=== PATIENT | female | born 1960 | race Caucasian/White ===

== ENCOUNTER → 2017-03-12 | Outpatient (CLI) | payer BC ==
[~2017-03-12] MED LIST: CATHETER FLUSH 10 ML SYR IV PRN; IOHEXOL 350 MG/ML 100 ML (OMNIPAQUE 350) VIAL IV ONE; NS 100 ML (IVPB) BAG IV ONE
[2017-03-12 08:36] LABS: BASOPHILS % (AUTO) 0 % (0-10); EOSINOPHILS # (AUTO) 0.1 10^3/uL (0.0-0.3); EOSINOPHILS % (AUTO) 1 % (0-10); LYMPHOCYTES # (AUTO) 1.4 X 10^3 (1.0-4.0); LYMPHOCYTES % (AUTO) 17 % (12-44); MEAN CORPUSCULAR HEMOGLOBIN 25 PG (25-34); MEAN CORPUSCULAR HGB CONC 31 G/DL (32-36); MEAN CORPUSCULAR VOLUME 79 FL (80-99); MEAN PLATELET VOLUME 9.6 FL (7.4-10.4); MONOCYTES # (AUTO) 0.6 X 10^3 (0.0-1.0); MONOCYTES % (AUTO) 7 % (0-12); NEUTROPHILS # (AUTO) 6.4 X 10^3 (1.8-7.8); NEUTROPHILS % (AUTO) 76 % (42-75); PLATELET COUNT 415 10^3/uL (130-400); RED CELL DISTRIBUTION WIDTH 15.2 % (10.0-14.5); WHITE BLOOD COUNT 8.5 10^3/uL (4.3-11.0)
[2017-03-12 08:54] LABS: ALANINE AMINOTRANSFERASE 9 U/L (0-55); ALBUMIN 3.7 GM/DL (3.2-4.5); ANION GAP 7 MMOL/L (5-14); ASPARTATE AMINO TRANSFERASE 15 U/L (5-34); BILIRUBIN,TOTAL 0.4 MG/DL (0.1-1.0); BLOOD UREA NITROGEN 13 MG/DL (7-18); BUN/CREATININE RATIO 18; CALCIUM 9.3 MG/DL (8.5-10.1); CARBON DIOXIDE 25 MMOL/L (21-32); CHLORIDE 107 MMOL/L (98-107); CHOLESTEROL 208 MG/DL (< 200); CREATININE SERUM 0.71 MG/DL (0.60-1.30); DIRECT LDL 165 MG/DL (1-129); GFR ESTIMATED > 60; GLUCOSE 103 MG/DL (70-105); POTASSIUM 4.1 MMOL/L (3.6-5.0); SODIUM 139 MMOL/L (135-145); TOTAL PROTEIN 7.9 GM/DL (6.4-8.2); TRIGLYCERIDES 121 MG/DL (<150); VLDL CHOLESTEROL 24 MG/DL (5-40)
--- NOTE | 2017-03-12 11:02 | Diagnostic Imaging Report ---
INDICATION: Palpable mass in the supraclavicular region. TECHNIQUE: Multiple Real-time grayscale images were obtained over the left supraclavicular region in various projections. FINDINGS: There is a hypoechoic mass in the supraclavicular region measuring 1.6 x 0.9 x 1.7 cm. There is a similar mass adjacent to this measuring 1 x 1 x 0.9 cm. IMPRESSION: Low-density pathologic-appearing adenopathy in the supraclavicular region, suspect for metastatic disease. Recommend clinical correlation and, if warranted, followup with biopsy. Dictated by: Dictated on workstation # [id number]
--- NOTE | 2017-03-12 11:02 | Diagnostic Imaging Report ---
PROCEDURE: CT abdomen and pelvis with contrast. TECHNIQUE: Multiple contiguous axial images were obtained through the abdomen and pelvis after administration of intravenous contrast. INDICATION: Hematuria and frequent urination and not feeling like bladder is emptying. No prior examinations are available for comparison. FINDINGS: The heart size is normal. The lung bases are clear. There is a low-density lesion in the superior medial aspect of the right lobe of the liver measuring 3.2 cm. This becomes almost completely isodense with surrounding liver on delayed imaging. Imaging findings are suggestive of, however not definitive for, hemangioma. There is no biliary ductal dilatation. The gallbladder is unremarkable. There is no biliary ductal dilatation. Spleen is normal. The pancreas and adrenal glands are unremarkable. The kidneys are unremarkable. The abdominal aorta is nonaneurysmal. There is a low-density left para-aortic mass measuring 2.7 cm. Several other periaortic lymph nodes are also seen measuring 1.8 cm and 1.5 cm. Slightly more caudal there is a left periaortic mass measuring 2 cm. There is a left common iliac node measuring 1.7 cm. There is a mass in the right pelvis measuring 4.2 cm. There is a mass in the lateral aspect of the left pelvis measuring 4.3 cm. There is a right obturator mass measuring 6.8 AP x 3.4 cm transverse. The uterus is diffusely enlarged and heterogeneous. There is no ascites. Bowel gas pattern is nonspecific. There is some minimal diverticular disease. There are mild degenerative changes in the spine. The bladder is incompletely distended; however, there is thickening of the bladder wall. The possibility of a discrete bladder mass cannot be excluded. IMPRESSION: Bilateral pelvic masses as well as left periaortic adenopathy. Findings are suspect for neoplastic process either lymphomatous or possibly metastatic. Further evaluation with biopsy is recommended. While the bladder is incompletely distended and appears to have a thickened wall, the possibility of a primary bladder carcinoma with metastatic disease is also a consideration. Diffusely enlarged and heterogeneous appearance of the uterus. While this may reflect underlying fibroids, the possibility of an endometrial carcinoma certainly cannot be excluded. Recommend clinical correlation. Low-density mass in the liver which does gradually become isodense with liver on delayed imaging, however, does not have typical peripheral enhancement pattern of a hemangioma. This may be an atypical hemangioma although metastatic disease in the liver cannot be entirely excluded. Dictated by: Dictated on workstation # [id number]
--- NOTE | 2017-03-12 11:32 | Diagnostic Imaging Report ---
INDICATION: Screening. TECHNIQUE: Screening digital mammography was performed bilaterally with a Computer Aided Detection (CAD) system. COMPARISON: 03/08/2016, 12/15/2014, 12/14/2013, and 08/31/2010. FINDINGS: There is a moderate amount of residual fibroglandular tissue bilaterally. There is no dominant mass, spiculated lesion, or suspicious calcification identified. The skin, nipples, and axillae are unremarkable. IMPRESSION: Negative exam. ACR BI-RADS Category 1: Negative. Result letter will be mailed to the patient. Note: At least 10% of breast cancer is not imaged by mammography. Dictated by: Dictated on workstation # [id number]
== END ==
LOC: RAD 08:14
PROVIDERS: ATTEND Family Medicine
DX: Z12.31 Encounter for screening mammogram for malignant neoplasm of breast (principal); R59.0 Localized enlarged lymph nodes; R19.09 Other intra-abdominal and pelvic swelling, mass and lump; N32.9 Bladder disorder, unspecified; K76.9 Liver disease, unspecified; N85.2 Hypertrophy of uterus; E66.9 Obesity, unspecified
CPT/HCPCS: 36415; 74177; 76536; 77067; 80053; 80061; 83036; 85025

== ENCOUNTER 2017-04-04 12:52 | Outpatient (CLI) | payer BC ==
[~2017-04-04] VITALS: Ht 166.4 cm; Wt 81.2 kg
[2017-04-04] MEDS ORDERED: BISO1TAB3 PO (13:52)
[2017-04-05] MEDS ORDERED: HYDR-3820 PO (12:21)
== END 2017-04-04 13:59 ==
LOC: PREOP 12:52
PROVIDERS: ATTEND Surgery
DX: Z01.818 Encounter for other preprocedural examination; R59.0 Localized enlarged lymph nodes; C67.9 Malignant neoplasm of bladder, unspecified

== ENCOUNTER 2017-04-05 09:52 | Day surgery (SDC) | payer BC ==
[~2017-04-05] VITALS: Ht 166.4 cm; Wt 81.2 kg
[~2017-04-05 09:52] MED LIST changes: +BISO1TAB3 PO; -CATHETER FLUSH 10 ML SYR IV PRN; -IOHEXOL 350 MG/ML 100 ML (OMNIPAQUE 350) VIAL IV ONE; -NS 100 ML (IVPB) BAG IV ONE
--- OUTSIDE RECORDS SUMMARY | 2017-04-05 09:57 | XMS REPORT | Continuity of Care Document ---
Author Author [employer] Organization [facility] Address Unknown Phone Unavailable Care Team Providers Care [place] Rep[employer]r Name Role Phone [employer] Unavailable Unavailable Problems Medications Allergies, Adverse Reactions, Alerts Immunizations Results Vital Signs Encounters Location Location Details Encounter Type Encounter Number Reason For Visit Attending Provider ADM Date DC Date Status Source [place] SERIES [id number] LELO FERMIN 03/19/2017 Active [facility] OUTPATIENT [id number] JONNY KANG 03/19/2017 03/19/2017 Active [facility] RAD/ONC [id number] 03/19/2017 Active [facility] EXT RECOVERY [id number] JONNY KANG 03/25/2017 03/26/2017 Active [facility] CA SERIES [id number] AMRIT KARLA 03/29/2017 03/29/2017 Active [facility] RAD/ONC [id number] 03/30/2017 Active [facility] OUTPATIENT [id number] AMRITHILARIO DE LEÓNMI 04/02/2017 Active [facility] CA SERIES [id number] BRUCE TEJADA 04/08/2017 Active [facility] OP SURGERY [id number] 04/10/2017 Active [facility] CA SERIES [id number] BRUCE TEJADA 04/11/2017 Active [facility] O AMRIT ACOSTA Active [facility] Procedures Plan of Care Social History Assessment and Plan Family History Value Date Source Advance Directives Order Name Results Value Date Source
--- OUTSIDE RECORDS SUMMARY | 2017-04-05 09:57 | XMS REPORT | Clinical Summary ---
Author Author [facility] Organization [facility] Address Unknown Phone Unavailable Care Team Providers Care Batch Still Operator Name Role Phone PCP Unavailable Source Comments Some departments are not documenting in the electronic medical record. If you do not see the information that you expected, contact Release of Information in the Health Information Management department at [phone] for further assistance in locating additional records.[facility] Allergies No Known Allergies Current Medications Prescription Sig. Disp. Refills Start End Date Status Date ACETAMINOPHEN/DIPHENHYDRA Take 1 tablet by mouth as Active MINE (TYLENOL PM PO) Needed. bisoprolol/hydrochlorothi Take 1 tablet by mouth Active azide (ZIAC) 10/6.25 mg daily. tablet ciprofloxacin (CIPRO) 500 Take 1 tablet by mouth 6 tablet 0 03/26/20 Active mg tablet twice daily. Begin taking 17 the day prior to catheter removal. oxybutynin chloride Take 1 tablet by mouth 30 tablet 0 03/26/20 Active (DITROPAN) 5 mg three times daily as 17 tabletIndications: needed. Indications: BLADDER HYPERACTIVITY BLADDER HYPERACTIVITY senna/docusate (SENNA-S) Take 1 tablet by mouth 15 tablet 0 03/26/20 Active 8.6/50 mg twice daily. Indications: 17 tabletIndications: CONSTIPATION CONSTIPATION HYDROcodone/acetaminophen Take 1 tablet by mouth 10 tablet 0 03/26/20 Active (NORCO) 5/325 mg every 4 hours as needed 17 tabletIndications: PAIN for Pain Indications: PAIN ciprofloxacin (CIPRO) 500 Take 1 tablet by mouth 2 tablet 0 03/19/20 03/26/20 Discontin mg tablet twice daily. 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 PLAN & DISCUSSION: I spent approximately 30 minutes with the patient and her today discussing the pathology report, natural history of bladder cancer, and treatment options in detail. We reviewed the following treatment options: 1. Observation. 2. Neoadjuvant chemotherapy followed by radical cystectomy. 3. Radical cystectomy followed by adjuvant chemotherapy. 4. Radiation therapy with concurrent chemotherapy. 5. Radical TURBT I explained to the patient that the best recommendation is neoadjuvant chemotherapy followed by radical cystectomy. Given that she may have metastatic disease outside of the local field, surgery after chemotherapy could be considered if the response is excellent. The next step is chemotherapy and she is amenable. I reviewed the case with Dr. Giang and he will see her today. Alin Yip MD Hematuria 03/19/2017 Overview: Bilateral pelvic masses as well as left periaortic adenopathy. Findings are suspect for neoplastic process either lymphomatous or possibly metastatic. Further evaluation with biopsy is recommended. While the bladder incompletely distended and appears to have a thickened wall, the possibility of a primary bladder carcinoma with metastatic disease is also a consideration. Diffusely enlarged and heterogeneous appearance of the uterus. While this may reflect underlying fibroids, the possibility of an endometrial carcinoma certainly cannot be excluded. Recommend clinical correlation. Low density mass in the liver which does gradually become isodense with liver on delayed imaging, however, does not have typical peripheral enhancement pattern of a hemangioma. This may be an atypical hemangioma although metastatic disease in the liver cannot be entirely excluded. L ast Assessment & Plan: Needs cystoscopy. Encounters Date Type Specialty Care Team Description 04/03/2017 Telephone Oncology Emily Giang MD Appointment 04/03/2017 Documentation Oncology Emily Giang MD 04/02/2017 [facility] Cardiology Emily Giang MD Arrived Encounter 03/29/2017 Office Visit Oncology Jonny Ogden MD Urothelial cancer ( HCC) Emily Giang MD (Primary Dx) 03/29/2017 Office Visit Urology Jonny Ogden MD Malignant neoplasm of overlapping sites of bladder (HCC) (Primary Dx) 03/26/2017 Telephone Radiation Therapy Raphael Leonard MD Appointment 03/25/2017 Hospital Jonny Ogden MD Malignant neoplasm of - Encounter overlapping sites of 03/26/2017 bladder (HCC) 03/25/2017 Procedure Pass 03/25/2017 Surgery Jonny Ogden MD CYSTOSCOPY WITH TRANSURETHRAL RESECTION BLADDER TUMOR GREATER THAN 5 CM, CYSTOGRAM, 03/24/2017 Anesthesia Akhil Tesfaye, Event 03/20/2017 Prep for Case Urology Jonny Ogden MD 03/19/2017 Hospital Radiology Jonny Ogden MD Encounter 03/19/2017 Office Visit Urology Jonny Ogden MD Malignant neoplasm of overlapping sites of bladder (HCC) (Primary Dx);Hematuria 03/19/2017 Ancillary Urology Jonny Ogden MD Hematuria Orders 03/19/2017 Procedure Pass Radiology 03/19/2017 Procedure Pass Radiology 03/14/2017 Telephone Oncology Jonny Ogden MD Navigation Assessment 03/14/2017 Ancillary Radiology Outpatient, Radiologist Diagnosis unknown Orders 03/12/2017 Hospital Radiology Encounter 03/12/2017 Hospital Radiology Encounter from Last 3 Months Family History Medical History Relation Name Comments Liver Disease Brother Coronary Artery Disease Father Cancer Mother Possible colon cancer Diabetes Other Heart Disease Other Hypertension Other Stroke Other Relation Name Status Comments Brother Alive Father Mother Other Sister Other Social History Tobacco Use Types Packs/Day Years Used Date Never Smoker Smokeless Tobacco: Never Used Alcohol Use Drinks/Week oz/Week Comments Yes Sex Assigned at Date Recorded Not on file Last Filed Vital Signs Vital Sign Reading Time Taken Blood Pressure 130/66 04/02/2017 10:37 AM CDT Pulse 62 03/29/2017 9:45 AM CDT Temperature 36.7 C (98 F) 03/29/2017 9:45 AM CDT Respiratory Rate 16 03/29/2017 9:45 AM CDT Oxygen Saturation 97% 03/29/2017 9:45 AM CDT Inhaled Oxygen - - Concentration Weight 82.1 kg (181 lb) 04/02/2017 10:37 AM CDT Height 165.1 cm (5' 5") 04/02/2017 10:37 AM CDT Body Mass Index 30.12 04/02/2017 10:37 AM CDT Plan of Treatment Date Type Specialty Care Team Description 04/10/2017 Hospital Radiology Emily Giang MD Canceled (Other) Encounter [address] [place] [id number] Health Maintenance Due Date Last Done Comments HEPATITIS C SCREENING 1962 PHYSICAL (COMPREHENSIVE) 1969 EXAM PERTUSSIS VACCINE 1973 TETANUS VACCINE 1979 CERVICAL CANCER SCREENING 01/18/1992 BREAST CANCER SCREENING 2002 COLORECTAL CANCER 01/18/2012 SCREENING INFLUENZA VACCINE 04/14/2017 Procedures Procedure Name Priority Date/Time Associated Diagnosis Comments ECG-SCAN 03/27/2017 Results for this 4:59 PM CDT procedure are in the results section. CYSTOSCOPY WITH 03/25/2017 Malignant neoplasm of TRANSURETHRAL RESECTION 12:45 PM CDT overlapping sites of BLADDER TUMOR GREATER bladder (HCC) THAN 5 CM, CYSTOGRAM, [place] CYSTOURETHROSCOPY Routine 03/23/2017 Hematuria Results for this 2:17 PM CDT procedure are in the results section. from Last 3 Months Results * 2-D + DOPPLER ECHOCARDIOGRAM (04/02/2017 10:37 AM) Component Value Ref Range BSA 1.94 m2 LVIDD 4.8 3.9 - 5.3 cm IVS 0.9 0.6 - 0.9 cm PW 0.9 0.6 - 0.9 cm LVIDS 3.2 cm LA volume 84.2 22 - 52 mL Sinus 3.0 2.1 - 3.5 cm LA size 4.1 2.7 - 3.8 cm AV peak velocity 1.3 m/s TDI e' 0.100 m/s TV rest pulmonary artery 26 mmHg pressure Right Ventricular Basal 4.1 2.5 - 4.1 cm Diameter Right Ventricular Mid 3.3 1.9 - 3.5 cm Diameter Right Ventricular Long 7.1 5.9 - 8.3 cm Diameter Right Atrial Area 14.9 <=18 cm2 Right Atrial Major 4.7 <=5.3 cm Dimension Right Heart Systolic 2.7 cm Mmode TAPSE MV Peak E Lior PW 0.800 m/s MV Peak A Lior 0.700 m/s FS 33.33 28 - 44 % EF 56.66 % Left Atrium Index 43.40 10 - 32 E/A ratio 1.14 E/E' ratio 8.00 ECHO EF 60 % Specimen Performing Laboratory OTHER OUTSIDE LAB Narrative 1. Normal LV size and systolic function. Estimated LV EF of 55%. 2. Normal average global longitudinal strain of -23.35% 3. Normal RV size and function. 4. Valves appear structurally unremarkable for age. Trace MR, trace TR, trace PI. 5. Normal estimated peak PA systolic pressure of 26 mmHg. 6. No obvious mass, vegetation or thrombus. 7. No pericardial effusion. No prior study available for comparison. * ECG-SCAN (03/27/2017 4:59 PM) Narrative Ordered by an unspecified provider. * CBC (03/26/2017 3:20 AM) Only the most recent of 2 results within the time period is included. Component Value Ref Range White Blood Cells 6.8 4.5 - 11.0 K/UL RBC 4.07 4.0 - 5.0 M/UL Hemoglobin 10.1 (L) 12.0 - 15.0 GM/DL Hematocrit 31.0 (L) 36 - 45 % MCV 76.1 (L) 80 - 100 FL MCH 24.9 (L) 26 - 34 PG MCHC 32.7 32.0 - 36.0 G/DL RDW 16.0 (H) 11 - 15 % Platelet Count 369 150 - 400 K/UL MPV 7.3 7 - 11 FL Specimen Performing Laboratory [facility] [address] [place] [address] * BASIC METABOLIC PANEL (03/26/2017 3:20 AM) Only the most recent of 2 results within the time period is included. Component Value Ref Range Sodium 139 137 - 147 MMOL/L Potassium 4.2 3.5 - 5.1 MMOL/L Chloride 107 98 - 110 MMOL/L CO2 26 21 - 30 MMOL/L Anion Gap 6 3 - 12 Glucose 98 70 - 100 MG/DL Blood Urea Nitrogen 8 7 - 25 MG/DL Creatinine 0.57 0.4 - 1.00 MG/DL Calcium 9.1 8.5 - 10.6 MG/DL eGFR Non >60 >60 mL/min Comment: The eGFR is not validated for use in drug dosing adjustments. Continue to use estimated creatinine clearance per dosing reference text. Please contact the Clinical Pharmacist for questions. eGFR >60 >60 mL/min Comment: The eGFR is not validated for use in drug dosing adjustments. Continue to use estimated creatinine clearance per dosing reference text. Please contact the Clinical Pharmacist for questions. Specimen Performing Laboratory [facility] [address] [place] [address] * FLUORO MOBILE IN OR (03/25/2017 2:04 PM) Specimen Performing Laboratory [facility] Narrative This order has been auto finalized and does not contain a result. * SURGICAL PATHOLOGY (03/25/2017 2:00 PM) Component Value Ref Range PATHOLOGY REPORT [facility] [email or web address] Mei Barron MD, PhD, Director of Anatomic Pathology Department of Pathology and Laboratory Medicine [facility] [place] [address] Surgical Pathology Office: [phone] SURGICAL PATHOLOGY REPORT NAME: DALY BRASWELL SURG PATH #: [id number] MR #: [id number] SPECIMEN CLASS: SR BILLING #: [id number] ALT ID #: LOCATION: [facility] DATE OF PROCEDURE: 03/25/2017 AGE: 57 SEX: F DATE RECEIVED: 03/25/2017 : 1960 TIME RECEIVED: 14:00 PHYSICIAN: JONNY OGDEN DATE OF REPORT: 03/26/2017 COPY TO: DATE OF PRINTIN03/26/2017 ################################################## ###################### Final Diagnosis: A. 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 Carcinoma invades muscularis propria. See checklist. Comment: URINARY BLADDER: Biopsy and Transurethral Resection of Bladder Tumor (TURBT) Procedure (required only for TURBT) TURBT Tumor Type Invasive carcinoma Histologic Type Urothelial (transitional cell) carcinoma with squamous differentiation Associated Epithelial Lesions (select all that apply) None identified Histologic Grade (select all that apply) Urothelial carcinoma High-grade Tumor Configuration (select all that apply) Solid/nodule Flat Adequacy of Material for Determining Muscularis Propria Invasion Muscularis propria (detrusor muscle) present Lymph-Vascular Invasion Not identified Microscopic Tumor Extension (select all that apply) Tumor invades muscularis propria (detrusor muscle) Pathologic Staging (pTNM) Primary Tumor (pT) pT2: Tumor invades muscularis propria The pathologic stage assigned here should be regarded as provisional, as it reflects only current pathologic data and does not incorporate full knowledge of the patient's clinical status and/or prior pathology. Pursuant to the Methods Study Analyst Program at the [facility] Pathology Department, selected slides from this case have been concurrently reviewed by the following pathologist: Dr. Lexie Lantigua, who agrees with the final diagnosis. Block for Biomarker Testing: [A4 ] Attestation: By this signature, I attest that I have personally formulated the final interpretation expressed in this report and that the above diagnosis is based upon my examination of the slides and/or other material indicated in this report. +++ +++ kd/03/26/2017 ################################################## ###################### Material Received: A: bladder chips History: 57-year-old female with a clinical history of malignant neoplasm of bladder Gross Description: A. bladder chips: Fixative: Formalin Labeled: "Bladder chips" Weight: 10g Dimensions: 4.0 x 4.0 x 0.7 cm. Cassettes [id number] specimen 03/25/2017 Specimen Performing Laboratory [facility] * TEST-URINE (03/25/2017 11:13 AM) Component Value Ref Range Urine-HCG NEG Specific Ignacio 1.015 Specimen Performing Laboratory Urine [facility] [address] [place] [address] * CYSTOSCOPY (03/23/2017 2:17 PM) Specimen Performing Laboratory IN CLINIC Narrative Jonny Ogden MD 03/23/20172:17 PM Surgeon:Jonny Ogden MD Preprocedure Diagnosis:hematuria. Postprocedure Diagnosis:Bladder cancer. Operative Procedure:Cystourethroscopy. Anesthesia:Viscous lidocaine jelly, 10 cc. Indications for Operative Procedure:Daly Braswell is a 57 y.o. female with history of bladder cancer. Informed consent was obtained prior to proceeding. Description of Operative Procedure:The patient was taken to the procedure room and placed in a dorsal lithotomy position.Her genitalia were prepped in sterile fashion.10 cc of viscous lidocaine jelly was instilled per the urethra.The scope was placed at the meatus and then advanced into the bladder.The urethra was without any abnormalities. The bladder was entered without difficulty.There were no bladder neck contractures. Both ureteral orifices were identified in normal size, shape, and position.There was no trabeculation of bladder wall.There was a large posterolateral mass and smaller masses seen. The patient tolerated the procedure well. Plan:TURBT * CT ABD/PELV WO/W CONTRAST (03/19/2017 10:51 AM) Specimen Performing Laboratory [facility] RESULTS Impressions CHEST: 1. Left supraclavicular adenopathy. ABDOMEN AND PELVIS: 1. Extensive bulky adenopathy involving the retroperitoneum and pelvis. Bladder wall thickening is also evident. Leading differentials would include lymphoma with secondary involvement of the urinary bladder versus primary bladder carcinoma and metastatic adenopathy. Finalized by Yossi Jenkins M.D. on 03/19/2017 1:05 PM. Dictated by Yossi Jenkins M.D. on 03/19/2017 12:[address] CHEST, ABDOMEN AND PELVIS Clinical Indication:Female, 57 years old. Bladder carcinoma. Technique: Multiple contiguous axial images were obtained through the chest, abdomen and pelvis following the uneventful administration of IV contrast material. Noncontrast as well as portal venous and delayed phase imaging was obtained through the abdomen. Post processing coronal and sagittal reconstruction images were made from the axial images. IV contrast: 100 mL Isovue 370. Bowel contrast:Water Comparison: Outside CT March 12, 2017. CHEST FINDINGS: Axilla, Mediastinum and Bria: No additional adenopathy is seen. Heart and Great Vessels: Unremarkable. Airway, Lungs and Pleura: Mild scarring is evident along the major fissure on the right and in the right lung base. No pulmonary nodules are evident. Chest Wall and Osseous Structures: No concerning osseous lesions are seen. ABDOMEN AND PELVIS FINDINGS: Liver and Biliary system: Segment 8 Central hemangioma is noted. No concerning hepatic lesions are seen. Gallbladder is normal. Spleen: Unremarkable. Adrenal Glands and Kidneys: Adrenal glands are normal. Kidneys are unremarkable. Pancreas and Retroperitoneum: Pancreas is normal. There is extensive retroperitoneal adenopathy. Residence Manager left periaortic low-density node measures 2.7 x 2.7 cm image 40 series 9. Diminished attenuation likely indicates necrosis. Multiple additional retroperitoneal lymph nodes are seen. Aorta and Major Vessels: Minimal calcification of the abdominal aorta as well as abdominal pelvic vasculature is seen. Bowel, Mesentery and Peritoneal space: Small large bowel are normal in caliber. The appendix is normal. Pelvis: Bulky adenopathy is evident within the pelvis bilaterally. Prominent right external iliac lymph node measures 3.2 x 7 cm image 79 series 14. Uterus is retroverted. There is irregular mural thickening of the bladder dome measuring 1.7 cm in thickness. Minimal free fluid is noted within the pelvis. Abdominal wall and Osseous Structures: No concerning osseous lesions are seen. Procedure Note Interface, Radiant Results - 03/19/2017 1:[address] CHEST, ABDOMEN AND PELVIS Clinical Indication: Female, 57 years old. Bladder carcinoma. Technique: Multiple contiguous axial images were obtained through the chest, abdomen and pelvis following the uneventful administration of IV contrast material. Noncontrast as well as portal venous and delayed phase imaging was obtained through the abdomen. Post processing coronal and sagittal reconstruction images were made from the axial images. IV contrast: 100 mL Isovue 370. Bowel contrast: Water Comparison: Outside CT March 12, 2017. CHEST FINDINGS: Axilla, Mediastinum and Bria: No additional adenopathy is seen. Heart and Great Vessels: Unremarkable. Airway, Lungs and Pleura: Mild scarring is evident along the major fissure on the right and in the right lung base. No pulmonary nodules are evident. Chest Wall and Osseous Structures: No concerning osseous lesions are seen. ABDOMEN AND PELVIS FINDINGS: Liver and Biliary system: Segment 8 Central hemangioma is noted. No concerning hepatic lesions are seen. Gallbladder is normal. Spleen: Unremarkable. Adrenal Glands and Kidneys: Adrenal glands are normal. Kidneys are unremarkable. Pancreas and Retroperitoneum: Pancreas is normal. There is extensive retroperitoneal adenopathy. Residence Manager left periaortic low-density node measures 2.7 x 2.7 cm image 40 series 9. Diminished attenuation likely indicates necrosis. Multiple additional retroperitoneal lymph nodes are seen. Aorta and Major Vessels: Minimal calcification of the abdominal aorta as well as abdominal pelvic vasculature is seen. Bowel, Mesentery and Peritoneal space: Small large bowel are normal in caliber. The appendix is normal. Pelvis: Bulky adenopathy is evident within the pelvis bilaterally. Prominent right external iliac lymph node measures 3.2 x 7 cm image 79 series 14. Uterus is retroverted. There is irregular mural thickening of the bladder dome measuring 1.7 cm in thickness. Minimal free fluid is noted within the pelvis. Abdominal wall and Osseous Structures: No concerning osseous lesions are seen. IMPRESSION CHEST: 1. Left supraclavicular adenopathy. ABDOMEN AND PELVIS: 1. Extensive bulky adenopathy involving the retroperitoneum and pelvis. Bladder wall thickening is also evident. Leading differentials would include lymphoma with secondary involvement of the urinary bladder versus primary bladder carcinoma and metastatic adenopathy. Finalized by Yossi Jenkins M.D. on 03/19/2017 1:05 PM. Dictated by Yossi Jenkins M.D. on 03/19/2017 12:49 PM. * CT CHEST W CONTRAST (03/19/2017 10:51 AM) Specimen Performing Laboratory [facility] RESULTS Impressions CHEST: 1. Left supraclavicular adenopathy. ABDOMEN AND PELVIS: 1. Extensive bulky adenopathy involving the retroperitoneum and pelvis. Bladder wall thickening is also evident. Leading differentials would include lymphoma with secondary involvement of the urinary bladder versus primary bladder carcinoma and metastatic adenopathy. Finalized by Yossi Jenkins M.D. on 03/19/2017 1:05 PM. Dictated by Yossi Jenkins M.D. on 03/19/2017 12:[address] CHEST, ABDOMEN AND PELVIS Clinical Indication:Female, 57 years old. Bladder carcinoma. Technique: Multiple contiguous axial images were obtained through the chest, abdomen and pelvis following the uneventful administration of IV contrast material. Noncontrast as well as portal venous and delayed phase imaging was obtained through the abdomen. Post processing coronal and sagittal reconstruction images were made from the axial images. IV contrast: 100 mL Isovue 370. Bowel contrast:Water Comparison: Outside CT March 12, 2017. CHEST FINDINGS: Axilla, Mediastinum and Bria: No additional adenopathy is seen. Heart and Great Vessels: Unremarkable. Airway, Lungs and Pleura: Mild scarring is evident along the major fissure on the right and in the right lung base. No pulmonary nodules are evident. Chest Wall and Osseous Structures: No concerning osseous lesions are seen. ABDOMEN AND PELVIS FINDINGS: Liver and Biliary system: Segment 8 Central hemangioma is noted. No concerning hepatic lesions are seen. Gallbladder is normal. Spleen: Unremarkable. Adrenal Glands and Kidneys: Adrenal glands are normal. Kidneys are unremarkable. Pancreas and Retroperitoneum: Pancreas is normal. There is extensive retroperitoneal adenopathy. Residence Manager left periaortic low-density node measures 2.7 x 2.7 cm image 40 series 9. Diminished attenuation likely indicates necrosis. Multiple additional retroperitoneal lymph nodes are seen. Aorta and Major Vessels: Minimal calcification of the abdominal aorta as well as abdominal pelvic vasculature is seen. Bowel, Mesentery and Peritoneal space: Small large bowel are normal in caliber. The appendix is normal. Pelvis: Bulky adenopathy is evident within the pelvis bilaterally. Prominent right external iliac lymph node measures 3.2 x 7 cm image 79 series 14. Uterus is retroverted. There is irregular mural thickening of the bladder dome measuring 1.7 cm in thickness. Minimal free fluid is noted within the pelvis. Abdominal wall and Osseous Structures: No concerning osseous lesions are seen. Procedure Note Interface, Radiant Results - 03/19/2017 1:[address] CHEST, ABDOMEN AND PELVIS Clinical Indication: Female, 57 years old. Bladder carcinoma. Technique: Multiple contiguous axial images were obtained through the chest, abdomen and pelvis following the uneventful administration of IV contrast material. Noncontrast as well as portal venous and delayed phase imaging was obtained through the abdomen. Post processing coronal and sagittal reconstruction images were made from the axial images. IV contrast: 100 mL Isovue 370. Bowel contrast: Water Comparison: Outside CT March 12, 2017. CHEST FINDINGS: Axilla, Mediastinum and Bria: No additional adenopathy is seen. Heart and Great Vessels: Unremarkable. Airway, Lungs and Pleura: Mild scarring is evident along the major fissure on the right and in the right lung base. No pulmonary nodules are evident. Chest Wall and Osseous Structures: No concerning osseous lesions are seen. ABDOMEN AND PELVIS FINDINGS: Liver and Biliary system: Segment 8 Central hemangioma is noted. No concerning hepatic lesions are seen. Gallbladder is normal. Spleen: Unremarkable. Adrenal Glands and Kidneys: Adrenal glands are normal. Kidneys are unremarkable. Pancreas and Retroperitoneum: Pancreas is normal. There is extensive retroperitoneal adenopathy. Residence Manager left periaortic low-density node measures 2.7 x 2.7 cm image 40 series 9. Diminished attenuation likely indicates necrosis. Multiple additional retroperitoneal lymph nodes are seen. Aorta and Major Vessels: Minimal calcification of the abdominal aorta as well as abdominal pelvic vasculature is seen. Bowel, Mesentery and Peritoneal space: Small large bowel are normal in caliber. The appendix is normal. Pelvis: Bulky adenopathy is evident within the pelvis bilaterally. Prominent right external iliac lymph node measures 3.2 x 7 cm image 79 series 14. Uterus is retroverted. There is irregular mural thickening of the bladder dome measuring 1.7 cm in thickness. Minimal free fluid is noted within the pelvis. Abdominal wall and Osseous Structures: No concerning osseous lesions are seen. IMPRESSION CHEST: 1. Left supraclavicular adenopathy. ABDOMEN AND PELVIS: 1. Extensive bulky adenopathy involving the retroperitoneum and pelvis. Bladder wall thickening is also evident. Leading differentials would include lymphoma with secondary involvement of the urinary bladder versus primary bladder carcinoma and metastatic adenopathy. Finalized by Yossi Jenkins M.D. on 03/19/2017 1:05 PM. Dictated by Yossi Jenkins M.D. on 03/19/2017 12:49 PM. * CT ABDOMEN EXTERNAL IMAGING (03/12/2017 9:15 AM) Narrative This order has been auto finalized and does not contain a result. * US NECK EXTERNAL IMAGING (03/12/2017 8:55 AM) Narrative This order has been auto finalized and does not contain a result. from Last 3 Months
--- OUTSIDE RECORDS SUMMARY | 2017-04-05 09:58 | XMS REPORT | Encounter Summary ---
Author Author [facility] Organization [facility] Address Unknown Phone Unavailable Care Team Providers Care Edge Banding Machine Offbearer Name Role Phone PCP Unavailable Encounter Details Date Type Department Care Team Description 04/03/2017 Documentation [facility] Emily Giang MD Cancer Center - WW Exam [address] [place] [address] [place] [address] [phone] Social History Tobacco Use Types Packs/Day Years Used Date Never Smoker Smokeless Tobacco: Never Used Alcohol Use Drinks/Week oz/Week Comments Yes Sex Assigned at Date Recorded Not on file as of this encounter Progress Notes * Heidy Patel, RN - 04/03/2017 11:56 AM CDT Pt has decided she would like to do chemotherapy closer to home in [facility]. Dr Giang aware. Referral and appt made with Dr Bailey 04/19/17. Records faxed to [phone]. Pt to have biopsy of LN and port placed at on 04/10. Pt verbalizes understanding and encouraged to call with questions. in this encounter Plan of Treatment Date Type Specialty Care Team Description 04/10/2017 Hospital Radiology Emily Giang MD Canceled (Other) Encounter [address] [place] [address] [phone] as of this encounter Visit Diagnoses Not on filein this encounter
--- OUTSIDE RECORDS SUMMARY | 2017-04-05 09:58 | XMS REPORT | Encounter Summary ---
Author Author [facility] Organization [facility] Address Unknown Phone Unavailable Care Team Providers Care Scaler Name Role Phone PCP Unavailable Reason for Visit * Reason Comments Appointment Encounter Details Date Type Department Care Team Description 03/26/2017 Telephone Cancer Center - Radiation Raphael Leonard MD Appointment Therapy [address] [place] [address] [place] [address] [phone] Social History Tobacco Use Types Packs/Day Years Used Date Never Smoker Smokeless Tobacco: Never Used Alcohol Use Drinks/Week oz/Week Comments Yes Sex Assigned at Date Recorded Not on file as of this encounter Plan of Treatment Date Type Specialty Care Team Description 04/10/2017 Hospital Radiology Emily Giang MD Canceled (Other) Encounter [address] [place] [address] [phone] as of this encounter Visit Diagnoses Not on filein this encounter
--- OUTSIDE RECORDS SUMMARY | 2017-04-05 09:58 | XMS REPORT | Encounter Summary ---
Author Author [facility] Organization [facility] Address Unknown Phone Unavailable Care Team Providers Care Cost Clerk Name Role Phone PCP Unavailable Reason for Visit * Reason Comments Bladder Cancer Encounter Details Date Type Department Care Team Description 03/29/2017 Office Visit [facility] Phi Ogden MD Malignant neoplasm of Physicians - Urology [address] overlapping sites of 2ND FLOOR POD A [place] [address] bladder (HCC) (Primary [address] [place] [address] Dx) OFFICE BLDG [phone] [place] [address] Social History Tobacco Use Types Packs/Day Years Used Date Never Smoker Smokeless Tobacco: Never Used Alcohol Use Drinks/Week oz/Week Comments Yes Sex Assigned at Date Recorded Not on file as of this encounter Last Filed Vital Signs Vital Sign Reading Time Taken Blood Pressure 120/56 03/29/2017 8:15 AM CDT Pulse 77 03/29/2017 8:15 AM CDT Temperature - - Respiratory Rate - - Oxygen Saturation - - Inhaled Oxygen - - Concentration Weight 82.6 kg (182 lb) 03/29/2017 8:15 AM CDT Height 165.1 cm (5' 5") 03/29/2017 8:15 AM CDT Body Mass Index 30.29 03/29/2017 8:15 AM CDT in this encounter Progress Notes * Phi Ogden MD - 03/29/2017 8:30 AM CDT Formatting of this note may be different from the original. Date of Service: 03/29/2017 Subjective: Daly Braswell is a 57 y.o. female. History of Present Illness Did well after surgery Catheter out Denies pain, hematuria Review of Systems Per hpi Objective: ACETAMINOPHEN/DIPHENHYDRAMINE (TYLENOL PM PO) Take 1 tablet by mouth as Needed. bisoprolol/hydrochlorothiazide (ZIAC) 10/6.25 mg tablet Take 1 tablet by mouth daily. ciprofloxacin (CIPRO) 500 mg tablet Take 1 tablet by mouth twice daily. Begin taking the day prior to catheter removal. HYDROcodone/acetaminophen (NORCO) 5/325 mg tablet Take 1 tablet by mouth every 4 hours as needed for Pain Indications: PAIN oxybutynin chloride (DITROPAN) 5 mg tablet Take 1 tablet by mouth three times daily as needed. Indications: BLADDER HYPERACTIVITY senna/docusate (SENNA-S) 8.6/50 mg tablet Take 1 tablet by mouth twice daily. Indications: CONSTIPATION Vitals: 03/29/17 0815 BP: 120/56 Pulse: 77 Weight: 82.6 kg (182 lb) Height: 165.1 cm (65") Body mass index is 30.29 kg/(m^2). 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 PLAN & DISCUSSION: I spent approximately 30 minutes with the patient and her today discussing the pathology report, natural history of bladder cancer , and treatment options in detail. We reviewed the following treatment options : 1. Observation. 2. Neoadjuvant chemotherapy followed by [...] Giang and he will see her today. MD Alin Burger MD in this encounter Plan of Treatment Date Type Specialty Care Team Description 04/10/2017 Hospital Radiology Emily Giang MD Canceled (Other) Encounter [address] [place] [address] [place] [address] [phone] as of this encounter Visit Diagnoses Diagnosis Malignant neoplasm of overlapping sites of bladder (HCC) - Primary Malignant neoplasm of other specified sites of bladder in this encounter
--- OUTSIDE RECORDS SUMMARY | 2017-04-05 09:58 | XMS REPORT | Encounter Summary ---
Author Author [facility] Organization [facility] Address Unknown Phone Unavailable Care Team Providers Care Color Printer Operator Name Role Phone PCP Unavailable Reason for Referral * Test Status Reason Specialty Diagnoses / Referred By Referred To Procedures Contact Contact No Auth Needed Cardiology Diagnoses Emily Giang-Ovpk Echo/Pv Urothelial MD [place] [address] cancer (HCC) [address] [employer] Phone: [phone] 2-D + DOPPLER [phone] Phone: ECHOCARDIOGRAM RI ECHO TTHRC [phone] R-T 2D W/WOM-MODE COMPL SPEC&COLR D * Test Status Reason Specialty Diagnoses / Referred By Referred To Procedures Contact Contact No Auth Needed Cardiology Diagnoses Emily Giang-Ovpk Echo[place] [address] cancer (HCC) [address] [employer] Phone: [phone] 2-D + DOPPLER [phone] Phone: ECHOCARDIOGRAM RI ECHO TTHRC [phone] R-T 2D W/WOM-MODE COMPL SPEC&COLR D Reason for Visit * Test Status Reason Specialty Diagnoses / Referred By Referred To Procedures Contact Contact No Auth Needed Cardiology Diagnoses Emily Giang-Ovpk Echo/Pv Urothelial MD [place] [address] cancer (HCC) [address] [employer] Phone: [phone] 2-D + DOPPLER [phone] Phone: ECHOCARDIOGRAM RI ECHO TTHRC [phone] R-T 2D W/WOM-MODE COMPL SPEC&COLR D Encounter Details Date Type Department Care Team Description 04/02/2017 [facility] Cardiology Emily Giang MD Arrived Encounter [id number] [place] [address] [place], [place] [id number] Social History Tobacco Use Types Packs/Day Years Used Date Never Smoker Smokeless Tobacco: Never Used Alcohol Use Drinks/Week oz/Week Comments Yes Sex Assigned at Date Recorded Not on file as of this encounter Last Filed Vital Signs Vital Sign Reading Time Taken Blood Pressure 130/66 04/02/2017 10:37 AM CDT Pulse - - Temperature - - Respiratory Rate - - Oxygen Saturation - - Inhaled Oxygen - - Concentration Weight 82.1 kg (181 lb) 04/02/2017 10:37 AM CDT Height 165.1 cm (5' 5") 04/02/2017 10:37 AM CDT Body Mass Index 30.12 04/02/2017 10:37 AM CDT in this encounter Plan of Treatment Date Type Specialty Care Team Description 04/10/2017 [facility] Radiology Emily Giang MD Canceled (Other) Encounter [address] [place], [place] [address] as of this encounter Results * 2-D + DOPPLER ECHOCARDIOGRAM (04/02/2017 [...] effusion. No prior study available for comparison. in this encounter Visit Diagnoses Diagnosis Urothelial cancer (HCC) Malignant neoplasm of other specified sites of urinary organs in this encounter
--- OUTSIDE RECORDS SUMMARY | 2017-04-05 09:58 | XMS REPORT | Encounter Summary ---
Author Author [facility] Organization [facility] Address Unknown Phone Unavailable Care Team Providers Care Box Stamper Name Role Phone PCP Unavailable Reason for Referral * Test Status Reason Specialty Diagnoses / Referred By Referred To Procedures Contact Contact No Auth Needed Cardiology Diagnoses Emily Giang Mac-Ovpk Echo/[place] [address] cancer (HCC) [address] [employer] Phone: [phone] 2-D + DOPPLER [phone] Phone: ECHOCARDIOGRAM [place] ECHO TTHRC [phone] R-T 2D W/WOM-MODE COMPL SPEC&COLR D * Radiology Services Status Reason Specialty Diagnoses / Referred By Referred To Procedures Contact Contact No Auth Needed Radiology Diagnoses Emily Giang Icc Ir Urothelial MD [place] [address] cancer (HCC) [address] [place] [address] [employer] Phone: Phone: IR CENTRAL [phone] VENOUS CATHETER Fax: [place] [facility] [phone] VAD W/SUBQ PORT AGE 5 YR/> * Radiology Services Status Reason Specialty Diagnoses / Referred By Referred To Procedures Contact Contact No Auth Needed Radiology Diagnoses Emily Giang Icc Mame Urothelial MD [place] [address] cancer (HCC) [address] [place] [address] [employer] Phone: Phone: IR PERCUTANEOUS [phone] BIOPSY Fax: [place] BX/EXC LYMPH [phone] NODE NEEDLE SUPERFICIAL Reason for Visit * Reason Comments Heme/Onc Care New Patient * Consult, Test & Treat Status Reason Specialty Diagnoses / Referred By Referred To Procedures Contact Contact New Request Specialty Oncology Diagnoses Jonny Ogden MD Services Malignant [address] neoplasm of bl[address] overlapping [place] [address] sites of bladder [place], [place] ([facility]) [address] Encounter Details Date Type Department Care Team Description 03/29/2017 Office Visit [facility] Jonny Ogdne MD Urothelial cancer (HCC) Cancer Center - WW Exam [address] (Primary Dx) [address] [place] [address] [place] [address] [phone] Emily Hernández MD [address] [address] [phone] Social History Tobacco Use Types Packs/Day Years Used Date Never Smoker Smokeless Tobacco: Never Used Alcohol Use Drinks/Week oz/Week Comments Yes Sex Assigned at Date Recorded Not on file as of this encounter Last Filed Vital Signs Vital Sign Reading Time Taken Blood Pressure 121/61 03/29/2017 9:45 AM CDT Pulse 62 03/29/2017 9:45 AM CDT Temperature 36.7 C (98 F) 03/29/2017 9:45 AM CDT Respiratory Rate 16 03/29/2017 9:45 AM CDT Oxygen Saturation 97% 03/29/2017 9:45 AM CDT Inhaled Oxygen - - Concentration Weight 82.3 kg (181 lb 6.4 oz) 03/29/2017 9:45 AM CDT Height 166.4 cm (5' 5.5") 03/29/2017 9:45 AM CDT Body Mass Index 29.73 03/29/2017 9:45 AM CDT in this encounter Instructions * Patient Instructions - Dina Lorenzo - 03/29/2017 7:20 AM CDT We understand that your time is important and want your visit to be as timely as possible. In order for your appointments to occur as closely as possible to the scheduled time, please review the following additional instructions. ? Please arrive 15 minutes prior to your first scheduled appointment time to complete the registration process. ? Bring your photo ID and insurance card with you to check in o If your first appointment is with lab (blood draw) or with your provider, check in on the second floor (Main level). o If your appointment is for lab (blood draw) only, check in on the third floor. in this encounter Progress Notes * Emily Giang MD - 03/29/2017 7:20 AM CDT Formatting of this note may be different from the original. Name: Daly Braswell : 1960 AGE: 57 y.o. DATE OF SERVICE: 03/29/2017 Heme/Onc Care and New Patient Daly Braswell is a 57 y.o. female. Reason for Visit: Bladder cancer. History of Present Illness Ms. Daly Braswell is 57 year old female. She felt a 'knot" at the base of neck and noted blood on tissue after urinating. She was seen by PCP on 03/07/2017. Scans completed. US neck showed adenopathy in supraclavicular area. CT scan abd/ pelvis noted bilateral pelvic masses as well as left periaortic adenopathy and the bladder was incompletely distended and appears to have a thickened wall, the possibility of a primary bladder carcinoma with metastatic disease is also a consideration. Referred to Urology. Seen by Dr. Ogden. TURBT done. Muscle invasive urothelial disease. Now referred to me. Past Medical History: Diagnosis Date Hypertension Past Surgical History: Procedure Laterality Date BLADDER SURGERY COLONOSCOPY [place] CYSTOURETHROSCOPY W/DEST &/RMVL TUMOR LARGE N/A 03/25/2017 CYSTOSCOPY WITH TRANSURETHRAL RESECTION BLADDER TUMOR GREATER THAN 5 CM, CYSTOGRAM, performed by Jonny Ogden MD at Main OR/Periop Family History Problem Relation Age of Onset Diabetes Other Heart Disease Other Hypertension Other Stroke Other Cancer Mother Possible colon cancer Coronary Artery Disease Father Liver Disease Brother Social History Social History Marital status: Spouse name: N/A Number of children: N/A Years of education: N/A Social History Main Topics Smoking status: Never Smoker Smokeless tobacco: Never Used Alcohol use Yes Drug use: No Sexual activity: Not Currently Partners: Female Other Topics Concern None Social History Narrative Review of Systems Constitutional: Negative. HENT: Negative. Eyes: Negative. Respiratory: Negative. Cardiovascular: Negative. Gastrointestinal: Negative. Endocrine: Negative. Musculoskeletal: Negative. Skin: Negative. Allergic/Immunologic: Negative. Neurological: Negative. Hematological: Positive for adenopathy. Psychiatric/Behavioral: Negative. Objective: ACETAMINOPHEN/DIPHENHYDRAMINE (TYLENOL PM PO) Take 1 [...] mouth twice daily. Indications: CONSTIPATION Vitals: 03/29/17 0945 BP: 121/61 Pulse: 62 Resp: 16 Temp: 36.7 C (98 F) TempSrc: Oral SpO2: 97% Weight: 82.3 kg (181 lb 6.4 oz) Height: 166.4 cm (65.5") Body mass index is 29.73 kg/(m^2). Pain Score: Zero Pain Addressed: N/A Patient Evaluated for a Clinical Trial: Patient currently in screening for a treatment clinical trial. Eastern Cooperative Oncology Group performance status is 0, Fully active, able to carry on all pre-disease performance without restriction.. Physical Exam Constitutional: She is oriented to person, place, and time. She appears well- developed and well-nourished. No distress. HENT: Head: Normocephalic. Eyes: EOM are normal. Pupils are equal, round, and reactive to light. Left eye exhibits no discharge. No scleral icterus. Neck: Normal range of motion. Neck supple. No tracheal deviation present. No thyromegaly present. Cardiovascular: Normal rate, regular rhythm and normal heart sounds. Exam reveals no friction rub. No murmur heard. Pulmonary/Chest: Effort normal and breath sounds normal. No respiratory distress. She has no wheezes. Abdominal: Soft. Bowel sounds are normal. She exhibits no distension. There is no tenderness. Musculoskeletal: Normal range of motion. She exhibits no edema. Lymphadenopathy: She has cervical adenopathy (Left supraclavicular). Neurological: She is alert and oriented to person, place, and time. No cranial nerve deficit. Coordination normal. Skin: Skin is warm and dry. No erythema. Psychiatric: She has a normal mood and affect. Her behavior is normal. Judgment and thought content normal. Results for orders placed or performed during the hospital encounter of (from the past 336 hour(s)) TEST-URINE Result Value Ref Range Urine-HCG NEG Specific [place] 1.015 SURGICAL PATHOLOGY Result Value Ref Range PATHOLOGY REPORT [facility] www.[email or web address] Mei Barron MD, PhD, Director of Anatomic Pathology Department of Pathology and Laboratory Medicine [address] [place] [address] Surgical Pathology Office: [phone] SURGICAL PATHOLOGY REPORT NAME: DALY BRASWELL SURG PATH #: [id number] MR #: [id number] SPECIMEN CLASS: SR BILLING #: [id number] ALT ID #: LOCATION: [facility] DATE OF PROCEDURE: 03/25/2017 AGE: 57 SEX: F DATE RECEIVED: 03/25/2017 : 1960 TIME RECEIVED: 14:00 PHYSICIAN: JONNY OGDEN DATE OF REPORT: 03/26/2017 COPY TO: DATE OF PRINTIN03/26/2017 ######################################################################## Final Diagnosis: A. 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 Carcinoma invades muscularis propria. See checklist. Comment: URINARY BLADDER: Biopsy and Transurethral Resection of Bladder Tumor (TURBT) Procedure (required only fo r TURBT) TURBT Tumor Type Invasive carcinoma Histologic [...] status and/or prior pathology. Pursuant to the [employer] Program at the [facility] Pathology Department, selected slides from this case [...] indicated in this report. +++ +++ kd/03/26/2017 ######################################################################## Material Received: A: bladder chips History: 57-year-old female with a clinical history of malignant neoplasm of bladder Gross Description: A. bladder chips: Fixative: Formalin Labeled: "Bladder chips" Weight: 10g Dimensions: 4.0 x 4.0 x 0.7 cm. Cassettes [id number] specimen ik/03/25/2017 CBC Result Value Ref Range White Blood Cells 7.3 4.5 - 11.0 K/UL RBC 4.26 4.0 - 5.0 M/UL Hemoglobin 10.6 (L) 12.0 - 15.0 GM/DL Hematocrit 32.4 (L) 36 - 45 % MCV 76.1 (L) 80 - 100 FL MCH 24.9 (L) 26 - 34 PG MCHC 32.7 32.0 - 36.0 G/DL RDW 15.8 (H) 11 - 15 % Platelet Count 370 150 - 400 K/UL MPV 7.4 7 - 11 FL BASIC METABOLIC PANEL Result Value Ref Range Sodium 137 137 - 147 MMOL/L Potassium 3.9 3.5 - 5.1 MMOL/L Chloride 106 98 - 110 MMOL/L CO2 25 21 - 30 MMOL/L Anion Gap 6 3 - 12 Glucose 123 (H) 70 - 100 MG/DL Blood Urea Nitrogen 11 7 - 25 MG/DL Creatinine 0.71 0.4 - 1.00 MG/DL Calcium 9.5 8.5 - 10.6 MG/DL eGFR Non >60 >60 mL/min eGFR >60 >60 mL/min CBC Result Value Ref Range White Blood Cells 6.8 [...] K/UL MPV 7.3 7 - 11 FL BASIC METABOLIC PANEL Result Value Ref Range Sodium 139 137 - [...] 10.6 MG/DL eGFR Non >60 >60 mL/min eGFR >60 >60 mL/min Path: 03/25/17. . 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 Carcinoma invades muscularis propria. See checklist. Radiology: 03/12/2017: CT SCAN ABD/PELVIC - Impression: Bilateral pelvic masses as well as left [...] in the liver cannot be entirely excluded. 03/12/2017: US NECK - Impression: Low density pathologic appearing adenopathy in the supraclavicular region, suspect for metastatic disease. Recommend clinical correlation and , if warranted, follow up biopsy. 03/19/17- [facility]. CHEST: 1. Left supraclavicular adenopathy. ABDOMEN AND PELVIS: 1. Extensive bulky adenopathy involving the retroperitoneum and pelvis. Bladder wall thickening is also evident. Leading differentials would include lymphoma with secondary involvement of the urinary bladder versus primary bladder carcinoma and metastatic adenopathy. Assessment and Plan: 1. Ms. Daly Braswell is 57 year old female. She felt a 'knot" at the base of neck. US neck showed adenopathy in supraclavicular area. CT scan abd/pelvis noted bilateral pelvic masses as well as left periaortic adenopathy and the bladder was incompletely distended and appears to have a thickened wall, the possibility of a primary bladder carcinoma with metastatic disease . TURBT done. Muscle invasive disease. Hence staged as stage IV ([id number]). 2. I discussed the diagnosis, prognosis and further options. This is stage iV disease. Too advanced to be cured. Without treatment life expectancy < 6 months. However treatment with palliative intent that means to help symptoms and modest prolongation of life. [place] based chemo is mainstay of treatment and immune therapy in second line setting in good performance patient. ddMVAC or Cameron-Cis are options. Also COXEN clinical trial is an option. I discussed toxicities in detail. She agreed. However I will get supra-clavicular nodes biopsy to rule out any seconf primary. 3. Depending on response will decide if further surgery needed or not. 4. RTC in 1 week. in this encounter Plan of Treatment Date Type Specialty Care Team Description 04/10/2017 [facility] Radiology Emily Giang MD Canceled (Other) Encounter [address] [place] [address] [phone] Name Priority Associated Diagnoses Order Schedule IR PERCUTANEOUS BIOPSY Routine Urothelial cancer (HCC) Expected: 2016 (Approximate), Expires: 03/29/2018 IR CENTRAL VENOUS CATHETER Routine Urothelial cancer (HCC) Expected: (Approximate), Expires: 03/29/2018 as of this encounter Results * 2-D [...] encounter Visit Diagnoses Diagnosis Urothelial cancer (HCC) - Primary Malignant neoplasm of other specified sites of urinary organs in this encounter
--- OUTSIDE RECORDS SUMMARY | 2017-04-05 09:58 | XMS REPORT | Encounter Summary ---
Author Author [facility] Organization [facility] Address Unknown Phone Unavailable Care Team Providers Care Construction Area Manager Name Role Phone PCP Unavailable Reason for Visit * Reason Comments Appointment Encounter Details Date Type Department Care Team Description 04/03/2017 Telephone [facility] Emily Giang MD Appointment Cancer Center - WW Exam [address] [place] [address] [place] [address] [phone] Social History Tobacco Use Types Packs/Day Years Used Date Never Smoker Smokeless Tobacco: Never Used Alcohol Use Drinks/Week oz/Week Comments Yes Sex Assigned at Date Recorded Not on file as of this encounter Plan of Treatment Date Type Specialty Care Team Description 04/10/2017 Hospital Radiology Emily Giang MD Canceled (Other) Encounter [address] [place] [address] [phone] as of this encounter Visit Diagnoses Not on filein this encounter
--- OUTSIDE RECORDS SUMMARY | 2017-04-05 09:58 | XMS REPORT | Encounter Summary ---
Author Author [facility] Organization [facility] Address Unknown Phone Unavailable Care Team Providers Care Passenger Vessel Chef Name Role Phone PCP Unavailable Reason for Visit * Auth/Cert Status Reason Specialty Diagnoses / Referred By Referred To Procedures Contact Contact Diagnoses Malignant neoplasm of overlapping sites of bladder (HCC) unknown P rocedures [place] CYSTOURETHROSCOP Y W/DEST &/RMVL TUMOR LARGE CYSTOSCOPY WITH TRANSURETHRAL RESECTION LESION BLADDER Encounter Details Date Type Department Care Team Description 03/25/2017 Hospital Main Operating Room Jonny Ogden MD Malignant neoplasm of - Encounter [address] overlapping sites of 03/26/2017 [place] [address] [place] [address] bladder (HCC) [phone] [place] [address] [phone] Social History Tobacco Use Types Packs/Day Years Used Date Never Smoker Smokeless Tobacco: Never Used Alcohol Use Drinks/Week oz/Week Comments Yes Sex Assigned at Date Recorded Not on file as of this encounter Last Filed Vital Signs Vital Sign Reading Time Taken Blood Pressure 106/40 03/26/2017 11:25 AM CDT Pulse 54 03/26/2017 11:25 AM CDT Temperature 36.8 C (98.2 F) 03/26/2017 11:25 AM CDT Respiratory Rate - - Oxygen Saturation 97% 03/26/2017 11:25 AM CDT Inhaled Oxygen - - Concentration Weight 80.9 kg (178 lb 5.6 oz) 03/25/2017 11:20 AM CDT Height 166.4 cm (5' 5.5") 03/25/2017 11:20 AM CDT Body Mass Index 29.23 03/25/2017 11:20 AM CDT in this encounter Medications at Time of Discharge Medication Sig. Disp. Refills Start Date End Date ACETAMINOPHEN/DIPHENHYDRA Take 1 tablet by mouth as MINE (TYLENOL PM PO) Needed. bisoprolol/hydrochlorothi Take 1 tablet by mouth azide (ZIAC) 10/6.25 mg daily. tablet ciprofloxacin (CIPRO) 500 Take 1 tablet by mouth 6 tablet 0 2016 mg tablet twice daily. Begin taking the day prior to catheter removal. HYDROcodone/acetaminophen Take 1 tablet by mouth 10 tablet 0 2016 (NORCO) 5/325 mg every 4 hours as needed tabletIndications: PAIN for Pain Indications: PAIN oxybutynin chloride Take 1 tablet by mouth 30 tablet 0 03/26/2017 (DITROPAN) 5 mg three times daily as tabletIndications: needed. Indications: BLADDER HYPERACTIVITY BLADDER HYPERACTIVITY senna/docusate (SENNA-S) Take 1 tablet by mouth 15 tablet 0 2016 8.6/50 mg twice daily. Indications: tabletIndications: CONSTIPATION CONSTIPATION as of this encounter Progress Notes * Adrianne Bustamante RN - 03/26/2017 12:27 PM CDT I have reviewed the notes, assessment, and/or procedures performed by Emi Mcbride RN and concur with her documentation unless otherwise noted. * Emi Mcbride RN - 03/26/2017 12:10 PM CDT Daly Braswell discharged on 03/26/2017. . Discharge instructions reviewed with patient and spouse. RN educated pt regarding catheter care at home including leg bag, overnight bag, and irrigation. Valuables returned: Personal Items / Valuables: Clothing, Eyeglasses/Contacts Where Are Valuables Stored?: all with pt's . Home medications: N/A Functional assessment at discharge complete: Yes . Pt stated she has all belongings. Supplies sent home with pt. RN removed IV. No further questions at this time. * Fabian Gunn MD - 03/26/2017 5:42 AM CDT Formatting of this note may be different from the original. ASSESSMENT: Daly Braswell is a 57 y.o. Female with history of bladder cancer, s/p TURBT on . LOS: 0 days PLAN: will discuss plan with staff surgeon - Dr. Ogden - Pain control: PO with IV breakthrough - Diet/FEN: REG - GI: bowel regimen, PPI, zofran prn - : CBI clamped this AM, will discharge with catheter, f/u Saturday in clinic - Heme/ID: afebrile. - OOB/Amb - Dispo: Discharge planning, d/c with catheter and supplies Prophylaxis Review: - DVT: SCD's, chemical ppx held due to bleeding risk with TURBT - GI: No - Catheter: Yes - Abx: No Fabian Gunn MD PGY-1 Urology Please page urology organic preparation technician with questions SUBJECTIVE: Overnight events: No acute events overnight. Pain well controlled on current regimen. Tolerating diet without nausea or emesis. OBJECTIVE: Vital Signs: Most Recent Vital Signs: Past 24 Hours BP: 119/71 (03/26 306) Temp: 36.7 C (98 F) (03/26 306) Pulse: 68 (03/26 306) Respirations: 18 PER MINUTE (03/26 306) SpO2: 97 % (03/26 306) O2 Delivery: None (Room Air) (03/26 306) Height: 166.4 cm (65.5") (03/25 1120) Weight: 80.9 kg (178 lb 5.6 oz) (03/25 1120) BP: (94-147)/(50-96) Temp: [36.6 C (97.9 F)-36.9 C (98.5 F)] Pulse: [64-77] Respirations: [10 PER MINUTE-22 PER MINUTE] SpO2: [94 %-98 %] O2 Delivery: None (Room Air) General: Alert & oriented, no acute distress Pulm: non-labored on RA CV: Regular rate Abd: Soft, appropriately tender, non-distended. Extremities: No edema, SCD's in place : 3 [address] catheter in place draining clear on slow drip CBI Labs: Hematology Chemistry Recent Labs 03/26/17 0320 WBC 6.8 HGB 10.1* PLTCT 369 Recent Labs 03/26/17 0320 NA 139 K 4.2 CL 107 CO2 26 BUN 8 CR 0.57 GFR >60 GLU 98 CA 9.1 Associated attestation - Jonny Ogdne MD - 03/26/2017 7:57 AM CDT Patient seen and examined. Pertinent radiology and laboratory reviewed. I agree with the resident's note and plan. Jonny Ogden MD * Shannon Bonilla, RT - 03/25/2017 6:45 PM CDT Formatting of this note may be different from the original. RESPIRATORY THERAPY ADULT PROTOCOL EVALUATION RESPIRATORY PROTOCOL PLAN Medications Note: If indicated by protocol, medication orders will be placed by therapist. Procedures IPPB: Place a nursing order for "IS Q1h While Awake" for any of Lung Expansion indicators PATIENT EVALUATION RESULTS Chart Review * Pulmonary Hx: No pulmonary diagnosis OR no smoking hx * Surgical Hx: Thoracic or abdominal surgery/injury (LE) * Chest X-Ray: Clear OR not available * PFT/Oxygenation: FEV1, PEFR > 80% predicted OR physically unable to perform OR Pa02 >80 RA OR Sp02 >95% RA Patient Assessment * Respiratory Pattern: Regular pattern and rate OR good chest excursion with deep breathing * Breath Sounds: Clear and able to auscultate bases posteriorly * Cough / Sputum: Strong, effective cough OR nonproductive * Mental Status: Alert, oriented, cooperative * Activity Level: Ambulatory with assistance Priority Index Total Points: 4 Points * Priority Index: 1 PRIORITY INDEX GUIDELINES* Priority Points 1 0-9 points 2 9-18 points 3 > 18 points + Pulm Dx or Home Rx *Higher points indicate higher acuity. Therapist: Shannon Bonilla, RT Date: 03/25/2017 [place] AC=Airway clearance AM=Aerosolized medication BA=[place] aerosol DB&C=Deep breathe & cough FEV1=Forced expiratory volume in first second) IC=Inspiratory capacity LE=Lung expansion MDI=Metered dose inhaler Neb=Nebulizer O2=Oxygen Oxim=Oximetry PEFR=Peak expiratory flow rate SENIOR FINANCIAL ANALYST=Rapid Response Team * Elvi Houston RN - 03/20/2017 3:01 PM CDT PAC phone triage call completed with patient who is scheduled for surgery with Dr. Ogden on 03/25/2017. Medications, allergies, medical and surgical history reviewed and updated in O2. Patient denies chest pain, pressure, palpitations, or shortness of breath. States is able to climb 2 flights of stairs without MARTINEZ. Has never had surgery in the past, no family history of malignant hypertension. Has HTN treated with bisoprolol/hydrochlorothiazide once per day. No PAC appointment indicated. Instructed to discontinue use of any vitamins, supplements or herbal remedies 2 weeks before surgery and to avoid use of NSAIDS or aspirin 1 week before surgery. May take tylenol as needed for minor discomforts. Also instructed on the day of surgery have nothing to eat or drink after midnight, may brush teeth/ tongue and rinse mouth the morning of surgery. May take bisoprolol/ hydrochlorothiazide on the day of surgery with sips of water. Take bath or shower the evening before and morning of surgery using an antibacterial soap. Sleep in clean sleepwear and linens. Do not use lotions, oils or powders after bathing, do not wear makeup, fingernail [place] islander or jewelry. Leave valuables at home. Patient verbalized understanding and denied questions. Direct number provided and patient encouraged to call clinic if any questions should arise prior to DOS. in this encounter Plan of Treatment Date Type Specialty Care Team Description 04/10/2017 [facility] Radiology Emily Giang MD Canceled (Other) Encounter [address] [address] [phone] Name Priority Associated Diagnoses Order Schedule SURGICAL PATHOLOGY Routine Malignant neoplasm of ONCE for 1 Occurrences overlapping sites of starting 03/25/2017 bladder (HCC) as of this encounter Procedures Procedure Name Priority Date/Time Associated Diagnosis Comments ECG-SCAN 03/27/2017 Results for this 4:59 PM CDT procedure are in the results section. CYSTOSCOPY WITH 03/25/2017 Malignant neoplasm of TRANSURETHRAL RESECTION 12:45 PM CDT overlapping sites of BLADDER TUMOR GREATER bladder (HCC) THAN 5 CM, CYSTOGRAM, in this encounter Results * ECG-SCAN (03/27/2017 4:59 PM) Narrative Ordered by an unspecified provider. * BASIC METABOLIC PANEL (03/26/2017 3:20 AM) Component Value Ref Range Sodium 139 137 [...] Pharmacist for questions. Specimen Performing Laboratory [facility] MAIN [facility] [address] [place] [address] * CBC (03/26/2017 3:20 AM) Component Value Ref Range White Blood Cells [...] Specimen Performing Laboratory [facility] MA[facility] [address] [place] [address] * BASIC METABOLIC PANEL (03/25/2017 3:10 PM) Component Value Ref Range Sodium 137 137 - [...] Pharmacist for questions. Specimen Performing Laboratory [facility] [address] [place] [address] * CBC (03/25/2017 3:10 PM) Component Value Ref Range White Blood Cells 7.3 [...] K/UL MPV 7.4 7 - 11 FL Specimen Performing Laboratory [facility] [address] [place] [id number] * FLUORO MOBILE IN OR (03/25/2017 2:04 PM) Specimen Performing Laboratory [facility] Narrative This order has been auto finalized and does not contain a result. * SURGICAL PATHOLOGY (03/25/2017 2:00 PM) Component Value Ref Range PATHOLOGY REPORT [facility] [email or web address] Mei Barron MD, PhD, Director of Anatomic Pathology Department of Pathology and Laboratory Medicine [address] [place] [id number] Surgical Pathology Office: [phone] SURGICAL PATHOLOGY REPORT NAME: DALY BRASWELL SURG PATH #: [id number] MR #: [id number] SPECIMEN CLASS: SR BILLING #: [id number] ALT ID #: LOCATION: [facility] DATE OF [...] status and/or prior pathology. Pursuant to the Lap Welder Program at the [facility] Pathology Department, selected slides from this case [...] material indicated in this report. +++ +++ camilo/03/26/2017 ################################################## ###################### Material Received: A: bladder chips History: 57-year-old female with a clinical history of malignant neoplasm of bladder Gross Description: A. bladder chips: Fixative: Formalin Labeled: "Bladder chips" Weight: 10g Dimensions: 4.0 x 4.0 x 0.7 cm. Cassettes [id number] specimen 03/25/2017 Specimen Performing Laboratory [facility] RESULTS * TEST-URINE (03/25/2017 11:13 AM) Component Value Ref Range Urine-HCG NEG Specific [place] 1.015 Specimen Performing Laboratory Urine [facility] [address] [place] [address] in this encounter Visit Diagnoses Diagnosis Hematuria - Primary Hematuria, unspecified Malignant neoplasm of overlapping sites of bladder (HCC) Malignant neoplasm of other specified sites of bladder in this encounter Admitting Diagnoses Diagnosis Malignant neoplasm of overlapping sites of bladder (HCC) - unknown Malignant neoplasm of other specified sites of bladder Bladder cancer (HCC) in this encounter Administered Medications Medication Order MAR Action Action Date Dose Rate Site acetaminophen (TYLENOL) tablet 650 mg Given 03/25/2017 650 mg 650 mg, Oral, EVERY 6 HOURS PRN, 17:33 CDT Starting Sat03/25/17 at 1505, Until Sat03/26/17 at 1429, Pain non-opioid: may be used alone or in combination with opioid analgesia, TOTAL ACETAMINOPHEN DOSE NOT TO EXCEED 4GM DAILY bisoprolol (ZEBETA) 10 mg, Given 03/26/2017 hydroCHLOROthiazide (HYDRODIURIL) 6.25 09:32 CDT mg per each dose Oral, DAILY, First dose on Sat03/26/17 at 0900, Until Discontinued, Hold for heart rate < 55 bpm or systolic BP < 110 hyoscyamine (ANASPAZ; NULEV; SYMAX Given 03/25/2017 0.125 mg FASTABS; HYOMAX-FT; ED-SPAZ; OSCIMIN) 15:28 CDT rapid dissolve tablet 0.125 mg 0.125 mg, Sublingual, EVERY 4 HOURS PRN, Starting Sat03/25/17 at 1456, Until Sat03/26/17 at 1429, Bladder Spasms, Spasms lactated ringers infusion Given - New 03/25/2017 1,000 mL 20 mL/hr 1,000 mL, 1,000 mL, Intravenous, at 20 Bag 11:39 CDT mL/hr, CONTINUOUS, Starting Sat03/25/17 at 1115, Until Sat03/25/17 at 1449, Pre-Op oxybutynin chloride (DITROPAN) tablet 5 Given 03/25/2017 5 mg mg 18:25 CDT 5 mg, Oral, THREE TIMES DAILY, First dose on Sat03/25/17 at 1715, Until Discontinued Given 03/26/2017 5 mg 00:21 CDT Given 03/26/2017 5 mg 09:32 CDT sodium chloride 0.9 % with KCl 20 Given - New 03/25/2017 1,000 mL 100 mL/hr mEq/L infusion Bag 15:16 CDT 1,000 mL, Intravenous, at 100 mL/hr, CONTINUOUS, Starting Sat03/25/17 at 1500, Until Sat03/26/17 at 1429 Given - New Bag 03/26/2017 100 mL/hr 00:25 CDT Given - New Bag 03/26/2017 100 mL/hr 11:15 CDT sodium chloride 0.9 % irrigation bag Given - New 03/25/2017 3,000 mL 3,000 mL Bag 15:14 CDT 3,000 mL, 3,000 mL, Irrigation, CONTINUOUS, Starting Sat03/25/17 at 1500, Until Sat03/26/17 at 1429, For continuous bladder irrigation. Please ensure there are additional bags available to keep flow continuous and uninterrupted. Thank you! Given - New Bag 03/25/2017 3,000 mL 16:22 CDT Given - New Bag 03/25/2017 3,000 mL 17:41 CDT in this encounter
--- OUTSIDE RECORDS SUMMARY | 2017-04-05 09:58 | XMS REPORT | Encounter Summary ---
Author Author [facility] Organization [facility] Address Unknown Phone Unavailable Care Team Providers Care Leather Tanner Name Role Phone PCP Unavailable Encounter Details Date Type Department Care Team Description 03/25/2017 [facility] Main Operating Room [address] [place] [address] Social History Tobacco Use Types Packs/Day Years Used Date Never Smoker Smokeless Tobacco: Never Used Alcohol Use Drinks/Week oz/Week Comments Yes Sex Assigned at Date Recorded Not on file as of this encounter Plan of Treatment Date Type Specialty Care Team Description 04/10/2017 Hospital Radiology Emily Giang MD Canceled (Other) Encounter [address] [place] [address] [phone] as of this encounter Visit Diagnoses Not on filein this encounter
--- OUTSIDE RECORDS SUMMARY | 2017-04-05 09:58 | XMS REPORT | Encounter Summary ---
Author Author [facility] Organization [facility] Address Unknown Phone Unavailable Care Team Providers Care Dance Entertainer Name Role Phone PCP Unavailable Reason for Visit * Radiology Services Status Reason Specialty Diagnoses / Referred By Referred To Procedures Contact Contact No Auth Needed Radiology Diagnoses Emily Giang [facility] [place] [address] cancer (HCC) [address] [place] [address] rocedures Phone: Phone: [place] [email or web address] [phone] VENOUS CATHETER Fax: [place] [facility] [phone] VAD W/SUBQ PORT AGE 5 YR/> Encounter Details Date Type Department Care Team Description 04/10/2017 [facility] Emily Giang MD Canceled (Other) Encounter [facility] [address] [address] [place] [address] [place] [address] [phone] Social History Tobacco Use Types Packs/Day Years Used Date Never Smoker Smokeless Tobacco: Never Used Alcohol Use Drinks/Week oz/Week Comments Yes Sex Assigned at Date Recorded Not on file as of this encounter Progress Notes * Leslie Corrales, RN - 04/10/2017 3:00 PM CDT Interventional Radiology Outpatient Scheduling Checklist 1. Procedure: Left Cervical Lymph node BX AND Portacath 2. Date of Procedure: 10/08/16 3. Arrival Time: 1400 4. Procedure Time: 1500 5. Correct Procedural Room Assignment: ICC Sono-BX, ICC Fluoro-Portacath 6. Blood Thinners Triaged and instructed per protocol: N/A 7. Order Verified: Yes 8. Patient informed regarding procedure: Yes 9. Patient instructed to have a electric mule driver: Yes 10. Patient instructed on NPO status: No solids after 8:00 am, clear liquids until 1300, NPO from 1300 until after procedure 11. Specimen needed: Y/N: Yes 12. Allergies Verified: Y/N: Yes 13. Iodine Allergy: Y/N: If yes and receiving Iodine has the patient been premedicated: Y/N: No 14. Does the patient have labs according to IR procedural policy: Y/N: Yes 15. Will the patient need to be admitted/possible admission: Y/N: NO 16. If YES to possible admission has the patient been instructed: Y/N: NA 17. Patient States Understanding: Y/N Yes 18. Pt. Denies CONCEPCION in this encounter Plan of Treatment Date Type Specialty Care Team Description 04/10/2017 [facility] Radiology Emily Giang MD Canceled (Other) Encounter [address] [address] [phone] as of this encounter Visit Diagnoses Not on filein this encounter
--- OUTSIDE RECORDS SUMMARY | 2017-04-05 09:59 | XMS REPORT | Encounter Summary ---
Author Author [facility] Organization [facility] Address Unknown Phone Unavailable Care Team Providers Care Night Time Nanny Name Role Phone PCP Unavailable Reason for Referral * Consult, Test & Treat Status Reason Specialty Diagnoses / Referred By Referred To Procedures Contact Contact New Request Specialty Oncology Diagnoses Phi Ogden MD Services Malignant [address] neoplasm of [address] overlapping [place] [address] sites of bladder [place], [place] (HCC) [address] * Radiology Services Status Reason Specialty Diagnoses / Referred By Referred To Procedures Contact Contact No Auth Needed Radiology Diagnoses Phi Ogden MD Mob Ct Hematuria [address] MED OFFICE BLDG rocedures [place] [address] ABD/PELV WO/W [place], [place] CONTRAST [phone] Phone: Fax: Reason for Visit * Reason Comments Blood in urine * Consult, Test & Treat (Routine) Status Reason Specialty Diagnoses / Referred By Referred To Procedures Contact Contact No Auth Needed Urology Diagnoses Phi Ogden MD new-bladder wall [address] thickening-hemat [place] [address] uria/ [place], [place] recs-kathey [address] [place] Phone: P [phone] rocedures NEW PATIENT Encounter Details Date Type Department Care Team Description 03/19/2017 Office Visit [facility] Phi Ogden MD Malignant neoplasm of Physicians - Urology [address] overlapping sites of 2ND FLOOR POD A [place] 3016 bladder (HCC) (Primary [address] [place] [address] Dx);Hematuria OFFICE BLDG [phone] [place] [address] Social History Tobacco Use Types Packs/Day Years Used Date Never Smoker Smokeless Tobacco: Never Used Alcohol Use Drinks/Week oz/Week Comments Yes Sex Assigned at Date Recorded Not on file as of this encounter Last Filed Vital Signs Vital Sign Reading Time Taken Blood Pressure 114/50 03/19/2017 8:09 AM CDT Pulse 65 03/19/2017 8:09 AM CDT Temperature - - Respiratory Rate - - Oxygen Saturation - - Inhaled Oxygen - - Concentration Weight 83.5 kg (184 lb) 03/19/2017 8:09 AM CDT Height 165.1 cm (5' 5") 03/19/2017 8:09 AM CDT Body Mass Index 30.62 03/19/2017 8:09 AM CDT in this encounter Instructions * Patient Instructions - Catherine Alfredo LPN - 03/19/2017 8:00 AM CDT Formatting of this note may be different from the original. [facility] Physicians - Urology Pre-Operative Instructions Surgical Procedure: Resection of bladder tumors Date of Surgery: 03-25-17 Arrival Time at the Admission Office (Main Lobby): Will call To ensure that your surgery can proceed without delay, you will be contacted by a phone triage nurse from the Preoperative Assessment [facility] (PAC) to complete this process. If you have not been contacted in (3) business days, please call . Please review the information given to you by your surgeon. You will be called by the surgery staff with your arrival time after 2:30 PM the business day prior to surgery with arrival time confirmation. If you have not heard from them, please call to confirm your arrival time. Call if calling after 4:30 PM. Do not drink alcohol within 24 hours of surgery. Please do not eat or drink anything after midnight. No gum, mints, hard candy or chewing tobacco allowed after midnight before surgery. You may brush your teeth but be sure to rinse and spit. Please shower with an over the counter antibacterial soap the evening before or the morning of surgery. If your surgery is scheduled as an outpatient, you must arrange to have someone drive you home and have someone with you 24 hours after anesthesia. For emergencies during evenings nights, weekends and holidays, contact the Urology Resident pony trimmer at [phone]. General Perioperative Medication Instructions Guidelines: Triage Nurse ? Recommended Times to STOP PRIOR TO SURGERY : 1. 14 Days: Herbal supplements, vitamins, and natural products including: Vitamin C, B Vitamins (unless complex), Vitamin D, Iron, Potassium DO NOT need to be stopped ? Black Cohosh ? Echinacea ? Fish oil ? Garlic ? Gingko biloba ? Ginseng ? Kava ? Multivitamin ? Red Yeast Rice ? PAULINA-e ? [place] ? [place] Wort ? Turmeric ? Valerian root ? Vitamin E 2. Anti-inflammatory pain medications (NSAIDs) includin days: ? Diclofenac (Voltaren) ? Indomethacin (Indocin) ? Nabumetone ? Diflunisal ? Ketoprofen ? Naproxen (Aleve) ? Etodolac ? Ketorolac (Toradol) ? Piroxicam (Feldene) ? Flurbiprofen ? Meloxicam (Mobic) 24 hours: ? Ibuprofen (Advil, Motrin) ? Do NOT Take on Day of Surgery: 1. Bisphosphonates (Osteoporosis meds) 2. Cardiac Medications 3. Oral Diabetic Medications 4. Cholesterol agents (non-statin) 5. Potassium and iron supplements 6. Prescription topical products ? Patients taking medications in the following medications classes should receive instructions from a pharmacist: 1. Anticoagulants ? Apixaban (Eliquis) ? Dabigatran (Pradaxa) ? Dalteparin (Fragmin) ? Edoxaban (Savaysa) ? Enoxaparin (Lovenox) ? Fondaparinux (Arixtra) ? Heparin ? Pentoxifylline (Trental) ? Rivaroxaban (Xarelto) ? Warfarin (Coumadin, Jantoven) 2. Antiplatelets ? Aspirin ? Aspirin/Dipyridamole (Aggrenox) ? Cilostazol (Pletal) ? Clopidogrel (Plavix) ? Dipyridamole (Persantine) ? Prasugrel (Effient) ? Ticlodipine ? Ticagrelor (Brilinta) 3. Antiretrovirals 4. Immunosuppressants 5. Insulins 6. MAO Inhibitors 7. Pulmonary Hypertension NOTE: These lists are not inclusive. Please contact the PAC Pharmacist with any questions. in this encounter Progress Notes * Phi Ogden MD - 03/19/2017 8:00 AM CDT Formatting of this note may be different from the original. Date of Service: 03/19/2017 Subjective: Daly Braswell is a 57 y.o. female. History of Present Illness 57 y/o female who felt a 'knot" at the base of [...] disease is also a consideration. Referred to [facility]. Other medical history HTN and obesity. She overall feels well and denies complaints She is anxious and concerned Past Medical History: Diagnosis Date Hypertension Past Surgical History: Procedure Laterality Date BLADDER SURGERY COLONOSCOPY Family History Problem Relation Age of Onset Diabetes Other Heart Disease Other Hypertension Other Stroke Other Social History Social History Marital status: Spouse name: N/A Number of children: N/A Years of education: N/A Social History Main Topics Smoking status: Never Smoker Smokeless tobacco: Never Used Alcohol use Yes Drug use: No Sexual activity: Not Currently Partners: Female Other Topics Concern None Social History Narrative None Review of Systems Constitutional: Negative for activity change, appetite change, chills and fever. Respiratory: Negative for cough and shortness of breath. Cardiovascular: Negative for chest pain and leg swelling. Gastrointestinal: Negative for abdominal pain, constipation and diarrhea. Genitourinary: Negative for dysuria, enuresis, flank pain, frequency and hematuria. Musculoskeletal: Negative for joint swelling. Skin: Negative for rash and wound. Neurological: Negative for syncope, weakness, light-headedness and headaches. Hematological: Negative for adenopathy. Psychiatric/Behavioral: Negative for confusion. Objective: ACETAMINOPHEN/DIPHENHYDRAMINE (TYLENOL PM PO) Take 1 tablet by mouth as Needed. bisoprolol/hydrochlorothiazide (ZIAC) 10/6.25 mg tablet Take 1 tablet by mouth daily. ciprofloxacin (CIPRO) 500 mg tablet Take 1 tablet by mouth twice daily. Vitals: 03/19/17 0809 BP: 114/50 Pulse: 65 Weight: 83.5 kg (184 lb) Height: 165.1 cm (65") Body mass index is 30.62 kg/(m^2). Physical Exam Constitutional: She appears well-developed and well-nourished. No distress. Eyes: Pupils are equal, round, and reactive to light. Neck: Neck supple. Cardiovascular: Normal rate and regular rhythm. Pulmonary/Chest: Breath sounds normal. No respiratory distress. Abdominal: Soft. She exhibits no distension and no mass. There is no tenderness. Musculoskeletal: She exhibits no edema. Skin: No erythema. Assessment and Plan: Problem Malignant Neoplasm of Overlapping Sites of Bladder (Hcc) Pt with supraclavicular adenopathy and presented to PCP She also reported gross hematuria CT shows pelvic and retroperitoneal adenopathy as well as supraclavicular adenopathy Cystoscopy shows large bladder mass Hematuria Bilateral pelvic masses as well as left [...] in the liver cannot be entirely excluded. Hematuria Needs cystoscopy. Malignant neoplasm of overlapping sites of bladder (HCC) I had a detailed discussion with the patient and her family today. She has extensive adenopathy and bladder mass making metastatic bladder cancer the most likely diagnosis. We also reviewed possibility of lymphoma or other types of cancers. We reviewed treatment of cancers. I discussed cystoscopy and transurethral resection of bladder tumor in the operating room in detail. Risks, benefits, alternatives, and logistics were discussed. Risks discussed included but not limited to infection, bleeding, injury to urethra/bladder/ureter, bladder perforation, need for open surgery/urethral catheter/ureteral stent/blood transfusion/re-operation, inability to remove tumor, heart attack, stroke, deep venous thrombosis, pulmonary embolus, and . Informed consent was obtained. MD Alin Morales MD in this encounter Plan of Treatment Date Type Specialty Care Team Description 04/10/2017 Hospital Radiology Emily Giang MD Canceled (Other) Encounter [address] [place], [place] [id number] Name Priority Associated Diagnoses Order Schedule AMB REFERRAL TO ONCOLOGY Routine Malignant neoplasm of Ordered: 2016 overlapping sites of bladder (HCC) as of this encounter Procedures Procedure Name Priority Date/Time Associated Diagnosis Comments [place] CYSTOURETHROSCOPY Routine 03/23/2017 Hematuria Results for this 2:17 PM CDT procedure are in the results section. in this encounter Results * CYSTOSCOPY (03/23/2017 2:17 PM) Specimen Performing Laboratory IN CLINIC Narrative Phi Ogden MD 03/23/20172:17 PM Surgeon:Phi Ogden MD Preprocedure Diagnosis:hematuria. Postprocedure Diagnosis:Bladder cancer. [...] is normal. There is extensive retroperitoneal adenopathy. Virtual Assistant left periaortic low-density node measures 2.7 x [...] is normal. There is extensive retroperitoneal adenopathy. Virtual Assistant left periaortic low-density node measures 2.7 x [...] Yossi Jenkins M.D. on 03/19/2017 12:49 PM. in this encounter Visit Diagnoses Diagnosis Malignant neoplasm of overlapping sites of bladder (HCC) - Primary Malignant neoplasm of other specified sites of bladder Hematuria Hematuria, unspecified in this encounter
--- OUTSIDE RECORDS SUMMARY | 2017-04-05 09:59 | XMS REPORT | Encounter Summary ---
Author Author [facility] Organization [facility] Address Unknown Phone Unavailable Care Team Providers Care Wardrobe Attendant Name Role Phone PCP Unavailable Reason for Visit * Reason Comments Navigation Assessment Encounter Details Date Type Department Care Team Description 03/14/2017 Telephone [facility] Phi Ogden MD Navigation Assessment [facility] Exam [address] [place] [address] [place] [address] [phone] Social History Tobacco Use Types Packs/Day Years Used Date Never Assessed Sex Assigned at Date Recorded Not on file as of this encounter Plan of Treatment Date Type Specialty Care Team Description 04/10/2017 Hospital Radiology Emily Giang MD Canceled (Other) Encounter [address] [place] [address] [phone] as of this encounter Visit Diagnoses Not on filein this encounter
--- OUTSIDE RECORDS SUMMARY | 2017-04-05 09:59 | XMS REPORT | Encounter Summary ---
Author Author [facility] Organization [facility] Address Unknown Phone Unavailable Care Team Providers Care Electric Operator Name Role Phone PCP Unavailable Reason for Referral * Radiology Services Status Reason Specialty Diagnoses / Referred By Referred To Procedures Contact Contact New Request Radiology Diagnoses Phi Ogden MD Hematuria [address] [place]cedures [place] [address] CHE[address] [place], [place] CONTR[place] [address] CT CHEST WO/W Phone: CONTRAST [phone] Encounter Details Date Type Department Care Team Description 03/19/2017 Ancillary [facility] Phi Ogden MD Hematuria Orders Physicians - Urology [address] 2ND FLOOR POD A [place] [address] [place] [address] OFFICE BLDG [phone] [place] [address] Social History Tobacco Use Types Packs/Day Years Used Date Never Smoker Smokeless Tobacco: Never Used Alcohol Use Drinks/Week oz/Week Comments Yes Sex Assigned at Date Recorded Not on file as of this encounter Plan of Treatment Date Type Specialty Care Team Description 04/10/2017 Hospital Radiology Emily Giang MD Canceled (Other) Encounter [address] [place], [place] [id number] as of this encounter Results * CT CHEST W CONTRAST (03/19/2017 10:51 [...] is normal. There is extensive retroperitoneal adenopathy. Timber Appraiser left periaortic low-density node measures 2.7 x [...] is normal. There is extensive retroperitoneal adenopathy. Timber Appraiser left periaortic low-density node measures 2.7 x [...] PM. in this encounter Visit Diagnoses Diagnosis Hematuria Hematuria, unspecified in this encounter
--- OUTSIDE RECORDS SUMMARY | 2017-04-05 09:59 | XMS REPORT | Encounter Summary ---
Author Author [facility] Organization [facility] Address Unknown Phone Unavailable Care Team Providers Care Pack Out Operator Name Role Phone PCP Unavailable Encounter Details Date Type Department Care Team Description 03/14/2017 Ancillary Rad Outpatient, Radiologist Diagnosis unknown Orders [address] [place] [address] Social History Tobacco Use Types Packs/Day Years Used Date Never Assessed Sex Assigned at Date Recorded Not on file as of this encounter Plan of Treatment Date Type Specialty Care Team Description 04/10/2017 Hospital Radiology Emily Giang MD Canceled (Other) Encounter [address] [address] [phone] as of this encounter Results * CT ABDOMEN EXTERNAL IMAGING (03/12/2017 9:15 AM) Narrative This order has been auto finalized and does not contain a result. * US NECK EXTERNAL IMAGING (03/12/2017 8:55 AM) Narrative This order has been auto finalized and does not contain a result. in this encounter Visit Diagnoses Diagnosis Diagnosis unknown Other unknown and unspecified cause of morbidity or mortality in this encounter
--- OUTSIDE RECORDS SUMMARY | 2017-04-05 09:59 | XMS REPORT | Encounter Summary ---
Author Author [facility] Organization [facility] Address Unknown Phone Unavailable Care Team Providers Care Bridges Supervisor Name Role Phone PCP Unavailable Encounter Details Date Type Department Care Team Description 03/19/2017 Procedure Pass [facility] Radiology [address] [facility] MED OFFICE BLDG [address]ND [place] [address] Social History Tobacco Use Types Packs/Day Years Used Date Never Smoker Smokeless Tobacco: Never Used Alcohol Use Drinks/Week oz/Week Comments Yes Sex Assigned at Date Recorded Not on file as of this encounter Plan of Treatment Date Type Specialty Care Team Description 04/10/2017 Hospital Radiology Emily Giang MD Canceled (Other) Encounter [address] [place] [address] [phone] as of this encounter Visit Diagnoses Not on filein this encounter
--- OUTSIDE RECORDS SUMMARY | 2017-04-05 09:59 | XMS REPORT | Encounter Summary ---
Author Author [facility] Organization [facility] Address Unknown Phone Unavailable Care Team Providers Care Rag Willow Operator Name Role Phone PCP Unavailable Encounter Details Date Type Department Care Team Description 03/12/2017 Hospital [facility] Encounter Hospital Radiology [address] [place] [address] Social History Tobacco Use Types Packs/Day Years Used Date Never Assessed Sex Assigned at Date Recorded Not on file as of this encounter Plan of Treatment Date Type Specialty Care Team Description 04/10/2017 [facility] Radiology Emily Giang MD Canceled (Other) Encounter [address] [place] [address] [phone] as of this encounter Results * CT ABDOMEN EXTERNAL IMAGING (03/12/2017 9:15 AM) Narrative This order has been auto finalized and does not contain a result. in this encounter Visit Diagnoses Diagnosis Diagnosis unknown Other unknown and unspecified cause of morbidity or mortality in this encounter
--- OUTSIDE RECORDS SUMMARY | 2017-04-05 09:59 | XMS REPORT | Encounter Summary ---
Author Author [facility] Organization [facility] Address Unknown Phone Unavailable Care Team Providers Care Soils Engineer Name Role Phone PCP Unavailable Reason for Visit * Auth/Cert Status Reason Specialty Diagnoses / Referred By Referred To Procedures Contact Contact Diagnoses Malignant neoplasm of overlapping sites of bladder (HCC) unknown P rocedures AR CYSTOURETHROSCOP Y W/DEST &/RMVL TUMOR LARGE CYSTOSCOPY WITH TRANSURETHRAL RESECTION LESION BLADDER Encounter Details Date Type Department Care Team Description 03/25/2017 Surgery Main Operating Room Jonny Ogden MD CYSTOSCOPY WITH [address] [address] [address] BLADDER TUMOR GREATER [phone] [place] [address] THAN 5 CM, CYSTOGRAM, Social History Tobacco Use Types Packs/Day Years [...] Gunn MD PGY-1 Urology Please page urology divisional merchandising manager with questions SUBJECTIVE: Overnight events: No acute [...] 98 CA 9.1 Associated attestation - Jonny Ogden MD - 03/26/2017 7:57 AM CDT Patient [...] Date: 03/25/2017 [place] AC=Airway clearance AM=Aerosolized medication BA=[place] aerosol DB&C=Deep breathe & cough FEV1=Forced expiratory volume in first second) IC=Inspiratory capacity LE=Lung expansion MDI=Metered dose inhaler Neb=Nebulizer O2=Oxygen Oxim=Oximetry PEFR=Peak expiratory flow rate MAINTENANCE MANAGER=Rapid Response Team * Elvi Houston RN - [...] after bathing, do not wear makeup, fingernail danish or jewelry. Leave valuables at home. Patient verbalized understanding and denied questions. Direct number provided and patient encouraged to call clinic if any questions should arise prior to DOS. in this encounter Plan of Treatment Date Type Specialty Care Team Description 04/10/2017 [facility] Radiology Emily Giang MD Canceled (Other) Encounter [address] [address] [phone] Name Priority Associated Diagnoses Order Schedule SURGICAL [...] Specimen Performing Laboratory Blood MAIN LAB [address] [place] [address] * CBC (03/26/2017 3:20 AM) Component Value [...] Specimen Performing Laboratory Blood MAIN LAB [address] [place] [address] * BASIC METABOLIC PANEL (03/25/2017 3:10 PM) [...] Specimen Performing Laboratory Blood MAIN LAB [address] [place] [address] * CBC (03/25/2017 3:10 PM) Component Value [...] [place] Specimen Performing Laboratory Blood MAIN LAB [address] [place] [id number] * FLUORO MOBILE IN OR (03/25/2017 2:04 PM) Specimen Performing Laboratory [facility] Narrative This order has been auto finalized and does not contain a result. * SURGICAL PATHOLOGY (03/25/2017 2:00 PM) Component Value Ref Range PATHOLOGY REPORT [facility] [email or web address] Mei Barron MD, PhD, Director of Anatomic Pathology Department of Pathology and Laboratory Medicine [address] [place] [id number] Surgical Pathology Office: [phone] SURGICAL PATHOLOGY REPORT NAME: DALY RBASWELL SURG PATH #: [id number] MR #: [id number] SPECIMEN CLASS: SR BILLING #: [id number] ALT ID #: LOCATION: [facility] DATE OF [...] status and/or prior pathology. Pursuant to the Information Security Risk Analyst Program at the [facility] Pathology Department, selected slides from this case [...] 4.0 x 4.0 x 0.7 cm. Cassettes V1-L8-Ktaeod specimen 03/25/2017 Specimen Performing Laboratory [facility] RESULTS * TEST-URINE (03/25/2017 11:13 AM) Component Value Ref Range Urine-HCG NEG Specific Canadian 1.015 Specimen Performing Laboratory Urine [facility] MA[facility] [address] [place] [address] in this encounter Visit Diagnoses Diagnosis Malignant [...] at 1115, Until Sat03/25/17 at 1449, Pre-Op opium/belladonna (B&O SUPPRETTES) Given 03/25/2017 1 Other 60/16.2 mg rectal suppository 14:07 CDT suppository INTRA-PROCEDURE MED, Starting Sat03/25/17 at 1407, Until Sat03/25/17 at 1449, Intra-op oxybutynin chloride (DITROPAN) tablet 5 Given 03/25/2017 [...] mL/hr, CONTINUOUS, Starting Sat03/25/17 at 1500, Until Tu03/26/17 at 1429 Given - New Bag 03/26/2017 100 mL/hr 00:25 CDT Given - New Bag 03/26/2017 100 mL/hr 11:15 CDT sodium chloride 0.9 % irrigation bag Given 03/25/2017 12,000 mL Other INTRA-PROCEDURE MED, Starting Mon 13:00 CDT 03/25/17 at 1300, Until Sat03/25/17 at 1449, Intra-op sodium chloride 0.9 % irrigation bag Given [...]
--- OUTSIDE RECORDS SUMMARY | 2017-04-05 09:59 | XMS REPORT | Encounter Summary ---
Author Author [facility] Organization [facility] Address Unknown Phone Unavailable Care Team Providers Care Municipal Clerk Name Role Phone PCP Unavailable Encounter Details Date Type Department Care Team Description 03/19/2017 Procedure Pass [facility] Radiology [address] [facility] MED OFFICE BLDG [address] [place] [address] Social History Tobacco Use Types Packs/Day Years Used Date Never Smoker Smokeless Tobacco: Never Used Alcohol Use Drinks/Week oz/Week Comments Yes Sex Assigned at Date Recorded Not on file as of this encounter Plan of Treatment Date Type Specialty Care Team Description 04/10/2017 Hospital Radiology Emily Giang MD Canceled (Other) Encounter [address] [place] [address] [phone] as of this encounter Visit Diagnoses Not on filein this encounter
--- OUTSIDE RECORDS SUMMARY | 2017-04-05 09:59 | XMS REPORT | Encounter Summary ---
Author Author [facility] Organization [facility] Address Unknown Phone Unavailable Care Team Providers Care Electric Gas Appliances Demonstrator Name Role Phone PCP Unavailable Reason for Referral * Radiology Services Status Reason Specialty Diagnoses / Referred By Referred To Procedures Contact Contact No Auth Needed Radiology Diagnoses Phi Ogden MD [address] [facility] [address] MED OFFICE [place] [address] ABD/PELV WO/W [place], [place] [phone] Phone: Fax: * Radiology Services Status Reason Specialty Diagnoses / Referred By Referred To Procedures Contact Contact No Auth Needed Radiology Diagnoses Phi Ogden MD Mob [facility] Hematuria [address] MED OFFICE [facility] [facility] [place] [address] ABD/PELV WO/W [place], [place] [phone] Phone: Fax: Reason for Visit * Radiology Services Status Reason Specialty Diagnoses / Referred By Referred To Procedures Contact Contact No Auth Needed Radiology Diagnoses Phi Ogden MD Mob Ct Hematuria [address] MED OFFICE [place] [address] ABD/PELV WO/W [place] [phone] Phone: Fax: Encounter Details Date Type Department Care Team Description 03/19/2017 [facility] Phi Ogden MD Encounter [facility] Radiology [address] MED [place] [address] [place] [address] [address] FLO[address] [phone] [place], [place] [id number] [phone] Social History Tobacco Use Types Packs/Day Years Used Date Never Smoker Smokeless Tobacco: Never Used Alcohol Use Drinks/Week oz/Week Comments Yes Sex Assigned at Date Recorded Not on file as of this encounter Medications at Time of Discharge Medication Sig. Disp. Refills Start Date End Date ACETAMINOPHEN/DIPHENHYDRA Take 1 tablet by mouth as MINE (TYLENOL PM PO) Needed. bisoprolol/hydrochlorothi Take 1 tablet by mouth azide (ZIAC) 10/6.25 mg daily. tablet ciprofloxacin (CIPRO) 500 Take 1 tablet by mouth 2 tablet 0 201603/26/2017 mg tablet twice daily. as of this encounter Plan of Treatment Date Type Specialty Care Team Description 04/10/2017 [facility] Radiology Emily Giang MD Canceled (Other) Encounter [address] [place] [address] [phone] as of this encounter Results * CT [...] is normal. There is extensive retroperitoneal adenopathy. Organisational Psychologist left periaortic low-density node measures 2.7 x [...] is normal. There is extensive retroperitoneal adenopathy. Organisational Psychologist left periaortic low-density node measures 2.7 x [...] M.D. on 03/19/2017 12:49 PM. * CT ABD/PELV WO/W [place] (03/19/2017 10:51 [...] is normal. There is extensive retroperitoneal adenopathy. Organisational Psychologist left periaortic low-density node measures 2.7 x [...] is normal. There is extensive retroperitoneal adenopathy. Organisational Psychologist left periaortic low-density node measures 2.7 x [...] Diagnosis Hematuria Hematuria, unspecified in this encounter Administered Medications Medication Order MAR Action Action Date Dose Rate Site iopamidol 370 (ISOVUE-370) injection 100 Given 03/19/2017 100 mL mL 10:45 CDT 100 mL, Intravenous, ONCE, 1 dose, 03/19/17 at 1045, NOTE: This is a HIGH ALERT Medication. sodium chloride PF 0.9% injection 50 mL Given 03/19/2017 50 mL 50 mL, Intravenous, ONCE, 1 dose, Tue 10:45 CDT 03/19/17 at 1045, Intra-procedure (IR) in this encounter
--- OUTSIDE RECORDS SUMMARY | 2017-04-05 09:59 | XMS REPORT | Encounter Summary ---
Author Author [facility] Organization [facility] Address Unknown Phone Unavailable Care Team Providers Care Bread Icer Name Role Phone PCP Unavailable Encounter Details Date Type Department Care Team Description 03/20/2017 Prep for Case [facility] Phi Ogden MD Physicians - Urology [address] [place] [address] [place] [address] [address] FLOOR POD A [phone] [place], [place] [id number] [phone] Social History Tobacco Use Types Packs/Day Years Used Date Never Smoker Smokeless Tobacco: Never Used Alcohol Use Drinks/Week oz/Week Comments Yes Sex Assigned at Date Recorded Not on file as of this encounter Plan of Treatment Date Type Specialty Care Team Description 04/10/2017 [facility] Radiology Emily Giang MD Canceled (Other) Encounter [address] [place], [place] [address] as of this encounter Visit Diagnoses Not on filein this encounter
--- OUTSIDE RECORDS SUMMARY | 2017-04-05 09:59 | XMS REPORT | Encounter Summary ---
Author Author [facility] Organization [facility] Address Unknown Phone Unavailable Care Team Providers Care Development Expert Name Role Phone PCP Unavailable Encounter Details Date Type Department Care Team Description 03/12/2017 Hospital [facility] Encounter Hospital Radiology [address] [place] [address] Social History Tobacco Use Types Packs/Day Years Used Date Never Assessed Sex Assigned at Date Recorded Not on file as of this encounter Plan of Treatment Date Type Specialty Care Team Description 04/10/2017 [facility] Radiology Emily Giang MD Canceled (Other) Encounter [address] [place] [address] [phone] as of this encounter Results * US NECK EXTERNAL IMAGING (03/12/2017 8:55 AM) Narrative This order has been auto finalized and does not contain a result. in this encounter Visit Diagnoses Diagnosis Diagnosis unknown Other unknown and unspecified cause of morbidity or mortality in this encounter
--- OUTSIDE RECORDS SUMMARY | 2017-04-05 09:59 | XMS REPORT | Encounter Summary ---
Author Author [facility] Organization [facility] Address Unknown Phone Unavailable Care Team Providers Care Optical Glass Wet Inspector Name Role Phone PCP Unavailable Reason for Visit * Auth/Cert Status Reason Specialty Diagnoses / Referred By Referred To Procedures Contact Contact Diagnoses Malignant neoplasm of overlapping sites of bladder (HCC) unknown P rocedures ID CYSTOURETHROSCOP Y W/DEST &/RMVL TUMOR LARGE CYSTOSCOPY WITH TRANSURETHRAL RESECTION LESION BLADDER Encounter Details Date Type Department Care Team Description 03/25/2017 Anesthesia Main Operating Room Akhil Tesfaye DO [address] [facility] [address] [place] [address] [place] [address] Social History Tobacco Use Types Packs/Day Years Used Date Never Smoker Smokeless Tobacco: Never Used Alcohol Use Drinks/Week oz/Week Comments Yes Sex Assigned at Date Recorded Not on file as of this encounter Plan of Treatment Date Type Specialty Care Team Description 04/10/2017 Hospital Radiology Emily Giang MD Canceled (Other) Encounter [address] [place], [place] [id number] as of this encounter Visit Diagnoses Not on filein this encounter Administered Medications Medication Order MAR Action Action Date Dose Rate Site ceFAZolin (ANCEF) IVP 2 g Given 03/25/2017 2 g 2 g, Intravenous, ONCE, 1 dose, Mon 12:54 CDT 03/25/17 at 1115, Give Pre-Op < 60 minutes prior to first incision. (Given in OR). IV PUSH -- RECONSTITUTE each 1 g vial by adding 10 mL 0.9% NACL dexamethasone (DECADRON) injection Given 03/25/2017 4 mg Intravenous, INTRA-PROCEDURE MED, 12:53 CDT Starting 03/25/17 at 1253, Until 03/25/17 at 1424, Nausea/Vomiting Injectable, Anesthesia Intra-op fentaNYL citrate PF (SUBLIMAZE) Given 03/25/2017 50 mcg injection 12:39 CDT INTRA-PROCEDURE MED, Starting Sat03/25/17 at 1239, Until Sat03/25/17 at 1424, Pain Injectable, Anesthesia Intra-op Given 03/25/2017 50 mcg 13:18 CDT HYDROmorphone (DILAUDID) injection Given 03/25/2017 0.4 mg INTRA-PROCEDURE MED, Starting Sat 13:24 CDT 03/25/17 at 1324, Until Sat03/25/17 at 1424, Pain Injectable, Anesthesia Intra-op Given 03/25/2017 0.4 mg 14:00 CDT lidocaine (PF) injection Given 03/25/2017 80 mg INTRA-PROCEDURE MED, Starting Sat 12:42 CDT 03/25/17 at 1242, Until Sat03/25/17 at 1424, Anesthesia Intra-op midazolam (VERSED) injection Given 03/25/2017 2 mg Intravenous, INTRA-PROCEDURE MED, 12:32 CDT Starting Sat03/25/17 at 1232, Until Sat03/25/17 at 1424, Agitation Injectable, Anxiety Injectable, Anesthesia Intra-op ondansetron (ZOFRAN) injection Given 03/25/2017 4 mg Intravenous, INTRA-PROCEDURE MED, 14:10 CDT Starting Sat03/25/17 at 1410, Until Sat03/25/17 at 1424, Nausea/Vomiting Injectable, Anesthesia Intra-op phenylephrine in NS Injection Given 03/25/2017 50 mcg Intravenous, INTRA-PROCEDURE MED, 13:26 CDT Starting Sat03/25/17 at 1326, Until Sat03/25/17 at 1424, Symptomatic Hypotension, Anesthesia Intra-op Given 03/25/2017 100 mcg 14:05 CDT propofol (DIPRIVAN) injection Given 03/25/2017 150 mg INTRA-PROCEDURE MED, Starting Sat 12:42 CDT 03/25/17 at 1242, Until Sat03/25/17 at 1424, Anesthesia Intra-op rocuronium (ZEMURON) injection Given 03/25/2017 50 mg Intravenous, INTRA-PROCEDURE MED, 12:42 CDT Starting Sat03/25/17 at 1242, Until Sat03/25/17 at 1424, Anesthesia Intra-op Given 03/25/2017 10 mg 13:32 CDT sugammadex (BRIDION) injection Given 03/25/2017 162 mg Intravenous, INTRA-PROCEDURE MED, 14:12 CDT Starting Sat03/25/17 at 1412, Until Sat03/25/17 at 1424, Anesthesia Intra-op in this encounter
--- NOTE | 2017-04-05 10:10 | Progress Note-Pre Operative ---
Pre-Operative Progress Note H&P Reviewed The H&P was reviewed, patient examined and no changes noted. Date Seen by Provider: Apr 04, 2017 Time Seen by Provider: 11:50 Date H&P Reviewed: Apr 05, 2017 Time H&P Reviewed: 10:09 Pre-Operative Diagnosis: Left supraclavicular lymphadenopathy. Metastatic carcinoma of urinary SELINA Jansen MD Apr 05, 2017 10:09 am
[2017-04-05] MEDS ORDERED: LACTATED RINGERS 1,000 ML IV PRN (10:14)
[2017-04-05] MEDS ORDERED: ONDANSETRON 4 MG/2 ML (SDV) Z0FRAN ONE (10:26)
[2017-04-05] MEDS ORDERED: proPOfol 200 MG/20 ML (DIPRIVAN) VIAL IV ONE (10:26)
[2017-04-05] MEDS ORDERED: fentaNYL INJECTION 100 MCG/2 ML AMP ONE ×2 (10:26→12:02)
[2017-04-05] MEDS ORDERED: MIDAZOLAM 2 MG/2 ML (VERSED) VIAL ONE (10:26)
[2017-04-05] MEDS ORDERED: BUP/EPI 0.5% 1:200,000 (MARCAINE) 10ML VIAL IJ ONE (10:38)
[2017-04-05] MEDS ORDERED: HEParin (CENTRAL IV FLUSH) 500 UNIT/5 ML SYR ONE (10:38)
[2017-04-05 10:41] VITALS: BP 116/53
[2017-04-05] MEDS ORDERED: ceFAZolin 1,000 MG (ANCEF) VIAL ONE (10:42)
[2017-04-05] MEDS ORDERED: NS (IVPB) 50 ML ONE (10:42)
[2017-04-05] MEDS ORDERED: ceFAZolin 1 GM/NS 50 ML IVPB IV ONE ×2 (10:45)
[2017-04-05] MEDS ORDERED: 0.9% SODIUM CHLORIDE PF INJ 20 ML VIAL ONE (11:19)
[2017-04-05] MEDS ORDERED: SEVOFLURANE (ULTANE) 15 ML INHAL SOLN ONE (11:48)
[2017-04-05] MEDS ORDERED: LACTATED RINGERS 2,000 ML IV ONE (11:48)
--- NOTE | 2017-04-05 12:20 | Operative Report ---
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 She is due to receive systemic therapy and therefore placing a PowerPort was felt to be reasonable. In addition, her oncologist requested excisional biopsy of a palpable left supraclavicular lymph node as well. Informed consent was obtained after reviewing the operative details and complications of hematoma, bacteremia and a malfunction of the catheter requiring replacement of the port itself. Description of the procedures: She was placed supine on the operative table and general anesthesia induced using a laryngeal mask airway. A gram of Ancef was administered intravenously as prophylaxis against wound infection. Sequential compression devices were placed around her legs, to minimize the risk of venous thrombosis. 1. PowerPort placement: Her neck and upper chest were prepared and draped in the usual sterile manner. Right internal jugular vein was localized using a 10 MHz ultrasound probe and a floppy guidewire introduced into the heart, under fluoroscopy. Subcutaneous pocket was created over the infra-clavicular fossa and the catheter connected to the PowerPort, brought into the neck, in a retrograde fashion. It was then advanced into the heart, under fluoroscopy, using the peel-away sheath. The catheter was then pulled back to the superior vena cava under fluoroscopy and connected to the port, that had been primed with heparinized saline. I was able to aspirate and flush the system without any difficulty The port was then secured to the pectoralis tissue using 2-0 Prolene sutures. Incision was then closed using 3-0 Vicryl for the subcutaneous tissue and 4-0 Vicryl for skin, in a subcuticular fashion. Pre-emptive analgesia was established using 0.5 percent Marcaine with epinephrine. A nonadherent dressing was then applied 2. Excision biopsy of left supraclavicular lymph node:after establishing pre- and continue analgesia with 0 point percent Marcaine and epinephrine, a transverse incision about 4 cm long was made over the left supraclavicular fossa platysma incised transversely. The scalene fat pad was identified, leading to the lymph node. The sternocleidomastoid muscle was retracted medially and the lymph node isolated, with the lymphatics being controlled with ligaclips, to prevent chyle leak. The node was sent for formal histologic examination. The incision was then closed using 3-0 Vicryl for platysma and 4- 0 Vicryl for skin, in a subcuticular fashion. She tolerated the procedures well, was extubated in the operating room and taken to the recovery room in a stable condition Findings of the Procedure see operative report Allergies and Home Medications Allergies Coded Allergies: No Known Drug Allergies (Unverified , 04/04/17) Home Medications Bisoprolol Fumarate/Hctz 1 Each Tablet, 1 EACH PO DAILY, (Reported) SELINA SNIDER MD Apr 05, 2017 12:20 pm
[2017-04-05] MEDS ORDERED: HYDR-3820 PO (12:21)
--- NOTE | 2017-04-05 12:22 | Discharge Inst-Simple/Standard ---
Discharge Inst-Standard Discharge Medications New, Converted or Re-Newed RX: RX on Chart Patient Instructions/Follow Up Plan of Care/Instructions/FU: May use the port. Band-Aids off in 48 hours. Follow-up when necessary. We shall call once pathology result becomes available Activity as Tolerated: Yes Discharge Diet: No Restrictions SELINA SNIDER MD Apr 05, 2017 12:22 pm
[2017-04-05] MEDS ORDERED: morphine INJ 10 MG/ML 1ML (SYR OR VIAL) IVP PRN (12:30)
[2017-04-05] MEDS ORDERED: morphine INJ 10 MG/ML 1ML (SYR OR VIAL) ONE (12:59)
[2017-04-05 13:30] VITALS: BP 122/68
[2017-04-05 14:00] VITALS: BP 136/77
[2017-04-05 14:40] VITALS: BP 118/76
--- NOTE | 2017-04-05 14:48 | Diagnostic Imaging Report ---
INDICATION: Intraoperative view of the chest. INDICATION: Port placement. FLUOROSCOPY TIME: 1 minute and 1 second utilized. IMPRESSION: A right internal jugular line is seen with the tip at the SVC level. Dictated by: Dictated on workstation # [id number]
== END 2017-04-05 14:45 | disposition home or self-care (01) ==
LOC: SDC 09:52
PROVIDERS: ATTEND Surgery
DX: C67.9 Malignant neoplasm of bladder, unspecified (principal); C77.0 Secondary and unspecified malignant neoplasm of lymph nodes of head, face and neck; I10 Essential (primary) hypertension; Z79.899 Other long term (current) drug therapy
CPT/HCPCS: 84703; 87081; 88305; 88341; 88342

== ENCOUNTER → 2017-06-03 | Outpatient (CLI) | payer BC ==
[~2017-06-03] MED LIST changes: +BARIUM SUSPENSION 2.1% (VANILLA SILQ) 450 ML PO ONE; +HYDR-3820 PO; +IOHEXOL 350 MG/ML 100 ML (OMNIPAQUE 350) VIAL IV ONE; +NS 100 ML (IVPB) BAG IV ONE
--- NOTE | 2017-06-03 12:08 | Diagnostic Imaging Report ---
INDICATION: Bladder malignancy. COMPARISON: I have no previous neck or chest CTs for comparison. The exam however correlated with abdominal pelvic CT dated 03/12/2017. FINDINGS: NECK: The visualized intracranial structures, orbits and sinuses appeared normal. Nasopharynx, oropharynx and hypopharynx appeared normal. No morphologically distorted, abnormally numerous nor pathologically enlarged cervical lymph nodes were found. The parotid, submandibular and thyroid glands appeared normal. The osseous structures of the neck revealed cervical spondylosis with no destructive process or acute finding. CT CHEST: Supraclavicular fossa and thoracic inlet appeared unremarkable. There was no hilar or mediastinal lymphadenopathy. The axilla appeared unremarkable. No acute or suspicious soft tissue or osseous chest wall abnormality. No suspicious pulmonary nodule or dominant lung mass. Lungs clear aside from slight dependent subsegmental basilar atelectasis. ABDOMEN AND PELVIS: Low-density but solid-appearing right lobe liver mass measures today 3.1 cm previously 3.2 cm. No new liver pathology. Periaortic adenopathy substantially improved. The largest aggregate of left periaortic nodes at the level of the lower pole of the left kidney today measures 1.5 x 0.9 cm, previously 2.8 x 2.9 cm. Below the level of the lower pole of the left kidney, left para-aortic adenopathy also shows a reduction in size, number and conspicuity. Just prior to the aortic bifurcation, node measures today 1 cm previously 2 cm also much less dense. Lymph node lateral to the proximal left common iliac previously it measured 1.7 cm and is now barely perceptible at about 0.7 cm. At that level, a retroperitoneal mass ventral to the upper iliacus muscle today is 1.3 x 1.0 cm previously 2.4 x 2.2 cm. Nodes at the level of the right common iliac bifurcation now measure maximal 11 mm previously 15 mm. Large pelvic sidewall masses along the iliac and obturator chain showed interval improvement. Largest on the right measured 2.6 x 1.9 cm previously 6.9 x 3.4 cm. Largest on the left today barely perceptible measuring a short axis thickness of 9 mm previously measuring 4.3 x 2.6 cm. No destructive pelvic osseous lesion. No ascites. No bowel, biliary or urinary tract obstruction. The adrenals negative. IMPRESSION: NECK: No evidence for cervical metastasis. CHEST: No findings felt suggestive of thoracic metastasis. ABDOMEN: Unchanged right hepatic lobe mass indeterminate. Substantial improvement in periaortic retroperitoneal adenopathy with no adverse development. PELVIS: A significant reduction in iliac and obturator chain pelvic lymphadenopathy with no adverse development. No suspicious osseous lesion. No obstructive features, ascites or fluid collection. Dictated by: Dictated on workstation # [id number]
== END ==
LOC: RAD 07:30
PROVIDERS: ATTEND Internal Medicine Hematology & Oncology
DX: C67.1 Malignant neoplasm of dome of bladder (principal); C77.0 Secondary and unspecified malignant neoplasm of lymph nodes of head, face and neck; R16.0 Hepatomegaly, not elsewhere classified
CPT/HCPCS: 70491; 71260; 74178

== ENCOUNTER 2017-07-16 10:07 | Outpatient (RCR) | payer BC ==
[2017-07-10 08:44] LABS: BASOPHILS % (AUTO) 1 % (0-10); EOSINOPHILS % (AUTO) 0 % (0-10); HEMATOCRIT 27 % (35-52); HEMOGLOBIN 8.8 G/DL (11.5-16.0); LYMPHOCYTES # (AUTO) 1.3 X 10^3 (1.0-4.0); LYMPHOCYTES % (AUTO) 20 % (12-44); MEAN CORPUSCULAR HEMOGLOBIN 27 PG (25-34); MEAN CORPUSCULAR HGB CONC 32 G/DL (32-36); MEAN CORPUSCULAR VOLUME 85 FL (80-99); MEAN PLATELET VOLUME 9.3 FL (7.4-10.4); MONOCYTES # (AUTO) 0.7 X 10^3 (0.0-1.0); MONOCYTES % (AUTO) 10 % (0-12); NEUTROPHILS # (AUTO) 4.6 X 10^3 (1.8-7.8); NEUTROPHILS % (AUTO) 69 % (42-75); PLATELET COUNT 232 10^3/uL (130-400); RED BLOOD COUNT 3.23 10^6/uL (4.35-5.85); RED CELL DISTRIBUTION WIDTH 25.2 % (10.0-14.5); WHITE BLOOD COUNT 6.6 10^3/uL (4.3-11.0)
[2017-07-10 09:07] LABS: ALANINE AMINOTRANSFERASE 12 U/L (0-55); ALBUMIN 3.7 GM/DL (3.2-4.5); ALKALINE PHOSPHATASE 74 U/L (40-136); BILIRUBIN,TOTAL 0.3 MG/DL (0.1-1.0); BUN/CREATININE RATIO 15; CALCIUM 9.2 MG/DL (8.5-10.1); CARBON DIOXIDE 24 MMOL/L (21-32); CHLORIDE 106 MMOL/L (98-107); CREATININE SERUM 0.71 MG/DL (0.60-1.30); GFR ESTIMATED > 60; GLUCOSE 103 MG/DL (70-105); MAGNESIUM 1.5 MG/DL (1.8-2.4); POTASSIUM 3.8 MMOL/L (3.6-5.0); SODIUM 141 MMOL/L (135-145); TOTAL PROTEIN 6.6 GM/DL (6.4-8.2)
[~2017-07-16] VITALS: Ht 166.4 cm; Wt 78.5 kg
[~2017-07-16 10:07] MED LIST changes: -BARIUM SUSPENSION 2.1% (VANILLA SILQ) 450 ML PO ONE; -CATHETER FLUSH 10 ML SYR IV PRN; +CISPLATIN IV SCH; +DOXORUBICIN HCL IV SCH; +FOSAPREPITANT DIMEGLUMINE 150 MG in NS (IVPB) CANCER CENTER ONLY 150 ML IV SCH; -IOHEXOL 350 MG/ML 100 ML (OMNIPAQUE 350) VIAL IV ONE; +MAGNESIUM SULFATE IV SCH; +MANNITOL IV SCH; +METHOTREXATE IV SCH; -NS 100 ML (IVPB) BAG IV ONE; +NS IV 1000 ML (CANCER CTR) IV SCH; +NS IV 500 ML (CANCER CENTER) 500 ML ONE; +NS IV SCH; +ONDANSETRON MDV (CANCER CENTER 8 MG, DEXAMETHASONE INJ (CANCER CTR) 4 MG in D5W 50 ML I... IV SCH; +PALONOSETRON 0.25 MG, DEXAMETHASONE 10 MG/NS 50 ML IVPB IV PRN; +PALONOSETRON HCL 0.25 MG, DEXAMETHASONE PF INJ (CANCER C 10 MG in D5W 50 ML IV(CANCER C... IV PRN; +PEGFILGRASTIM 6 MG/0.6ML NEULASTA SC SCH; +VINBLASTINE SULFATE IV SCH; +[UNRECOGNIZED DRUG - OTHER] IV SCH
[2017-07-16 10:38] LABS: BASOPHILS % (AUTO) 0 % (0-10); EOSINOPHILS % (AUTO) 0 % (0-10); HEMATOCRIT 26 % (35-52); HEMOGLOBIN 8.5 G/DL (11.5-16.0); LYMPHOCYTES # (AUTO) 0.6 X 10^3 (1.0-4.0); LYMPHOCYTES % (AUTO) 11 % (12-44); MEAN CORPUSCULAR HEMOGLOBIN 27 PG (25-34); MEAN CORPUSCULAR HGB CONC 32 G/DL (32-36); MEAN CORPUSCULAR VOLUME 83 FL (80-99); MEAN PLATELET VOLUME 9.1 FL (7.4-10.4); MONOCYTES # (AUTO) 0.2 X 10^3 (0.0-1.0); MONOCYTES % (AUTO) 3 % (0-12); NEUTROPHILS # (AUTO) 4.6 X 10^3 (1.8-7.8); NEUTROPHILS % (AUTO) 85 % (42-75); PLATELET COUNT 256 10^3/uL (130-400); RED BLOOD COUNT 3.14 10^6/uL (4.35-5.85); RED CELL DISTRIBUTION WIDTH 24.1 % (10.0-14.5); WHITE BLOOD COUNT 5.4 10^3/uL (4.3-11.0)
[2017-07-16 11:00] LABS: BUN/CREATININE RATIO 19; CALCIUM 9.1 MG/DL (8.5-10.1); CARBON DIOXIDE 28 MMOL/L (21-32); CHLORIDE 99 MMOL/L (98-107); CREATININE SERUM 0.64 MG/DL (0.60-1.30); GFR ESTIMATED > 60; GLUCOSE 114 MG/DL (70-105); MAGNESIUM 1.5 MG/DL (1.8-2.4); POTASSIUM 3.6 MMOL/L (3.6-5.0); SODIUM 136 MMOL/L (135-145)
[2017-07-23 09:08] LABS: BASOPHILS % (AUTO) 0 % (0-10); EOSINOPHILS % (AUTO) 0 % (0-10); HEMATOCRIT 25 % (35-52); HEMOGLOBIN 8.3 G/DL (11.5-16.0); LYMPHOCYTES # (AUTO) 1.5 X 10^3 (1.0-4.0); LYMPHOCYTES % (AUTO) 22 % (12-44); MEAN CORPUSCULAR HEMOGLOBIN 29 PG (25-34); MEAN CORPUSCULAR HGB CONC 33 G/DL (32-36); MEAN CORPUSCULAR VOLUME 87 FL (80-99); MONOCYTES % (AUTO) 15 % (0-12); NEUTROPHILS # (AUTO) 4.2 X 10^3 (1.8-7.8); NEUTROPHILS % (AUTO) 63 % (42-75); PLATELET COUNT 124 10^3/uL (130-400); RED CELL DISTRIBUTION WIDTH 25.4 % (10.0-14.5); WHITE BLOOD COUNT 6.7 10^3/uL (4.3-11.0)
[2017-07-23 09:26] LABS: ALANINE AMINOTRANSFERASE 11 U/L (0-55); ALBUMIN 3.8 GM/DL (3.2-4.5); ALKALINE PHOSPHATASE 82 U/L (40-136); BILIRUBIN,TOTAL 0.3 MG/DL (0.1-1.0); BUN/CREATININE RATIO 12; CALCIUM 9.1 MG/DL (8.5-10.1); CARBON DIOXIDE 26 MMOL/L (21-32); CHLORIDE 101 MMOL/L (98-107); CREATININE SERUM 0.68 MG/DL (0.60-1.30); GFR ESTIMATED > 60; GLUCOSE 107 MG/DL (70-105); MAGNESIUM 1.2 MG/DL (1.8-2.4); POTASSIUM 3.7 MMOL/L (3.6-5.0); SODIUM 138 MMOL/L (135-145); TOTAL PROTEIN 6.3 GM/DL (6.4-8.2)
== END 2017-07-22 15:34 | disposition home or self-care (01) ==
LOC: ONC 10:07
PROVIDERS: ATTEND Internal Medicine Hematology & Oncology
DX: Z51.11 Encounter for antineoplastic chemotherapy (principal); C67.8 Malignant neoplasm of overlapping sites of bladder; C77.0 Secondary and unspecified malignant neoplasm of lymph nodes of head, face and neck; D50.9 Iron deficiency anemia, unspecified; I10 Essential (primary) hypertension; G43.909 Migraine, unspecified, not intractable, without status migrainosus; Z79.899 Other long term (current) drug therapy
CPT/HCPCS: 36415; 36591; 80048; 80053; 83735; 85025; 96360; 96367; 96372; 96375; 96409; 96411; 96413

== ENCOUNTER → 2017-07-16 | Outpatient (CLI) | payer BC ==
[~2017-07-16] MED LIST changes: +CATHETER FLUSH 10 ML SYR IV PRN
--- NOTE | 2017-07-16 11:03 | Diagnostic Imaging Report ---
INDICATION: Bladder malignancy. COMPARISON: Exam compared to 06/03/2017. TECHNIQUE: Oral contrast media was administered. Prior to IV contrast, abdominopelvic CT was performed. Following IV contrast, CT neck, chest, abdomen, and pelvis performed with multiplanar reconstructions of the neck, chest, abdomen, and pelvis. FINDINGS: CT neck: No pathologically enlarged, abnormally numerous, nor morphology distorted cervical lymph nodes are found. A catheter is within the right jugular vein. The cervical vascular structures are patent. Nasopharynx, oropharynx, and hypopharynx are normal. There is no mass. Chest: There is no lung mass or suspicious pulmonary nodule. There is no thoracic lymphadenopathy or effusion. The lungs are clear and no acute or suspicious osseous pathology. A central venous catheter caudal tip is near the cavoatrial junction. The aorta is patent and nonaneurysmal. The central pulmonary arterial branch lumens are widely patent. Abdomen and pelvis: Mass in the right hepatic lobe at the dome 3 cm hypodense on the dynamic images and much less well seen on the delayed acquisitions is an unchanged finding. While suggestive of cavernous hemangioma on the delayed images, it does not have the characteristic peripheral nodular enhancement on the dynamic phase. This is suggestive of a typical enhancement pattern of a hemangioma but its continued followup recommended given atypical features. No new liver mass and no bile duct dilatation. Mild splenomegaly is nonfocal and unchanged. Intra and extrahepatic portal venous branches show normal enhancement as does the splenic vein. The adrenals are negative. Pancreas is negative. The kidneys are unobstructed. Periaortic retroperitoneal lymph nodes showed further reduction in size, density, and number. The largest on the left at the level of the lower pole of the left kidney is 9.2 mm today, previously 13.4 mm and decreased in density. Small retroperitoneal mass ventral to the left upper iliacus muscle is today measuring 9 mm, previously 13 mm. An incidental vertebral body hemangioma at L1 is stable. No suspicious bony lesion. There is no abdominal ascites. The aorta is nonaneurysmal. Pelvis: Lower right pelvic mass along the anteroinferior obturator chain today is 3.8 x 1.3 cm, previously 4.6 x 1.9 cm. Left pelvic holger-iliac adenopathy just distal to the iliac bifurcation also decreased where a mass measures a short axis of about 12 mm today, previously about 16 mm. No pathological-appearing inguinal lymph nodes. The retroflexed uterus appeared unremarkable. Appendix is normal. There is no pelvic ascites. Urinary bladder is normal. IMPRESSION: 1. CT neck: Stable negative neck. 2. CT chest: Stable negative chest. 3. CT abdomen: Unchanged indeterminate right hepatic lobe mass. Stable mild splenomegaly. Further reduction with near-complete resolution of mild periaortic retroperitoneal adenopathy. 4. Pelvis: Further improvements in pelvic lymphadenopathy with no adverse development. Dictated by: Dictated on workstation # [id number]
== END ==
LOC: RAD 09:22
PROVIDERS: ATTEND Internal Medicine Hematology & Oncology
DX: C67.1 Malignant neoplasm of dome of bladder (principal); R16.1 Splenomegaly, not elsewhere classified; R16.0 Hepatomegaly, not elsewhere classified; R59.0 Localized enlarged lymph nodes
CPT/HCPCS: 70491; 71260; 74178

== ENCOUNTER → 2017-08-01 | Outpatient (CLI) | payer BC ==
[~2017-08-01] MED LIST changes: -CISPLATIN IV SCH; -DOXORUBICIN HCL IV SCH; -FOSAPREPITANT DIMEGLUMINE 150 MG in NS (IVPB) CANCER CENTER ONLY 150 ML IV SCH; -MAGNESIUM SULFATE IV SCH; -MANNITOL IV SCH; -METHOTREXATE IV SCH; -NS IV 1000 ML (CANCER CTR) IV SCH; -NS IV 500 ML (CANCER CENTER) 500 ML ONE; -NS IV SCH; -ONDANSETRON MDV (CANCER CENTER 8 MG, DEXAMETHASONE INJ (CANCER CTR) 4 MG in D5W 50 ML I... IV SCH; -PALONOSETRON 0.25 MG, DEXAMETHASONE 10 MG/NS 50 ML IVPB IV PRN; -PALONOSETRON HCL 0.25 MG, DEXAMETHASONE PF INJ (CANCER C 10 MG in D5W 50 ML IV(CANCER C... IV PRN; -PEGFILGRASTIM 6 MG/0.6ML NEULASTA SC SCH; -VINBLASTINE SULFATE IV SCH; -[UNRECOGNIZED DRUG - OTHER] IV SCH
== END ==
LOC: CARD 12:40
PROVIDERS: ATTEND Internal Medicine Hematology & Oncology
DX: C67.1 Malignant neoplasm of dome of bladder (principal); Z79.899 Other long term (current) drug therapy
CPT/HCPCS: 93306

== ENCOUNTER 2017-08-02 08:22 | Outpatient (RCR) | payer BC ==
[2017-08-01 11:49] LABS: BASOPHILS % (AUTO) 1 % (0-10); EOSINOPHILS % (AUTO) 0 % (0-10); LYMPHOCYTES % (AUTO) 43 % (12-44); MEAN CORPUSCULAR HEMOGLOBIN 29 PG (25-34); MEAN CORPUSCULAR HGB CONC 33 G/DL (32-36); MEAN CORPUSCULAR VOLUME 89 FL (80-99); MEAN PLATELET VOLUME 8.9 FL (7.4-10.4); MONOCYTES # (AUTO) 0.2 X 10^3 (0.0-1.0); MONOCYTES % (AUTO) 8 % (0-12); NEUTROPHILS # (AUTO) 1.1 X 10^3 (1.8-7.8); NEUTROPHILS % (AUTO) 48 % (42-75); RED BLOOD COUNT 2.22 10^6/uL (4.35-5.85); RED CELL DISTRIBUTION WIDTH 20.8 % (10.0-14.5); WHITE BLOOD COUNT 2.3 10^3/uL (4.3-11.0)
[2017-08-01 11:51] LABS: HEMATOCRIT 20 % (35-52); HEMOGLOBIN 6.5 G/DL (11.5-16.0)
[2017-08-01 11:52] LABS: PLATELET COUNT 39 10^3/uL (130-400)
[2017-08-01 12:07] LABS: ALANINE AMINOTRANSFERASE 17 U/L (0-55); ALBUMIN 3.8 GM/DL (3.2-4.5); ALKALINE PHOSPHATASE 95 U/L (40-136); BILIRUBIN,TOTAL 0.5 MG/DL (0.1-1.0); BUN/CREATININE RATIO 14; CALCIUM 8.8 MG/DL (8.5-10.1); CARBON DIOXIDE 20 MMOL/L (21-32); CHLORIDE 106 MMOL/L (98-107); CREATININE SERUM 0.66 MG/DL (0.60-1.30); GFR ESTIMATED > 60; GLUCOSE 101 MG/DL (70-105); MAGNESIUM 1.1 MG/DL (1.8-2.4); POTASSIUM 3.5 MMOL/L (3.6-5.0); SODIUM 138 MMOL/L (135-145); TOTAL PROTEIN 6.3 GM/DL (6.4-8.2)
[~2017-08-02] VITALS: Ht 166.4 cm; Wt 77.6 kg
[~2017-08-02 08:22] MED LIST changes: +ACETAMINOPHEN 500 MG TAB (TYLENOL) CANCER CTR ONE; +CISPLATIN IV SCH; +DOXORUBICIN HCL IV SCH; +FOSAPREPITANT DIMEGLUMINE 150 MG in NS (IVPB) CANCER CENTER ONLY 150 ML IV SCH; +MAGNESIUM SULFATE IV ONE; +MAGNESIUM SULFATE IV SCH; +MANNITOL IV SCH; +METHOTREXATE IV SCH; +NS IV 1000 ML (CANCER CTR) IV SCH; +NS IV 500 ML (CANCER CENTER) 500 ML ONE; +NS IV ONE; +NS IV SCH; +ONDANSETRON MDV (CANCER CENTER 8 MG, DEXAMETHASONE INJ (CANCER CTR) 4 MG in D5W 50 ML I... IV SCH; +ONDANSETRON MDV (CANCER CENTER 8 MG, DEXAMETHASONE INJ (CANCER CTR) 4 MG in NS (IVPB) C... IV SCH; +PALONOSETRON 0.25 MG, DEXAMETHASONE 10 MG/NS 50 ML IVPB IV PRN; +PEGFILGRASTIM 6 MG/0.6ML NEULASTA SC SCH; +VINBLASTINE SULFATE IV SCH; +[UNRECOGNIZED DRUG - OTHER] IV SCH
[2017-08-02] MEDS ORDERED: NS INJ ONE (11:00)
[2017-08-02] MEDS ORDERED: MAGNESIUM SULFATE INJ ONE (11:00)
== END 2017-08-05 11:26 | disposition home or self-care (01) ==
LOC: ONC 08:22
PROVIDERS: ATTEND Internal Medicine Hematology & Oncology
DX: C67.8 Malignant neoplasm of overlapping sites of bladder (principal); C77.0 Secondary and unspecified malignant neoplasm of lymph nodes of head, face and neck; D50.9 Iron deficiency anemia, unspecified; I10 Essential (primary) hypertension; G43.909 Migraine, unspecified, not intractable, without status migrainosus; Z79.899 Other long term (current) drug therapy
CPT/HCPCS: 36430; 36591; 80053; 82728; 83735; 85025; 86850; 86900; 86901; 86920; 96365; 96366; 96367; 96372; 96375; 96409; 96411; 96413

== ENCOUNTER 2017-08-26 11:03 | Outpatient (RCR) | payer BC ==
[2017-08-06 13:05] LABS: BASOPHILS % (AUTO) 0 % (0-10); EOSINOPHILS % (AUTO) 0 % (0-10); HEMATOCRIT 21 % (35-52); LYMPHOCYTES # (AUTO) 1.3 X 10^3 (1.0-4.0); LYMPHOCYTES % (AUTO) 30 % (12-44); MEAN CORPUSCULAR HEMOGLOBIN 30 PG (25-34); MEAN CORPUSCULAR HGB CONC 33 G/DL (32-36); MEAN CORPUSCULAR VOLUME 89 FL (80-99); MEAN PLATELET VOLUME 10.3 FL (7.4-10.4); MONOCYTES # (AUTO) 0.5 X 10^3 (0.0-1.0); MONOCYTES % (AUTO) 12 % (0-12); NEUTROPHILS # (AUTO) 2.5 X 10^3 (1.8-7.8); NEUTROPHILS % (AUTO) 58 % (42-75); PLATELET COUNT 89 10^3/uL (130-400); RED BLOOD COUNT 2.36 10^6/uL (4.35-5.85); RED CELL DISTRIBUTION WIDTH 18.9 % (10.0-14.5); WHITE BLOOD COUNT 4.3 10^3/uL (4.3-11.0)
[2017-08-06 13:22] LABS: ALANINE AMINOTRANSFERASE 15 U/L (0-55); ALBUMIN 3.8 GM/DL (3.2-4.5); ALKALINE PHOSPHATASE 86 U/L (40-136); BILIRUBIN,TOTAL 0.3 MG/DL (0.1-1.0); BUN/CREATININE RATIO 13; CALCIUM 9.2 MG/DL (8.5-10.1); CARBON DIOXIDE 27 MMOL/L (21-32); CHLORIDE 102 MMOL/L (98-107); CREATININE SERUM 0.72 MG/DL (0.60-1.30); GFR ESTIMATED > 60; GLUCOSE 96 MG/DL (70-105); MAGNESIUM 1.6 MG/DL (1.8-2.4); POTASSIUM 3.8 MMOL/L (3.6-5.0); SODIUM 138 MMOL/L (135-145); TOTAL PROTEIN 6.3 GM/DL (6.4-8.2)
[2017-08-12 09:27] LABS: BASOPHILS % (AUTO) 0 % (0-10); EOSINOPHILS % (AUTO) 0 % (0-10); HEMATOCRIT 26 % (35-52); HEMOGLOBIN 8.5 G/DL (11.5-16.0); LYMPHOCYTES # (AUTO) 0.7 X 10^3 (1.0-4.0); LYMPHOCYTES % (AUTO) 31 % (12-44); MEAN CORPUSCULAR HEMOGLOBIN 31 PG (25-34); MEAN CORPUSCULAR HGB CONC 33 G/DL (32-36); MEAN CORPUSCULAR VOLUME 94 FL (80-99); MEAN PLATELET VOLUME 9.1 FL (7.4-10.4); MONOCYTES # (AUTO) 0.4 X 10^3 (0.0-1.0); MONOCYTES % (AUTO) 17 % (0-12); NEUTROPHILS # (AUTO) 1.2 X 10^3 (1.8-7.8); NEUTROPHILS % (AUTO) 52 % (42-75); PLATELET COUNT 227 10^3/uL (130-400); RED BLOOD COUNT 2.77 10^6/uL (4.35-5.85); RED CELL DISTRIBUTION WIDTH 22.6 % (10.0-14.5); WHITE BLOOD COUNT 2.4 10^3/uL (4.3-11.0)
[2017-08-12 09:45] LABS: ALANINE AMINOTRANSFERASE 10 U/L (0-55); ALBUMIN 3.8 GM/DL (3.2-4.5); ALKALINE PHOSPHATASE 76 U/L (40-136); BILIRUBIN,TOTAL 0.4 MG/DL (0.1-1.0); BUN/CREATININE RATIO 21; CALCIUM 9.3 MG/DL (8.5-10.1); CARBON DIOXIDE 24 MMOL/L (21-32); CHLORIDE 105 MMOL/L (98-107); CREATININE SERUM 0.66 MG/DL (0.60-1.30); GFR ESTIMATED > 60; GLUCOSE 102 MG/DL (70-105); MAGNESIUM 1.8 MG/DL (1.8-2.4); POTASSIUM 4.1 MMOL/L (3.6-5.0); SODIUM 139 MMOL/L (135-145); TOTAL PROTEIN 6.6 GM/DL (6.4-8.2)
[2017-08-19 09:19] LABS: BASOPHILS % (AUTO) 1 % (0-10); EOSINOPHILS % (AUTO) 1 % (0-10); HEMATOCRIT 29 % (35-52); HEMOGLOBIN 9.3 G/DL (11.5-16.0); LYMPHOCYTES # (AUTO) 0.8 X 10^3 (1.0-4.0); LYMPHOCYTES % (AUTO) 24 % (12-44); MEAN CORPUSCULAR HEMOGLOBIN 31 PG (25-34); MEAN CORPUSCULAR HGB CONC 32 G/DL (32-36); MEAN CORPUSCULAR VOLUME 96 FL (80-99); MEAN PLATELET VOLUME 8.9 FL (7.4-10.4); MONOCYTES # (AUTO) 0.4 X 10^3 (0.0-1.0); MONOCYTES % (AUTO) 12 % (0-12); NEUTROPHILS % (AUTO) 63 % (42-75); PLATELET COUNT 189 10^3/uL (130-400); RED BLOOD COUNT 3.03 10^6/uL (4.35-5.85); RED CELL DISTRIBUTION WIDTH 20.7 % (10.0-14.5); WHITE BLOOD COUNT 3.1 10^3/uL (4.3-11.0)
[2017-08-19 09:41] LABS: ALANINE AMINOTRANSFERASE 9 U/L (0-55); ALBUMIN 3.8 GM/DL (3.2-4.5); ALKALINE PHOSPHATASE 65 U/L (40-136); BILIRUBIN,TOTAL 0.4 MG/DL (0.1-1.0); BUN/CREATININE RATIO 24; CALCIUM 9.4 MG/DL (8.5-10.1); CARBON DIOXIDE 23 MMOL/L (21-32); CHLORIDE 104 MMOL/L (98-107); CREATININE SERUM 0.66 MG/DL (0.60-1.30); GFR ESTIMATED > 60; GLUCOSE 95 MG/DL (70-105); MAGNESIUM 1.8 MG/DL (1.8-2.4); POTASSIUM 4.5 MMOL/L (3.6-5.0); SODIUM 139 MMOL/L (135-145); TOTAL PROTEIN 6.7 GM/DL (6.4-8.2)
[~2017-08-26] VITALS: Ht 166.4 cm; Wt 76.2 kg
[~2017-08-26 11:03] MED LIST changes: -ACETAMINOPHEN 500 MG TAB (TYLENOL) CANCER CTR ONE; -MAGNESIUM SULFATE IV ONE; -NS IV 500 ML (CANCER CENTER) 500 ML ONE; -NS IV ONE; -ONDANSETRON MDV (CANCER CENTER 8 MG, DEXAMETHASONE INJ (CANCER CTR) 4 MG in D5W 50 ML I... IV SCH
[2017-08-26 11:26] LABS: BASOPHILS % (AUTO) 0 % (0-10); EOSINOPHILS % (AUTO) 1 % (0-10); HEMATOCRIT 27 % (35-52); HEMOGLOBIN 8.9 G/DL (11.5-16.0); LYMPHOCYTES % (AUTO) 34 % (12-44); MEAN CORPUSCULAR HEMOGLOBIN 31 PG (25-34); MEAN CORPUSCULAR HGB CONC 33 G/DL (32-36); MEAN CORPUSCULAR VOLUME 95 FL (80-99); MEAN PLATELET VOLUME 8.5 FL (7.4-10.4); MONOCYTES # (AUTO) 0.2 X 10^3 (0.0-1.0); MONOCYTES % (AUTO) 6 % (0-12); NEUTROPHILS # (AUTO) 1.7 X 10^3 (1.8-7.8); NEUTROPHILS % (AUTO) 59 % (42-75); PLATELET COUNT 66 10^3/uL (130-400); RED BLOOD COUNT 2.83 10^6/uL (4.35-5.85); RED CELL DISTRIBUTION WIDTH 17.6 % (10.0-14.5); WHITE BLOOD COUNT 2.9 10^3/uL (4.3-11.0)
[2017-08-26 11:40] LABS: BUN/CREATININE RATIO 24; CALCIUM 9.6 MG/DL (8.5-10.1); CARBON DIOXIDE 25 MMOL/L (21-32); CHLORIDE 102 MMOL/L (98-107); CREATININE SERUM 0.71 MG/DL (0.60-1.30); GFR ESTIMATED > 60; GLUCOSE 100 MG/DL (70-105); MAGNESIUM 1.5 MG/DL (1.8-2.4); POTASSIUM 3.8 MMOL/L (3.6-5.0); SODIUM 137 MMOL/L (135-145)
== END 2017-09-02 09:40 | disposition home or self-care (01) ==
LOC: ONC 11:03
PROVIDERS: ATTEND Internal Medicine Hematology & Oncology
DX: Z51.11 Encounter for antineoplastic chemotherapy (principal); C67.8 Malignant neoplasm of overlapping sites of bladder; C77.0 Secondary and unspecified malignant neoplasm of lymph nodes of head, face and neck; D50.9 Iron deficiency anemia, unspecified; I10 Essential (primary) hypertension; G43.909 Migraine, unspecified, not intractable, without status migrainosus; Z79.899 Other long term (current) drug therapy
CPT/HCPCS: 36415; 36591; 80048; 80053; 83735; 85025; 96360; 96367; 96372; 96375; 96409; 96411; 96413

== ENCOUNTER → 2017-09-06 | Outpatient (CLI) | payer BC ==
[~2017-09-06] MED LIST changes: +CATHETER FLUSH 10 ML SYR IV PRN; -CISPLATIN IV SCH; -DOXORUBICIN HCL IV SCH; -FOSAPREPITANT DIMEGLUMINE 150 MG in NS (IVPB) CANCER CENTER ONLY 150 ML IV SCH; -MAGNESIUM SULFATE IV SCH; -MANNITOL IV SCH; -METHOTREXATE IV SCH; -NS IV 1000 ML (CANCER CTR) IV SCH; -NS IV SCH; -ONDANSETRON MDV (CANCER CENTER 8 MG, DEXAMETHASONE INJ (CANCER CTR) 4 MG in NS (IVPB) C... IV SCH; -PALONOSETRON 0.25 MG, DEXAMETHASONE 10 MG/NS 50 ML IVPB IV PRN; -PEGFILGRASTIM 6 MG/0.6ML NEULASTA SC SCH; -VINBLASTINE SULFATE IV SCH; -[UNRECOGNIZED DRUG - OTHER] IV SCH
--- NOTE | 2017-09-06 14:58 | Diagnostic Imaging Report ---
INDICATION: Bladder carcinoma. TECHNIQUE: The patient was administered 26.1 mCi of technetium 99m MDP intravenously and whole-body imaging was performed after a three-hour delay. COMPARISON: No prior studies are available for comparison. FINDINGS: There is normal uptake of activity by the axial and appendicular skeleton. There is uptake of activity by both kidneys with excretion into the urinary bladder. No abnormal foci of tracer accumulation is seen to suggest osseous metastatic disease or occult fracture. IMPRESSION: Unremarkable whole body bone scan. Dictated by: Dictated on workstation # [id number]
== END ==
LOC: CARD 10:49
PROVIDERS: ATTEND Internal Medicine Hematology & Oncology
DX: Z01.89 Encounter for other specified special examinations (principal); C67.1 Malignant neoplasm of dome of bladder; C77.0 Secondary and unspecified malignant neoplasm of lymph nodes of head, face and neck
CPT/HCPCS: 78306

== ENCOUNTER 2017-09-30 10:49 | Outpatient (RCR) | payer BC ==
[2017-09-02 09:58] LABS: BASOPHILS % (AUTO) 0 % (0-10); EOSINOPHILS % (AUTO) 0 % (0-10); HEMATOCRIT 25 % (35-52); HEMOGLOBIN 8.3 G/DL (11.5-16.0); LYMPHOCYTES # (AUTO) 1.1 X 10^3 (1.0-4.0); LYMPHOCYTES % (AUTO) 29 % (12-44); MEAN CORPUSCULAR HEMOGLOBIN 32 PG (25-34); MEAN CORPUSCULAR HGB CONC 33 G/DL (32-36); MEAN CORPUSCULAR VOLUME 96 FL (80-99); MEAN PLATELET VOLUME 9.6 FL (7.4-10.4); MONOCYTES # (AUTO) 0.5 X 10^3 (0.0-1.0); MONOCYTES % (AUTO) 12 % (0-12); NEUTROPHILS # (AUTO) 2.1 X 10^3 (1.8-7.8); NEUTROPHILS % (AUTO) 58 % (42-75); PLATELET COUNT 88 10^3/uL (130-400); RED BLOOD COUNT 2.61 10^6/uL (4.35-5.85); RED CELL DISTRIBUTION WIDTH 17.4 % (10.0-14.5); WHITE BLOOD COUNT 3.6 10^3/uL (4.3-11.0)
[2017-09-02 10:17] LABS: ALANINE AMINOTRANSFERASE 11 U/L (0-55); ALBUMIN 3.8 GM/DL (3.2-4.5); ALKALINE PHOSPHATASE 74 U/L (40-136); BILIRUBIN,TOTAL 0.3 MG/DL (0.1-1.0); BUN/CREATININE RATIO 22; CALCIUM 9.1 MG/DL (8.5-10.1); CARBON DIOXIDE 24 MMOL/L (21-32); CHLORIDE 104 MMOL/L (98-107); CREATININE SERUM 0.72 MG/DL (0.60-1.30); GFR ESTIMATED > 60; GLUCOSE 134 MG/DL (70-105); MAGNESIUM 1.5 MG/DL (1.8-2.4); POTASSIUM 3.6 MMOL/L (3.6-5.0); SODIUM 138 MMOL/L (135-145); TOTAL PROTEIN 6.3 GM/DL (6.4-8.2)
[2017-09-10 14:57] LABS: BASOPHILS % (AUTO) 1 % (0-10); EOSINOPHILS % (AUTO) 0 % (0-10); HEMATOCRIT 27 % (35-52); HEMOGLOBIN 8.9 G/DL (11.5-16.0); LYMPHOCYTES # (AUTO) 1.4 X 10^3 (1.0-4.0); LYMPHOCYTES % (AUTO) 37 % (12-44); MEAN CORPUSCULAR HEMOGLOBIN 32 PG (25-34); MEAN CORPUSCULAR HGB CONC 33 G/DL (32-36); MEAN CORPUSCULAR VOLUME 98 FL (80-99); MONOCYTES # (AUTO) 0.6 X 10^3 (0.0-1.0); MONOCYTES % (AUTO) 17 % (0-12); NEUTROPHILS # (AUTO) 1.7 X 10^3 (1.8-7.8); NEUTROPHILS % (AUTO) 46 % (42-75); PLATELET COUNT 248 10^3/uL (130-400); RED BLOOD COUNT 2.79 10^6/uL (4.35-5.85); RED CELL DISTRIBUTION WIDTH 17.8 % (10.0-14.5); WHITE BLOOD COUNT 3.7 10^3/uL (4.3-11.0)
[2017-09-10 15:20] LABS: ALANINE AMINOTRANSFERASE 9 U/L (0-55); ALKALINE PHOSPHATASE 67 U/L (40-136); BILIRUBIN,TOTAL 0.3 MG/DL (0.1-1.0); BUN/CREATININE RATIO 32; CALCIUM 9.3 MG/DL (8.5-10.1); CARBON DIOXIDE 26 MMOL/L (21-32); CHLORIDE 105 MMOL/L (98-107); CREATININE SERUM 0.69 MG/DL (0.60-1.30); GFR ESTIMATED > 60; GLUCOSE 109 MG/DL (70-105); MAGNESIUM 1.8 MG/DL (1.8-2.4); POTASSIUM 4.1 MMOL/L (3.6-5.0); SODIUM 137 MMOL/L (135-145); TOTAL PROTEIN 6.8 GM/DL (6.4-8.2)
[~2017-09-30] VITALS: Ht 166.4 cm; Wt 78.0 kg
[~2017-09-30 10:49] MED LIST changes: -CATHETER FLUSH 10 ML SYR IV PRN; +NS IV 500 ML (CANCER CENTER) 500 ML IV SCH; +PEMBROLIZUMAB 200 MG in NS (IVPB) CANCER CENTER 50 ML IV SCH
[2017-09-30 11:05] LABS: BASOPHILS % (AUTO) 1 % (0-10); EOSINOPHILS # (AUTO) 0.2 10^3/uL (0.0-0.3); EOSINOPHILS % (AUTO) 6 % (0-10); HEMATOCRIT 30 % (35-52); HEMOGLOBIN 9.6 G/DL (11.5-16.0); LYMPHOCYTES # (AUTO) 1.5 X 10^3 (1.0-4.0); LYMPHOCYTES % (AUTO) 41 % (12-44); MEAN CORPUSCULAR HEMOGLOBIN 31 PG (25-34); MEAN CORPUSCULAR HGB CONC 33 G/DL (32-36); MEAN CORPUSCULAR VOLUME 94 FL (80-99); MEAN PLATELET VOLUME 8.6 FL (7.4-10.4); MONOCYTES # (AUTO) 0.5 X 10^3 (0.0-1.0); MONOCYTES % (AUTO) 13 % (0-12); NEUTROPHILS # (AUTO) 1.5 X 10^3 (1.8-7.8); NEUTROPHILS % (AUTO) 40 % (42-75); PLATELET COUNT 193 10^3/uL (130-400); RED BLOOD COUNT 3.14 10^6/uL (4.35-5.85); RED CELL DISTRIBUTION WIDTH 14.9 % (10.0-14.5); WHITE BLOOD COUNT 3.8 10^3/uL (4.3-11.0)
[2017-09-30 11:33] LABS: ALANINE AMINOTRANSFERASE 11 U/L (0-55); ALBUMIN 3.9 GM/DL (3.2-4.5); ALKALINE PHOSPHATASE 72 U/L (40-136); BILIRUBIN,TOTAL 0.2 MG/DL (0.1-1.0); BUN/CREATININE RATIO 25; CALCIUM 9.4 MG/DL (8.5-10.1); CARBON DIOXIDE 27 MMOL/L (21-32); CHLORIDE 107 MMOL/L (98-107); CREATININE SERUM 0.81 MG/DL (0.60-1.30); GFR ESTIMATED > 60; GLUCOSE 93 MG/DL (70-105); POTASSIUM 4.5 MMOL/L (3.6-5.0); SODIUM 140 MMOL/L (135-145); TOTAL PROTEIN 6.9 GM/DL (6.4-8.2)
[2017-09-30] MEDS ORDERED: DENOSUMAB 120 MG/1.7 ML (XGEVA) SQ SCH (13:00)
== END 2017-10-23 08:28 | disposition home or self-care (01) ==
LOC: ONC 10:49
PROVIDERS: ATTEND Internal Medicine Hematology & Oncology
DX: C67.8 Malignant neoplasm of overlapping sites of bladder (principal); C77.0 Secondary and unspecified malignant neoplasm of lymph nodes of head, face and neck; D50.9 Iron deficiency anemia, unspecified; I10 Essential (primary) hypertension; G43.909 Migraine, unspecified, not intractable, without status migrainosus; Z79.899 Other long term (current) drug therapy
CPT/HCPCS: 36591; 80053; 83735; 84443; 85025; 96413

== ENCOUNTER 2017-10-23 08:31 | Outpatient (RCR) | payer BC ==
[~2017-10-23] VITALS: Ht 166.4 cm; Wt 78.0 kg
[~2017-10-23 08:31] MED LIST changes: -NS IV 500 ML (CANCER CENTER) 500 ML IV SCH; -PEMBROLIZUMAB 200 MG in NS (IVPB) CANCER CENTER 50 ML IV SCH
[2017-10-23] MEDS ORDERED: PEMBROLIZUMAB 200 MG in NS (IVPB) CANCER CENTER 50 ML IV SCH (08:33)
[2017-10-23] MEDS ORDERED: NS IV 500 ML (CANCER CENTER) 500 ML IV SCH (08:33)
[2017-10-23 08:48] LABS: BASOPHILS % (AUTO) 0 % (0-10); EOSINOPHILS # (AUTO) 0.1 10^3/uL (0.0-0.3); EOSINOPHILS % (AUTO) 2 % (0-10); HEMATOCRIT 33 % (35-52); HEMOGLOBIN 10.6 G/DL (11.5-16.0); LYMPHOCYTES # (AUTO) 1.3 X 10^3 (1.0-4.0); LYMPHOCYTES % (AUTO) 41 % (12-44); MEAN CORPUSCULAR HEMOGLOBIN 30 PG (25-34); MEAN CORPUSCULAR HGB CONC 33 G/DL (32-36); MEAN CORPUSCULAR VOLUME 91 FL (80-99); MEAN PLATELET VOLUME 8.9 FL (7.4-10.4); MONOCYTES # (AUTO) 0.4 X 10^3 (0.0-1.0); MONOCYTES % (AUTO) 12 % (0-12); NEUTROPHILS # (AUTO) 1.4 X 10^3 (1.8-7.8); NEUTROPHILS % (AUTO) 45 % (42-75); PLATELET COUNT 172 10^3/uL (130-400); RED BLOOD COUNT 3.56 10^6/uL (4.35-5.85); RED CELL DISTRIBUTION WIDTH 13.7 % (10.0-14.5); WHITE BLOOD COUNT 3.2 10^3/uL (4.3-11.0)
[2017-10-23 09:05] LABS: ALANINE AMINOTRANSFERASE 19 U/L (0-55); ALKALINE PHOSPHATASE 81 U/L (40-136); BILIRUBIN,TOTAL 0.4 MG/DL (0.1-1.0); BUN/CREATININE RATIO 20; CALCIUM 9.5 MG/DL (8.5-10.1); CARBON DIOXIDE 23 MMOL/L (21-32); CHLORIDE 107 MMOL/L (98-107); CREATININE SERUM 0.88 MG/DL (0.60-1.30); GFR ESTIMATED > 60; GLUCOSE 102 MG/DL (70-105); POTASSIUM 4.2 MMOL/L (3.6-5.0); SODIUM 140 MMOL/L (135-145); TOTAL PROTEIN 6.9 GM/DL (6.4-8.2)
== END 2017-11-08 10:21 | disposition home or self-care (01) ==
LOC: ONC 08:31
PROVIDERS: ATTEND Internal Medicine Hematology & Oncology
DX: Z51.11 Encounter for antineoplastic chemotherapy (principal); C67.8 Malignant neoplasm of overlapping sites of bladder; C77.0 Secondary and unspecified malignant neoplasm of lymph nodes of head, face and neck; D50.9 Iron deficiency anemia, unspecified; I10 Essential (primary) hypertension; G43.909 Migraine, unspecified, not intractable, without status migrainosus; Z79.899 Other long term (current) drug therapy
CPT/HCPCS: 36591; 80053; 85025; 96413

== ENCOUNTER → 2017-11-26 | Outpatient (CLI) | payer BC ==
[~2017-11-26] MED LIST changes: +BARIUM SUSPENSION 2.1% (VANILLA SILQ) 450 ML PO ONE; +CATHETER FLUSH 10 ML SYR IV PRN; +IOHEXOL 350 MG/ML 100 ML (OMNIPAQUE 350) VIAL IV ONE; +NS 250 ML (IVPB) BAG IV ONE
[2017-11-26] MEDS: CATHETER FLUSH 10 ML SYR IV PRN ×2 (11:06→11:47)
--- NOTE | 2017-11-26 13:41 | Diagnostic Imaging Report ---
INDICATION: Bladder carcinoma with metastasis to scalene lymph node. Pre and postcontrast axial imaging of the abdomen and pelvis was performed. Postcontrast axial imaging of the neck and chest was performed. CT neck: Comparison is made with prior CT neck from 07/16/2017. FINDINGS: The visualized intracranial structures are unremarkable. The posterior nasopharynx, oropharynx and larynx are unremarkable. No thyroid masses are detected. The submandibular and parotid glands appear to be symmetric. There are small jugulodigastric lymph nodes bilaterally. Posterior cervical space is unremarkable. There is a small supraclavicular lymph node on the left just lateral to the left lobe of the thyroid as well as jugular and carotid 0.7 cm. This compares with approximately 0.4 cm on prior. No other new abnormality is seen. There is central venous catheter in the right jugular vein. IMPRESSION: Overall fairly stable appearance to the neck apart from slight increase in size of a left supraclavicular lymph node when compared with examination from 07/16/2017. CT chest: Comparison is made with prior CT chest, abdomen and pelvis from 09/06/2017. FINDINGS: No axillary lymphadenopathy is detected. No hilar or mediastinal lymphadenopathy is detected. No pericardial or pleural fluid is detected. No pulmonary infiltrates, nodules or masses are seen. There is some linear scarring or atelectasis in both lower lobes. IMPRESSION: Unremarkable CT of the chest. No thoracic lymphadenopathy or pulmonary metastatic disease is identified. CT abdomen and pelvis: FINDINGS: The low-density mass in right lobe near the dome of the liver is again noted measuring approximately 3.0 x 2.2 cm compared with 2.8 x 2.1 cm. No new liver mass is identified. The gallbladder is unremarkable. Pancreas and spleen appear stable. No adrenal mass is detected. The kidneys are unremarkable. Aorta is nonaneurysmal. Previously noted left para-aortic lymph node at the level of the lower pole left kidney is stable at approximately 9-10 mm. Tiny node anterior to the left iliacus muscle measures 6 mm compared with 9 mm on prior. The elva mass along the right obturator chain has significantly improved in size now measuring 1.7 x 1.5 cm compared with 3.2 x 1.9 cm. No inguinal lymphadenopathy is detected. Bladder and uterus appear to be stable. There is a small amount of free fluid in the pelvis. IMPRESSION: 1. Stable right lobe liver mass. 2. Decrease in size of right pelvic lymphadenopathy when compared with prior study from 09/06/2017. Retroperitoneal lymphadenopathy appears stable. No new abnormality is identified. Dictated by: Dictated on workstation # [id number]
--- NOTE | 2017-11-26 16:08 | Diagnostic Imaging Report ---
INDICATION: Bladder carcinoma. TECHNIQUE: Patient was administered 26.6 mCi of technetium 99m MDP intravenously and whole-body imaging was performed after a three-hour delay. COMPARISON: Comparison is made with prior whole body bone scan from 09/06/2017. FINDINGS: There continues to be normal distribution of radiotracer throughout the axial and appendicular skeleton. There is uptake by both kidneys with excretion into the urinary bladder. No abnormal foci of tracer accumulation is seen to suggest osseous metastatic disease. There appear to be some degenerative changes of bilateral hips, similar to prior study. IMPRESSION: Stable unremarkable whole body bone scan. There is no scintigraphic evidence of osseous metastatic disease. Dictated by: Dictated on workstation # [id number]
== END ==
LOC: CARD 10:54
PROVIDERS: ATTEND Internal Medicine Hematology & Oncology
DX: C77.0 Secondary and unspecified malignant neoplasm of lymph nodes of head, face and neck (principal); C67.1 Malignant neoplasm of dome of bladder
CPT/HCPCS: 70491; 71260; 74178; 78306

== ENCOUNTER 2018-02-03 13:00 | Outpatient (RCR) | payer BC ==
[2017-11-12 11:10] LABS: BASOPHILS % (AUTO) 0 % (0-10); EOSINOPHILS # (AUTO) 0.1 10^3/uL (0.0-0.3); EOSINOPHILS % (AUTO) 2 % (0-10); HEMATOCRIT 32 % (35-52); HEMOGLOBIN 10.4 G/DL (11.5-16.0); LYMPHOCYTES # (AUTO) 1.4 X 10^3 (1.0-4.0); LYMPHOCYTES % (AUTO) 39 % (12-44); MEAN CORPUSCULAR HEMOGLOBIN 29 PG (25-34); MEAN CORPUSCULAR HGB CONC 33 G/DL (32-36); MEAN CORPUSCULAR VOLUME 89 FL (80-99); MEAN PLATELET VOLUME 8.7 FL (7.4-10.4); MONOCYTES # (AUTO) 0.4 X 10^3 (0.0-1.0); MONOCYTES % (AUTO) 11 % (0-12); NEUTROPHILS # (AUTO) 1.7 X 10^3 (1.8-7.8); NEUTROPHILS % (AUTO) 48 % (42-75); PLATELET COUNT 175 10^3/uL (130-400); RED BLOOD COUNT 3.56 10^6/uL (4.35-5.85); RED CELL DISTRIBUTION WIDTH 14.3 % (10.0-14.5); WHITE BLOOD COUNT 3.5 10^3/uL (4.3-11.0)
[2017-11-12 11:31] LABS: ALANINE AMINOTRANSFERASE 24 U/L (0-55); ALBUMIN 3.9 GM/DL (3.2-4.5); ALKALINE PHOSPHATASE 76 U/L (40-136); BILIRUBIN,TOTAL 0.3 MG/DL (0.1-1.0); BUN/CREATININE RATIO 25; CALCIUM 9.6 MG/DL (8.5-10.1); CARBON DIOXIDE 22 MMOL/L (21-32); CHLORIDE 109 MMOL/L (98-107); CREATININE SERUM 0.81 MG/DL (0.60-1.30); GFR ESTIMATED > 60; GLUCOSE 100 MG/DL (70-105); SODIUM 141 MMOL/L (135-145); TOTAL PROTEIN 6.8 GM/DL (6.4-8.2)
[2017-12-02 09:38] LABS: BASOPHILS % (AUTO) 0 % (0-10); EOSINOPHILS # (AUTO) 0.1 10^3/uL (0.0-0.3); EOSINOPHILS % (AUTO) 3 % (0-10); HEMATOCRIT 33 % (35-52); HEMOGLOBIN 10.7 G/DL (11.5-16.0); LYMPHOCYTES # (AUTO) 1.4 X 10^3 (1.0-4.0); LYMPHOCYTES % (AUTO) 39 % (12-44); MEAN CORPUSCULAR HEMOGLOBIN 28 PG (25-34); MEAN CORPUSCULAR HGB CONC 32 G/DL (32-36); MEAN CORPUSCULAR VOLUME 88 FL (80-99); MEAN PLATELET VOLUME 8.4 FL (7.4-10.4); MONOCYTES # (AUTO) 0.4 X 10^3 (0.0-1.0); MONOCYTES % (AUTO) 12 % (0-12); NEUTROPHILS # (AUTO) 1.6 X 10^3 (1.8-7.8); NEUTROPHILS % (AUTO) 46 % (42-75); PLATELET COUNT 186 10^3/uL (130-400); RED BLOOD COUNT 3.78 10^6/uL (4.35-5.85); RED CELL DISTRIBUTION WIDTH 14.8 % (10.0-14.5); WHITE BLOOD COUNT 3.6 10^3/uL (4.3-11.0)
[2017-12-02 09:59] LABS: ALANINE AMINOTRANSFERASE 17 U/L (0-55); ALKALINE PHOSPHATASE 86 U/L (40-136); BILIRUBIN,TOTAL 0.4 MG/DL (0.1-1.0); BUN/CREATININE RATIO 21; CALCIUM 9.6 MG/DL (8.5-10.1); CARBON DIOXIDE 22 MMOL/L (21-32); CHLORIDE 110 MMOL/L (98-107); CREATININE SERUM 0.82 MG/DL (0.60-1.30); GFR ESTIMATED > 60; GLUCOSE 103 MG/DL (70-105); POTASSIUM 3.9 MMOL/L (3.6-5.0); SODIUM 141 MMOL/L (135-145); TOTAL PROTEIN 6.9 GM/DL (6.4-8.2)
[2017-12-23 09:36] LABS: BASOPHILS % (AUTO) 1 % (0-10); EOSINOPHILS # (AUTO) 0.1 10^3/uL (0.0-0.3); EOSINOPHILS % (AUTO) 4 % (0-10); HEMATOCRIT 34 % (35-52); LYMPHOCYTES # (AUTO) 1.4 X 10^3 (1.0-4.0); LYMPHOCYTES % (AUTO) 35 % (12-44); MEAN CORPUSCULAR HEMOGLOBIN 29 PG (25-34); MEAN CORPUSCULAR HGB CONC 33 G/DL (32-36); MEAN CORPUSCULAR VOLUME 87 FL (80-99); MEAN PLATELET VOLUME 8.4 FL (7.4-10.4); MONOCYTES # (AUTO) 0.4 X 10^3 (0.0-1.0); MONOCYTES % (AUTO) 10 % (0-12); NEUTROPHILS # (AUTO) 1.9 X 10^3 (1.8-7.8); NEUTROPHILS % (AUTO) 51 % (42-75); PLATELET COUNT 180 10^3/uL (130-400); RED BLOOD COUNT 3.84 10^6/uL (4.35-5.85); RED CELL DISTRIBUTION WIDTH 15.4 % (10.0-14.5); WHITE BLOOD COUNT 3.9 10^3/uL (4.3-11.0)
[2017-12-23 09:59] LABS: ALANINE AMINOTRANSFERASE 21 U/L (0-55); ALKALINE PHOSPHATASE 86 U/L (40-136); BILIRUBIN,TOTAL 0.3 MG/DL (0.1-1.0); BUN/CREATININE RATIO 21; CALCIUM 9.5 MG/DL (8.5-10.1); CARBON DIOXIDE 22 MMOL/L (21-32); CHLORIDE 109 MMOL/L (98-107); CREATININE SERUM 0.84 MG/DL (0.60-1.30); GFR ESTIMATED > 60; GLUCOSE 115 MG/DL (70-105); POTASSIUM 4.2 MMOL/L (3.6-5.0); SODIUM 141 MMOL/L (135-145)
[2018-01-13 09:08] LABS: BASOPHILS % (AUTO) 0 % (0-10); EOSINOPHILS # (AUTO) 0.2 10^3/uL (0.0-0.3); EOSINOPHILS % (AUTO) 3 % (0-10); HEMATOCRIT 34 % (35-52); HEMOGLOBIN 11.4 G/DL (11.5-16.0); LYMPHOCYTES # (AUTO) 1.4 X 10^3 (1.0-4.0); LYMPHOCYTES % (AUTO) 31 % (12-44); MEAN CORPUSCULAR HEMOGLOBIN 29 PG (25-34); MEAN CORPUSCULAR HGB CONC 34 G/DL (32-36); MEAN CORPUSCULAR VOLUME 87 FL (80-99); MONOCYTES # (AUTO) 0.5 X 10^3 (0.0-1.0); MONOCYTES % (AUTO) 10 % (0-12); NEUTROPHILS # (AUTO) 2.5 X 10^3 (1.8-7.8); NEUTROPHILS % (AUTO) 55 % (42-75); PLATELET COUNT 187 10^3/uL (130-400); RED BLOOD COUNT 3.89 10^6/uL (4.35-5.85); RED CELL DISTRIBUTION WIDTH 14.9 % (10.0-14.5); WHITE BLOOD COUNT 4.5 10^3/uL (4.3-11.0)
[2018-01-13 09:28] LABS: ALANINE AMINOTRANSFERASE 24 U/L (0-55); ALBUMIN 3.9 GM/DL (3.2-4.5); ALKALINE PHOSPHATASE 91 U/L (40-136); BILIRUBIN,TOTAL 0.4 MG/DL (0.1-1.0); BUN/CREATININE RATIO 24; CALCIUM 9.7 MG/DL (8.5-10.1); CARBON DIOXIDE 23 MMOL/L (21-32); CHLORIDE 109 MMOL/L (98-107); CREATININE SERUM 0.88 MG/DL (0.60-1.30); GFR ESTIMATED > 60; GLUCOSE 121 MG/DL (70-105); POTASSIUM 3.8 MMOL/L (3.6-5.0); SODIUM 141 MMOL/L (135-145); TOTAL PROTEIN 6.8 GM/DL (6.4-8.2)
[~2018-02-03] VITALS: Ht 166.4 cm; Wt 84.4 kg
[~2018-02-03 13:00] MED LIST changes: -BARIUM SUSPENSION 2.1% (VANILLA SILQ) 450 ML PO ONE; -CATHETER FLUSH 10 ML SYR IV PRN; -IOHEXOL 350 MG/ML 100 ML (OMNIPAQUE 350) VIAL IV ONE; -NS 250 ML (IVPB) BAG IV ONE; +NS IV 500 ML (CANCER CENTER) 500 ML IV SCH; +PEMBROLIZUMAB 200 MG in NS (IVPB) CANCER CENTER 50 ML IV SCH
[2018-02-03 13:37] LABS: BASOPHILS % (AUTO) 0 % (0-10); EOSINOPHILS # (AUTO) 0.2 10^3/uL (0.0-0.3); EOSINOPHILS % (AUTO) 4 % (0-10); HEMATOCRIT 33 % (35-52); LYMPHOCYTES # (AUTO) 1.7 X 10^3 (1.0-4.0); LYMPHOCYTES % (AUTO) 39 % (12-44); MEAN CORPUSCULAR HEMOGLOBIN 29 PG (25-34); MEAN CORPUSCULAR HGB CONC 33 G/DL (32-36); MEAN CORPUSCULAR VOLUME 87 FL (80-99); MEAN PLATELET VOLUME 9.1 FL (7.4-10.4); MONOCYTES # (AUTO) 0.5 X 10^3 (0.0-1.0); MONOCYTES % (AUTO) 11 % (0-12); NEUTROPHILS % (AUTO) 47 % (42-75); PLATELET COUNT 191 10^3/uL (130-400); RED BLOOD COUNT 3.81 10^6/uL (4.35-5.85); WHITE BLOOD COUNT 4.3 10^3/uL (4.3-11.0)
[2018-02-03 13:51] LABS: ALANINE AMINOTRANSFERASE 23 U/L (0-55); ALKALINE PHOSPHATASE 88 U/L (40-136); BILIRUBIN,TOTAL 0.4 MG/DL (0.1-1.0); BUN/CREATININE RATIO 24; CALCIUM 9.6 MG/DL (8.5-10.1); CARBON DIOXIDE 27 MMOL/L (21-32); CHLORIDE 109 MMOL/L (98-107); CREATININE SERUM 0.84 MG/DL (0.60-1.30); GFR ESTIMATED > 60; GLUCOSE 107 MG/DL (70-105); SODIUM 142 MMOL/L (135-145)
== END 2018-02-10 | disposition home or self-care (01) ==
LOC: ONC 13:00
PROVIDERS: ATTEND Internal Medicine Hematology & Oncology
DX: Z51.11 Encounter for antineoplastic chemotherapy (principal); C67.8 Malignant neoplasm of overlapping sites of bladder; C77.0 Secondary and unspecified malignant neoplasm of lymph nodes of head, face and neck; D50.9 Iron deficiency anemia, unspecified; I10 Essential (primary) hypertension; G43.909 Migraine, unspecified, not intractable, without status migrainosus; Z79.899 Other long term (current) drug therapy
CPT/HCPCS: 36591; 80053; 83615; 84443; 85025; 96375; 96413

== ENCOUNTER → 2018-02-21 | Outpatient (CLI) | payer BC ==
[~2018-02-21] MED LIST changes: +BARIUM SUSPENSION 2.1% (VANILLA SILQ) 450 ML PO ONE; +CATHETER FLUSH 10 ML SYR IV PRN; +IOHEXOL 350 MG/ML 100 ML (OMNIPAQUE 350) VIAL IV ONE; +NS 250 ML (IVPB) BAG IV ONE; -NS IV 500 ML (CANCER CENTER) 500 ML IV SCH; -PEMBROLIZUMAB 200 MG in NS (IVPB) CANCER CENTER 50 ML IV SCH
--- NOTE | 2018-02-21 12:54 | Diagnostic Imaging Report ---
INDICATION: Bladder cancer. TECHNIQUE: Axial imaging through the neck, chest, abdomen and pelvis was performed after the administration of intravenous contrast. COMPARISON: Comparison is made with prior CT from 11/26/2017. FINDINGS: CT neck: The visualized intracranial structures are unremarkable. The posterior nasopharynx, oropharynx, and larynx appear to be stable. No thyroid mass is seen. There is a right IJ line in place. The submandibular and parotid glands are unremarkable. Normal sized lymph nodes in the jugulodigastric regions are again noted. No posterior cervical lymphadenopathy is seen. Small lymph node in left supraclavicular region adjacent to surgical clips is again seen measuring approximate 5 mm compared with 7 mm on prior. No new lymphadenopathy is seen. IMPRESSION: Stable neck CT since 11/26/2017. There is slight reduction in size of left supra-clavicular lymph node since prior. No new lymphadenopathy is detected. CT chest: No axillary, hilar or mediastinal lymphadenopathy is detected. No pericardial or pleural fluid is identified. No pulmonary parenchymal nodules or masses are seen. IMPRESSION: Stable CT chest. No thoracic lymphadenopathy or metastatic disease is seen. CT abdomen and pelvis: The previously noted low density mass near the liver dome is measuring slight smaller in size at 2.6 x 2.2 cm compared with 3.0 x 2.2 cm on prior. No new liver mass is identified. The gallbladder is unremarkable. The pancreas and spleen are unremarkable. No adrenal mass is identified. The kidneys are unremarkable. Aorta is non-aneurysmal. The small left periaortic retroperitoneal lymph node at the level of the lower pole left kidney is now barely visible. In addition, the small lymph node adjacent to the left iliacus muscle is also barely visible at approximately 5 mm. Right obturator elva mass measures 16 mm x 11 mm compared with 17 mm x 15 mm on prior. No new lymphadenopathy is seen. No inguinal lymphadenopathy is identified. The bladder and uterus are unremarkable. IMPRESSION: Decrease in size of right lobe liver mass as well as abdominal and pelvic lymphadenopathy when compared with prior CT from 11/26/2017. No new abnormality is detected. Dictated by: Dictated on workstation # [id number]
--- NOTE | 2018-02-21 15:23 | Diagnostic Imaging Report ---
INDICATION: Bladder carcinoma. TECHNIQUE: Patient was administered 27 mCi of technetium-99m MDP intravenously, and whole-body imaging was performed after a 3-hour delay. COMPARISON: Comparison is made with prior bone scan from 11/26/2017. FINDINGS: Normal uptake of activity by the axial and appendicular skeleton is seen. There is uptake by both kidneys with excretion into the urinary bladder. Mild uptake involving bilateral hips, greatest on the right is noted, likely degenerative. No abnormal foci to suggest osseous metastatic disease are seen. IMPRESSION: No evidence of osseous metastatic disease. Dictated by: Dictated on workstation # [id number]
== END ==
LOC: CARD 10:44
PROVIDERS: ATTEND Internal Medicine Hematology & Oncology
DX: Z01.89 Encounter for other specified special examinations (principal); C67.1 Malignant neoplasm of dome of bladder; C77.0 Secondary and unspecified malignant neoplasm of lymph nodes of head, face and neck
CPT/HCPCS: 70491; 71260; 74176; 78306

== ENCOUNTER 2018-02-27 14:04 | Outpatient (RCR) | payer BC ==
[~2018-02-27] VITALS: Ht 166.4 cm; Wt 86.2 kg
[~2018-02-27 14:04] MED LIST changes: -BARIUM SUSPENSION 2.1% (VANILLA SILQ) 450 ML PO ONE; -CATHETER FLUSH 10 ML SYR IV PRN; -IOHEXOL 350 MG/ML 100 ML (OMNIPAQUE 350) VIAL IV ONE; -NS 250 ML (IVPB) BAG IV ONE; +NS IV 500 ML (CANCER CENTER) 500 ML IV SCH; +PEMBROLIZUMAB 200 MG in NS (IVPB) CANCER CENTER 50 ML IV SCH
[2018-02-27 14:23] LABS: BASOPHILS % (AUTO) 0 % (0-10); EOSINOPHILS # (AUTO) 0.1 10^3/uL (0.0-0.3); EOSINOPHILS % (AUTO) 3 % (0-10); HEMATOCRIT 31 % (35-52); HEMOGLOBIN 10.5 G/DL (11.5-16.0); LYMPHOCYTES # (AUTO) 1.5 X 10^3 (1.0-4.0); LYMPHOCYTES % (AUTO) 33 % (12-44); MEAN CORPUSCULAR HEMOGLOBIN 30 PG (25-34); MEAN CORPUSCULAR HGB CONC 34 G/DL (32-36); MEAN CORPUSCULAR VOLUME 88 FL (80-99); MEAN PLATELET VOLUME 9.1 FL (7.4-10.4); MONOCYTES # (AUTO) 0.4 X 10^3 (0.0-1.0); MONOCYTES % (AUTO) 9 % (0-12); NEUTROPHILS # (AUTO) 2.5 X 10^3 (1.8-7.8); NEUTROPHILS % (AUTO) 55 % (42-75); PLATELET COUNT 180 10^3/uL (130-400); RED BLOOD COUNT 3.54 10^6/uL (4.35-5.85); RED CELL DISTRIBUTION WIDTH 14.8 % (10.0-14.5); WHITE BLOOD COUNT 4.5 10^3/uL (4.3-11.0)
[2018-02-27 14:42] LABS: ALBUMIN 3.8 GM/DL (3.2-4.5); BILIRUBIN,TOTAL 0.4 MG/DL (0.1-1.0); CALCIUM 9.4 MG/DL (8.5-10.1); CREATININE SERUM 1.11 MG/DL (0.60-1.30); POTASSIUM 3.9 MMOL/L (3.6-5.0); TOTAL PROTEIN 6.7 GM/DL (6.4-8.2)
== END 2018-02-28 09:27 | disposition home or self-care (01) ==
LOC: ONC 14:04
PROVIDERS: ATTEND Internal Medicine Hematology & Oncology
DX: Z51.11 Encounter for antineoplastic chemotherapy (principal); C67.8 Malignant neoplasm of overlapping sites of bladder; C77.0 Secondary and unspecified malignant neoplasm of lymph nodes of head, face and neck; D50.9 Iron deficiency anemia, unspecified; I10 Essential (primary) hypertension; G43.909 Migraine, unspecified, not intractable, without status migrainosus; Z79.899 Other long term (current) drug therapy
CPT/HCPCS: 36591; 80053; 84443; 85025; 96413

== ENCOUNTER 2018-03-24 08:42 | Outpatient (RCR) | payer BC ==
[2018-03-24 08:56] LABS: BASOPHILS % (AUTO) 0 % (0-10); EOSINOPHILS # (AUTO) 0.1 10^3/uL (0.0-0.3); EOSINOPHILS % (AUTO) 3 % (0-10); HEMATOCRIT 34 % (35-52); HEMOGLOBIN 11.3 G/DL (11.5-16.0); LYMPHOCYTES # (AUTO) 1.3 X 10^3 (1.0-4.0); LYMPHOCYTES % (AUTO) 37 % (12-44); MEAN CORPUSCULAR HEMOGLOBIN 30 PG (25-34); MEAN CORPUSCULAR HGB CONC 34 G/DL (32-36); MEAN CORPUSCULAR VOLUME 89 FL (80-99); MEAN PLATELET VOLUME 8.8 FL (7.4-10.4); MONOCYTES # (AUTO) 0.4 X 10^3 (0.0-1.0); MONOCYTES % (AUTO) 11 % (0-12); NEUTROPHILS # (AUTO) 1.7 X 10^3 (1.8-7.8); NEUTROPHILS % (AUTO) 49 % (42-75); PLATELET COUNT 185 10^3/uL (130-400); RED BLOOD COUNT 3.81 10^6/uL (4.35-5.85); RED CELL DISTRIBUTION WIDTH 14.7 % (10.0-14.5); WHITE BLOOD COUNT 3.6 10^3/uL (4.3-11.0)
[2018-03-24 09:15] LABS: ALANINE AMINOTRANSFERASE 19 U/L (0-55); ALKALINE PHOSPHATASE 96 U/L (40-136); BILIRUBIN,TOTAL 0.5 MG/DL (0.1-1.0); BUN/CREATININE RATIO 21; CALCIUM 9.8 MG/DL (8.5-10.1); CARBON DIOXIDE 25 MMOL/L (21-32); CHLORIDE 110 MMOL/L (98-107); CREATININE SERUM 0.87 MG/DL (0.60-1.30); GFR ESTIMATED > 60; GLUCOSE 101 MG/DL (70-105); SODIUM 142 MMOL/L (135-145); TOTAL PROTEIN 6.9 GM/DL (6.4-8.2)
== END 2018-04-11 09:01 | disposition home or self-care (01) ==
LOC: ONC 08:42
PROVIDERS: ATTEND Internal Medicine Hematology & Oncology
DX: Z51.11 Encounter for antineoplastic chemotherapy (principal); C67.8 Malignant neoplasm of overlapping sites of bladder; C77.0 Secondary and unspecified malignant neoplasm of lymph nodes of head, face and neck; D50.9 Iron deficiency anemia, unspecified; I10 Essential (primary) hypertension; G43.909 Migraine, unspecified, not intractable, without status migrainosus; Z79.899 Other long term (current) drug therapy
CPT/HCPCS: 36591; 80053; 85025; 96413

== ENCOUNTER → 2018-03-28 | Outpatient (CLI) | payer BC ==
[~2018-03-28] MED LIST changes: -NS IV 500 ML (CANCER CENTER) 500 ML IV SCH; -PEMBROLIZUMAB 200 MG in NS (IVPB) CANCER CENTER 50 ML IV SCH
--- NOTE | 2018-03-28 14:05 | Diagnostic Imaging Report ---
INDICATION: Routine screening. COMPARISON: Comparison is made with prior study from 03/12/2017 and 03/08/2016. TECHNIQUE: 2D and 3D bilateral screening mammography was performed with computer-aided detection (CAD) system. FINDINGS: Scattered fibroglandular densities are identified bilaterally. The overall parenchymal pattern is stable. No mass or malignant-appearing microcalcifications are seen. The axillae are unremarkable. IMPRESSION: No mammographic features suspicious for malignancy are identified. ACR BI-RADS Category 1: Negative. Result letter will be mailed to the patient. Note: At least 10% of breast cancer is not imaged by mammography. Dictated by: Dictated on workstation # [id number]
== END ==
LOC: RAD 10:19
PROVIDERS: ATTEND Family Medicine
DX: Z12.31 Encounter for screening mammogram for malignant neoplasm of breast (principal)
CPT/HCPCS: 77067

== ENCOUNTER 2018-05-05 09:29 | Outpatient (RCR) | payer BC ==
[2018-04-14 09:05] LABS: BASOPHILS % (AUTO) 1 % (0-10); EOSINOPHILS # (AUTO) 0.1 10^3/uL (0.0-0.3); EOSINOPHILS % (AUTO) 3 % (0-10); HEMATOCRIT 33 % (35-52); LYMPHOCYTES # (AUTO) 1.2 X 10^3 (1.0-4.0); LYMPHOCYTES % (AUTO) 39 % (12-44); MEAN CORPUSCULAR HEMOGLOBIN 30 PG (25-34); MEAN CORPUSCULAR HGB CONC 33 G/DL (32-36); MEAN CORPUSCULAR VOLUME 90 FL (80-99); MEAN PLATELET VOLUME 8.5 FL (7.4-10.4); MONOCYTES # (AUTO) 0.3 X 10^3 (0.0-1.0); MONOCYTES % (AUTO) 9 % (0-12); NEUTROPHILS # (AUTO) 1.5 X 10^3 (1.8-7.8); NEUTROPHILS % (AUTO) 49 % (42-75); PLATELET COUNT 186 10^3/uL (130-400); RED BLOOD COUNT 3.72 10^6/uL (4.35-5.85); RED CELL DISTRIBUTION WIDTH 15.1 % (10.0-14.5)
[2018-04-14 09:31] LABS: ALANINE AMINOTRANSFERASE 20 U/L (0-55); ALBUMIN 3.9 GM/DL (3.2-4.5); ALKALINE PHOSPHATASE 86 U/L (40-136); BILIRUBIN,TOTAL 0.4 MG/DL (0.1-1.0); BUN/CREATININE RATIO 24; CALCIUM 9.3 MG/DL (8.5-10.1); CARBON DIOXIDE 23 MMOL/L (21-32); CHLORIDE 109 MMOL/L (98-107); CREATININE SERUM 0.84 MG/DL (0.60-1.30); GFR ESTIMATED > 60; GLUCOSE 161 MG/DL (70-105); POTASSIUM 3.7 MMOL/L (3.6-5.0); SODIUM 140 MMOL/L (135-145); TOTAL PROTEIN 6.8 GM/DL (6.4-8.2)
[~2018-05-05] VITALS: Ht 166.4 cm; Wt 88.5 kg
[~2018-05-05 09:29] MED LIST changes: +NS IV 500 ML (CANCER CENTER) 500 ML IV SCH; +PEMBROLIZUMAB 200 MG in NS (IVPB) CANCER CENTER 50 ML IV SCH
[2018-05-05 10:04] LABS: BASOPHILS % (AUTO) 1 % (0-10); EOSINOPHILS # (AUTO) 0.2 10^3/uL (0.0-0.3); EOSINOPHILS % (AUTO) 4 % (0-10); HEMATOCRIT 33 % (35-52); HEMOGLOBIN 11.1 G/DL (11.5-16.0); LYMPHOCYTES # (AUTO) 1.2 X 10^3 (1.0-4.0); LYMPHOCYTES % (AUTO) 29 % (12-44); MEAN CORPUSCULAR HEMOGLOBIN 30 PG (25-34); MEAN CORPUSCULAR HGB CONC 33 G/DL (32-36); MEAN CORPUSCULAR VOLUME 89 FL (80-99); MEAN PLATELET VOLUME 8.9 FL (7.4-10.4); MONOCYTES # (AUTO) 0.4 X 10^3 (0.0-1.0); MONOCYTES % (AUTO) 11 % (0-12); NEUTROPHILS # (AUTO) 2.2 X 10^3 (1.8-7.8); NEUTROPHILS % (AUTO) 56 % (42-75); PLATELET COUNT 184 10^3/uL (130-400); RED BLOOD COUNT 3.72 10^6/uL (4.35-5.85); RED CELL DISTRIBUTION WIDTH 14.9 % (10.0-14.5)
[2018-05-05 10:30] LABS: ALANINE AMINOTRANSFERASE 23 U/L (0-55); ALKALINE PHOSPHATASE 90 U/L (40-136); BILIRUBIN,TOTAL 0.4 MG/DL (0.1-1.0); BUN/CREATININE RATIO 21; CALCIUM 9.4 MG/DL (8.5-10.1); CARBON DIOXIDE 22 MMOL/L (21-32); CHLORIDE 109 MMOL/L (98-107); CREATININE SERUM 0.81 MG/DL (0.60-1.30); GFR ESTIMATED > 60; GLUCOSE 108 MG/DL (70-105); POTASSIUM 3.8 MMOL/L (3.6-5.0); SODIUM 141 MMOL/L (135-145); TOTAL PROTEIN 6.8 GM/DL (6.4-8.2)
== END 2018-05-15 15:47 | disposition home or self-care (01) ==
LOC: ONC 09:29
PROVIDERS: ATTEND Internal Medicine Hematology & Oncology
DX: Z51.11 Encounter for antineoplastic chemotherapy (principal); C67.8 Malignant neoplasm of overlapping sites of bladder; C77.0 Secondary and unspecified malignant neoplasm of lymph nodes of head, face and neck; D50.9 Iron deficiency anemia, unspecified; I10 Essential (primary) hypertension; G43.909 Migraine, unspecified, not intractable, without status migrainosus; Z79.899 Other long term (current) drug therapy
CPT/HCPCS: 36591; 80053; 84443; 85025; 96413

== ENCOUNTER → 2018-07-10 | Outpatient (CLI) | payer BC ==
[~2018-07-10] MED LIST changes: +CATHETER FLUSH 10 ML SYR IV PRN; +IOHEXOL 350 MG/ML 100 ML (OMNIPAQUE 350) VIAL IV ONE; +NS 100 ML (IVPB) BAG IV ONE; -NS IV 500 ML (CANCER CENTER) 500 ML IV SCH; -PEMBROLIZUMAB 200 MG in NS (IVPB) CANCER CENTER 50 ML IV SCH; +RECEIVED CONTRAST (Hold Metformin) IV SCH
--- NOTE | 2018-07-10 11:35 | Diagnostic Imaging Report ---
PROCEDURE: CT chest, abdomen, and pelvis with and without contrast. TECHNIQUE: Precontrast images were obtained of the chest, abdomen, and pelvis. Multiple contiguous axial images were obtained through the chest, abdomen, and pelvis after administration of intravenous contrast. INDICATION: Bladder cancer, followup. COMPARISON: Correlation is made with prior CT from 02/21/2018. FINDINGS: CT CHEST: A right chest wall port has tip entering the right atrium. No axillary lymphadenopathy is detected. No definite mediastinal or hilar lymphadenopathy is seen. There is no pericardial or pleural fluid. No pulmonary nodules or masses are seen. There are no infiltrates. IMPRESSION: Stable CT chest. There is no evidence of thoracic lymphadenopathy or pulmonary metastatic disease. CT ABDOMEN AND PELVIS: Low density mass near the dome of the right lobe of the liver measures approximately 2.5 x 1.8 cm compared with 2.6 x 2.2 cm on prior. No new liver mass is identified. The gallbladder is unremarkable. No biliary duct dilatation is seen. The pancreas and spleen are unremarkable. No adrenal mass is identified. The kidneys are unremarkable. Aorta is calcified but nonaneurysmal. The central retroperitoneum again shows normal-sized lymph nodes, similar to prior study. No pathologically enlarged central retroperitoneal nodes are seen. No mesenteric lymphadenopathy is seen. Previously noted lymph node adjacent to the left iliacus muscle is barely visible at approximately 5 mm. Right obturator elva mass measures 15 mm x 14 mm compared with 16 mm x 11 mm on prior. No new lymphadenopathy is seen. There is an area of nodularity noted along the dome of the bladder near the midline, not definitely seen on prior exam. This area of nodularity is approximately 17 mm in size. Bony structures are unremarkable. IMPRESSION: There appears to be slight decrease in size of right lobe liver mass as well as pelvic lymphadenopathy when compared with prior CT from 02/21/2018. However, there has been development of an area of nodular mass in the region of the bladder dome. Bladder neoplasm recurrence cannot be excluded. No other significant abnormality is detected. Dictated by: Dictated on workstation # [id number]
--- NOTE | 2018-07-10 17:12 | Diagnostic Imaging Report ---
INDICATION: Bladder carcinoma. EXAMINATION: Patient was administered 26.2 mCi technetium 99m MDP intravenously and whole-body imaging was performed after a 3 hour delay. COMPARISON: Prior whole body bone scan from 02/21/2018. FINDINGS: Normal uptake of activity by the axial and appendicular skeleton is again noted. There is uptake by the kidneys with excretion into the urinary bladder. There is some mild uptake in the right hip which is likely on a degenerative basis. This is similar to prior study. This is noted to a lesser degree in the left hip. IMPRESSION: No scintigraphic evidence of osseous metastatic disease. Dictated by: Dictated on workstation # [id number]
== END ==
LOC: CARD 10:35
PROVIDERS: ATTEND Internal Medicine Hematology & Oncology
DX: C67.1 Malignant neoplasm of dome of bladder (principal); C77.0 Secondary and unspecified malignant neoplasm of lymph nodes of head, face and neck
CPT/HCPCS: 71270; 74178; 78306

== ENCOUNTER 2018-07-14 12:57 | Outpatient (RCR) | payer BC ==
[2018-05-26 10:18] LABS: BASOPHILS % (AUTO) 1 % (0-10); EOSINOPHILS # (AUTO) 0.2 10^3/uL (0.0-0.3); EOSINOPHILS % (AUTO) 5 % (0-10); HEMATOCRIT 33 % (35-52); LYMPHOCYTES # (AUTO) 1.2 X 10^3 (1.0-4.0); LYMPHOCYTES % (AUTO) 31 % (12-44); MEAN CORPUSCULAR HEMOGLOBIN 30 PG (25-34); MEAN CORPUSCULAR HGB CONC 34 G/DL (32-36); MEAN CORPUSCULAR VOLUME 90 FL (80-99); MEAN PLATELET VOLUME 8.8 FL (7.4-10.4); MONOCYTES # (AUTO) 0.5 X 10^3 (0.0-1.0); MONOCYTES % (AUTO) 12 % (0-12); NEUTROPHILS # (AUTO) 1.9 X 10^3 (1.8-7.8); NEUTROPHILS % (AUTO) 52 % (42-75); PLATELET COUNT 181 10^3/uL (130-400); RED BLOOD COUNT 3.65 10^6/uL (4.35-5.85); RED CELL DISTRIBUTION WIDTH 14.6 % (10.0-14.5); WHITE BLOOD COUNT 3.8 10^3/uL (4.3-11.0)
[2018-05-26 10:37] LABS: ALANINE AMINOTRANSFERASE 21 U/L (0-55); ALBUMIN 3.9 GM/DL (3.2-4.5); ALKALINE PHOSPHATASE 89 U/L (40-136); BILIRUBIN,TOTAL 0.4 MG/DL (0.1-1.0); BUN/CREATININE RATIO 20; CALCIUM 9.5 MG/DL (8.5-10.1); CARBON DIOXIDE 24 MMOL/L (21-32); CHLORIDE 108 MMOL/L (98-107); CREATININE SERUM 0.79 MG/DL (0.60-1.30); GFR ESTIMATED > 60; GLUCOSE 107 MG/DL (70-105); POTASSIUM 3.8 MMOL/L (3.6-5.0); SODIUM 140 MMOL/L (135-145); TOTAL PROTEIN 6.7 GM/DL (6.4-8.2)
[2018-06-16 09:34] LABS: BASOPHILS % (AUTO) 1 % (0-10); EOSINOPHILS # (AUTO) 0.1 10^3/uL (0.0-0.3); EOSINOPHILS % (AUTO) 3 % (0-10); HEMATOCRIT 37 % (35-52); HEMOGLOBIN 12.1 G/DL (11.5-16.0); LYMPHOCYTES # (AUTO) 1.6 X 10^3 (1.0-4.0); LYMPHOCYTES % (AUTO) 38 % (12-44); MEAN CORPUSCULAR HEMOGLOBIN 29 PG (25-34); MEAN CORPUSCULAR HGB CONC 32 G/DL (32-36); MEAN CORPUSCULAR VOLUME 89 FL (80-99); MEAN PLATELET VOLUME 9.2 FL (7.4-10.4); MONOCYTES # (AUTO) 0.5 X 10^3 (0.0-1.0); MONOCYTES % (AUTO) 11 % (0-12); NEUTROPHILS % (AUTO) 48 % (42-75); PLATELET COUNT 198 10^3/uL (130-400); RED BLOOD COUNT 4.17 10^6/uL (4.35-5.85); RED CELL DISTRIBUTION WIDTH 14.1 % (10.0-14.5); WHITE BLOOD COUNT 4.1 10^3/uL (4.3-11.0)
[2018-06-16 10:00] LABS: ALANINE AMINOTRANSFERASE 21 U/L (0-55); ALBUMIN 4.2 GM/DL (3.2-4.5); ALKALINE PHOSPHATASE 111 U/L (40-136); BILIRUBIN,TOTAL 0.5 MG/DL (0.1-1.0); BUN/CREATININE RATIO 24; CALCIUM 9.8 MG/DL (8.5-10.1); CARBON DIOXIDE 22 MMOL/L (21-32); CHLORIDE 108 MMOL/L (98-107); GFR ESTIMATED > 60; GLUCOSE 116 MG/DL (70-105); POTASSIUM 4.1 MMOL/L (3.6-5.0); SODIUM 140 MMOL/L (135-145)
[~2018-07-14] VITALS: Ht 166.4 cm; Wt 88.9 kg
[~2018-07-14 12:57] MED LIST changes: -CATHETER FLUSH 10 ML SYR IV PRN; -IOHEXOL 350 MG/ML 100 ML (OMNIPAQUE 350) VIAL IV ONE; -NS 100 ML (IVPB) BAG IV ONE; +NS IV 500 ML (CANCER CENTER) 500 ML IV SCH; +NS IV 500 ML (CANCER CENTER) 500 ML ONE; +PEMBROLIZUMAB 200 MG in NS (IVPB) CANCER CENTER 50 ML IV SCH; -RECEIVED CONTRAST (Hold Metformin) IV SCH
[2018-07-14 13:18] LABS: BASOPHILS % (AUTO) 0 % (0-10); EOSINOPHILS # (AUTO) 0.1 10^3/uL (0.0-0.3); EOSINOPHILS % (AUTO) 1 % (0-10); HEMATOCRIT 35 % (35-52); HEMOGLOBIN 11.8 G/DL (11.5-16.0); LYMPHOCYTES # (AUTO) 1.6 X 10^3 (1.0-4.0); LYMPHOCYTES % (AUTO) 34 % (12-44); MEAN CORPUSCULAR HEMOGLOBIN 30 PG (25-34); MEAN CORPUSCULAR HGB CONC 34 G/DL (32-36); MEAN CORPUSCULAR VOLUME 90 FL (80-99); MEAN PLATELET VOLUME 8.5 FL (7.4-10.4); MONOCYTES # (AUTO) 0.5 X 10^3 (0.0-1.0); MONOCYTES % (AUTO) 12 % (0-12); NEUTROPHILS # (AUTO) 2.4 X 10^3 (1.8-7.8); NEUTROPHILS % (AUTO) 53 % (42-75); PLATELET COUNT 175 10^3/uL (130-400); RED CELL DISTRIBUTION WIDTH 14.3 % (10.0-14.5); WHITE BLOOD COUNT 4.6 10^3/uL (4.3-11.0)
[2018-07-14 13:39] LABS: ALANINE AMINOTRANSFERASE 21 U/L (0-55); ALBUMIN 4.1 GM/DL (3.2-4.5); ALKALINE PHOSPHATASE 109 U/L (40-136); BILIRUBIN,TOTAL 0.5 MG/DL (0.1-1.0); BUN/CREATININE RATIO 18; CALCIUM 9.5 MG/DL (8.5-10.1); CARBON DIOXIDE 21 MMOL/L (21-32); CHLORIDE 107 MMOL/L (98-107); CREATININE SERUM 0.89 MG/DL (0.60-1.30); GFR ESTIMATED > 60; GLUCOSE 119 MG/DL (70-105); POTASSIUM 3.8 MMOL/L (3.6-5.0); SODIUM 140 MMOL/L (135-145); TOTAL PROTEIN 7.2 GM/DL (6.4-8.2)
== END 2018-07-16 16:45 | disposition home or self-care (01) ==
LOC: ONC 12:57
PROVIDERS: ATTEND Internal Medicine Hematology & Oncology
DX: Z51.11 Encounter for antineoplastic chemotherapy (principal); C67.8 Malignant neoplasm of overlapping sites of bladder; C77.0 Secondary and unspecified malignant neoplasm of lymph nodes of head, face and neck; D50.9 Iron deficiency anemia, unspecified; I10 Essential (primary) hypertension; G43.909 Migraine, unspecified, not intractable, without status migrainosus; Z79.899 Other long term (current) drug therapy
CPT/HCPCS: 36591; 80053; 84443; 85025; 96413; 99213

== ENCOUNTER 2018-08-11 09:22 | Outpatient (RCR) | payer BC ==
[2018-08-11 10:34] LABS: BASOPHILS % (AUTO) 0 % (0-10); EOSINOPHILS # (AUTO) 0.1 10^3/uL (0.0-0.3); EOSINOPHILS % (AUTO) 2 % (0-10); HEMATOCRIT 35 % (35-52); HEMOGLOBIN 11.5 G/DL (11.5-16.0); LYMPHOCYTES # (AUTO) 1.3 X 10^3 (1.0-4.0); LYMPHOCYTES % (AUTO) 34 % (12-44); MEAN CORPUSCULAR HEMOGLOBIN 29 PG (25-34); MEAN CORPUSCULAR HGB CONC 33 G/DL (32-36); MEAN CORPUSCULAR VOLUME 89 FL (80-99); MEAN PLATELET VOLUME 8.6 FL (7.4-10.4); MONOCYTES # (AUTO) 0.3 X 10^3 (0.0-1.0); MONOCYTES % (AUTO) 9 % (0-12); NEUTROPHILS # (AUTO) 2.1 X 10^3 (1.8-7.8); NEUTROPHILS % (AUTO) 55 % (42-75); PLATELET COUNT 196 10^3/uL (130-400); RED CELL DISTRIBUTION WIDTH 14.5 % (10.0-14.5); WHITE BLOOD COUNT 3.8 10^3/uL (4.3-11.0)
[2018-08-11 10:53] LABS: ALANINE AMINOTRANSFERASE 23 U/L (0-55); ALBUMIN 4.1 GM/DL (3.2-4.5); ALKALINE PHOSPHATASE 106 U/L (40-136); BILIRUBIN,TOTAL 0.4 MG/DL (0.1-1.0); BUN/CREATININE RATIO 18; CALCIUM 9.4 MG/DL (8.5-10.1); CARBON DIOXIDE 22 MMOL/L (21-32); CHLORIDE 108 MMOL/L (98-107); CREATININE SERUM 0.79 MG/DL (0.60-1.30); GFR ESTIMATED > 60; GLUCOSE 116 MG/DL (70-105); POTASSIUM 3.8 MMOL/L (3.6-5.0); SODIUM 140 MMOL/L (135-145)
== END 2018-08-29 12:07 | disposition home or self-care (01) ==
LOC: ONC 09:22
PROVIDERS: ATTEND Internal Medicine Hematology & Oncology
DX: Z51.11 Encounter for antineoplastic chemotherapy (principal); C67.1 Malignant neoplasm of dome of bladder; C77.0 Secondary and unspecified malignant neoplasm of lymph nodes of head, face and neck; D50.9 Iron deficiency anemia, unspecified; I10 Essential (primary) hypertension; G43.909 Migraine, unspecified, not intractable, without status migrainosus; Z79.899 Other long term (current) drug therapy
CPT/HCPCS: 36591; 80053; 84443; 85025; 96413

== ENCOUNTER 2018-09-22 08:40 | Outpatient (RCR) | payer BC ==
[2018-09-01 08:57] LABS: BASOPHILS % (AUTO) 0 % (0-10); EOSINOPHILS # (AUTO) 0.1 10^3/uL (0.0-0.3); EOSINOPHILS % (AUTO) 4 % (0-10); HEMATOCRIT 34 % (35-52); LYMPHOCYTES # (AUTO) 1.4 X 10^3 (1.0-4.0); LYMPHOCYTES % (AUTO) 41 % (12-44); MEAN CORPUSCULAR HEMOGLOBIN 29 PG (25-34); MEAN CORPUSCULAR HGB CONC 33 G/DL (32-36); MEAN CORPUSCULAR VOLUME 90 FL (80-99); MEAN PLATELET VOLUME 8.4 FL (7.4-10.4); MONOCYTES # (AUTO) 0.4 X 10^3 (0.0-1.0); MONOCYTES % (AUTO) 11 % (0-12); NEUTROPHILS # (AUTO) 1.4 X 10^3 (1.8-7.8); NEUTROPHILS % (AUTO) 44 % (42-75); PLATELET COUNT 177 10^3/uL (130-400); RED CELL DISTRIBUTION WIDTH 14.6 % (10.0-14.5); WHITE BLOOD COUNT 3.3 10^3/uL (4.3-11.0)
[2018-09-01 09:15] LABS: ALANINE AMINOTRANSFERASE 24 U/L (0-55); ALBUMIN 3.8 GM/DL (3.2-4.5); ALKALINE PHOSPHATASE 102 U/L (40-136); BILIRUBIN,TOTAL 0.3 MG/DL (0.1-1.0); BUN/CREATININE RATIO 19; CALCIUM 9.3 MG/DL (8.5-10.1); CARBON DIOXIDE 22 MMOL/L (21-32); CHLORIDE 110 MMOL/L (98-107); CREATININE SERUM 0.77 MG/DL (0.60-1.30); GFR ESTIMATED > 60; GLUCOSE 102 MG/DL (70-105); SODIUM 140 MMOL/L (135-145); TOTAL PROTEIN 6.5 GM/DL (6.4-8.2)
[~2018-09-22] VITALS: Ht 166.4 cm; Wt 89.8 kg
[~2018-09-22 08:40] MED LIST changes: -NS IV 500 ML (CANCER CENTER) 500 ML ONE
[2018-09-22 09:01] LABS: BASOPHILS % (AUTO) 1 % (0-10); EOSINOPHILS # (AUTO) 0.3 10^3/uL (0.0-0.3); EOSINOPHILS % (AUTO) 8 % (0-10); HEMATOCRIT 34 % (35-52); LYMPHOCYTES # (AUTO) 1.3 X 10^3 (1.0-4.0); LYMPHOCYTES % (AUTO) 31 % (12-44); MEAN CORPUSCULAR HEMOGLOBIN 29 PG (25-34); MEAN CORPUSCULAR HGB CONC 32 G/DL (32-36); MEAN CORPUSCULAR VOLUME 90 FL (80-99); MEAN PLATELET VOLUME 8.8 FL (7.4-10.4); MONOCYTES # (AUTO) 0.4 X 10^3 (0.0-1.0); MONOCYTES % (AUTO) 10 % (0-12); NEUTROPHILS # (AUTO) 2.1 X 10^3 (1.8-7.8); NEUTROPHILS % (AUTO) 51 % (42-75); PLATELET COUNT 200 10^3/uL (130-400); RED CELL DISTRIBUTION WIDTH 14.9 % (10.0-14.5); WHITE BLOOD COUNT 4.2 10^3/uL (4.3-11.0)
[2018-09-22 09:21] LABS: ALANINE AMINOTRANSFERASE 21 U/L (0-55); ALBUMIN 3.8 GM/DL (3.2-4.5); ALKALINE PHOSPHATASE 97 U/L (40-136); BILIRUBIN,TOTAL 0.4 MG/DL (0.1-1.0); BUN/CREATININE RATIO 25; CARBON DIOXIDE 22 MMOL/L (21-32); CHLORIDE 110 MMOL/L (98-107); CREATININE SERUM 0.76 MG/DL (0.60-1.30); GFR ESTIMATED > 60; GLUCOSE 103 MG/DL (70-105); SODIUM 142 MMOL/L (135-145); TOTAL PROTEIN 6.4 GM/DL (6.4-8.2)
== END 2018-10-10 15:49 | disposition home or self-care (01) ==
LOC: ONC 08:40
PROVIDERS: ATTEND Internal Medicine Hematology & Oncology
DX: Z51.11 Encounter for antineoplastic chemotherapy (principal); C67.1 Malignant neoplasm of dome of bladder; C77.0 Secondary and unspecified malignant neoplasm of lymph nodes of head, face and neck; D50.9 Iron deficiency anemia, unspecified; I10 Essential (primary) hypertension; G43.909 Migraine, unspecified, not intractable, without status migrainosus; Z79.899 Other long term (current) drug therapy
CPT/HCPCS: 36415; 36591; 80053; 84443; 85025; 96413

== ENCOUNTER → 2018-10-30 | Outpatient (CLI) | payer BC ==
[~2018-10-30] MED LIST changes: +CATHETER FLUSH 10 ML SYR IV PRN; +HOLD METFORMIN - RECEIVED CONTRAST 20 ML VIAL IV SCH; +IOHEXOL 350 MG/ML 100 ML (OMNIPAQUE 350) VIAL IV ONE; -NS IV 500 ML (CANCER CENTER) 500 ML IV SCH; -PEMBROLIZUMAB 200 MG in NS (IVPB) CANCER CENTER 50 ML IV SCH
--- NOTE | 2018-10-30 12:07 | Diagnostic Imaging Report ---
PROCEDURE: CT chest with contrast, CT abdomen and pelvis with and without contrast. TECHNIQUE: Pre and post intravenous contrast axial imaging of the abdomen and pelvis and post contrast axial imaging of the chest were performed. Auto Exposure Controls were utilized during the CT exam to meet ALARA standards for radiation dose reduction. INDICATION: Bladder cancer, followup. COMPARISON: Correlation is made with prior CT from 07/10/2018. CT CHEST: Right chest wall port remains in place. No axillary lymphadenopathy is seen. No hilar or mediastinal lymphadenopathy is identified. No pericardial or pleural fluid is detected. No pulmonary nodules or masses are seen. There is no infiltrates identified. IMPRESSION: Stable unremarkable CT of the chest. No thoracic lymphadenopathy or pulmonary metastatic disease is identified. CT ABDOMEN AND PELVIS: Low density mass near the dome of the right lobe of the liver appears to be stable at approximately 2.5 x 1.8 cm. No new liver mass is identified. The gallbladder is unremarkable. The pancreas and spleen are unremarkable. No adrenal mass is detected. Kidneys are unremarkable. Aorta remains non-aneurysmal. No central retroperitoneal or mesenteric lymphadenopathy is seen. Tiny lymph node adjacent to the iliacus muscle on prior exam is now barely visible. Right-sided lymph node near the obturator region appears to be larger on today's study measuring 21 mm x 17 mm compared with 15 mm x 14 mm. In addition, the area of nodularity or mass in the region of the dome of the bladder has increased in size measuring 23 mm x 20 mm compared with approximately 60 mm x 14 mm. No inguinal lymphadenopathy is seen. 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 IMPRESSION: 1. Stable right lobe liver mass. 2. Enlarging right obturator lymph node. In addition, there is an enlarging mass involving the bladder dome when compared with prior CT from 07/10/2018. Dictated by: Dictated on workstation # [id number]
--- NOTE | 2018-10-30 19:15 | Diagnostic Imaging Report ---
INDICATION: Bladder carcinoma. TECHNIQUE: Patient was administered 26.0 mCi of technetium-99m MDP intravenously, and whole-body imaging was performed after a 3-hour delay. COMPARISON: Correlation is made with prior whole body bone scan from 07/10/2018. FINDINGS: There is normal uptake of activity by the axial and appendicular skeleton. There is uptake by both kidneys with excretion into the urinary bladder. Abnormal uptake involving the right hip persists and to a lesser degree involving the left hip. This is similar to prior exam and is likely on a degenerative basis. No suspicious foci are identified. IMPRESSION: Stable whole-body bone scan. There are no bone scan findings to suggest osseous metastatic disease. Dictated by: Dictated on workstation # [id number]
== END ==
LOC: CARD 10:38
PROVIDERS: ATTEND Internal Medicine Hematology & Oncology
DX: C67.1 Malignant neoplasm of dome of bladder (principal); C77.0 Secondary and unspecified malignant neoplasm of lymph nodes of head, face and neck; M25.551 Pain in right hip
CPT/HCPCS: 71260; 74178; 78306

== ENCOUNTER 2018-11-03 08:47 | Outpatient (RCR) | payer BC ==
[2018-10-13 09:30] LABS: BASOPHILS % (AUTO) 1 % (0-10); EOSINOPHILS # (AUTO) 0.2 10^3/uL (0.0-0.3); EOSINOPHILS % (AUTO) 5 % (0-10); HEMATOCRIT 35 % (35-52); HEMOGLOBIN 11.7 G/DL (11.5-16.0); LYMPHOCYTES # (AUTO) 1.4 X 10^3 (1.0-4.0); LYMPHOCYTES % (AUTO) 39 % (12-44); MEAN CORPUSCULAR HEMOGLOBIN 29 PG (25-34); MEAN CORPUSCULAR HGB CONC 33 G/DL (32-36); MEAN CORPUSCULAR VOLUME 89 FL (80-99); MEAN PLATELET VOLUME 8.5 FL (7.4-10.4); MONOCYTES # (AUTO) 0.4 X 10^3 (0.0-1.0); MONOCYTES % (AUTO) 11 % (0-12); NEUTROPHILS # (AUTO) 1.6 X 10^3 (1.8-7.8); NEUTROPHILS % (AUTO) 45 % (42-75); PLATELET COUNT 195 10^3/uL (130-400); RED CELL DISTRIBUTION WIDTH 14.3 % (10.0-14.5); WHITE BLOOD COUNT 3.5 10^3/uL (4.3-11.0)
[2018-10-13 09:56] LABS: ALANINE AMINOTRANSFERASE 21 U/L (0-55); ALKALINE PHOSPHATASE 107 U/L (40-136); BILIRUBIN,TOTAL 0.4 MG/DL (0.1-1.0); BUN/CREATININE RATIO 15; CALCIUM 9.7 MG/DL (8.5-10.1); CARBON DIOXIDE 20 MMOL/L (21-32); CHLORIDE 110 MMOL/L (98-107); CREATININE SERUM 0.81 MG/DL (0.60-1.30); GFR ESTIMATED > 60; GLUCOSE 101 MG/DL (70-105); POTASSIUM 3.8 MMOL/L (3.6-5.0); SODIUM 141 MMOL/L (135-145)
[~2018-11-03 08:47] MED LIST changes: -CATHETER FLUSH 10 ML SYR IV PRN; -HOLD METFORMIN - RECEIVED CONTRAST 20 ML VIAL IV SCH; -IOHEXOL 350 MG/ML 100 ML (OMNIPAQUE 350) VIAL IV ONE; +NS IV 500 ML (CANCER CENTER) 500 ML IV SCH; +PEMBROLIZUMAB 200 MG in NS (IVPB) CANCER CENTER 50 ML IV SCH
[2018-11-03 09:12] LABS: BASOPHILS % (AUTO) 0 % (0-10); EOSINOPHILS # (AUTO) 0.3 10^3/uL (0.0-0.3); EOSINOPHILS % (AUTO) 9 % (0-10); HEMATOCRIT 35 % (35-52); HEMOGLOBIN 11.6 G/DL (11.5-16.0); LYMPHOCYTES # (AUTO) 1.2 X 10^3 (1.0-4.0); LYMPHOCYTES % (AUTO) 31 % (12-44); MEAN CORPUSCULAR HEMOGLOBIN 29 PG (25-34); MEAN CORPUSCULAR HGB CONC 33 G/DL (32-36); MEAN CORPUSCULAR VOLUME 88 FL (80-99); MEAN PLATELET VOLUME 8.7 FL (7.4-10.4); MONOCYTES # (AUTO) 0.3 X 10^3 (0.0-1.0); MONOCYTES % (AUTO) 9 % (0-12); NEUTROPHILS # (AUTO) 1.9 X 10^3 (1.8-7.8); NEUTROPHILS % (AUTO) 51 % (42-75); PLATELET COUNT 213 10^3/uL (130-400); RED CELL DISTRIBUTION WIDTH 14.1 % (10.0-14.5); WHITE BLOOD COUNT 3.7 10^3/uL (4.3-11.0)
[2018-11-03 09:28] LABS: ALANINE AMINOTRANSFERASE 23 U/L (0-55); ALBUMIN 4.1 GM/DL (3.2-4.5); ALKALINE PHOSPHATASE 113 U/L (40-136); BILIRUBIN,TOTAL 0.5 MG/DL (0.1-1.0); BUN/CREATININE RATIO 17; CALCIUM 9.5 MG/DL (8.5-10.1); CARBON DIOXIDE 24 MMOL/L (21-32); CHLORIDE 109 MMOL/L (98-107); CREATININE SERUM 0.76 MG/DL (0.60-1.30); GFR ESTIMATED > 60; GLUCOSE 107 MG/DL (70-105); POTASSIUM 3.7 MMOL/L (3.6-5.0); SODIUM 142 MMOL/L (135-145)
== END 2018-11-17 15:16 | disposition home or self-care (01) ==
LOC: ONC 08:47
PROVIDERS: ATTEND Internal Medicine Hematology & Oncology
DX: Z51.11 Encounter for antineoplastic chemotherapy (principal); C67.1 Malignant neoplasm of dome of bladder; C77.0 Secondary and unspecified malignant neoplasm of lymph nodes of head, face and neck; D50.9 Iron deficiency anemia, unspecified; I10 Essential (primary) hypertension; G43.909 Migraine, unspecified, not intractable, without status migrainosus; Z79.899 Other long term (current) drug therapy
CPT/HCPCS: 36591; 80053; 83615; 84443; 85025; 96413

== ENCOUNTER 2019-01-05 10:06 | Outpatient (RCR) | payer BC ==
[2018-11-24 09:45] LABS: BASOPHILS % (AUTO) 0 % (0-10); EOSINOPHILS # (AUTO) 0.3 10^3/uL (0.0-0.3); EOSINOPHILS % (AUTO) 6 % (0-10); HEMATOCRIT 37 % (35-52); HEMOGLOBIN 11.7 G/DL (11.5-16.0); LYMPHOCYTES # (AUTO) 1.4 X 10^3 (1.0-4.0); LYMPHOCYTES % (AUTO) 33 % (12-44); MEAN CORPUSCULAR HEMOGLOBIN 29 PG (25-34); MEAN CORPUSCULAR HGB CONC 32 G/DL (32-36); MEAN CORPUSCULAR VOLUME 89 FL (80-99); MONOCYTES # (AUTO) 0.5 X 10^3 (0.0-1.0); MONOCYTES % (AUTO) 12 % (0-12); NEUTROPHILS # (AUTO) 2.1 X 10^3 (1.8-7.8); NEUTROPHILS % (AUTO) 49 % (42-75); PLATELET COUNT 192 10^3/uL (130-400); RED CELL DISTRIBUTION WIDTH 14.3 % (10.0-14.5); WHITE BLOOD COUNT 4.4 10^3/uL (4.3-11.0)
[2018-11-24 10:08] LABS: ALANINE AMINOTRANSFERASE 22 U/L (0-55); ALBUMIN 4.1 GM/DL (3.2-4.5); ALKALINE PHOSPHATASE 112 U/L (40-136); BILIRUBIN,TOTAL 0.3 MG/DL (0.1-1.0); BUN/CREATININE RATIO 21; CARBON DIOXIDE 21 MMOL/L (21-32); CHLORIDE 110 MMOL/L (98-107); CREATININE SERUM 0.82 MG/DL (0.60-1.30); GFR ESTIMATED > 60; GLUCOSE 110 MG/DL (70-105); POTASSIUM 4.1 MMOL/L (3.6-5.0); SODIUM 143 MMOL/L (135-145); TOTAL PROTEIN 7.1 GM/DL (6.4-8.2)
[2018-12-15 09:21] LABS: BASOPHILS % (AUTO) 1 % (0-10); EOSINOPHILS # (AUTO) 0.2 10^3/uL (0.0-0.3); EOSINOPHILS % (AUTO) 4 % (0-10); HEMATOCRIT 35 % (35-52); HEMOGLOBIN 11.4 G/DL (11.5-16.0); LYMPHOCYTES # (AUTO) 1.1 X 10^3 (1.0-4.0); LYMPHOCYTES % (AUTO) 28 % (12-44); MEAN CORPUSCULAR HEMOGLOBIN 29 PG (25-34); MEAN CORPUSCULAR HGB CONC 33 G/DL (32-36); MEAN CORPUSCULAR VOLUME 89 FL (80-99); MONOCYTES # (AUTO) 0.3 X 10^3 (0.0-1.0); MONOCYTES % (AUTO) 8 % (0-12); NEUTROPHILS # (AUTO) 2.4 X 10^3 (1.8-7.8); NEUTROPHILS % (AUTO) 59 % (42-75); PLATELET COUNT 194 10^3/uL (130-400); RED CELL DISTRIBUTION WIDTH 14.2 % (10.0-14.5)
[2018-12-15 09:41] LABS: ALANINE AMINOTRANSFERASE 31 U/L (0-55); ALBUMIN 3.9 GM/DL (3.2-4.5); ALKALINE PHOSPHATASE 111 U/L (40-136); BILIRUBIN,TOTAL 0.4 MG/DL (0.1-1.0); BUN/CREATININE RATIO 16; CALCIUM 9.4 MG/DL (8.5-10.1); CARBON DIOXIDE 22 MMOL/L (21-32); CHLORIDE 109 MMOL/L (98-107); CREATININE SERUM 0.86 MG/DL (0.60-1.30); GFR ESTIMATED > 60; GLUCOSE 136 MG/DL (70-105); POTASSIUM 3.6 MMOL/L (3.6-5.0); SODIUM 140 MMOL/L (135-145); TOTAL PROTEIN 6.8 GM/DL (6.4-8.2)
[~2019-01-05] VITALS: Ht 165.1 cm; Wt 86.6 kg
[2019-01-05 10:33] LABS: BASOPHILS % (AUTO) 1 % (0-10); EOSINOPHILS # (AUTO) 0.1 10^3/uL (0.0-0.3); EOSINOPHILS % (AUTO) 3 % (0-10); HEMATOCRIT 31 % (35-52); HEMOGLOBIN 9.7 G/DL (11.5-16.0); LYMPHOCYTES # (AUTO) 1.1 X 10^3 (1.0-4.0); LYMPHOCYTES % (AUTO) 29 % (12-44); MEAN CORPUSCULAR HEMOGLOBIN 28 PG (25-34); MEAN CORPUSCULAR HGB CONC 32 G/DL (32-36); MEAN CORPUSCULAR VOLUME 88 FL (80-99); MEAN PLATELET VOLUME 8.5 FL (7.4-10.4); MONOCYTES # (AUTO) 0.3 X 10^3 (0.0-1.0); MONOCYTES % (AUTO) 8 % (0-12); NEUTROPHILS # (AUTO) 2.3 X 10^3 (1.8-7.8); NEUTROPHILS % (AUTO) 60 % (42-75); PLATELET COUNT 263 10^3/uL (130-400); WHITE BLOOD COUNT 3.9 10^3/uL (4.3-11.0)
[2019-01-05 10:56] LABS: ALANINE AMINOTRANSFERASE 55 U/L (0-55); ALBUMIN 3.7 GM/DL (3.2-4.5); ALKALINE PHOSPHATASE 121 U/L (40-136); BILIRUBIN,TOTAL 0.3 MG/DL (0.1-1.0); BUN/CREATININE RATIO 14; CALCIUM 9.4 MG/DL (8.5-10.1); CARBON DIOXIDE 22 MMOL/L (21-32); CHLORIDE 107 MMOL/L (98-107); CREATININE SERUM 0.84 MG/DL (0.60-1.30); GFR ESTIMATED > 60; GLUCOSE 140 MG/DL (70-105); POTASSIUM 3.9 MMOL/L (3.6-5.0); SODIUM 139 MMOL/L (135-145); TOTAL PROTEIN 6.7 GM/DL (6.4-8.2)
[2019-01-26 10:12] LABS: BASOPHILS % (AUTO) 1 % (0-10); EOSINOPHILS # (AUTO) 0.2 10^3/uL (0.0-0.3); EOSINOPHILS % (AUTO) 4 % (0-10); HEMATOCRIT 36 % (35-52); HEMOGLOBIN 11.3 G/DL (11.5-16.0); LYMPHOCYTES # (AUTO) 1.3 X 10^3 (1.0-4.0); LYMPHOCYTES % (AUTO) 30 % (12-44); MEAN CORPUSCULAR HEMOGLOBIN 28 PG (25-34); MEAN CORPUSCULAR HGB CONC 31 G/DL (32-36); MEAN CORPUSCULAR VOLUME 89 FL (80-99); MEAN PLATELET VOLUME 9.1 FL (7.4-10.4); MONOCYTES # (AUTO) 0.5 X 10^3 (0.0-1.0); MONOCYTES % (AUTO) 10 % (0-12); NEUTROPHILS # (AUTO) 2.4 X 10^3 (1.8-7.8); NEUTROPHILS % (AUTO) 55 % (42-75); PLATELET COUNT 228 10^3/uL (130-400); RED CELL DISTRIBUTION WIDTH 15.3 % (10.0-14.5); WHITE BLOOD COUNT 4.4 10^3/uL (4.3-11.0)
[2019-01-26 10:43] LABS: ALBUMIN 4.1 GM/DL (3.2-4.5); BILIRUBIN,TOTAL 0.4 MG/DL (0.1-1.0); CREATININE SERUM 1.06 MG/DL (0.60-1.30); TOTAL PROTEIN 7.4 GM/DL (6.4-8.2)
== END 2019-01-26 09:35 | disposition home or self-care (01) ==
LOC: ONC 10:06
PROVIDERS: ATTEND Internal Medicine Hematology & Oncology
DX: Z51.11 Encounter for antineoplastic chemotherapy (principal); C67.1 Malignant neoplasm of dome of bladder; C77.0 Secondary and unspecified malignant neoplasm of lymph nodes of head, face and neck; D50.9 Iron deficiency anemia, unspecified; I10 Essential (primary) hypertension; G43.909 Migraine, unspecified, not intractable, without status migrainosus; Z79.899 Other long term (current) drug therapy
CPT/HCPCS: 36591; 80053; 83615; 84443; 85025; 96413

== ENCOUNTER → 2019-01-19 | Outpatient (CLI) | payer BC ==
[~2019-01-19] MED LIST changes: +CATHETER FLUSH 10 ML SYR IV PRN; +HOLD METFORMIN - RECEIVED CONTRAST 20 ML VIAL IV SCH; +IOHEXOL 350 MG/ML 100 ML (OMNIPAQUE 350) VIAL IV ONE; +NS 100 ML (IVPB) BAG IV ONE; -NS IV 500 ML (CANCER CENTER) 500 ML IV SCH; -PEMBROLIZUMAB 200 MG in NS (IVPB) CANCER CENTER 50 ML IV SCH
--- NOTE | 2019-01-19 15:14 | Diagnostic Imaging Report ---
PROCEDURE: CT chest with contrast, CT abdomen and pelvis with and without contrast. TECHNIQUE: Pre and post intravenous contrast axial imaging of the abdomen and pelvis and post contrast axial imaging of the chest were performed. Auto Exposure Controls were utilized during the CT exam to meet ALARA standards for radiation dose reduction. INDICATION: Bladder cancer. FINDINGS: Comparison is 10/30/2018. No suspicious pulmonary nodules. No edema or pneumonia. No pleural effusion or pneumothorax. Heart size is normal. No pericardial effusion. Aorta is normal in caliber. Port catheter is present through a right internal jugular approach. No axillary, supraclavicular, or mediastinal lymphadenopathy. Segment VII liver lesion has discontinuous peripheral areas of enhancement and has been stable since 2017. Prior exams were also suggestive of a hemangioma. No other liver lesions are seen. Gallbladder is normal. Portal vein is patent. No biliary ductal dilation. Pancreas, spleen, and adrenal glands are normal. Kidneys enhance symmetrically without focal lesion. No hydronephrosis. The enhancing mass at the bladder dome is largely obscured by streak artifact that is difficult to directly evaluate. On the coronal images, the maximal thickness is 17 mm, previously 17 mm. This is due to a right hip arthroplasty that has been performed in the meantime. Previously seen obturator mass is also obscured by the streak artifact. The lymph node at the bifurcation of the right common iliac artery is unchanged in size with the maximal dimension of 18 mm. No new lymphadenopathy is seen. There is no abdominal or pelvic lymphadenopathy. No free fluid or air. Abdominal aorta is normal in caliber. There are no suspicious osseous lesions. IMPRESSION: 1. Limited evaluation of the pelvis due to interval placement of right total hip arthroplasty. The right common iliac lymph node and bladder mass are generally stable. 2. Stable liver lesion with imaging features most consistent with a hemangioma. Dictated by: Dictated on workstation # [id number]
--- NOTE | 2019-01-19 16:42 | Diagnostic Imaging Report ---
INDICATION: Bladder carcinoma. TECHNIQUE: 26.6 mCi of technetium-99m MDP was administered intravenously and whole body bone scan was performed after a three-hour delay. COMPARISON: Correlation is made with prior exam from 10/30/2018. FINDINGS: There is normal uptake of activity by the axial and appendicular skeleton. There is uptake by both kidneys with excretion into the urinary bladder. Postsurgical changes of the right hip are identified. This appears to have occurred since prior bone scan. There appear to be some degenerative changes of the left hip. No suspicious foci are seen to suggest osseous metastatic disease. IMPRESSION: No scintigraphic evidence of osseous metastatic disease. Dictated by: Dictated on workstation # [id number]
== END ==
LOC: CARD 11:53
PROVIDERS: ATTEND Nurse Practitioner Adult Health
DX: Z01.89 Encounter for other specified special examinations (principal); C67.1 Malignant neoplasm of dome of bladder; C77.0 Secondary and unspecified malignant neoplasm of lymph nodes of head, face and neck; M25.551 Pain in right hip; K76.9 Liver disease, unspecified; Z96.641 Presence of right artificial hip joint
CPT/HCPCS: 71260; 74178; 78306

== ENCOUNTER 2019-03-09 10:03 | Outpatient (RCR) | payer BC ==
[2019-02-16 09:27] LABS: BASOPHILS % (AUTO) 0 % (0-10); EOSINOPHILS # (AUTO) 0.2 10^3/uL (0.0-0.3); EOSINOPHILS % (AUTO) 4 % (0-10); HEMATOCRIT 34 % (35-52); HEMOGLOBIN 10.6 G/DL (11.5-16.0); LYMPHOCYTES # (AUTO) 1.4 X 10^3 (1.0-4.0); LYMPHOCYTES % (AUTO) 40 % (12-44); MEAN CORPUSCULAR HEMOGLOBIN 27 PG (25-34); MEAN CORPUSCULAR HGB CONC 31 G/DL (32-36); MEAN CORPUSCULAR VOLUME 88 FL (80-99); MEAN PLATELET VOLUME 9.1 FL (7.4-10.4); MONOCYTES # (AUTO) 0.4 X 10^3 (0.0-1.0); MONOCYTES % (AUTO) 12 % (0-12); NEUTROPHILS # (AUTO) 1.5 X 10^3 (1.8-7.8); NEUTROPHILS % (AUTO) 43 % (42-75); PLATELET COUNT 205 10^3/uL (130-400); RED CELL DISTRIBUTION WIDTH 15.8 % (10.0-14.5); WHITE BLOOD COUNT 3.4 10^3/uL (4.3-11.0)
[2019-02-16 09:40] LABS: ALANINE AMINOTRANSFERASE 45 U/L (0-55); ALBUMIN 3.7 GM/DL (3.2-4.5); ALKALINE PHOSPHATASE 94 U/L (40-136); BILIRUBIN,TOTAL 0.3 MG/DL (0.1-1.0); BUN/CREATININE RATIO 25; CALCIUM 9.2 MG/DL (8.5-10.1); CARBON DIOXIDE 22 MMOL/L (21-32); CHLORIDE 108 MMOL/L (98-107); GFR ESTIMATED > 60; GLUCOSE 102 MG/DL (70-105); POTASSIUM 3.9 MMOL/L (3.6-5.0); SODIUM 142 MMOL/L (135-145); TOTAL PROTEIN 7.2 GM/DL (6.4-8.2)
[~2019-03-09] VITALS: Ht 166.4 cm; Wt 89.8 kg
[~2019-03-09 10:03] MED LIST changes: -CATHETER FLUSH 10 ML SYR IV PRN; -HOLD METFORMIN - RECEIVED CONTRAST 20 ML VIAL IV SCH; -IOHEXOL 350 MG/ML 100 ML (OMNIPAQUE 350) VIAL IV ONE; -NS 100 ML (IVPB) BAG IV ONE; +NS IV 500 ML (CANCER CENTER) 500 ML IV SCH; +NS IV 500 ML (CANCER CENTER) 500 ML ONE; +PEMBROLIZUMAB 200 MG in NS (IVPB) CANCER CENTER 50 ML IV SCH
[2019-03-09 10:53] LABS: BASOPHILS % (AUTO) 0 % (0-10); EOSINOPHILS # (AUTO) 0.2 10^3/uL (0.0-0.3); EOSINOPHILS % (AUTO) 4 % (0-10); HEMATOCRIT 35 % (35-52); HEMOGLOBIN 11.4 G/DL (11.5-16.0); LYMPHOCYTES # (AUTO) 1.7 X 10^3 (1.0-4.0); LYMPHOCYTES % (AUTO) 37 % (12-44); MEAN CORPUSCULAR HEMOGLOBIN 28 PG (25-34); MEAN CORPUSCULAR HGB CONC 32 G/DL (32-36); MEAN CORPUSCULAR VOLUME 87 FL (80-99); MEAN PLATELET VOLUME 9.1 FL (7.4-10.4); MONOCYTES # (AUTO) 0.4 X 10^3 (0.0-1.0); MONOCYTES % (AUTO) 10 % (0-12); NEUTROPHILS # (AUTO) 2.3 X 10^3 (1.8-7.8); NEUTROPHILS % (AUTO) 49 % (42-75); PLATELET COUNT 186 10^3/uL (130-400); RED CELL DISTRIBUTION WIDTH 15.2 % (10.0-14.5); WHITE BLOOD COUNT 4.6 10^3/uL (4.3-11.0)
[2019-03-09 11:11] LABS: ALANINE AMINOTRANSFERASE 40 U/L (0-55); ALBUMIN 3.9 GM/DL (3.2-4.5); ALKALINE PHOSPHATASE 93 U/L (40-136); BILIRUBIN,TOTAL 0.4 MG/DL (0.1-1.0); BUN/CREATININE RATIO 17; CALCIUM 9.4 MG/DL (8.5-10.1); CARBON DIOXIDE 25 MMOL/L (21-32); CHLORIDE 108 MMOL/L (98-107); CREATININE SERUM 0.78 MG/DL (0.60-1.30); GFR ESTIMATED > 60; GLUCOSE 98 MG/DL (70-105); POTASSIUM 3.9 MMOL/L (3.6-5.0); SODIUM 142 MMOL/L (135-145); TOTAL PROTEIN 6.8 GM/DL (6.4-8.2)
== END 2019-03-11 10:19 | disposition still patient (30) ==
LOC: ONC 10:03
PROVIDERS: ATTEND Internal Medicine Hematology & Oncology
DX: Z51.11 Encounter for antineoplastic chemotherapy (principal); C67.1 Malignant neoplasm of dome of bladder; C77.0 Secondary and unspecified malignant neoplasm of lymph nodes of head, face and neck; D50.9 Iron deficiency anemia, unspecified; I10 Essential (primary) hypertension; G43.909 Migraine, unspecified, not intractable, without status migrainosus; Z79.899 Other long term (current) drug therapy
CPT/HCPCS: 36591; 80053; 83615; 85025; 96413

== ENCOUNTER → 2019-04-14 | Outpatient (CLI) | payer BC ==
[~2019-04-14] MED LIST changes: -NS IV 500 ML (CANCER CENTER) 500 ML IV SCH; -NS IV 500 ML (CANCER CENTER) 500 ML ONE; -PEMBROLIZUMAB 200 MG in NS (IVPB) CANCER CENTER 50 ML IV SCH
--- NOTE | 2019-04-14 20:14 | Diagnostic Imaging Report ---
EXAM: Digital mammogram bilateral screening COMPARISON: This study was compared to the prior exams of 03/28/2018, 03/12/2017 and 03/08/2016. There are no current complaints. FINDINGS: The fibroglandular tissue in both breasts is heterogeneously dense. This does limit the sensitivity of this exam. Overall, there has been no significant change. There is no primary or secondary sign of malignancy noted. In the interval since the prior exam, it appears that a Port-A-Cath has been inserted on the right. Correlation with the patient's history would be recommended. IMPRESSION: 1. There is no evidence of malignancy. 2. There does appear to have been interval insertion of a right-sided Port-A-Cath. ACR BI-RADS Category 1: Negative. Result letter will be mailed to the patient. Note: At least 10% of breast cancer is not imaged by mammography. Dictated by: Dictated on workstation # [id number]
== END ==
LOC: RAD 08:07
PROVIDERS: ATTEND Nurse Practitioner
DX: Z12.31 Encounter for screening mammogram for malignant neoplasm of breast (principal); Z01.419 Encounter for gynecological examination (general) (routine) without abnormal findings; C67.9 Malignant neoplasm of bladder, unspecified
CPT/HCPCS: 77067

== ENCOUNTER → 2019-04-14 | Outpatient (CLI) | payer BC ==
--- NOTE | 2019-04-15 09:12 | Diagnostic Imaging Report ---
PET CT initial INDICATION: Bladder cancer. TECHNIQUE: PET/CT imaging was obtained from the base of the skull through the pelvis after the administration of 14.27 mCi of F-[address] imaging was utilized for localization and attenuation correction purposes. The low energy CT utilized for attenuation correction is not considered to be of high enough spatial resolution to allow in and of itself a separate anatomical analysis. The patient's height is 5' 8", weight 197. The blood glucose 114. There are no prior PET/CT examinations available for comparison. The CT chest, abdomen and pelvis exam of 01/19/2019 offered limited visualization of the bladder mass identified on the previous CT chest, abdomen and pelvis exam of 10/30/2018. The pelvis was obscured by artifact related to the total hip prosthesis on the right. The patient did undergo total hip arthroplasty on 12/17/2018. The right iliac chain node also seen on the previous CT exam did seem stable. On this study, the right iliac chain node is stable in size when compared to the previous exams. The node measures 1.7 x 2.1 cm. The node is hypermetabolic with a maximum SUV of 8.6. As on the previous CT exam the bladder is difficult to evaluate due to artifact related to the total hip prosthesis and to the presence of the radiotracer within the bladder. There is no other hyper metabolic activity to suggest the presence of neoplasm. There is physiologic activity in the brain, the thyroid gland, the kidneys and the bowel. The CT images fail to show any sign of an acute abnormality. IMPRESSION: 1. The right common iliac node seen on the previous study is again evident and stable in size. The node is hypermetabolic and consequently should be considered neoplastic until proven otherwise. The bladder itself was not well evaluated. 2. There is no other hypermetabolic activity to suggest the presence of neoplasm. 3. There is no sign of an acute abnormality. Dictated by: Dictated on workstation # [id number]
== END ==
LOC: RAD 08:05
PROVIDERS: ATTEND Nurse Practitioner Adult Health
DX: Z01.89 Encounter for other specified special examinations (principal); C67.9 Malignant neoplasm of bladder, unspecified; C77.0 Secondary and unspecified malignant neoplasm of lymph nodes of head, face and neck

== ENCOUNTER 2019-04-20 13:43 | Outpatient (RCR) | payer BC ==
[2019-03-30 09:10] LABS: BASOPHILS % (AUTO) 0 % (0-10); EOSINOPHILS # (AUTO) 0.2 10^3/uL (0.0-0.3); EOSINOPHILS % (AUTO) 4 % (0-10); HEMATOCRIT 35 % (35-52); HEMOGLOBIN 11.3 G/DL (11.5-16.0); LYMPHOCYTES # (AUTO) 1.6 X 10^3 (1.0-4.0); LYMPHOCYTES % (AUTO) 33 % (12-44); MEAN CORPUSCULAR HEMOGLOBIN 28 PG (25-34); MEAN CORPUSCULAR HGB CONC 32 G/DL (32-36); MEAN CORPUSCULAR VOLUME 86 FL (80-99); MONOCYTES # (AUTO) 0.4 X 10^3 (0.0-1.0); MONOCYTES % (AUTO) 8 % (0-12); NEUTROPHILS # (AUTO) 2.6 X 10^3 (1.8-7.8); NEUTROPHILS % (AUTO) 55 % (42-75); PLATELET COUNT 207 10^3/uL (130-400); RED CELL DISTRIBUTION WIDTH 15.7 % (10.0-14.5); WHITE BLOOD COUNT 4.7 10^3/uL (4.3-11.0)
[2019-03-30 09:35] LABS: ALANINE AMINOTRANSFERASE 52 U/L (0-55); ALBUMIN 3.8 GM/DL (3.2-4.5); ALKALINE PHOSPHATASE 101 U/L (40-136); BILIRUBIN,TOTAL 0.4 MG/DL (0.1-1.0); BUN/CREATININE RATIO 19; CALCIUM 9.6 MG/DL (8.5-10.1); CARBON DIOXIDE 24 MMOL/L (21-32); CHLORIDE 110 MMOL/L (98-107); CREATININE SERUM 0.85 MG/DL (0.60-1.30); GFR ESTIMATED > 60; GLUCOSE 120 MG/DL (70-105); POTASSIUM 3.8 MMOL/L (3.6-5.0); SODIUM 142 MMOL/L (135-145); TOTAL PROTEIN 6.8 GM/DL (6.4-8.2)
[~2019-04-20 13:43] MED LIST changes: +NS IV 500 ML (CANCER CENTER) 500 ML IV SCH; +PEMBROLIZUMAB 200 MG in NS (IVPB) CANCER CENTER 50 ML IV SCH
[2019-04-20 14:00] LABS: BASOPHILS % (AUTO) 0 % (0-10); EOSINOPHILS # (AUTO) 0.2 10^3/uL (0.0-0.3); EOSINOPHILS % (AUTO) 4 % (0-10); HEMATOCRIT 35 % (35-52); HEMOGLOBIN 11.1 G/DL (11.5-16.0); LYMPHOCYTES # (AUTO) 1.6 X 10^3 (1.0-4.0); LYMPHOCYTES % (AUTO) 36 % (12-44); MEAN CORPUSCULAR HEMOGLOBIN 28 PG (25-34); MEAN CORPUSCULAR HGB CONC 32 G/DL (32-36); MEAN CORPUSCULAR VOLUME 86 FL (80-99); MEAN PLATELET VOLUME 9.1 FL (7.4-10.4); MONOCYTES # (AUTO) 0.4 X 10^3 (0.0-1.0); MONOCYTES % (AUTO) 8 % (0-12); NEUTROPHILS # (AUTO) 2.2 X 10^3 (1.8-7.8); NEUTROPHILS % (AUTO) 51 % (42-75); PLATELET COUNT 188 10^3/uL (130-400); RED CELL DISTRIBUTION WIDTH 15.6 % (10.0-14.5); WHITE BLOOD COUNT 4.3 10^3/uL (4.3-11.0)
[2019-04-20 14:30] LABS: ALANINE AMINOTRANSFERASE 44 U/L (0-55); ALBUMIN 3.8 GM/DL (3.2-4.5); ALKALINE PHOSPHATASE 105 U/L (40-136); BILIRUBIN,TOTAL 0.3 MG/DL (0.1-1.0); BUN/CREATININE RATIO 16; CALCIUM 9.2 MG/DL (8.5-10.1); CARBON DIOXIDE 28 MMOL/L (21-32); CHLORIDE 111 MMOL/L (98-107); GFR ESTIMATED > 60; GLUCOSE 127 MG/DL (70-105); POTASSIUM 3.8 MMOL/L (3.6-5.0); SODIUM 145 MMOL/L (135-145); TOTAL PROTEIN 6.7 GM/DL (6.4-8.2)
== END 2019-04-21 10:29 | disposition home or self-care (01) ==
LOC: ONC 13:43
PROVIDERS: ATTEND Internal Medicine Hematology & Oncology
DX: Z51.11 Encounter for antineoplastic chemotherapy (principal); C67.1 Malignant neoplasm of dome of bladder; C77.0 Secondary and unspecified malignant neoplasm of lymph nodes of head, face and neck; D50.9 Iron deficiency anemia, unspecified; I10 Essential (primary) hypertension; G43.909 Migraine, unspecified, not intractable, without status migrainosus; Z79.899 Other long term (current) drug therapy
CPT/HCPCS: 36591; 80053; 83615; 84443; 85025; 96413

== ENCOUNTER 2019-05-11 08:56 | Outpatient (RCR) | payer BC ==
[2019-05-11 09:10] LABS: BASOPHILS % (AUTO) 0 % (0-10); EOSINOPHILS # (AUTO) 0.1 10^3/uL (0.0-0.3); EOSINOPHILS % (AUTO) 3 % (0-10); HEMATOCRIT 36 % (35-52); HEMOGLOBIN 11.6 G/DL (11.5-16.0); LYMPHOCYTES # (AUTO) 1.8 X 10^3 (1.0-4.0); LYMPHOCYTES % (AUTO) 38 % (12-44); MEAN CORPUSCULAR HEMOGLOBIN 28 PG (25-34); MEAN CORPUSCULAR HGB CONC 32 G/DL (32-36); MEAN CORPUSCULAR VOLUME 87 FL (80-99); MONOCYTES # (AUTO) 0.5 X 10^3 (0.0-1.0); MONOCYTES % (AUTO) 11 % (0-12); NEUTROPHILS # (AUTO) 2.3 X 10^3 (1.8-7.8); NEUTROPHILS % (AUTO) 48 % (42-75); PLATELET COUNT 193 10^3/uL (130-400); RED CELL DISTRIBUTION WIDTH 15.8 % (10.0-14.5); WHITE BLOOD COUNT 4.8 10^3/uL (4.3-11.0)
[2019-05-11 09:33] LABS: ALANINE AMINOTRANSFERASE 24 U/L (0-55); ALBUMIN 3.9 GM/DL (3.2-4.5); ALKALINE PHOSPHATASE 94 U/L (40-136); BILIRUBIN,TOTAL 0.4 MG/DL (0.1-1.0); BUN/CREATININE RATIO 19; CALCIUM 9.3 MG/DL (8.5-10.1); CARBON DIOXIDE 23 MMOL/L (21-32); CHLORIDE 108 MMOL/L (98-107); GFR ESTIMATED > 60; GLUCOSE 101 MG/DL (70-105); SODIUM 141 MMOL/L (135-145)
== END 2019-05-14 13:22 | disposition home or self-care (01) ==
LOC: ONC 08:56
PROVIDERS: ATTEND Internal Medicine Hematology & Oncology
DX: Z51.11 Encounter for antineoplastic chemotherapy (principal); C67.1 Malignant neoplasm of dome of bladder; C77.0 Secondary and unspecified malignant neoplasm of lymph nodes of head, face and neck; D50.9 Iron deficiency anemia, unspecified; I10 Essential (primary) hypertension; G43.909 Migraine, unspecified, not intractable, without status migrainosus; Z79.899 Other long term (current) drug therapy
CPT/HCPCS: 36415; 36591; 80053; 83615; 85025; 96413

== ENCOUNTER → 2019-07-10 | Outpatient (CLI) | payer BC ==
[~2019-07-10] MED LIST changes: +BARIUM SUSPENSION 2.1% (VANILLA SILQ) 450 ML PO ONE; +CATHETER FLUSH 10 ML SYR IV PRN; +HOLD METFORMIN - RECEIVED CONTRAST 20 ML VIAL IV SCH; +IOHEXOL 350 MG/ML 100 ML (OMNIPAQUE 350) VIAL IV ONE; +NS 100 ML (IVPB) BAG IV ONE; -NS IV 500 ML (CANCER CENTER) 500 ML IV SCH; -PEMBROLIZUMAB 200 MG in NS (IVPB) CANCER CENTER 50 ML IV SCH
--- NOTE | 2019-07-10 12:01 | Diagnostic Imaging Report ---
PROCEDURE: CT chest with contrast, CT abdomen and pelvis with and without contrast. TECHNIQUE: Pre and post intravenous contrast axial imaging of the abdomen and pelvis and post contrast axial imaging of the chest were performed. Auto Exposure Controls were utilized during the CT exam to meet ALARA standards for radiation dose reduction. INDICATION: Bladder carcinoma, follow-up. COMPARISON: Correlation is made with prior CT from 01/19/2019. CT CHEST: A right chest wall port has tip entering the right atrium. No axillary lymphadenopathy is detected. No mediastinal or hilar lymphadenopathy is identified. No pericardial or pleural fluid is detected. No pulmonary nodules or masses are seen. No infiltrates are detected. IMPRESSION: Stable CT of the chest since 01/19/2019. No thoracic lymphadenopathy or evidence of pulmonary metastatic disease is identified. CT ABDOMEN AND PELVIS: Previously noted segment VII low-density lesion appears to be fairly stable when compared with prior exam. No new liver lesion is identified. The gallbladder is unremarkable. No biliary ductal dilatation is seen. The pancreas and spleen are unremarkable. No adrenal mass is detected. The kidneys are unremarkable. Aorta is nonaneurysmal. No central retroperitoneal or mesenteric lymphadenopathy is detected. A right iliac node measures 21 mm x 19 mm compared with 21 mm x 17 mm on prior exam. Again noted is that pelvis is obscured by streak artifact. Area of mass and thickening of the anterior bladder appears similar to prior exam. No inguinal lymphadenopathy is seen. No free fluid is detected. Small and large bowel loops are normal in caliber. IMPRESSION: 1. Stable liver lesion. 2. Right iliac lymph node is stable to perhaps minimally larger in the transverse dimension when compared with prior study from 01/19/2019. Bladder mass is difficult to evaluate due to streak artifact from right hip prosthesis but appears to be grossly similar. Dictated by: Dictated on workstation # [id number]
--- NOTE | 2019-07-10 15:07 | Diagnostic Imaging Report ---
EXAMINATION: Whole body bone scan. INDICATION: Bladder cancer. TECHNIQUE: This study was performed following administration of 24.8 mCi of 99m technetium MDP. Anterior and posterior whole body images were obtained as well as spot films of the calvarium and the thorax in the lateral projection. FINDINGS: The previous whole body bone scan performed on 01/19/2019 failed to show any evidence for metastatic disease related to the patient's diagnosis of bladder carcinoma. On this exam, there is still generalized distribution of the radiotracer throughout the osseous structures. There is no focal area of increased or decreased activity to indicate metastatic disease. There is increased activity along the posterior aspect of the calcaneus on the posterior view. This is of uncertain etiology but could be secondary to trauma to this area. Clinical follow-up is recommended. If further imaging is desired, then a 3 view study of the left foot should be obtained. Both kidneys do show excretion of the radiotracer. There is a photopenic defect within the right acetabulum, consistent with the patient's history of a total hip prosthesis. IMPRESSION: 1. There is no abnormal uptake to suggest metastatic disease. 2. The increased activity involving the posterior aspect of the left calcaneus is of uncertain etiology. Considerations, as above. Dictated by: Dictated on workstation # [id number]
== END ==
LOC: CARD 10:40
PROVIDERS: ATTEND Nurse Practitioner Adult Health
DX: Z01.89 Encounter for other specified special examinations (principal); C67.1 Malignant neoplasm of dome of bladder; C77.0 Secondary and unspecified malignant neoplasm of lymph nodes of head, face and neck; K76.9 Liver disease, unspecified
CPT/HCPCS: 71260; 74178; 78306

== ENCOUNTER 2019-08-03 10:22 | Outpatient (RCR) | payer BC ==
[2019-06-01 10:28] LABS: BASOPHILS % (AUTO) 0 % (0-10); EOSINOPHILS # (AUTO) 0.2 10^3/uL (0.0-0.3); EOSINOPHILS % (AUTO) 5 % (0-10); HEMATOCRIT 35 % (35-52); HEMOGLOBIN 11.3 G/DL (11.5-16.0); LYMPHOCYTES # (AUTO) 1.6 X 10^3 (1.0-4.0); LYMPHOCYTES % (AUTO) 33 % (12-44); MEAN CORPUSCULAR HEMOGLOBIN 28 PG (25-34); MEAN CORPUSCULAR HGB CONC 32 G/DL (32-36); MEAN CORPUSCULAR VOLUME 87 FL (80-99); MONOCYTES # (AUTO) 0.5 X 10^3 (0.0-1.0); MONOCYTES % (AUTO) 9 % (0-12); NEUTROPHILS # (AUTO) 2.6 X 10^3 (1.8-7.8); NEUTROPHILS % (AUTO) 53 % (42-75); PLATELET COUNT 218 10^3/uL (130-400); RED CELL DISTRIBUTION WIDTH 15.3 % (10.0-14.5); WHITE BLOOD COUNT 4.9 10^3/uL (4.3-11.0)
[2019-06-01 10:45] LABS: ALANINE AMINOTRANSFERASE 38 U/L (0-55); ALBUMIN 3.9 GM/DL (3.2-4.5); ALKALINE PHOSPHATASE 89 U/L (40-136); BILIRUBIN,TOTAL 0.4 MG/DL (0.1-1.0); BUN/CREATININE RATIO 18; CALCIUM 9.3 MG/DL (8.5-10.1); CARBON DIOXIDE 23 MMOL/L (21-32); CHLORIDE 108 MMOL/L (98-107); CREATININE SERUM 0.79 MG/DL (0.60-1.30); GFR ESTIMATED > 60; GLUCOSE 102 MG/DL (70-105); POTASSIUM 4.1 MMOL/L (3.6-5.0); SODIUM 141 MMOL/L (135-145); TOTAL PROTEIN 6.9 GM/DL (6.4-8.2)
[2019-06-22 09:41] LABS: BASOPHILS % (AUTO) 1 % (0-10); EOSINOPHILS # (AUTO) 0.2 10^3/uL (0.0-0.3); EOSINOPHILS % (AUTO) 5 % (0-10); HEMATOCRIT 35 % (35-52); HEMOGLOBIN 11.4 G/DL (11.5-16.0); LYMPHOCYTES # (AUTO) 1.5 X 10^3 (1.0-4.0); LYMPHOCYTES % (AUTO) 36 % (12-44); MEAN CORPUSCULAR HEMOGLOBIN 28 PG (25-34); MEAN CORPUSCULAR HGB CONC 33 G/DL (32-36); MEAN CORPUSCULAR VOLUME 86 FL (80-99); MONOCYTES # (AUTO) 0.4 X 10^3 (0.0-1.0); MONOCYTES % (AUTO) 9 % (0-12); NEUTROPHILS # (AUTO) 2.1 X 10^3 (1.8-7.8); NEUTROPHILS % (AUTO) 50 % (42-75); PLATELET COUNT 215 10^3/uL (130-400); RED CELL DISTRIBUTION WIDTH 15.4 % (10.0-14.5); WHITE BLOOD COUNT 4.3 10^3/uL (4.3-11.0)
[2019-06-22 10:01] LABS: ALANINE AMINOTRANSFERASE 15 U/L (0-55); ALBUMIN 3.9 GM/DL (3.2-4.5); ALKALINE PHOSPHATASE 78 U/L (40-136); BILIRUBIN,TOTAL 0.3 MG/DL (0.1-1.0); BUN/CREATININE RATIO 16; CALCIUM 9.2 MG/DL (8.5-10.1); CARBON DIOXIDE 24 MMOL/L (21-32); CHLORIDE 110 MMOL/L (98-107); CREATININE SERUM 0.95 MG/DL (0.60-1.30); GFR ESTIMATED > 60; GLUCOSE 104 MG/DL (70-105); POTASSIUM 4.1 MMOL/L (3.6-5.0); SODIUM 141 MMOL/L (135-145); TOTAL PROTEIN 6.6 GM/DL (6.4-8.2)
[2019-07-13 09:57] LABS: BASOPHILS % (AUTO) 0 % (0-10); EOSINOPHILS # (AUTO) 0.2 10^3/uL (0.0-0.3); EOSINOPHILS % (AUTO) 3 % (0-10); HEMATOCRIT 38 % (35-52); HEMOGLOBIN 12.1 G/DL (11.5-16.0); LYMPHOCYTES # (AUTO) 1.7 X 10^3 (1.0-4.0); LYMPHOCYTES % (AUTO) 34 % (12-44); MEAN CORPUSCULAR HEMOGLOBIN 28 PG (25-34); MEAN CORPUSCULAR HGB CONC 32 G/DL (32-36); MEAN CORPUSCULAR VOLUME 87 FL (80-99); MEAN PLATELET VOLUME 9.2 FL (7.4-10.4); MONOCYTES # (AUTO) 0.5 X 10^3 (0.0-1.0); MONOCYTES % (AUTO) 11 % (0-12); NEUTROPHILS # (AUTO) 2.6 X 10^3 (1.8-7.8); NEUTROPHILS % (AUTO) 52 % (42-75); PLATELET COUNT 216 10^3/uL (130-400)
[2019-07-13 10:17] LABS: ALANINE AMINOTRANSFERASE 19 U/L (0-55); ALKALINE PHOSPHATASE 94 U/L (40-136); BILIRUBIN,TOTAL 0.4 MG/DL (0.1-1.0); BUN/CREATININE RATIO 19; CALCIUM 9.4 MG/DL (8.5-10.1); CARBON DIOXIDE 21 MMOL/L (21-32); CHLORIDE 109 MMOL/L (98-107); CREATININE SERUM 0.91 MG/DL (0.60-1.30); GFR ESTIMATED > 60; GLUCOSE 112 MG/DL (70-105); POTASSIUM 3.9 MMOL/L (3.6-5.0); SODIUM 141 MMOL/L (135-145); TOTAL PROTEIN 7.1 GM/DL (6.4-8.2)
[~2019-08-03 10:22] MED LIST changes: -BARIUM SUSPENSION 2.1% (VANILLA SILQ) 450 ML PO ONE; -CATHETER FLUSH 10 ML SYR IV PRN; -HOLD METFORMIN - RECEIVED CONTRAST 20 ML VIAL IV SCH; -IOHEXOL 350 MG/ML 100 ML (OMNIPAQUE 350) VIAL IV ONE; -NS 100 ML (IVPB) BAG IV ONE; +NS IV 500 ML (CANCER CENTER) 500 ML IV SCH; +PEGFILGRASTIM 6 MG/0.6ML NEULASTA SC SCH; +PEMBROLIZUMAB 200 MG in NS (IVPB) CANCER CENTER 50 ML IV SCH
[2019-08-03 11:18] LABS: HEMATOCRIT 36 % (35-52); HEMOGLOBIN 11.7 G/DL (11.5-16.0); MEAN CORPUSCULAR HEMOGLOBIN 28 PG (25-34); WHITE BLOOD COUNT 5.5 10^3/uL (4.3-11.0)
[2019-08-03 11:19] LABS: BASOPHILS % (AUTO) 1 % (0-10); EOSINOPHILS # (AUTO) 0.2 10^3/uL (0.0-0.3); EOSINOPHILS % (AUTO) 3 % (0-10); LYMPHOCYTES # (AUTO) 1.4 X 10^3 (1.0-4.0); LYMPHOCYTES % (AUTO) 26 % (12-44); MEAN CORPUSCULAR HGB CONC 32 G/DL (32-36); MEAN CORPUSCULAR VOLUME 87 FL (80-99); MEAN PLATELET VOLUME 9.3 FL (7.4-10.4); MONOCYTES # (AUTO) 0.6 X 10^3 (0.0-1.0); MONOCYTES % (AUTO) 11 % (0-12); NEUTROPHILS # (AUTO) 3.3 X 10^3 (1.8-7.8); NEUTROPHILS % (AUTO) 60 % (42-75); PLATELET COUNT 228 10^3/uL (130-400); RED CELL DISTRIBUTION WIDTH 14.9 % (10.0-14.5)
[2019-08-03 11:25] LABS: ALANINE AMINOTRANSFERASE 16 U/L (0-55); ALBUMIN 4.1 GM/DL (3.2-4.5); ALKALINE PHOSPHATASE 91 U/L (40-136); BILIRUBIN,TOTAL 0.3 MG/DL (0.1-1.0); BUN/CREATININE RATIO 16; CALCIUM 9.6 MG/DL (8.5-10.1); CARBON DIOXIDE 21 MMOL/L (21-32); CHLORIDE 109 MMOL/L (98-107); CREATININE SERUM 0.87 MG/DL (0.60-1.30); GFR ESTIMATED > 60; GLUCOSE 108 MG/DL (70-105); SODIUM 140 MMOL/L (135-145); TOTAL PROTEIN 7.2 GM/DL (6.4-8.2)
== END 2019-08-30 | disposition home or self-care (01) ==
LOC: ONC 10:22
PROVIDERS: ATTEND Internal Medicine Hematology & Oncology
DX: Z51.11 Encounter for antineoplastic chemotherapy (principal); C67.1 Malignant neoplasm of dome of bladder; C77.0 Secondary and unspecified malignant neoplasm of lymph nodes of head, face and neck; D50.9 Iron deficiency anemia, unspecified; I10 Essential (primary) hypertension; G43.909 Migraine, unspecified, not intractable, without status migrainosus; Z79.899 Other long term (current) drug therapy; Z92.21 Personal history of antineoplastic chemotherapy
CPT/HCPCS: 36591; 80053; 83615; 84443; 85025; 96413

== ENCOUNTER 2019-09-21 09:08 | Outpatient (RCR) | payer BC ==
[2019-08-31 11:02] LABS: BASOPHILS % (AUTO) 0 % (0-10); EOSINOPHILS # (AUTO) 0.1 10^3/uL (0.0-0.3); EOSINOPHILS % (AUTO) 3 % (0-10); HEMATOCRIT 36 % (35-52); HEMOGLOBIN 11.3 G/DL (11.5-16.0); LYMPHOCYTES # (AUTO) 1.8 X 10^3 (1.0-4.0); LYMPHOCYTES % (AUTO) 34 % (12-44); MEAN CORPUSCULAR HEMOGLOBIN 27 PG (25-34); MEAN CORPUSCULAR HGB CONC 31 G/DL (32-36); MEAN CORPUSCULAR VOLUME 87 FL (80-99); MEAN PLATELET VOLUME 9.2 FL (7.4-10.4); MONOCYTES # (AUTO) 0.4 X 10^3 (0.0-1.0); MONOCYTES % (AUTO) 8 % (0-12); NEUTROPHILS # (AUTO) 2.9 X 10^3 (1.8-7.8); NEUTROPHILS % (AUTO) 55 % (42-75); PLATELET COUNT 216 10^3/uL (130-400); RED CELL DISTRIBUTION WIDTH 14.7 % (10.0-14.5); WHITE BLOOD COUNT 5.3 10^3/uL (4.3-11.0)
[2019-08-31 11:29] LABS: ALANINE AMINOTRANSFERASE 17 U/L (0-55); ALBUMIN 3.9 GM/DL (3.2-4.5); ALKALINE PHOSPHATASE 93 U/L (40-136); BILIRUBIN,TOTAL 0.3 MG/DL (0.1-1.0); BUN/CREATININE RATIO 16; CALCIUM 9.4 MG/DL (8.5-10.1); CARBON DIOXIDE 25 MMOL/L (21-32); CHLORIDE 108 MMOL/L (98-107); CREATININE SERUM 0.81 MG/DL (0.60-1.30); GFR ESTIMATED > 60; GLUCOSE 103 MG/DL (70-105); POTASSIUM 4.1 MMOL/L (3.6-5.0); SODIUM 140 MMOL/L (135-145)
[~2019-09-21 09:08] MED LIST changes: +ACHYD1T PO; -HYDR-3820 PO
[2019-09-21 09:25] LABS: BASOPHILS % (AUTO) 0 % (0-10); EOSINOPHILS # (AUTO) 0.1 10^3/uL (0.0-0.3); EOSINOPHILS % (AUTO) 3 % (0-10); HEMATOCRIT 35 % (35-52); HEMOGLOBIN 11.2 G/DL (11.5-16.0); LYMPHOCYTES # (AUTO) 1.6 X 10^3 (1.0-4.0); LYMPHOCYTES % (AUTO) 43 % (12-44); MEAN CORPUSCULAR HEMOGLOBIN 28 PG (25-34); MEAN CORPUSCULAR HGB CONC 32 G/DL (32-36); MEAN CORPUSCULAR VOLUME 87 FL (80-99); MEAN PLATELET VOLUME 8.9 FL (7.4-10.4); MONOCYTES # (AUTO) 0.4 X 10^3 (0.0-1.0); MONOCYTES % (AUTO) 10 % (0-12); NEUTROPHILS # (AUTO) 1.6 X 10^3 (1.8-7.8); NEUTROPHILS % (AUTO) 43 % (42-75); PLATELET COUNT 174 10^3/uL (130-400); RED CELL DISTRIBUTION WIDTH 14.9 % (10.0-14.5); WHITE BLOOD COUNT 3.8 10^3/uL (4.3-11.0)
[2019-09-21 09:46] LABS: ALANINE AMINOTRANSFERASE 15 U/L (0-55); ALBUMIN 3.8 GM/DL (3.2-4.5); ALKALINE PHOSPHATASE 93 U/L (40-136); BILIRUBIN,TOTAL 0.5 MG/DL (0.1-1.0); BUN/CREATININE RATIO 18; CALCIUM 9.3 MG/DL (8.5-10.1); CARBON DIOXIDE 24 MMOL/L (21-32); CHLORIDE 108 MMOL/L (98-107); CREATININE SERUM 0.84 MG/DL (0.60-1.30); GFR ESTIMATED > 60; GLUCOSE 109 MG/DL (70-105); POTASSIUM 4.1 MMOL/L (3.6-5.0); SODIUM 141 MMOL/L (135-145); TOTAL PROTEIN 6.8 GM/DL (6.4-8.2)
== END 2019-09-28 11:31 | disposition home or self-care (01) ==
LOC: ONC 09:08
PROVIDERS: ATTEND Internal Medicine Hematology & Oncology
DX: Z51.11 Encounter for antineoplastic chemotherapy (principal); C67.1 Malignant neoplasm of dome of bladder; C77.0 Secondary and unspecified malignant neoplasm of lymph nodes of head, face and neck; D50.9 Iron deficiency anemia, unspecified; I10 Essential (primary) hypertension; G43.909 Migraine, unspecified, not intractable, without status migrainosus; Z79.899 Other long term (current) drug therapy; Z92.21 Personal history of antineoplastic chemotherapy; Z90.6 Acquired absence of other parts of urinary tract
CPT/HCPCS: 36591; 80053; 83615; 85025; 96413; 99204; 99213; 99214

== ENCOUNTER → 2019-10-08 | Outpatient (CLI) | payer BC ==
[~2019-10-08] MED LIST changes: +BARIUM SUSPENSION 2.1% (VANILLA SILQ) 450 ML PO ONE; +CATHETER FLUSH 10 ML SYR IV PRN; +HOLD METFORMIN - RECEIVED CONTRAST 20 ML VIAL IV SCH; +IOHEXOL 350 MG/ML 100 ML (OMNIPAQUE 350) VIAL IV ONE; +NS 100 ML (IVPB) BAG IV ONE; -NS IV 500 ML (CANCER CENTER) 500 ML IV SCH; -PEGFILGRASTIM 6 MG/0.6ML NEULASTA SC SCH; -PEMBROLIZUMAB 200 MG in NS (IVPB) CANCER CENTER 50 ML IV SCH
--- NOTE | 2019-10-08 11:23 | Diagnostic Imaging Report ---
PROCEDURE: CT chest with contrast, CT abdomen and pelvis with and without contrast. TECHNIQUE: Pre and post intravenous contrast axial imaging of the abdomen and pelvis and post contrast axial imaging of the chest were performed. Auto Exposure Controls were utilized during the CT exam to meet ALARA standards for radiation dose reduction. INDICATION: Bladder cancer with metastases. Comparison is made with prior CT from 06/30/2019. CT CHEST: A right chest wall port is again noted with tip entering the right atrium. No axillary lymphadenopathy is detected. No mediastinal or hilar lymphadenopathy is detected. No pericardial or pleural fluid is identified. No pulmonary infiltrates are identified. No nodules or masses are seen. Bony structures are unremarkable. IMPRESSION: Continued stable appearance of chest since prior study from 07/10/2019. No lymphadenopathy or pulmonary metastatic disease is detected. CT abdomen and pelvis: Low-density mass in the dome of the right lobe of the liver is stable at 2.4 cm transverse compared to 2.3 cm on prior. No new liver mass is detected. The gallbladder is unremarkable. There is no biliary ductal dilatation. Pancreas and spleen are unremarkable. No adrenal mass is detected. The kidneys are unremarkable. Aorta is nonaneurysmal. No central retroperitoneal or mesenteric lymphadenopathy is seen. Bowel loops are normal caliber. There is no obstruction. No free fluid or fluid collection identified. Previously noted large lymph node in the right iliac location is again noted. This again appears slightly larger 2.2 x 2.2 cm compared with 2.1 x 1.9 cm on prior. No left-sided iliac lymphadenopathy is seen. No inguinal lymphadenopathy is seen. Artifact does obscure the bladder mass previously described is obscured as well but appears to be grossly unchanged. The patient does have a right hip prosthesis creating artifact. Bony structures are nonacute. IMPRESSION: 1. Very slight increase in size of right iliac lymph node when compared to exam from 07/10/2019. No new lymphadenopathy is identified. The previously noted liver mass appears to be stable. Dictated by: Dictated on workstation # [id number]
--- NOTE | 2019-10-08 16:23 | Diagnostic Imaging Report ---
INDICATION: Bladder cancer. TECHNIQUE: The patient was administered 26.7 mCi technetium 99m MDP, intravenously. Anterior and posterior whole-body planar images are obtained. CORRELATION STUDY: 07/10/2019. FINDINGS: Bony calvarium appearing unremarkable. Visualized spine appearing unremarkable. Bilateral shoulder girdles, sternum, and clavicles as well as ribs are also unremarkable. Over the pelvis, findings compatible with prior right hip arthroplasty. Rather pronounced uptake over the left hip is noted. Lower extremities have a relatively unremarkable appearance. The exception is slight increased uptake over the hindfeet bilaterally. IMPRESSION: 1. No abnormal areas of radiotracer accumulation to suggest osseous blastic metastatic disease. 2. Rather pronounced uptake over the left hip favors likely degenerative type activity. Clinical correlation recommended. Findings compatible with right hip surgery. Dictated by: Dictated on workstation # [id number]
== END ==
LOC: CARD 10:29
PROVIDERS: ATTEND Nurse Practitioner Adult Health
DX: C67.1 Malignant neoplasm of dome of bladder (principal); C77.0 Secondary and unspecified malignant neoplasm of lymph nodes of head, face and neck
CPT/HCPCS: 71260; 74178; 78306

== ENCOUNTER 2019-11-02 09:03 | Outpatient (RCR) | payer BC ==
[2019-10-12 14:36] LABS: BASOPHILS % (AUTO) 0 % (0-10); EOSINOPHILS # (AUTO) 0.1 10^3/uL (0.0-0.3); EOSINOPHILS % (AUTO) 3 % (0-10); HEMATOCRIT 35 % (35-52); HEMOGLOBIN 11.2 G/DL (11.5-16.0); LYMPHOCYTES # (AUTO) 1.8 X 10^3 (1.0-4.0); LYMPHOCYTES % (AUTO) 40 % (12-44); MEAN CORPUSCULAR HEMOGLOBIN 27 PG (25-34); MEAN CORPUSCULAR HGB CONC 32 G/DL (32-36); MEAN CORPUSCULAR VOLUME 86 FL (80-99); MEAN PLATELET VOLUME 9.1 FL (7.4-10.4); MONOCYTES # (AUTO) 0.3 X 10^3 (0.0-1.0); MONOCYTES % (AUTO) 8 % (0-12); NEUTROPHILS # (AUTO) 2.1 X 10^3 (1.8-7.8); NEUTROPHILS % (AUTO) 49 % (42-75); PLATELET COUNT 193 10^3/uL (130-400); RED CELL DISTRIBUTION WIDTH 14.9 % (10.0-14.5); WHITE BLOOD COUNT 4.4 10^3/uL (4.3-11.0)
[2019-10-12 14:56] LABS: ALANINE AMINOTRANSFERASE 16 U/L (0-55); ALBUMIN 3.9 GM/DL (3.2-4.5); ALKALINE PHOSPHATASE 89 U/L (40-136); BILIRUBIN,TOTAL 0.3 MG/DL (0.1-1.0); BUN/CREATININE RATIO 15; CALCIUM 9.2 MG/DL (8.5-10.1); CARBON DIOXIDE 23 MMOL/L (21-32); CHLORIDE 109 MMOL/L (98-107); CREATININE SERUM 0.84 MG/DL (0.60-1.30); GFR ESTIMATED > 60; GLUCOSE 134 MG/DL (70-105); POTASSIUM 3.7 MMOL/L (3.6-5.0); SODIUM 140 MMOL/L (135-145)
[~2019-11-02 09:03] MED LIST changes: -BARIUM SUSPENSION 2.1% (VANILLA SILQ) 450 ML PO ONE; -CATHETER FLUSH 10 ML SYR IV PRN; -HOLD METFORMIN - RECEIVED CONTRAST 20 ML VIAL IV SCH; -IOHEXOL 350 MG/ML 100 ML (OMNIPAQUE 350) VIAL IV ONE; -NS 100 ML (IVPB) BAG IV ONE; +NS IV 500 ML (CANCER CENTER) 500 ML IV SCH; +PEGFILGRASTIM 6 MG/0.6ML NEULASTA SC SCH; +PEMBROLIZUMAB 200 MG in NS (IVPB) CANCER CENTER 50 ML IV SCH
[2019-11-02 09:28] LABS: BASOPHILS % (AUTO) 0 % (0-10); EOSINOPHILS # (AUTO) 0.1 10^3/uL (0.0-0.3); EOSINOPHILS % (AUTO) 3 % (0-10); HEMATOCRIT 37 % (35-52); HEMOGLOBIN 11.7 G/DL (11.5-16.0); LYMPHOCYTES # (AUTO) 1.7 X 10^3 (1.0-4.0); LYMPHOCYTES % (AUTO) 43 % (12-44); MEAN CORPUSCULAR HEMOGLOBIN 28 PG (25-34); MEAN CORPUSCULAR HGB CONC 32 G/DL (32-36); MEAN CORPUSCULAR VOLUME 86 FL (80-99); MEAN PLATELET VOLUME 9.2 FL (7.4-10.4); MONOCYTES # (AUTO) 0.3 X 10^3 (0.0-1.0); MONOCYTES % (AUTO) 8 % (0-12); NEUTROPHILS # (AUTO) 1.8 X 10^3 (1.8-7.8); NEUTROPHILS % (AUTO) 45 % (42-75); PLATELET COUNT 196 10^3/uL (130-400); RED CELL DISTRIBUTION WIDTH 15.5 % (10.0-14.5); WHITE BLOOD COUNT 3.9 10^3/uL (4.3-11.0)
[2019-11-02 09:48] LABS: ALANINE AMINOTRANSFERASE 15 U/L (0-55); ALBUMIN 3.8 GM/DL (3.2-4.5); ALKALINE PHOSPHATASE 94 U/L (40-136); BILIRUBIN,TOTAL 0.4 MG/DL (0.1-1.0); BUN/CREATININE RATIO 20; CALCIUM 8.7 MG/DL (8.5-10.1); CARBON DIOXIDE 22 MMOL/L (21-32); CHLORIDE 110 MMOL/L (98-107); CREATININE SERUM 0.79 MG/DL (0.60-1.30); GFR ESTIMATED > 60; GLUCOSE 139 MG/DL (70-105); POTASSIUM 3.6 MMOL/L (3.6-5.0); SODIUM 140 MMOL/L (135-145); TOTAL PROTEIN 6.9 GM/DL (6.4-8.2)
== END 2019-11-20 09:04 | disposition home or self-care (01) ==
LOC: ONC 09:03
PROVIDERS: ATTEND Internal Medicine Hematology & Oncology
DX: Z51.11 Encounter for antineoplastic chemotherapy (principal); C67.1 Malignant neoplasm of dome of bladder; C77.0 Secondary and unspecified malignant neoplasm of lymph nodes of head, face and neck; C78.1 Secondary malignant neoplasm of mediastinum; I10 Essential (primary) hypertension; G43.909 Migraine, unspecified, not intractable, without status migrainosus; D50.9 Iron deficiency anemia, unspecified; M16.12 Unilateral primary osteoarthritis, left hip; Z90.6 Acquired absence of other parts of urinary tract; Z79.899 Other long term (current) drug therapy; Z92.21 Personal history of antineoplastic chemotherapy; Z96.642 Presence of left artificial hip joint
CPT/HCPCS: 36591; 80053; 83615; 84443; 85025; 96413

== ENCOUNTER → 2020-01-01 | Outpatient (CLI) | payer BC ==
[~2020-01-01] MED LIST changes: +BARIUM SUSPENSION 2.1% (VANILLA SILQ) 450 ML PO ONE; +CATHETER FLUSH 10 ML SYR IV PRN; +HOLD METFORMIN - RECEIVED CONTRAST 20 ML VIAL IV SCH; +IOHEXOL 350 MG/ML 100 ML (OMNIPAQUE 350) VIAL IV ONE; +NS 100 ML (IVPB) BAG IV ONE; -NS IV 500 ML (CANCER CENTER) 500 ML IV SCH; -PEGFILGRASTIM 6 MG/0.6ML NEULASTA SC SCH; -PEMBROLIZUMAB 200 MG in NS (IVPB) CANCER CENTER 50 ML IV SCH
[2020-01-01] MEDS: CATHETER FLUSH 10 ML SYR IV PRN ×2 (11:07→11:33)
--- NOTE | 2020-01-01 11:58 | Diagnostic Imaging Report ---
PROCEDURE: CT chest with contrast, CT abdomen and pelvis with and without contrast. TECHNIQUE: Pre and post intravenous contrast axial imaging of the abdomen and pelvis and post contrast axial imaging of the chest were performed. Auto Exposure Controls were utilized during the CT exam to meet ALARA standards for radiation dose reduction. INDICATION: Bladder cancer. Comparison is made with prior CT from 10/08/2019. CT CHEST: Right chest wall port has tip entering the right atrium. No axillary lymphadenopathy is detected. No definite mediastinal or hilar lymphadenopathy is detected. No pericardial or pleural fluid is identified. No pulmonary infiltrate, nodule or mass is detected. IMPRESSION: Stable CT chest. No thoracic lymphadenopathy or evidence of pulmonary metastatic disease is detected. CT ABDOMEN AND PELVIS: Low-density lesion dome right lobe of the liver measures 2.4 cm transverse diameter, stable when compared with prior exam. No new liver mass is detected. The gallbladder is unremarkable. No biliary ductal dilatation is seen. The pancreas and spleen are unremarkable. No adrenal mass is detected. There does appear to be increase in the amount of hydroureteronephrosis on the left. A dilated left ureter is traced to the level of the iliac crests. There is some increased density noted within the ureter at this level and possibility of urothelial neoplasm cannot be excluded. No contrast is seen within the left ureter beyond this point on the delayed images. The entire right ureter is visualized. Right renal collecting system is unremarkable. Aorta is calcified but non-aneurysmal. A lymph node in the left periaortic region has increased in size measuring 1.4 x 0.8 cm. This compares with 0.9 x 0.37 m on prior. A right iliac node actually measures slightly smaller at 2.0 x 1.9 cm compared with 2.2 x 2.27 m on prior. No new pelvic lymphadenopathy is seen. There is a large amount of artifact in the pelvis from a right hip prosthesis. This does limit evaluation of the bladder. This does obscure the known bladder mass. IMPRESSION: 1. Stable hepatic mass. 2. Stable to slight decrease in size of right iliac lymph node since prior exam. 3. Increase in left hydroureteronephrosis. There is some higher density to the left ureter at the level of the left iliac crest, concerning for urothelial lesion. A retrograde pyelography would be useful for further evaluation. No other significant abnormality is seen. Dictated by: Dictated on workstation # [id number]
--- NOTE | 2020-01-01 15:40 | Diagnostic Imaging Report ---
DATE: 01/01/2020 2:59 PM REASON FOR EXAM: Bladder cancer. COMPARISON: CT from the same day. Bone scan from 10/08/2019. TECHNIQUE: Tc-99m MDP 23.8 mCi IV FINDINGS: The entire skeleton was imaged in anterior and posterior views with the moving gamma camera. Right and left lateral images of the skull and thoracic spine were performed as well as anterior and posterior views of the pelvis. There is normal distribution of tracer throughout the imaged axial and appendicular skeleton. No abnormal focal area of increased or decreased tracer accumulation is identified. Scintigraphic findings typical of degenerative change are seen within the left hip and left foot. There is photopenia from a right hip arthroplasty. Physiologic uptake is seen within the kidneys and urinary bladder. The collecting system of the left kidney is prominent. No abnormal soft tissue uptake is seen. IMPRESSION: 1. No abnormal radiotracer activity concerning for metastasis. 2. Degenerative changes, particularly at the left hip. Dictated by: Dictated on workstation # [id number]
== END ==
LOC: CARD 10:29
PROVIDERS: ATTEND Nurse Practitioner Adult Health
DX: C67.1 Malignant neoplasm of dome of bladder (principal); C77.0 Secondary and unspecified malignant neoplasm of lymph nodes of head, face and neck; K76.89 Other specified diseases of liver; N13.30 Unspecified hydronephrosis; M16.12 Unilateral primary osteoarthritis, left hip; N28.89 Other specified disorders of kidney and ureter; Z95.828 Presence of other vascular implants and grafts
CPT/HCPCS: 71260; 74178; 78306

== ENCOUNTER 2020-01-10 10:00 | Emergency (ER) | payer BC ==
[~2020-01-10] VITALS: Ht 165 cm; Wt 88.0 kg
[~2020-01-10 10:00] MED LIST changes: -BARIUM SUSPENSION 2.1% (VANILLA SILQ) 450 ML PO ONE; -CATHETER FLUSH 10 ML SYR IV PRN; -HOLD METFORMIN - RECEIVED CONTRAST 20 ML VIAL IV SCH; -IOHEXOL 350 MG/ML 100 ML (OMNIPAQUE 350) VIAL IV ONE; -NS 100 ML (IVPB) BAG IV ONE
[2020-01-10 10:48] LABS: BILIRUBIN,URINE NEGATIVE (NEGATIVE); CLARITY,URINE SL CLOUDY; COLOR,URINE YELLOW; GLUCOSE, URINE (UA) NEGATIVE (NEGATIVE); KETONES,URINE NEGATIVE (NEGATIVE); LEUKOCYTE ESTERASE ,URINE 1+ (NEGATIVE); NITRITE,URINE NEGATIVE (NEGATIVE); PH,URINE 5.5 (5-9); PROTEIN,URINE TRACE (NEGATIVE)
[2020-01-10 10:54] LABS: BASOPHILS % (AUTO) 0 % (0-10); EOSINOPHILS # (AUTO) 0.1 10^3/uL (0.0-0.3); EOSINOPHILS % (AUTO) 2 % (0-10); HEMATOCRIT 30 % (35-52); HEMOGLOBIN 9.6 G/DL (11.5-16.0); LYMPHOCYTES # (AUTO) 1.2 X 10^3 (1.0-4.0); LYMPHOCYTES % (AUTO) 31 % (12-44); MEAN CORPUSCULAR HEMOGLOBIN 28 PG (25-34); MEAN CORPUSCULAR HGB CONC 32 G/DL (32-36); MEAN CORPUSCULAR VOLUME 87 FL (80-99); MEAN PLATELET VOLUME 8.1 FL (7.4-10.4); MONOCYTES # (AUTO) 0.4 X 10^3 (0.0-1.0); MONOCYTES % (AUTO) 12 % (0-12); NEUTROPHILS # (AUTO) 2.1 X 10^3 (1.8-7.8); NEUTROPHILS % (AUTO) 55 % (42-75); PLATELET COUNT 321 10^3/uL (130-400); RED CELL DISTRIBUTION WIDTH 14.7 % (10.0-14.5); WHITE BLOOD COUNT 3.7 10^3/uL (4.3-11.0)
[2020-01-10 10:57] LABS: BACTERIA,URINE TRACE /HPF; RBC,URINE 50-100 /HPF; WBC,URINE 25-50 /HPF
[2020-01-10 11:01] LABS: ALBUMIN 3.7 GM/DL (3.2-4.5)
[2020-01-10 11:02] LABS: POTASSIUM 4.3 MMOL/L (3.6-5.0)
[2020-01-10 11:03] LABS: CALCIUM 9.1 MG/DL (8.5-10.1)
[2020-01-10 11:04] LABS: TOTAL PROTEIN 7.4 GM/DL (6.4-8.2)
[2020-01-10 11:06] LABS: BILIRUBIN,TOTAL 0.3 MG/DL (0.1-1.0)
[2020-01-10 11:07] LABS: CREATININE SERUM 1.34 MG/DL (0.60-1.30)
--- NOTE | 2020-01-10 11:22 | NUR ---
Patient is resting comfortably at this time.
[2020-01-10] MEDS ORDERED: CEPH-507 PO (11:51)
--- NOTE | 2020-01-10 11:51 | ED Abdominal Pain ---
General Chief Complaint: Back Problems Stated Complaint: KIDNEY PAIN Nursing Triage Note: Patient states she was seen in [facility] on 12/28 and had a non contrast CT done and was told she had a small kidney stone. Patient state she had a contrast CT done on 12/[address] [facility] [address] Pat and on 01/03 she was advised there was a mass or blockage and that interventional radiology at was going to be contacted per Dr. Rodriguez at who is her paint spray tender. Patient states that today she does not feel right. She states she is no longer experiencing blood in her urine secondary to the bladder CA but has been experiencing left lower back pain. Sepsis Screen: No Definite Risk Source of Information: Patient Exam Limitations: No Limitations History of Present Illness Date Seen by Provider: Jan 10, 2020 Time Seen by Provider: 10:25 Initial Comments See history above is documented in the nursing triage. Patient has metastatic bladder cancer for which she is being treated at the [facility] here and by specialty services at [facility]. She has a left ureteral obstruction for which she anticipates stenting. She has a pending follow-up with Dr. Stiles at [facility]. She is concerned today because she was experiencing significant left flank pain that disrupted her sleep last night and she has noted an abrupt cessation of hematuria. This has her concerned because she believes her urine outflow is obstructed and she is concerned that may cause a loss of her left kidney. Pain has actually resolved this morning. She denies any fever or dysuria. Allergies and Home Medications Allergies Coded Allergies: No Known Drug Allergies (Unverified , 04/04/17) Home Medications Bisoprolol Fumarate/Hctz 1 Each Tablet, 1 EACH PO DAILY, (Reported) Cephalexin 500 Mg Capsule, 500 MG PO BID Prescribed by: VIRGILIO SALAS on 01/10/20 1151 Hydrocodone Bit/Acetaminophen 1 Each Tablet, 1 TAB PO Q4H PRN for PAIN-MILD TO MODERATE Prescribed by: SELINA SNIDER on 04/05/17 1221 Patient Home Medication List Home Medication List Reviewed: Yes Review of Systems Review of Systems Constitutional: no symptoms reported EENTM: No Symptoms Reported Respiratory: No Symptoms Reported Cardiovascular: No Symptoms Reported Gastrointestinal: See HPI Genitourinary: See HPI Musculoskeletal: no symptoms reported Skin: no symptoms reported Psychiatric/Neurological: No Symptoms Reported Endocrine: No Symptoms Reported Hematologic/Lymphatic: No Symptoms Reported Past Wgozmor-Ulxwco-Nunutm Hx Past Med/Social Hx: Reviewed Nursing Past Med/Soc Hx Patient Social History Alcohol Use: Denies Use Recreational Drug Use: No Smoking Status: Never a Smoker Recent Foreign Travel: No Contact w/Someone Who Travel: No Recent Infectious Disease Expo: No Recent Hopitalizations: No Seasonal Allergies Seasonal Allergies: No Past Medical History Surgeries: Yes (TURBT, ) Respiratory: No Cardiac: No Neurological: No Genitourinary: Yes Kidney Stones Gastrointestinal: No Musculoskeletal: No Endocrine: No HEENT: No Cancer: Yes Bladder Did You Recieve Any Treatments: Yes What Type of Treatment Did You: Chemotherapy last chemotherapy tx. 01/04/20 Psychosocial: No Integumentary: No Blood Disorders: No Physical Exam Vital Signs Vital Signs - First Documented 01/10/20 10:17 Temp 36.3 Pulse 75 Resp 16 B/P (MAP) 134/98 (110) Pulse Ox 98 O2 Delivery Room Air Capillary Refill : Less Than 3 Seconds Height/Weight/BMI Height: 5'5.50" Weight: 179lbs. 0.0oz. 81.955561ld; 32.00 BMI Method: General Appearance: WD/WN, no apparent distress HEENT: normal ENT inspection Neck: normal inspection Respiratory: lungs clear, normal breath sounds, no respiratory distress Cardiovascular: regular rate, rhythm, no edema, no murmur Gastrointestinal: normal bowel sounds, non tender, soft Extremities: normal inspection, no pedal edema Neurologic/Psychiatric: consultant electronics II-XII nml as tested, no motor/sensory deficits, alert, normal mood/affect, oriented x 3 Skin: normal color, warm/dry Progress/Results/Core Measures Results/Orders Lab Results Laboratory Tests Test 01/10/20 10:38 01/10/20 10:42 Range/Units Urine Color YELLOW Urine Clarity SL CLOUDY Urine pH 5.5 5-9 Urine Specific [place] 1.020 1.016-1.022 Urine Protein TRACE H NEGATIVE Urine Glucose (UA) NEGATIVE NEGATIVE Urine Ketones NEGATIVE NEGATIVE Urine Nitrite NEGATIVE NEGATIVE Urine Bilirubin NEGATIVE NEGATIVE Urine Urobilinogen 0.2 < = 1.0 MG/DL Urine Leukocyte Esterase 1+ H NEGATIVE Urine RBC (Auto) 3+ H NEGATIVE Urine RBC 50-100 H /HPF Urine WBC 25-50 H /HPF Urine Squamous Epithelial Cells 2-5 /HPF Urine Crystals NONE /LPF Urine Bacteria TRACE /HPF Urine Casts NONE /LPF Urine Mucus NEGATIVE /LPF Urine Culture Indicated YES White Blood Count 3.7 L 4.3-11.0 10^3/uL Red Blood Count 3.47 L 4.35-5.85 10^6/uL Hemoglobin 9.6 L 11.5-16.0 G/DL Hematocrit 30 L 35-52 % Mean Corpuscular Volume 87 80-99 FL Mean Corpuscular Hemoglobin 28 25-34 PG Mean Corpuscular Hemoglobin Concent 32 32-36 G/DL Red Cell Distribution Width 14.7 H 10.0-14.5 % Platelet Count 321 130-400 10^3/uL Mean Platelet Volume 8.1 7.4-10.4 FL Neutrophils (%) (Auto) 55 42-75 % Lymphocytes (%) (Auto) 31 12-44 % Monocytes (%) (Auto) 12 0-12 % Eosinophils (%) (Auto) 2 0-10 % Basophils (%) (Auto) 0 0-10 % Neutrophils # (Auto) 2.1 1.8-7.8 X 10^3 Lymphocytes # (Auto) 1.2 1.0-4.0 X 10^3 Monocytes # (Auto) 0.4 0.0-1.0 X 10^3 Eosinophils # (Auto) 0.1 0.0-0.3 10^3/uL Basophils # (Auto) 0.0 0.0-0.1 10^3/uL Sodium Level 139 135-145 MMOL/L Potassium Level 4.3 3.6-5.0 MMOL/L Chloride Level 107 98-107 MMOL/L Carbon Dioxide Level 22 21-32 MMOL/L Anion Gap 10 5-14 MMOL/L Blood Urea Nitrogen 20 H 7-18 MG/DL Creatinine 1.34 H 0.60-1.30 MG/DL Estimat Glomerular Filtration Rate 41 BUN/Creatinine Ratio 15 Glucose Level 122 H 70-105 MG/DL Calcium Level 9.1 8.5-10.1 MG/DL Corrected Calcium 9.3 8.5-10.1 MG/DL Total Bilirubin 0.3 0.1-1.0 MG/DL Aspartate Amino Transf (AST/SGOT) 13 5-34 U/L Alanine Aminotransferase (ALT/SGPT) 13 0-55 U/L Alkaline Phosphatase 80 40-136 U/L Total Protein 7.4 6.4-8.2 GM/DL Albumin 3.7 3.2-4.5 GM/DL My Orders Orders - VIRGILIO VEGA MD Cbc With Automated Diff (01/10/20 10:34) Comprehensive Metabolic Panel (01/10/20 10:34) Ua Culture If Indicated (01/10/20 10:34) Ed Iv/Invasive Line Start (01/10/20 10:34) Urine Culture (01/10/20 10:38) Vital Signs/I&O 01/10/20 01/10/20 10:17 11:58 Temp 36.3 Pulse 75 60 Resp 16 16 B/P (MAP) 134/98 (110) 108/62 Pulse Ox 98 94 O2 Delivery Room Air Room Air Blood Pressure Mean: 110 Progress Progress Note : Time: 07:55 Progress Note Patient was most concerned about her renal function. We did check her basic labs and noted her GFR was stable. Although she has not had UTI symptoms this morning, she has had some recently. There was some suggestion of UTI on her urinalysis. We are prescribing antibiotics for the time being until her culture results return. She is to follow-up with her urologist and primary care provider. I discussed the situation with Dr. Easton as well. Departure Impression Primary Impression: Left flank pain Additional Impressions: Lesion of left [place] ureter Urinary tract infection Qualified Codes: N39.0 - Urinary tract infection, site not specified; R31.9 - Hematuria, unspecified Bladder cancer Qualified Codes: C67.9 - Malignant neoplasm of bladder, unspecified Disposition: 01 HOME, SELF-CARE Condition: Stable Departure-Patient Inst. Decision time for Depature: 11:50 Referrals: ABDI EASTON MD (PCP/Family) Primary Care Physician Patient Instructions: Urinary Tract Infections in Adults Add. Discharge Instructions: Continue drinking plenty of clear liquids. Complete your antibiotic as prescribed. Follow-up on your urine culture results with Dr. Easton or Dr. Ayers on Saturday or Saturday. Follow-up with your urologist regarding the ureteral lesion. Return to care if you have worsening symptoms. All discharge instructions reviewed with patient and/or family. Voiced understanding. Scripts Cephalexin (Keflex) 500 Mg Capsule 500 MG PO BID, #14 CAP Prov: VIRGILIO VEGA MD 01/10/20 Copy Copies To 1: CLINTON AYERS Copies To 2: ABDI EASTON MD, JOSHUA T MD Jan 10, 2020 11:51
[2020-01-10 11:58] VITALS: BP 108/62
== END 2020-01-10 12:06 | disposition home or self-care (01) ==
LOC: EDUNIT# 10:00 → ER 10:01
DX: C67.9 Malignant neoplasm of bladder, unspecified (principal); N39.0 Urinary tract infection, site not specified; N28.89 Other specified disorders of kidney and ureter
CPT/HCPCS: 36415; 80053; 81000; 85025; 87088

== ENCOUNTER 2020-02-15 10:18 | Outpatient (RCR) | payer BC ==
[2019-11-23 10:39] LABS: BASOPHILS % (AUTO) 0 % (0-10); EOSINOPHILS # (AUTO) 0.1 10^3/uL (0.0-0.3); EOSINOPHILS % (AUTO) 2 % (0-10); HEMATOCRIT 37 % (35-52); HEMOGLOBIN 11.7 G/DL (11.5-16.0); LYMPHOCYTES # (AUTO) 1.7 X 10^3 (1.0-4.0); LYMPHOCYTES % (AUTO) 34 % (12-44); MEAN CORPUSCULAR HEMOGLOBIN 28 PG (25-34); MEAN CORPUSCULAR HGB CONC 32 G/DL (32-36); MEAN CORPUSCULAR VOLUME 87 FL (80-99); MONOCYTES # (AUTO) 0.5 X 10^3 (0.0-1.0); MONOCYTES % (AUTO) 10 % (0-12); NEUTROPHILS # (AUTO) 2.7 X 10^3 (1.8-7.8); NEUTROPHILS % (AUTO) 54 % (42-75); PLATELET COUNT 213 10^3/uL (130-400); RED CELL DISTRIBUTION WIDTH 15.5 % (10.0-14.5)
[2019-11-23 10:55] LABS: ALANINE AMINOTRANSFERASE 16 U/L (0-55); ALKALINE PHOSPHATASE 85 U/L (40-136); BILIRUBIN,TOTAL 0.3 MG/DL (0.1-1.0); BUN/CREATININE RATIO 14; CALCIUM 9.2 MG/DL (8.5-10.1); CARBON DIOXIDE 23 MMOL/L (21-32); CHLORIDE 110 MMOL/L (98-107); GFR ESTIMATED > 60; GLUCOSE 102 MG/DL (70-105); SODIUM 142 MMOL/L (135-145); TOTAL PROTEIN 7.2 GM/DL (6.4-8.2)
[2019-12-14 10:53] LABS: BASOPHILS % (AUTO) 0 % (0-10); EOSINOPHILS # (AUTO) 0.2 10^3/uL (0.0-0.3); EOSINOPHILS % (AUTO) 4 % (0-10); HEMATOCRIT 35 % (35-52); HEMOGLOBIN 11.2 G/DL (11.5-16.0); LYMPHOCYTES # (AUTO) 1.8 X 10^3 (1.0-4.0); LYMPHOCYTES % (AUTO) 42 % (12-44); MEAN CORPUSCULAR HEMOGLOBIN 28 PG (25-34); MEAN CORPUSCULAR HGB CONC 32 G/DL (32-36); MEAN CORPUSCULAR VOLUME 86 FL (80-99); MONOCYTES # (AUTO) 0.5 X 10^3 (0.0-1.0); MONOCYTES % (AUTO) 11 % (0-12); NEUTROPHILS # (AUTO) 1.9 X 10^3 (1.8-7.8); NEUTROPHILS % (AUTO) 43 % (42-75); PLATELET COUNT 202 10^3/uL (130-400); WHITE BLOOD COUNT 4.3 10^3/uL (4.3-11.0)
[2019-12-14 11:09] LABS: ALANINE AMINOTRANSFERASE 15 U/L (0-55); ALBUMIN 3.8 GM/DL (3.2-4.5); ALKALINE PHOSPHATASE 100 U/L (40-136); BILIRUBIN,TOTAL 0.3 MG/DL (0.1-1.0); BUN/CREATININE RATIO 19; CARBON DIOXIDE 24 MMOL/L (21-32); CHLORIDE 108 MMOL/L (98-107); CREATININE SERUM 0.86 MG/DL (0.60-1.30); GFR ESTIMATED > 60; GLUCOSE 97 MG/DL (70-105); POTASSIUM 3.9 MMOL/L (3.6-5.0); SODIUM 140 MMOL/L (135-145); TOTAL PROTEIN 7.1 GM/DL (6.4-8.2)
[2020-01-04 09:11] LABS: BASOPHILS % (AUTO) 0 % (0-10); EOSINOPHILS # (AUTO) 0.1 10^3/uL (0.0-0.3); EOSINOPHILS % (AUTO) 3 % (0-10); HEMATOCRIT 30 % (35-52); HEMOGLOBIN 9.4 G/DL (11.5-16.0); LYMPHOCYTES % (AUTO) 25 % (12-44); MEAN CORPUSCULAR HEMOGLOBIN 27 PG (25-34); MEAN CORPUSCULAR HGB CONC 32 G/DL (32-36); MEAN CORPUSCULAR VOLUME 86 FL (80-99); MONOCYTES # (AUTO) 0.3 X 10^3 (0.0-1.0); MONOCYTES % (AUTO) 7 % (0-12); NEUTROPHILS # (AUTO) 2.5 X 10^3 (1.8-7.8); NEUTROPHILS % (AUTO) 65 % (42-75); PLATELET COUNT 260 10^3/uL (130-400); RED CELL DISTRIBUTION WIDTH 14.7 % (10.0-14.5); WHITE BLOOD COUNT 3.9 10^3/uL (4.3-11.0)
[2020-01-04 09:34] LABS: ALBUMIN 3.6 GM/DL (3.2-4.5); BILIRUBIN,TOTAL 0.2 MG/DL (0.1-1.0); CALCIUM 8.9 MG/DL (8.5-10.1); CREATININE SERUM 1.5 MG/DL (0.60-1.30); POTASSIUM 4.1 MMOL/L (3.6-5.0); TOTAL PROTEIN 7.1 GM/DL (6.4-8.2)
[2020-01-25 10:26] LABS: BASOPHILS % (AUTO) 0 % (0-10); EOSINOPHILS # (AUTO) 0.1 10^3/uL (0.0-0.3); EOSINOPHILS % (AUTO) 2 % (0-10); HEMATOCRIT 32 % (35-52); HEMOGLOBIN 9.7 G/DL (11.5-16.0); LYMPHOCYTES # (AUTO) 1.5 X 10^3 (1.0-4.0); LYMPHOCYTES % (AUTO) 36 % (12-44); MEAN CORPUSCULAR HEMOGLOBIN 26 PG (25-34); MEAN CORPUSCULAR HGB CONC 31 G/DL (32-36); MEAN CORPUSCULAR VOLUME 86 FL (80-99); MEAN PLATELET VOLUME 8.7 FL (7.4-10.4); MONOCYTES # (AUTO) 0.4 X 10^3 (0.0-1.0); MONOCYTES % (AUTO) 9 % (0-12); NEUTROPHILS # (AUTO) 2.2 X 10^3 (1.8-7.8); NEUTROPHILS % (AUTO) 53 % (42-75); PLATELET COUNT 251 10^3/uL (130-400); RED CELL DISTRIBUTION WIDTH 15.9 % (10.0-14.5); WHITE BLOOD COUNT 4.1 10^3/uL (4.3-11.0)
[2020-01-25 10:51] LABS: ALBUMIN 3.8 GM/DL (3.2-4.5); BILIRUBIN,TOTAL 0.3 MG/DL (0.1-1.0); CALCIUM 9.1 MG/DL (8.5-10.1); POTASSIUM 3.9 MMOL/L (3.6-5.0)
[~2020-02-15 10:18] MED LIST changes: +NS IV 500 ML (CANCER CENTER) 500 ML IV SCH; +PEGFILGRASTIM 6 MG/0.6ML NEULASTA SC SCH; +PEMBROLIZUMAB 200 MG in NS (IVPB) CANCER CENTER 50 ML IV SCH
[2020-02-15 10:39] LABS: BASOPHILS % (AUTO) 1 % (0-10); EOSINOPHILS # (AUTO) 0.1 10^3/uL (0.0-0.3); EOSINOPHILS % (AUTO) 3 % (0-10); HEMATOCRIT 31 % (35-52); HEMOGLOBIN 9.7 G/DL (11.5-16.0); LYMPHOCYTES # (AUTO) 1.4 X 10^3 (1.0-4.0); LYMPHOCYTES % (AUTO) 29 % (12-44); MEAN CORPUSCULAR HEMOGLOBIN 26 PG (25-34); MEAN CORPUSCULAR HGB CONC 31 G/DL (32-36); MEAN CORPUSCULAR VOLUME 84 FL (80-99); MEAN PLATELET VOLUME 8.7 FL (7.4-10.4); MONOCYTES # (AUTO) 0.4 X 10^3 (0.0-1.0); MONOCYTES % (AUTO) 8 % (0-12); NEUTROPHILS # (AUTO) 2.8 X 10^3 (1.8-7.8); NEUTROPHILS % (AUTO) 59 % (42-75); PLATELET COUNT 256 10^3/uL (130-400); RED CELL DISTRIBUTION WIDTH 15.7 % (10.0-14.5); WHITE BLOOD COUNT 4.6 10^3/uL (4.3-11.0)
[2020-02-15 10:57] LABS: ALBUMIN 3.9 GM/DL (3.2-4.5); BILIRUBIN,TOTAL 0.3 MG/DL (0.1-1.0); CALCIUM 8.8 MG/DL (8.5-10.1); CREATININE SERUM 1.12 MG/DL (0.60-1.30); TOTAL PROTEIN 7.1 GM/DL (6.4-8.2)
== END 2020-02-21 | disposition home or self-care (01) ==
LOC: ONC 10:18
PROVIDERS: ATTEND Internal Medicine Hematology & Oncology
DX: Z51.11 Encounter for antineoplastic chemotherapy (principal); C67.1 Malignant neoplasm of dome of bladder; C77.0 Secondary and unspecified malignant neoplasm of lymph nodes of head, face and neck; C78.1 Secondary malignant neoplasm of mediastinum; I10 Essential (primary) hypertension; G43.909 Migraine, unspecified, not intractable, without status migrainosus; D50.9 Iron deficiency anemia, unspecified; M16.12 Unilateral primary osteoarthritis, left hip; G62.9 Polyneuropathy, unspecified; Z79.899 Other long term (current) drug therapy; Z92.21 Personal history of antineoplastic chemotherapy; Z96.642 Presence of left artificial hip joint; Z90.6 Acquired absence of other parts of urinary tract; Z98.890 Other specified postprocedural states
CPT/HCPCS: 36591; 80053; 83615; 84443; 85025; 96413

== ENCOUNTER → 2020-02-15 | Outpatient (CLI) | payer BC ==
[~2020-02-15] MED LIST changes: +CEPH-507 PO
== END ==
LOC: LABNPT 06:49
PROVIDERS: ATTEND Urology
DX: Z20.828 Contact with and (suspected) exposure to other viral communicable diseases (principal)
CPT/HCPCS: 87635

== ENCOUNTER 2020-03-14 10:39 | Outpatient (RCR) | payer BC ==
[~2020-03-14 10:39] MED LIST changes: -PEGFILGRASTIM 6 MG/0.6ML NEULASTA SC SCH
[2020-03-14 10:55] LABS: BASOPHILS % (AUTO) 0 % (0-10); EOSINOPHILS % (AUTO) 2 % (0-10); HEMATOCRIT 29 % (35-52); HEMOGLOBIN 8.7 G/DL (11.5-16.0); LYMPHOCYTES # (AUTO) 0.6 X 10^3 (1.0-4.0); LYMPHOCYTES % (AUTO) 27 % (12-44); MEAN CORPUSCULAR HEMOGLOBIN 25 PG (25-34); MEAN CORPUSCULAR HGB CONC 30 G/DL (32-36); MEAN CORPUSCULAR VOLUME 82 FL (80-99); MEAN PLATELET VOLUME 8.7 FL (7.4-10.4); MONOCYTES # (AUTO) 0.4 X 10^3 (0.0-1.0); MONOCYTES % (AUTO) 17 % (0-12); NEUTROPHILS # (AUTO) 1.3 X 10^3 (1.8-7.8); NEUTROPHILS % (AUTO) 55 % (42-75); PLATELET COUNT 237 10^3/uL (130-400); WHITE BLOOD COUNT 2.3 10^3/uL (4.3-11.0)
[2020-03-14 11:13] LABS: BILIRUBIN,TOTAL 0.2 MG/DL (0.1-1.0); CALCIUM 8.8 MG/DL (8.5-10.1); CREATININE SERUM 1.36 MG/DL (0.60-1.30); POTASSIUM 4.1 MMOL/L (3.6-5.0); TOTAL PROTEIN 7.3 GM/DL (6.4-8.2)
[2020-03-18] MEDS ORDERED: AZIT250T12 PO (20:47)
[2020-03-22] MEDS ORDERED: MELA5TAB14 PO (10:59)
[2020-03-22] MEDS ORDERED: GABA300C PO (10:59)
[2020-03-22] MEDS ORDERED: SIME180C4 PO (10:59)
[2020-03-22] MEDS ORDERED: ACHD5005 PO (10:59)
[2020-03-22] MEDS ORDERED: AZIT250T12 PO (10:59)
[2020-03-22] MEDS ORDERED: SENN-36 PO (10:59)
[2020-04-01] MEDS ORDERED: LEVO750T39 PO (14:41)
[2020-04-01] MEDS ORDERED: FERR325T5 PO (14:43)
== END 2020-04-15 08:02 | disposition home or self-care (01) ==
LOC: ONC 10:39
PROVIDERS: ATTEND Internal Medicine Hematology & Oncology
DX: C67.1 Malignant neoplasm of dome of bladder (principal); C77.0 Secondary and unspecified malignant neoplasm of lymph nodes of head, face and neck; C78.1 Secondary malignant neoplasm of mediastinum; I10 Essential (primary) hypertension; G43.909 Migraine, unspecified, not intractable, without status migrainosus; D50.9 Iron deficiency anemia, unspecified; M16.12 Unilateral primary osteoarthritis, left hip; G62.9 Polyneuropathy, unspecified; Z79.899 Other long term (current) drug therapy; Z92.21 Personal history of antineoplastic chemotherapy; Z96.642 Presence of left artificial hip joint; Z90.6 Acquired absence of other parts of urinary tract; Z98.890 Other specified postprocedural states
CPT/HCPCS: 36591; 80053; 83615; 85025

== ENCOUNTER 2020-03-20 20:49 | Inpatient (IN) | payer BC ==
[~2020-03-20] VITALS: Ht 165.1 cm; Wt 78.6 kg
[~2020-03-20 20:49] MED LIST changes: +AZIT250T12 PO; -NS IV 500 ML (CANCER CENTER) 500 ML IV SCH; -PEMBROLIZUMAB 200 MG in NS (IVPB) CANCER CENTER 50 ML IV SCH
[2020-03-20] MEDS ORDERED: PROMETHAZINE INJ 25 MG/ML (PHENERGAN) AMP IVP ONE (21:30)
[2020-03-20] MEDS ORDERED: NS IV 1000 ML 1,000 ML IV SCH (21:30)
[2020-03-20 22:01] LABS: BASOPHILS % (AUTO) 0 % (0-10); EOSINOPHILS % (AUTO) 0 % (0-10); HEMATOCRIT 30 % (35-52); HEMOGLOBIN 9.6 G/DL (11.5-16.0); LYMPHOCYTES # (AUTO) 0.8 X 10^3 (1.0-4.0); LYMPHOCYTES % (AUTO) 27 % (12-44); MEAN CORPUSCULAR HEMOGLOBIN 25 PG (25-34); MEAN CORPUSCULAR HGB CONC 32 G/DL (32-36); MEAN CORPUSCULAR VOLUME 76 FL (80-99); MEAN PLATELET VOLUME 10.1 FL (7.4-10.4); MONOCYTES # (AUTO) 0.3 X 10^3 (0.0-1.0); MONOCYTES % (AUTO) 9 % (0-12); NEUTROPHILS # (AUTO) 1.8 X 10^3 (1.8-7.8); NEUTROPHILS % (AUTO) 64 % (42-75); PLATELET COUNT 229 10^3/uL (130-400); WHITE BLOOD COUNT 2.8 10^3/uL (4.3-11.0)
--- NOTE | 2020-03-20 22:10 | Diagnostic Imaging Report ---
CHEST 1 VIEW, AP/PA ONLY Indication: Cough Comparison: 03/18/2020 Findings: Ill-defined right basilar and left perihilar opacities have developed. No pleural effusion or pneumothorax. Heart is normal in size. Stable right is a Port-A-Cath. Impression: 1. New bilateral pulmonary opacities are likely due to infection. Dictated by: Dictated on workstation # [id number]
[2020-03-20 22:11] LABS: ALBUMIN 4.2 GM/DL (3.2-4.5); POTASSIUM 4.9 MMOL/L (3.6-5.0)
[2020-03-20 22:13] LABS: CALCIUM 8.9 MG/DL (8.5-10.1)
--- NOTE | 2020-03-20 22:13 | ED General ---
General Chief Complaint: General Problems/Pain Stated Complaint: COVID POSTIVE, CANT KEEP ANY FOOD DOWN Source of Information: Patient Exam Limitations: No Limitations History of Present Illness Date Seen by Provider: Mar 20, 2020 Time Seen by Provider: 22:11 Initial Comments To ER by private vehicle with reports of nausea and being Covid positive. She was here on Saturday 2 days ago with these complaints. Her oxygen saturation was 100% on room air, labs did not look bad. Discharge home with Zofran, albuterol inhaler, Zithromax. She states the Zofran is not real helpful. She comes in [facility] with nausea and vomiting that prevents her from eating or drinking anything. She did have cystectomy at for bladder cancer on February 17. Timing/Duration: 1-2 Days Severity: Moderate Associated Systoms: Nausea/Vomiting Allergies and Home Medications Allergies Coded Allergies: No Known Drug Allergies (Unverified , 04/04/17) Home Medications Azithromycin 250 Mg Tablet, 250 MG PO DAILY Prescribed by: PRISCILLA NATH on 03/18/202046 Bisoprolol Fumarate/Hctz 1 Each Tablet, 1 EACH PO DAILY, (Reported) Cephalexin 500 Mg Capsule, 500 MG PO BID Prescribed by: VIRGILIO SALAS on 01/10/20 1151 Hydrocodone Bit/Acetaminophen 1 Each Tablet, 1 TAB PO Q4H PRN for PAIN-MILD TO MODERATE Prescribed by: SELINA SNIDER on 04/05/17 1221 Patient Home Medication List Home Medication List Reviewed: Yes Review of Systems Review of Systems Constitutional: see HPI, chills, fever Respiratory: see HPI, cough, short of breath Cardiovascular: no symptoms reported Gastrointestinal: nausea, vomiting Genitourinary: no symptoms reported Musculoskeletal: no symptoms reported Skin: no symptoms reported Psychiatric/Neurological: No Symptoms Reported Past Qulbcwo-Crdifr-Iziwws Hx Patient Social History Recent Foreign Travel: No Contact w/Someone Who Travel: No Recent Hopitalizations: No Seasonal Allergies Seasonal Allergies: No Past Medical History Surgeries: Yes (TUMOR REMOR REMOVED FROM BLADDER, BLADDER REMOVAL 02/18/20, PORT PLACEMENT) Respiratory: No Cardiac: No Neurological: No Genitourinary: Yes Kidney Stones Gastrointestinal: No Musculoskeletal: No Endocrine: No HEENT: No Cancer: Yes Bladder Did You Recieve Any Treatments: Yes What Type of Treatment Did You: Chemotherapy Psychosocial: No Integumentary: No Blood Disorders: No Physical Exam Vital Signs Capillary Refill : Height, Weight, BMI Height: 5'5.50" Weight: 179lbs. 0.0oz. 81.720270ng; 30.00 BMI Method: General Appearance: No Apparent Distress, WD/WN, Other (no distress, 97% on room air, alert and oriented.) Eyes: Bilateral Eye Normal Inspection, Bilateral Eye PERRL, Bilateral Eye EOMI HEENT: PERRL/EOMI, TMs Normal, Normal ENT Inspection Respiratory: No Accessory Muscle Use, No Respiratory Distress Cardiovascular: Regular Rate, Rhythm, Normal Peripheral Pulses Extremity: Normal Capillary Refill, Normal Inspection Neurologic/Psychiatric: Alert, Oriented x3 Skin: Normal Color, Warm/Dry Progress/Results/Core Measures Suspected Sepsis SIRS Temperature: Pulse: Respiratory Rate: Laboratory Tests 03/20/20 21:50: White Blood Count 2.8L Blood Pressure / Mean: Laboratory Tests 03/20/20 21:50: Creatinine 1.31H, Platelet Count 229, Total Bilirubin 0.4 Results/Orders Lab Results Laboratory Tests Test 03/20/20 21:50 Range/Units White Blood Count 2.8 L 4.3-11.0 10^3/uL Red Blood Count 3.92 L 4.35-5.85 10^6/uL Hemoglobin 9.6 L 11.5-16.0 G/DL Hematocrit 30 L 35-52 % Mean Corpuscular Volume 76 L 80-99 FL Mean Corpuscular Hemoglobin 25 25-34 PG Mean Corpuscular Hemoglobin Concent 32 32-36 G/DL Red Cell Distribution Width 17.0 H 10.0-14.5 % Platelet Count 229 130-400 10^3/uL Mean Platelet Volume 10.1 7.4-10.4 FL Neutrophils (%) (Auto) 64 42-75 % Lymphocytes (%) (Auto) 27 12-44 % Monocytes (%) (Auto) 9 0-12 % Eosinophils (%) (Auto) 0 0-10 % Basophils (%) (Auto) 0 0-10 % Neutrophils # (Auto) 1.8 1.8-7.8 X 10^3 Lymphocytes # (Auto) 0.8 L 1.0-4.0 X 10^3 Monocytes # (Auto) 0.3 0.0-1.0 X 10^3 Eosinophils # (Auto) 0.0 0.0-0.3 10^3/uL Basophils # (Auto) 0.0 0.0-0.1 10^3/uL Sodium Level 130 L 135-145 MMOL/L Potassium Level 4.9 3.6-5.0 MMOL/L Chloride Level 102 98-107 MMOL/L Carbon Dioxide Level 14 L 21-32 MMOL/L Anion Gap 14 5-14 MMOL/L Blood Urea Nitrogen 24 H 7-18 MG/DL Creatinine 1.31 H 0.60-1.30 MG/DL Estimat Glomerular Filtration Rate 42 BUN/Creatinine Ratio 18 Glucose Level 104 70-105 MG/DL Calcium Level 8.9 8.5-10.1 MG/DL Corrected Calcium 8.7 8.5-10.1 MG/DL Total Bilirubin 0.4 0.1-1.0 MG/DL Aspartate Amino Transf (AST/SGOT) 38 H 5-34 U/L Alanine Aminotransferase (ALT/SGPT) 19 0-55 U/L Alkaline Phosphatase 64 40-136 U/L Total Protein 8.2 6.4-8.2 GM/DL Albumin 4.2 3.2-4.5 GM/DL My Orders Orders - PRISCILLA NATH APRN Cbc With Automated Diff (03/20/20 21:24) Comprehensive Metabolic Panel (03/20/20 21:24) Ed Iv/Invasive Line Start (03/20/20 21:24) Ns Iv 1000 Ml (Sodium Chloride 0.9%) (03/20/20 21:30) Promethazine Injection (Phenergan Injec (03/20/20 21:30) Chest 1 View, Ap/Pa Only (03/20/20 21:34) Vital Signs/I&O Capillary Refill : Diagnostic Imaging Diagonstic Imaging: Xray Plain Films/CT/US/NM/MRI: chest Comments NAME: TIFFANIE BARKSDALE MED REC#: [id number] PT STATUS: REG ER : 1960 PHYSICIAN: PRISCILLA NATH APRN ADMIT DATE: 03/20/20/ER Signed Date of Exam:03/20/20 CHEST 1 VIEW, AP/PA ONLY CHEST 1 VIEW, AP/PA ONLY Indication: Cough Comparison: 03/18/2020 Findings: Ill-defined right basilar and left perihilar opacities have developed. No pleural effusion or pneumothorax. Heart is normal in size. Stable right is a Port-A-Cath. Impression: 1. New bilateral pulmonary opacities are likely due to infection. Dictated by: Dictated on workstation # [id number] Dict: 03/20/202206 Trans: 03/20/202207 [facility] [phone] Interpreted by: FLEX RICHARD MD Electronically signed by: FLEX RICHARD MD 03/20/202207 Departure Communication (Admissions) Time/Spoke to Admitting Phy: 22:[address] Foley, agrees to admit Impression Primary Impression: COVID-19 Additional Impression: Nausea & vomiting Disposition: ADMITTED INPATIENT Condition: Stable Admissions Decision to Admit Reason: Admit from ER (General) Decision to Admit/Date: Mar 20, 2020 Time/Decision to Admit Time: 22:18 Departure-Patient Inst. Referrals: ADBI EASTON MD (PCP/Family) Primary Care Physician PRISCILLA NATH APRN Mar 20, 2020 22:13
[2020-03-20 22:14] LABS: TOTAL PROTEIN 8.2 GM/DL (6.4-8.2)
[2020-03-20 22:16] LABS: BILIRUBIN,TOTAL 0.4 MG/DL (0.1-1.0)
[2020-03-20 22:17] LABS: CREATININE SERUM 1.31 MG/DL (0.60-1.30)
--- NOTE | 2020-03-20 23:58 | NUR ---
TIFFANIE BARKSDALE admitted to room 432-1, with an admitting diagnosis of COVID 19+, on 03/20/20 via WHEELCHAIR, accompanied by STAFF MEMBERS.TIFFANIE BARKSDALE introduced to surroundings, call light, bed controls, phone, TV, temperature control, lights, meal times, smoking policy, visitor policy, side rail policy, bathrooms and showers. Patient Rights given to patient in the handbook. TIFFANIE BARKSDALE verbalizes understanding that [facility] is not responsible for the loss or damage to any personal effects or valuables that are kept in the patients posession during their hospitalization.
[2020-03-21] VITALS (7 sets, daily range): BP systolic 96–119; BP diastolic 56–69
[2020-03-21] MEDS ORDERED: NS IV 1000 ML 1,000 ML ONE (00:25)
[2020-03-21] MEDS ORDERED: PROMETHAZINE INJ 25 MG/ML (PHENERGAN) AMP IVP PRN (01:15)
[2020-03-21] MEDS: NS IV 1000 ML 1,000 ML IV SCH ×5 (02:22→23:15)
[2020-03-21] MEDS: ONDANSETRON 4 MG/2 ML (SDV) Z0FRAN IVP PRN ×2 (02:35→08:18)
[2020-03-21 03:13] LABS: BASOPHILS % (AUTO) 1 % (0-10); EOSINOPHILS % (AUTO) 0 % (0-10); HEMATOCRIT 27 % (35-52); HEMOGLOBIN 8.5 G/DL (11.5-16.0); LYMPHOCYTES # (AUTO) 0.7 X 10^3 (1.0-4.0); LYMPHOCYTES % (AUTO) 34 % (12-44); MEAN CORPUSCULAR HEMOGLOBIN 25 PG (25-34); MEAN CORPUSCULAR HGB CONC 32 G/DL (32-36); MEAN CORPUSCULAR VOLUME 77 FL (80-99); MEAN PLATELET VOLUME 10.1 FL (7.4-10.4); MONOCYTES # (AUTO) 0.2 X 10^3 (0.0-1.0); MONOCYTES % (AUTO) 9 % (0-12); NEUTROPHILS # (AUTO) 1.2 X 10^3 (1.8-7.8); NEUTROPHILS % (AUTO) 57 % (42-75); PLATELET COUNT 169 10^3/uL (130-400); WHITE BLOOD COUNT 2.1 10^3/uL (4.3-11.0)
[2020-03-21 03:41] LABS: BILIRUBIN,URINE NEGATIVE (NEGATIVE); COLOR,URINE YELLOW; GLUCOSE, URINE (UA) NEGATIVE (NEGATIVE); KETONES,URINE NEGATIVE (NEGATIVE); LEUKOCYTE ESTERASE ,URINE 1+ (NEGATIVE); NITRITE,URINE POSITIVE (NEGATIVE); PH,URINE 7.5 (5-9); PROTEIN,URINE 1+ (NEGATIVE)
[2020-03-21 03:42] LABS: ALBUMIN 3.7 GM/DL (3.2-4.5)
[2020-03-21 03:43] LABS: POTASSIUM 4.2 MMOL/L (3.6-5.0)
[2020-03-21 03:44] LABS: CALCIUM 8.3 MG/DL (8.5-10.1)
[2020-03-21 03:47] LABS: BILIRUBIN,TOTAL 0.3 MG/DL (0.1-1.0)
[2020-03-21 03:49] LABS: CREATININE SERUM 1.15 MG/DL (0.60-1.30)
[2020-03-21 03:59] LABS: BACTERIA,URINE FEW /HPF; CLARITY,URINE SL CLOUDY; RBC,URINE RARE /HPF
[2020-03-21] MEDS ORDERED: RT-ALBUTEROL INHALER HFA (VENTOLIN HFA) 18 GM IH SCH (04:00)
[2020-03-21] MEDS: AZITHROMYCIN 250 MG/NS 250 ML IVPB IV SCH ×2 (06:21)
[2020-03-21] MEDS: ENOXAPARIN 40 MG/0.4 ML (LOVENOX) SYR SC SCH (08:01)
[2020-03-21] MEDS: RT-ALBUTEROL INHALER HFA (VENTOLIN HFA) 18 GM IH SCH ×5 (08:26→23:06)
--- NOTE | 2020-03-21 12:45 | History & Physical-Hospitalist ---
History of Present Illness HPI/Chief Complaint patient is a 60-year-old female with past medical history of stage IV bladder cancer who presented to the ER due to nausea and vomiting. She recently had surgery for bladder removal on 02/17 at [facility]. She did well following that but contract COVID19 last week. She was seen in the ER of 03/18 and was able to DC catrachita e but has not improved. She has tried Zofran without improvement. She was admitted for intractable nausea and vomiting. This morning she states she is feeling better and was able to eat some breakfast and keep it down. Source: patient Date Seen 03/21/20 Time Seen by a Provider: 12:43 Attending Physician Roshan Byrnes MD PCP Ismael Ruggiero MD Referring Physician Date of Admission Mar 20, 2020 at 23:09 Home Medications & Allergies Home Medications Reviewed patient Home Medication Reconciliation performed by pharmacy medication reconciliations model technician and/or nursing. Patients Allergies have been reviewed. Allergies Allergies Coded Allergies No Known Drug Allergies (Unverified04/04/17) Past Bhjkiem-Pjbbda-Clhohc Hx Past Med/Social Hx: Reviewed Nursing Past Med/Soc Hx Patient Social History Marrital Status: Recent Foreign Travel: No Contact w/other who traveled: No Recent Hopitalizations: No Recent Infectious Disease Expo: Yes (DIAGNOSED COVID 19) Seasonal Allergies Seasonal Allergies: No Past Medical History Surgeries: Bladder Surgery (removal) Genitourinary: Kidney Stones Cancer: Bladder Did You Recieve Any Treatments: Yes What Type of Treatment Did You: Chemotherapy, Surgical Intervention History of Blood Disorders: No Review of Systems Constitutional: No chills, No fever; malaise EENTM: no symptoms reported Respiratory: cough; No short of breath Cardiovascular: no symptoms reported Gastrointestinal: loss of appetite, nausea, vomiting Genitourinary: no symptoms reported Musculoskeletal: no symptoms reported Skin: no symptoms reported Psychiatric/Neurological: No Symptoms Reported Physical Exam Physical Exam Vital Signs Vital Signs - First Documented 03/20/20 03/22/20 21:38 03:10 Temp 37.0 Pulse 100 Resp 18 B/P (MAP) 116/79 (91) Pulse Ox 98 O2 Delivery Room Air O2 Flow Rate 3.00 Capillary Refill : Less Than 3 Seconds Height, Weight, BMI Height: 5'5.50" Weight: 179lbs. 0.0oz. 81.051397li; 28.83 BMI Method: General Appearance: No Apparent Distress, WD/WN HEENT: PERRL/EOMI, Moist Mucous Membranes Neck: Normal Inspection, Supple Respiratory: Lungs Clear, No Accessory Muscle Use, No Respiratory Distress Cardiovascular: Regular Rate, Rhythm, No Murmur Gastrointestinal: Normal Bowel Sounds, Non Tender, Soft Extremity: Normal Capillary Refill, No Calf Tenderness, No Pedal Edema Neurologic/Psychiatric: Alert, Oriented x3 Skin: Normal Color, Warm/Dry Results Results/Procedures Labs Laboratory Tests 03/23/20 05:20 03/23/20 05:25 Patient resulted labs reviewed. Imaging: Reviewed Imaging Report Imaging [facility] [place], [place] NAME: TIFFANIE BARKSDALE [facility] REC#: [id number] PT STATUS: REG ER : 1960 PHYSICIAN: PRISCILLA NATH APRN ADMIT DATE: 03/20/20/ER Signed Date of Exam:03/20/20 CHEST 1 VIEW, AP/PA ONLY CHEST 1 VIEW, AP/PA ONLY Indication: Cough Comparison: 03/18/2020 Findings: Ill-defined right basilar and left perihilar opacities have developed. No pleural effusion or pneumothorax. Heart is normal in size. Stable right is a Port-A-Cath. Impression: 1. New bilateral pulmonary opacities are likely due to infection. Dictated by: Dictated on workstation # [id number] Dict: 03/20/202206 Trans: 03/20/202207 [facility] [id number] Interpreted by: FLEX RICHARD MD Electronically signed by: FLEX RICHARD MD 03/20/202207 Assessment/Plan Admission Diagnosis COVID19 Admission Status: Inpatient Order (span 2 midnights) Reason for Inpatient Admission: failed outpatient management Assessment and Plan COVID19 Continue decadron Not a candidate for remdesivir Zofran and Phenergan prn nausea Anemia Appears to be around her baseline since December trend Not sure when last chemo was Bladder cancer- stage IV s/p cystectomy Follows with Dr Ayers No acute needs HTN Well controlled currently, trend Hold home meds DVT ppx: Lovenox Diagnosis/Problems Diagnosis/Problems (1) Bladder cancer Status: Chronic Qualifiers: Bladder location: unspecified site Qualified Codes: C67.9 - Malignant neoplasm of bladder, unspecified (2) COVID-19 Status: Acute (3) Nausea & vomiting Status: Acute Qualifiers: Vomiting type: unspecified Vomiting Intractability: intractable Qualified Codes: R11.2 - Nausea with vomiting, unspecified (4) Metastasis from bladder cancer Status: Chronic Clinical Quality Measures DVT/VTE Risk/Contraindication: Risk Factor Score Per Nursin RFS Level Per Nursing on Admit: 4+=Very High ROSHAN BYRNES MD Mar 21, 2020 12:44
[2020-03-22] VITALS (7 sets, daily range): BP systolic 109–132; BP diastolic 64–79
[2020-03-22] MEDS: ONDANSETRON 4 MG/2 ML (SDV) Z0FRAN IVP PRN (02:33)
[2020-03-22] MEDS: RT-ALBUTEROL INHALER HFA (VENTOLIN HFA) 18 GM IH SCH ×6 (02:41→23:14)
--- NOTE | 2020-03-22 03:00 | NUR ---
DR. WILLARD NOTIFIED OF PT'S TEMPERATURE OF 37.8 AND PT FEELING COOL AND SHAKING, PT ALSO READING 84-85% OXYGEN SATURATION ON ROOM AIR, RN PLACED 3LNC WITH OXYGEN SATURATION UP TO 92-93%. TOLD NO ANTIPYRETIC ON EMAR. NEW ORDERS RECEIVED FOR TYLENOL 1OOOMG PO Q6H PRN.
[2020-03-22] MEDS: ACETAMINOPHEN 500 MG TAB (TYLENOL) PO PRN (03:16)
[2020-03-22] MEDS: NS IV 1000 ML 1,000 ML IV SCH ×2 (05:20→14:01)
[2020-03-22] MEDS: AZITHROMYCIN 250 MG/NS 250 ML IVPB IV SCH ×2 (09:20)
[2020-03-22] MEDS: ENOXAPARIN 40 MG/0.4 ML (LOVENOX) SYR SC SCH (09:20)
[2020-03-22] MEDS ORDERED: SIME180C4 PO (10:59)
[2020-03-22] MEDS ORDERED: SENN-36 PO (10:59)
[2020-03-22] MEDS ORDERED: AZIT250T12 PO (10:59)
[2020-03-22] MEDS ORDERED: MELA5TAB14 PO (10:59)
[2020-03-22] MEDS ORDERED: GABA300C PO (10:59)
[2020-03-22] MEDS ORDERED: ACHD5005 PO (10:59)
--- NOTE | 2020-03-22 10:59 | NUR ---
SPOKE WITH THE PT (I CALLED HER ROOM PHONE) WENT THRU THE EXT MED HISTORY AND CALLED [facility] TO COMPLETE THE MED REC BISOPROLOL/HCTZ 5/6.25MG- PT IS NO LONGER TAKING 09-28-2019 GABAPENTIN 300MG #360- PT USUALLY ONLY TAKES 1 TAB BID HOWEVER SHE CAN TAKE UP TO TID IF NEEDED OTC MEDS: GAS X MELATONIN SENOKOT
--- NOTE | 2020-03-22 12:04 | Progress Note - Hospitalist ---
Subjective HPI/CC On Admission Date Seen by Provider: Mar 22, 2020 Time Seen by Provider: 12:01 patient is a 60-year-old female with past medical history of stage IV bladder cancer who presented to the ER due to nausea and vomiting. She recently had surgery for bladder removal on 02/17 at [facility]. She did well following that but contract COVID19 last week. She was seen in the ER of 03/18 and was able to DC home but has not improved. She has tried Zofran without improvement. She was admitted for intractable nausea and vomiting. This morning she states she is feeling better and was able to eat some breakfast and keep it down. Subjective/Events-last exam Pt reports doing ok today. Slept poorly. nausea overnight. Also new need for oxygen overnight too. Discussed Remdesivir and she is agreeable. Objective Exam Vital Signs Vital Signs Date Time Temp Pulse Resp B/P (MAP) Pulse Ox O2 Delivery O2 Flow Rate FiO2 03/22/20 08:00 36.3 88 18 113/71 (85) 94 Room Air 03/22/20 07:26 3.00 Capillary Refill : Less Than 3 Seconds General Appearance: No Apparent Distress, WD/WN Respiratory: Lungs Clear, No Respiratory Distress Cardiovascular: Regular Rate, Rhythm, No Murmur Neurologic/Psychiatric: Alert, Oriented x3 Results/Procedures Lab Patient resulted labs reviewed. Imaging: Reviewed Imaging Report Assessment/Plan Assessment and Plan Assess & Plan/Chief Complaint COVID19 Continue decadron Zofran and Phenergan prn nausea Now hypoxic, will start Remdesivir Discussed with patient. Informed of EUA and discussed risks vs benefits, patient agreeable to use Anemia Appears to be around her baseline since December Will trend Not sure when last chemo was Bladder cancer- stage IV s/p cystectomy Follows with Dr Ayers No acute needs HTN Well controlled currently, trend Hold home meds DVT ppx: Lovenox Diagnosis/Problems Diagnosis/Problems (1) Acute respiratory failure Qualifiers: Respiratory failure complication: hypoxia Qualified Codes: J96.01 - Acute respiratory failure with hypoxia (2) COVID-19 Status: Acute (3) Nausea & vomiting Status: Acute Qualifiers: Vomiting type: unspecified Vomiting Intractability: intractable Qualified Codes: R11.2 - Nausea with vomiting, unspecified Clinical Quality Measures DVT/VTE Risk/Contraindication: Risk Factor Score Per Nursin RFS Level Per Nursing on Admit: 4+=Very High ROSHAN KRAUS MD Mar 22, 2020 12:04
[2020-03-22] MEDS ORDERED: BENZONATATE 100 MG (TESSALON) CAPSULE PO PRN (12:15)
[2020-03-22] MEDS ORDERED: ANTACID SUSP 30 ML UDC (MYLANTA) PO PRN (12:15)
[2020-03-22] MEDS ORDERED: MILK OF MAGNESIA 400 MG/5 ML 30 ML UDC PO PRN (12:15)
[2020-03-22] MEDS ORDERED: REMDESIVIR INJ (NON-FORMULARY) 200 MG in NS (IVPB) 210 ML IV NR (13:00)
[2020-03-22] MEDS ORDERED: NS IV 500 ML 500 ML IV SCH ×2 (13:45)
--- NOTE | 2020-03-22 14:15 | NUR ---
PATIENT ALREADY HAS NORMAL SALINE RUNNING. WILL NOT PULL AN ADDITIONAL BAG TO HANG WITH PLASMA.
--- NOTE | 2020-03-22 15:15 | NUR ---
Received dietary consult for MST score. Note pt is currently COVID-19 positive, per chart review. Attempted to call for nutrition assessment, but pt did not answer. Will attempt to call again 03/23 for nutrition assessment. Will continue to follow and reassess as pt needs, intake, and status change. Shey Jara MS, RD, LD [phone] (cell)
[2020-03-22] MEDS: MELATONIN 3 MG TABLET PO PRN (20:13)
[2020-03-23] VITALS (9 sets, daily range): BP systolic 114–147; BP diastolic 60–87
[2020-03-23] MEDS: RT-ALBUTEROL INHALER HFA (VENTOLIN HFA) 18 GM IH SCH ×7 (02:53→21:53)
[2020-03-23 05:40] LABS: HEMOGLOBIN 7.5 G/DL (11.5-16.0); MEAN PLATELET VOLUME 9.4 FL (7.4-10.4); WHITE BLOOD COUNT 2.3 10^3/uL (4.3-11.0)
[2020-03-23 06:01] LABS: ALANINE AMINOTRANSFERASE 18 U/L (0-55); ALKALINE PHOSPHATASE 50 U/L (40-136); BILIRUBIN,TOTAL 0.2 MG/DL (0.1-1.0); BUN/CREATININE RATIO 16; CALCIUM 8.1 MG/DL (8.5-10.1); CARBON DIOXIDE 16 MMOL/L (21-32); CHLORIDE 116 MMOL/L (98-107); CREATININE SERUM 0.83 MG/DL (0.60-1.30); GFR ESTIMATED > 60; GLUCOSE 94 MG/DL (70-105); POTASSIUM 4.2 MMOL/L (3.6-5.0); SODIUM 140 MMOL/L (135-145); TOTAL PROTEIN 5.8 GM/DL (6.4-8.2)
[2020-03-23] MEDS: NS IV 1000 ML 1,000 ML IV SCH (06:46)
[2020-03-23] MEDS: AZITHROMYCIN 250 MG/NS 250 ML IVPB IV SCH ×2 (08:26)
[2020-03-23] MEDS: ENOXAPARIN 40 MG/0.4 ML (LOVENOX) SYR SC SCH (08:26)
--- NOTE | 2020-03-23 11:23 | Progress Note - Hospitalist ---
Subjective HPI/CC On Admission Date Seen by Provider: Mar 23, 2020 Time Seen by Provider: 11:19 patient is a 60-year-old female with past medical history of stage IV bladder cancer who presented to the ER due to nausea and vomiting. She recently had surgery for bladder removal on 02/17 at [facility]. She did well following that but contract COVID19 last week. She was seen in the ER of 03/18 and was able to DC home but has not improved. She has tried Zofran without improvement. She was admitted for intractable nausea and vomiting. This morning she states she is feeling better and was able to eat some breakfast and keep it down. Subjective/Events-last exam Pt reports feeling well today. Objective Exam Vital Signs Vital Signs Date Time Temp Pulse Resp B/P (MAP) Pulse Ox O2 Delivery O2 Flow Rate FiO2 03/23/20 08:00 36.4 90 18 129/62 (84) 91 High Flow N/C 5.00 Capillary Refill : Less Than 3 Seconds General Appearance: No Apparent Distress, WD/WN Respiratory: Lungs Clear, No Respiratory Distress Neurologic/Psychiatric: Alert, Oriented x3 Results/Procedures Lab Laboratory Tests 03/23/20 05:20 03/23/20 05:25 Patient resulted labs reviewed. Imaging: Reviewed Imaging Report Assessment/Plan Assessment and Plan Assess & Plan/Chief Complaint COVID19 Continue decadron Zofran and Phenergan prn nausea Continue remdesivir- had increasing hypoxia with a coughing fit overnight but now improved Tessalon available for cough Wean oxygen as able Anemia Appears to be around her baseline since December trend Not sure when last chemo was Bladder cancer- stage IV s/p cystectomy Follows with Dr Ayers No acute needs HTN Well controlled currently, trend Hold home meds DVT ppx: Lovenox Diagnosis/Problems Diagnosis/Problems (1) Acute respiratory failure Qualifiers: Respiratory failure complication: hypoxia Qualified Codes: J96.01 - Acute respiratory failure with hypoxia (2) COVID-19 Status: Acute (3) Nausea & vomiting Status: Acute Qualifiers: Vomiting type: unspecified Vomiting Intractability: intractable Qualified Codes: R11.2 - Nausea with vomiting, unspecified Clinical Quality Measures DVT/VTE Risk/Contraindication: Risk Factor Score Per Nursin RFS Level Per Nursing on Admit: 4+=Very High ROSHAN KRAUS MD Mar 23, 2020 11:23
[2020-03-23] MEDS: REMDESIVIR INJ (NON-FORMULARY) 100 MG in NS (IVPB) 230 ML IV SCH (13:11)
--- NOTE | 2020-03-23 13:22 | NUR ---
"RD ASSESSMENT PMHx: CA(stage 4 bladder); s/p bladder removal PT INTERACTION: Received dietary consult for MST score. Note pt is COVID-19 positive and in airborne isolation. Attempted to call and speak to pt regarding diet hx, but pt did not answer phone. Note all diet information gathered is per chart review. Note avg PO intake 54% x2d. Note episodes of emesis on 03/22, and pt currently on regimen of zofran PRN. Note last BM was 03/22, and pt not currently on bowel regimen. Note recent 20# wt loss x2mon. This is significant wt loss at 11%. Note unable to perform visual assessment of pt d/t airborne isolation. Note pt has BMI of 28.8 (Overweight BMI for age). Given PO intake and wt hx, note unable to determine if pt meets criteria for malnutrition per ASPEN guidelines at this time. ABNORMAL NUTRITION-RELATED LAB VALUES LOW: Ca 8.1; Pro 5.8; alb 3.0 HIGH: Cl 116 Est. kcal needs: 1575 kcal | 20 kcal/kg Est. Pro needs: 63 g Pro | 0.8 g Pro/kg PES STATEMENT: Inadequate oral intake (NI-2.1) related to loss of appetite | nausea | vomiting as evidenced by chart review | avg PO intake 54% x2d INTERVENTION: Continue with current diet order of Regular diet. Add Ensure Enlive (vary) to meals TID, for increased kcal intake. Provides 350 kcal and 13 g Pro per serving. Will continue to follow and reassess as pt needs, intake, and status change. MONITOR/EVALUATE: PO Intake; Plan of Care; Hydration Status; Weight Status; Lab Values Shey Jara, , RD, LD"
[2020-03-23] MEDS ORDERED: GABAPENTIN 300 MG (NEURONTIN) CAP PO PRN (14:45)
[2020-03-23] MEDS ORDERED: HYDROcodone/APAP 5 MG/325 MG (LORTAB) TAB PO PRN (14:45)
[2020-03-23] MEDS: MELATONIN 3 MG TABLET PO PRN (20:13)
[2020-03-23] MEDS: SIMETHICONE 80 MG (MYLICON) CHEW PO SCH (20:13)
[2020-03-24] VITALS (7 sets, daily range): BP systolic 123–138; BP diastolic 78–87
[2020-03-24] MEDS: RT-ALBUTEROL INHALER HFA (VENTOLIN HFA) 18 GM IH SCH ×6 (03:43→22:05)
[2020-03-24] MEDS: dexAMETHasone 6 MG TAB (DECADRON) PO SCH (06:33)
[2020-03-24] MEDS: ONDANSETRON 4 MG/2 ML (SDV) Z0FRAN IVP PRN (06:47)
[2020-03-24 06:48] LABS: HEMOGLOBIN 8.1 G/DL (11.5-16.0); MEAN PLATELET VOLUME 9.3 FL (7.4-10.4); WHITE BLOOD COUNT 3.5 10^3/uL (4.3-11.0)
[2020-03-24 07:07] LABS: ALANINE AMINOTRANSFERASE 16 U/L (0-55); ALBUMIN 3.2 GM/DL (3.2-4.5); ALKALINE PHOSPHATASE 50 U/L (40-136); BILIRUBIN,TOTAL 0.2 MG/DL (0.1-1.0); BUN/CREATININE RATIO 18; CALCIUM 8.4 MG/DL (8.5-10.1); CARBON DIOXIDE 20 MMOL/L (21-32); CHLORIDE 113 MMOL/L (98-107); CREATININE SERUM 0.89 MG/DL (0.60-1.30); GFR ESTIMATED > 60; GLUCOSE 86 MG/DL (70-105); POTASSIUM 3.8 MMOL/L (3.6-5.0); SODIUM 140 MMOL/L (135-145); TOTAL PROTEIN 6.2 GM/DL (6.4-8.2)
[2020-03-24] MEDS: ENOXAPARIN 40 MG/0.4 ML (LOVENOX) SYR SC SCH (08:54)
[2020-03-24] MEDS: AZITHROMYCIN 250 MG TAB (ZITHROMAX) PO SCH (08:54)
--- NOTE | 2020-03-24 13:31 | Progress Note - Hospitalist ---
Subjective HPI/CC On Admission Date Seen by Provider: Mar 24, 2020 Time Seen by Provider: 13:25 patient is a 60-year-old female with past medical history of stage IV bladder cancer who presented to the ER due to nausea and vomiting. She recently had surgery for bladder removal on 02/17 at [facility]. She did well following that but contract COVID19 last week. She was seen in the ER of 03/18 and was able to DC home but has not improved. She has tried Zofran without improvement. She was admitted for intractable nausea and vomiting. This morning she states she is feeling better and was able to eat some breakfast and keep it down. Subjective/Events-last exam Pt reports feeling well today. Still on 4lpm. Hasn't been out of bed much but plans to today. Objective Exam Vital Signs Vital Signs Date Time Temp Pulse Resp B/P (MAP) Pulse Ox O2 Delivery O2 Flow Rate FiO2 03/24/20 11:55 37.4 78 20 123/78 (93) 93 High Flow N/C 4.00 Capillary Refill : Less Than 3 Seconds General Appearance: No Apparent Distress, Chronically ill Respiratory: Lungs Clear, No Respiratory Distress Cardiovascular: Regular Rate, Rhythm, No Murmur Neurologic/Psychiatric: Alert, Oriented x3 Results/Procedures Lab Laboratory Tests 03/24/20 06:40 Patient resulted labs reviewed. Imaging: Reviewed Imaging Report Assessment/Plan Assessment and Plan Assess & Plan/Chief Complaint COVID19 Continue decadron Zofran and Phenergan prn nausea Continue remdesivir s/p conv plasma Tessalon available for cough Wean oxygen as able Anemia Appears to be around her baseline since December Will trend Not sure when last chemo was Bladder cancer- stage IV s/p cystectomy Follows with Dr Ayers No acute needs HTN Well controlled currently, trend Hold home meds DVT ppx: Lovenox Diagnosis/Problems Diagnosis/Problems (1) Bladder cancer Status: Chronic Qualifiers: Bladder location: unspecified site Qualified Codes: C67.9 - Malignant neoplasm of bladder, unspecified (2) COVID-19 Status: Acute (3) Nausea & vomiting Status: Acute Qualifiers: Vomiting type: unspecified Vomiting Intractability: intractable Qualified Codes: R11.2 - Nausea with vomiting, unspecified (4) Metastasis from bladder cancer Status: Chronic Clinical Quality Measures DVT/VTE Risk/Contraindication: Risk Factor Score Per Nursin RFS Level Per Nursing on Admit: 4+=Very High ROSHAN KRAUS MD Mar 24, 2020 13:31
--- NOTE | 2020-03-24 14:27 | Physical Therapy Progress Note ---
Therapy Progress Note PT consulted with RNMiriam, on patient currently mobility status. She stated that the patient is up independently in room and ambulates to restroom and around the room independently. RN has no concern on strength of mobility of patient. No PT indicated. OSCAR GONCALVES PT Mar 24, 2020 14:27
[2020-03-24] MEDS: REMDESIVIR INJ (NON-FORMULARY) 100 MG in NS (IVPB) 230 ML IV SCH (14:30)
[2020-03-24] MEDS: MELATONIN 3 MG TABLET PO PRN (20:12)
[2020-03-24] MEDS: SIMETHICONE 80 MG (MYLICON) CHEW PO SCH (20:12)
[2020-03-25] VITALS (18 sets, daily range): BP systolic 100–137; BP diastolic 58–84
[2020-03-25] MEDS: RT-ALBUTEROL INHALER HFA (VENTOLIN HFA) 18 GM IH SCH ×6 (01:49→21:41)
[2020-03-25] MEDS: dexAMETHasone 6 MG TAB (DECADRON) PO SCH (06:16)
[2020-03-25] MEDS: ONDANSETRON 4 MG/2 ML (SDV) Z0FRAN IVP PRN (06:16)
[2020-03-25 06:32] LABS: WHITE BLOOD COUNT 3.5 10^3/uL (4.3-11.0)
[2020-03-25 06:45] LABS: ALBUMIN 3.3 GM/DL (3.2-4.5); CHLORIDE 111 MMOL/L (98-107); POTASSIUM 3.9 MMOL/L (3.6-5.0); SODIUM 141 MMOL/L (135-145)
[2020-03-25 06:46] LABS: CALCIUM 8.6 MG/DL (8.5-10.1)
[2020-03-25 06:47] LABS: GLUCOSE 82 MG/DL (70-105); TOTAL PROTEIN 6.2 GM/DL (6.4-8.2)
[2020-03-25 06:48] LABS: CARBON DIOXIDE 20 MMOL/L (21-32)
[2020-03-25 06:49] LABS: BILIRUBIN,TOTAL 0.3 MG/DL (0.1-1.0)
[2020-03-25 06:51] LABS: ALKALINE PHOSPHATASE 49 U/L (40-136); CREATININE SERUM 0.93 MG/DL (0.60-1.30); GFR ESTIMATED > 60
[2020-03-25 06:52] LABS: BUN/CREATININE RATIO 23
[2020-03-25 06:54] LABS: ALANINE AMINOTRANSFERASE 16 U/L (0-55)
--- NOTE | 2020-03-25 07:04 | Diagnostic Imaging Report ---
REASON FOR EXAMINATION: COVID positive, hypoxia. Upright AP portable chest was obtained and compared to 03/20/2020. Heart size and mediastinum are within normal limits for size. Central line projects to the cavoatrial junction. Worsening infiltrates bilaterally mostly on the left side but some of this may be accentuated by decreased lung volumes. Surgical clips in the left apex region. Trace left pleural effusion. No cavitation or air-fluid level. IMPRESSION: 1. Increasing bilateral infiltrates especially in the left lung but some of this may be accentuated by lower lung volumes today. Trace left pleural effusion. Dictated by: Dictated on workstation # [id number]
[2020-03-25] MEDS: ENOXAPARIN 40 MG/0.4 ML (LOVENOX) SYR SC SCH ×2 (07:40→20:27)
[2020-03-25] MEDS: AZITHROMYCIN 250 MG TAB (ZITHROMAX) PO SCH (07:40)
--- NOTE | 2020-03-25 08:25 | NUR ---
PT TRANSFERRED TO ICU RM4 VIA WC FROM 4TH FLOOR W/ STAFF AND PERSONAL BELONGINGS. PT A&0 X4, BREATHING EVEN AND UNLABORED AT THIS TIME ON 10L HI [place]. VSS. NO C/O. RECEIVED REPORT FROM MERI MORTON. WILL CONT TO MONITOR PT.
--- NOTE | 2020-03-25 08:25 | NUR ---
report given to SELENE Butler from ICU at this time.
--- NOTE | 2020-03-25 08:43 | Pulmonary Consultation ---
History of Present Illness History of Present Illness Date Seen by Provider: Mar 25, 2020 Time Seen by Provider: 08:43 Date of Admission Allergies and Home Medications Allergies Coded Allergies: No Known Drug Allergies (Unverified , 04/04/17) Home Medications Azithromycin 250 Mg Tablet, 250 MG PO DAILY, (Reported) FILLED 03-19-2020 #4/4 DAY SUPPLY Gabapentin 300 Mg Capsule, 300 MG PO TID PRN for NEUROPATHY , (Reported) Hydrocodone/Acetaminophen 1 Each Tablet, 1 EA PO TID PRN for PAIN-MODERATE (5- 7), (Reported) Melatonin 5 Mg Tablet, 5 MG PO HS, (Reported) Sennosides 8.6 Mg Tablet, 8.6 MG PO HS, (Reported) Simethicone 180 Mg Capsule, 180 MG PO HS, (Reported) Past Ocbfdpn-Jxetky-Loarbv Hx Past Med/Social Hx: Reviewed Nursing Past Med/Soc Hx Patient Social History Recent Foreign Travel: No Contact w/Someone Who Travel: No Recent Infectious Disease Expo: Yes (DIAGNOSED COVID 19) Recent Hopitalizations: No Seasonal Allergies Seasonal Allergies: No Past Medical History Surgeries: Yes (TUMOR REMOR REMOVED FROM BLADDER, BLADDER REMOVAL 02/18/20, PORT PLACEMENT) Bladder Surgery (removal) Respiratory: No Cardiac: No Neurological: No Genitourinary: Yes Kidney Stones Gastrointestinal: No Musculoskeletal: No Endocrine: No HEENT: No Cancer: Yes Bladder Did You Recieve Any Treatments: Yes What Type of Treatment Did You: Chemotherapy, Surgical Intervention Psychosocial: No Integumentary: No Blood Disorders: No Review of Systems Time Seen by Provider: 09:30 Sepsis Event Evaluation Height, Weight, BMI Height: 5'5.50" Weight: 179lbs. 0.0oz. 81.550815tt; 28.83 BMI Method: Exam Exam Vital Signs Date Time Temp Pulse Resp B/P (MAP) Pulse Ox O2 Delivery O2 Flow Rate FiO2 03/25/20 07:07 90 High Flow N/C 10.00 03/25/20 03:40 36.0 72 20 135/84 (101) 94 High Flow N/C 4.00 03/24/20 23:22 36.1 67 18 138/80 (99) 96 High Flow N/C 4.00 03/24/20 20:00 Nasal Cannula 4.00 03/24/20 19:46 35.4 67 18 138/87 (104) 93 High Flow N/C 4.00 03/24/20 19:20 94 Nasal Cannula 4.00 03/24/20 16:35 35.6 71 92 36 03/24/20 16:00 35.6 73 18 136/85 (102) 95 High Flow N/C 4.00 03/24/20 14:38 94 Nasal Cannula 4.00 03/24/20 11:55 37.4 78 20 123/78 (93) 93 High Flow N/C 4.00 03/24/20 11:19 94 Nasal Cannula 4.00 I & O 03/25/20 07:00 Intake Total 1200 ml Output Total 2150 ml Balance -950 ml Height & Weight Height: 5'5.50" Weight: 179lbs. 0.0oz. 81.346894om; 28.83 BMI Method: General Appearance: No Apparent Distress, Chronically ill HEENT: PERRL/EOMI, Moist Mucous Membranes Neck: Normal Inspection, Supple Respiratory: Lungs Clear, No Respiratory Distress Cardiovascular: Regular Rate, Rhythm, No Murmur Capillary Refill: Less Than 3 Seconds Extremity: Normal Capillary Refill, No Calf Tenderness, No Pedal Edema Neurologic/Psychiatric: Alert, Oriented x3 Skin: Normal Color, Warm/Dry Results Lab Laboratory Tests 03/24/20 06:40 03/25/20 06:25 Assessment/Plan Assessment/Plan COVID 19 PNA -Check PCT and BNP -Check CXR -convalescent Plasma and Remdesivir -Decadron -Transfer to ICU -oxygen Bladder cancer stage IV with mets Anemia LINETTE ERWIN DO Mar 25, 2020 08:43
[2020-03-25 09:55] LABS: FIBRIN DEGRADATION PRODUCTS 2.58 UG/ML (0.00-0.49)
[2020-03-25] MEDS ORDERED: ENOXAPARIN 40 MG/0.4 ML (LOVENOX) SYR SC SCH (12:00)
[2020-03-25] MEDS: REMDESIVIR INJ (NON-FORMULARY) 100 MG in NS (IVPB) 230 ML IV SCH (13:52)
--- NOTE | 2020-03-25 14:38 | Progress Note - Hospitalist ---
Subjective HPI/CC On Admission Date Seen by Provider: Mar 25, 2020 Time Seen by Provider: 07:55 patient is a 60-year-old female with past medical history of stage IV bladder cancer who presented to the ER due to nausea and vomiting. She recently had surgery for bladder removal on 02/17 at [facility]. She did well following that but contract COVID19 last week. She was seen in the ER of 03/18 and was able to DC home but has not improved. She has tried Zofran without improvement. She was admitted for intractable nausea and vomiting. This morning she states she is feeling better and was able to eat some breakfast and keep it down. Subjective/Events-last exam Pt had increasing oxygen requirement to 10lpm this morning. When I entered room sats were 90% at rest but dropped to 88-89 with talking. Discussed with patient and Dr Aaron regarding transferring to the ICU and both agreeable given worsening. Objective Exam Vital Signs Vital Signs Date Time Temp Pulse Resp B/P (MAP) Pulse Ox O2 Delivery O2 Flow Rate FiO2 03/25/20 14:00 75 108/84 (92) 95 High Flow N/C 6.00 03/25/20 12:02 36.9 03/25/20 08:25 24 03/24/20 16:35 36 Capillary Refill : Less Than 3 Seconds General Appearance: No Apparent Distress, WD/WN Respiratory: Lungs Clear, No Respiratory Distress Cardiovascular: Regular Rate, Rhythm, No Murmur Neurologic/Psychiatric: Alert, Oriented x3 Results/Procedures Lab Laboratory Tests 03/25/20 06:25 Patient resulted labs reviewed. Imaging: Reviewed Imaging Report Assessment/Plan Assessment and Plan Assess & Plan/Chief Complaint COVID19 Continue decadron Zofran and Phenergan prn nausea Continue remdesivir s/p conv plasma Tessalon available for cough Lovenox Transfer to the ICU Anemia Appears to be around her baseline since December trend Not sure when last chemo was Bladder cancer- stage IV s/p cystectomy Follows with Dr Ayers No acute needs HTN Well controlled currently, trend Hold home meds DVT ppx: Lovenox Diagnosis/Problems Diagnosis/Problems (1) Bladder cancer Status: Chronic Qualifiers: Bladder location: unspecified site Qualified Codes: C67.9 - Malignant neoplasm of bladder, unspecified (2) COVID-19 Status: Acute (3) Nausea & vomiting Status: Acute Qualifiers: Vomiting type: unspecified Vomiting Intractability: intractable Qualified Codes: R11.2 - Nausea with vomiting, unspecified (4) Metastasis from bladder cancer Status: Chronic (5) Acute respiratory failure Qualifiers: Respiratory failure complication: hypoxia Qualified Codes: J96.01 - Acute respiratory failure with hypoxia Clinical Quality Measures DVT/VTE Risk/Contraindication: Risk Factor Score Per Nursin RFS Level Per Nursing on Admit: 4+=Very High ROSHAN KRAUS MD Mar 25, 2020 14:38
[2020-03-25] MEDS: SIMETHICONE 80 MG (MYLICON) CHEW PO SCH (20:27)
[2020-03-25] MEDS: MELATONIN 3 MG TABLET PO PRN (20:29)
[2020-03-26] VITALS (24 sets, daily range): BP systolic 99–150; BP diastolic 42–91
[2020-03-26 01:43] LABS: MEAN PLATELET VOLUME 9.2 FL (7.4-10.4); WHITE BLOOD COUNT 4.2 10^3/uL (4.3-11.0)
[2020-03-26 01:50] LABS: ALBUMIN 3.2 GM/DL (3.2-4.5); CHLORIDE 108 MMOL/L (98-107); POTASSIUM 3.9 MMOL/L (3.6-5.0); SODIUM 139 MMOL/L (135-145)
[2020-03-26 01:52] LABS: CALCIUM 8.6 MG/DL (8.5-10.1)
[2020-03-26 01:53] LABS: GLUCOSE 88 MG/DL (70-105); TOTAL PROTEIN 6.1 GM/DL (6.4-8.2)
[2020-03-26 01:54] LABS: CARBON DIOXIDE 21 MMOL/L (21-32)
[2020-03-26 01:55] LABS: BILIRUBIN,TOTAL 0.3 MG/DL (0.1-1.0)
[2020-03-26 01:56] LABS: ALKALINE PHOSPHATASE 52 U/L (40-136); CREATININE SERUM 0.93 MG/DL (0.60-1.30); GFR ESTIMATED > 60
[2020-03-26 01:57] LABS: BUN/CREATININE RATIO 26
[2020-03-26 01:59] LABS: ALANINE AMINOTRANSFERASE 17 U/L (0-55)
[2020-03-26] MEDS: RT-ALBUTEROL INHALER HFA (VENTOLIN HFA) 18 GM IH SCH ×6 (02:41→21:37)
[2020-03-26 04:27] LABS: PHOSPHORUS 3.5 MG/DL (2.3-4.7)
[2020-03-26 04:28] LABS: MAGNESIUM 1.8 MG/DL (1.6-2.4)
--- NOTE | 2020-03-26 05:44 | Progress Note - Hospitalist ---
Subjective HPI/CC On Admission Date Seen by Provider: Mar 26, 2020 Time Seen by Provider: 11:30 patient is a 60-year-old female with past medical history of stage IV bladder cancer who presented to the ER due to nausea and vomiting. She recently had surgery for bladder removal on 02/17 at [facility]. She did well following that but contract COVID19 last week. She was seen in the ER of 03/18 and was able to DC home but has not improved. She has tried Zofran without improvement. She was admitted for intractable nausea and vomiting. This morning she states she is feeling better and was able to eat some breakfast and keep it down. Subjective/Events-last exam Patient feels better Transferred to ICU yesterday morning No pain reported Breathing better Less cough Reviewed meds and labs and imaging Hgb 8.0 5L/min currently Review of Systems Pulmonary: Dyspnea, Cough Objective Exam Vital Signs Vital Signs Date Time Temp Pulse Resp B/P (MAP) Pulse Ox O2 Delivery O2 Flow Rate FiO2 03/26/20 16:00 79 129/75 (93) 96 Nasal Cannula 3.50 03/26/20 07:51 36.9 03/25/20 08:25 24 03/24/20 16:35 36 Capillary Refill : Less Than 3 Seconds General Appearance: No Apparent Distress, WD/WN Respiratory: Chest Non Tender, No Accessory Muscle Use, No Respiratory Distress, Decreased Breath Sounds Cardiovascular: Regular Rate, Rhythm, No Edema, No Gallop, No JVD, No Murmur, Normal Peripheral Pulses Neurologic/Psychiatric: Alert, Oriented x3, No Motor/Sensory Deficits, Normal Mood/Affect Results/Procedures Lab Laboratory Tests 03/26/20 01:30 Patient resulted labs reviewed. Imaging: Reviewed Imaging Report Assessment/Plan Assessment and Plan Assess & Plan/Chief Complaint Assessment: COVID-19 PNA Bladder cancer Stage IV with mets Anemia of cancer Plan: s/p plasma On Remdesivir Monitor closely Clinical Quality Measures DVT/VTE Risk/Contraindication: Risk Factor Score Per Nursin RFS Level Per Nursing on Admit: 4+=Very High TORO ALVAREZ DO Mar 26, 2020 05:44
[2020-03-26] MEDS: dexAMETHasone 6 MG TAB (DECADRON) PO SCH (06:44)
[2020-03-26] MEDS: ONDANSETRON 4 MG/2 ML (SDV) Z0FRAN IVP PRN (07:51)
[2020-03-26] MEDS: ENOXAPARIN 40 MG/0.4 ML (LOVENOX) SYR SC SCH ×2 (07:52→21:36)
[2020-03-26] MEDS: polyethylene glycoL POWDER 17 GM (MIRALAX) PACK PO SCH ×2 (12:35→21:36)
[2020-03-26] MEDS: REMDESIVIR INJ (NON-FORMULARY) 100 MG in NS (IVPB) 230 ML IV SCH (14:49)
[2020-03-26] MEDS: ACETAMINOPHEN 500 MG TAB (TYLENOL) PO PRN (16:48)
[2020-03-26] MEDS: SIMETHICONE 80 MG (MYLICON) CHEW PO SCH (21:36)
[2020-03-26] MEDS: MELATONIN 3 MG TABLET PO PRN (21:36)
[2020-03-27] VITALS (23 sets, daily range): BP systolic 95–126; BP diastolic 49–80
[2020-03-27] MEDS: ONDANSETRON 4 MG/2 ML (SDV) Z0FRAN IVP PRN (00:30)
[2020-03-27] MEDS: RT-ALBUTEROL INHALER HFA (VENTOLIN HFA) 18 GM IH SCH ×6 (02:18→22:54)
[2020-03-27] MEDS: dexAMETHasone 6 MG TAB (DECADRON) PO SCH (05:57)
[2020-03-27 06:23] LABS: HEMOGLOBIN 8.2 G/DL (11.5-16.0); WHITE BLOOD COUNT 6.2 10^3/uL (4.3-11.0)
[2020-03-27 06:51] LABS: ALBUMIN 3.1 GM/DL (3.2-4.5)
[2020-03-27 06:52] LABS: POTASSIUM 3.6 MMOL/L (3.6-5.0)
[2020-03-27 06:53] LABS: CALCIUM 8.2 MG/DL (8.5-10.1)
[2020-03-27 06:54] LABS: TOTAL PROTEIN 6.1 GM/DL (6.4-8.2)
--- NOTE | 2020-03-27 06:55 | Progress Note - Hospitalist ---
Subjective HPI/CC On Admission Date Seen by Provider: Mar 27, 2020 Time Seen by Provider: 11:00 patient is a 60-year-old female with past medical history of stage IV bladder cancer who presented to the ER due to nausea and vomiting. She recently had surgery for bladder removal on 02/17 at [facility]. She did well following that but contract COVID19 last week. She was seen in the ER of 03/18 and was able to DC home but has not improved. She has tried Zofran without improvement. She was admitted for intractable nausea and vomiting. This morning she states she is feeling better and was able to eat some breakfast and keep it down. Subjective/Events-last exam Patient was doing well until this morning she had tachycardia and dyspnea while in chair and desaturation Titrating O2 on and off BM treatment will be initiated with Miralax and Senna Patient has no pain Labs stable Review of Systems General: Fatigue, Malaise Pulmonary: Dyspnea, Cough Objective Exam Vital Signs Vital Signs Date Time Temp Pulse Resp B/P (MAP) Pulse Ox O2 Delivery O2 Flow Rate FiO2 03/27/20 16:00 80 118/69 (85) 97 High Flow N/C 5.00 03/27/20 08:29 37.8 03/25/20 08:25 24 03/24/20 16:35 36 Capillary Refill : Less Than 3 Seconds General Appearance: No Apparent Distress, WD/WN, Chronically ill Respiratory: Chest Non Tender, Lungs Clear, No Accessory Muscle Use, No Respiratory Distress, Decreased Breath Sounds Cardiovascular: Regular Rate, Rhythm, No Edema, No Gallop, No JVD, No Murmur, Normal Peripheral Pulses Neurologic/Psychiatric: Alert, Oriented x3, No Motor/Sensory Deficits, Normal Mood/Affect Results/Procedures Lab Laboratory Tests 03/27/20 06:00 Patient resulted labs reviewed. Imaging: Reviewed Imaging Report Assessment/Plan Assessment and Plan Assess & Plan/Chief Complaint Assessment: COVID-19 PNA Bladder cancer Stage IV with mets Anemia of cancer Plan: s/p plasma On Remdesivir Monitor closely Remain in ICU due to desaturation when in chair this am Clinical Quality Measures DVT/VTE Risk/Contraindication: Risk Factor Score Per Nursin RFS Level Per Nursing on Admit: 4+=Very High TORO ALVAREZ DO Mar 27, 2020 06:55
[2020-03-27 06:56] LABS: BILIRUBIN,TOTAL 0.7 MG/DL (0.1-1.0)
--- NOTE | 2020-03-27 08:21 | Diagnostic Imaging Report ---
Indication: Hypoxemia Portable chest 12:17 AM Right IJ Port-A-Cath tip projects over the SVC. There is some patchy areas of alveolar infiltrate in both lungs. These have improved compared to 03/25/2020. IMPRESSION: Improving pulmonary infiltrates Dictated by: Dictated on workstation # [id number]
[2020-03-27] MEDS: ENOXAPARIN 40 MG/0.4 ML (LOVENOX) SYR SC SCH ×2 (08:43→19:43)
[2020-03-27] MEDS: SIMETHICONE 80 MG (MYLICON) CHEW PO SCH (19:44)
[2020-03-27] MEDS: polyethylene glycoL POWDER 17 GM (MIRALAX) PACK PO SCH (19:45)
[2020-03-27] MEDS: MELATONIN 3 MG TABLET PO PRN (19:45)
[2020-03-27] MEDS: ACETAMINOPHEN 500 MG TAB (TYLENOL) PO PRN (19:45)
[2020-03-28] VITALS (13 sets, daily range): BP systolic 94–122; BP diastolic 55–109
[2020-03-28] MEDS: RT-ALBUTEROL INHALER HFA (VENTOLIN HFA) 18 GM IH SCH ×6 (02:04→22:46)
[2020-03-28 02:09] LABS: BASOPHILS % (AUTO) 0 % (0-10); EOSINOPHILS % (AUTO) 0 % (0-10); HEMATOCRIT 25 % (35-52); HEMOGLOBIN 7.8 G/DL (11.5-16.0); LYMPHOCYTES # (AUTO) 0.3 X 10^3 (1.0-4.0); LYMPHOCYTES % (AUTO) 7 % (12-44); MEAN CORPUSCULAR HEMOGLOBIN 24 PG (25-34); MEAN CORPUSCULAR HGB CONC 31 G/DL (32-36); MEAN CORPUSCULAR VOLUME 77 FL (80-99); MEAN PLATELET VOLUME 9.6 FL (7.4-10.4); MONOCYTES # (AUTO) 0.2 X 10^3 (0.0-1.0); MONOCYTES % (AUTO) 4 % (0-12); NEUTROPHILS # (AUTO) 4.7 X 10^3 (1.8-7.8); NEUTROPHILS % (AUTO) 89 % (42-75); PLATELET COUNT 164 10^3/uL (130-400); WHITE BLOOD COUNT 5.2 10^3/uL (4.3-11.0)
[2020-03-28 02:22] LABS: CALCIUM 8.5 MG/DL (8.5-10.1); CREATININE SERUM 0.95 MG/DL (0.60-1.30); MAGNESIUM 1.7 MG/DL (1.6-2.4); PHOSPHORUS 2.5 MG/DL (2.3-4.7)
[2020-03-28 02:44] LABS: BAND NEUTROPHILS 3 %; LYMPHOCYTES % (MANUAL) 7 %; MONOCYTES % (MANUAL) 4 %; NEUTROPHILS % (MANUAL) 86 %; NUCLEATED RED BLOOD CELLS 2
[2020-03-28 02:45] LABS: ANISOCYTOSIS MODERATE; HYPOCHROMASIA MODERATE; MICROCYTOSIS MODERATE; POIKILOCYTOSIS MODERATE; TARGET CELLS MODERATE
--- NOTE | 2020-03-28 04:57 | Pulmonary Progress Note ---
Subjective Time Seen by a Provider: 04:54 Subjective/Events-last exam Pt is still requiring high flow oxygen. Sepsis Event Evaluation Height, Weight, BMI Height: 5'5.50" Weight: 179lbs. 0.0oz. 81.284545ib; 28.83 BMI Method: Exam Exam Vital Signs Date Time Temp Pulse Resp B/P (MAP) Pulse Ox O2 Delivery O2 Flow Rate FiO2 03/28/20 03:00 High Flow N/C 6.00 03/28/20 03:00 37.0 03/28/20 02:05 90 High Flow N/C 6.00 03/28/20 02:00 77 122/77 (92) 93 High Flow N/C 6.00 03/28/20 01:00 71 03/28/20 01:00 71 121/70 (87) 99 High Flow N/C 6.00 03/28/20 00:00 64 105/65 (78) 100 High Flow N/C 6.00 03/27/20 23:35 High Flow N/C 6.00 03/27/20 23:00 67 106/66 (79) 99 High Flow N/C 6.00 03/27/20 22:00 76 109/67 (81) 99 High Flow N/C 6.00 03/27/20 21:00 83 108/65 (79) 98 High Flow N/C 6.00 03/27/20 20:39 37.1 03/27/20 20:39 37.1 03/27/20 20:00 110 119/63 (81) 93 High Flow N/C 6.00 03/27/20 19:50 High Flow N/C 6.00 03/27/20 19:45 38.4 03/27/20 19:39 38.4 High Flow N/C 6.00 03/27/20 19:00 89 126/50 (75) High Flow N/C 5.00 03/27/20 19:00 89 03/27/20 18:45 37.0 03/27/20 18:23 97 High Flow N/C 5.00 03/27/20 18:00 93 122/72 (89) High Flow N/C 5.00 03/27/20 17:00 88 121/80 (94) 96 High Flow N/C 5.00 03/27/20 16:00 High Flow N/C 5.00 03/27/20 16:00 80 118/69 (85) 97 High Flow N/C 5.00 03/27/20 15:00 86 95/73 (80) 95 High Flow N/C 5.00 03/27/20 14:11 95 High Flow N/C 5.00 03/27/20 14:00 79 109/72 (84) 95 High Flow N/C 5.00 03/27/20 13:00 71 104/64 (77) 97 High Flow N/C 5.00 03/27/20 12:49 76 03/27/20 12:00 76 99/64 (76) 96 High Flow N/C 5.00 03/27/20 11:55 High Flow N/C 5.00 03/27/20 11:00 86 99/56 (70) 93 High Flow N/C 5.00 03/27/20 10:38 94 High Flow N/C 5.00 03/27/20 10:00 86 118/74 (89) 96 High Flow N/C 5.00 03/27/20 09:00 103 98/72 (81) 92 High Flow N/C 5.00 03/27/20 09:00 High Flow N/C 5.00 03/27/20 08:45 High Flow N/C 5.00 03/27/20 08:29 37.8 03/27/20 08:00 98 90 High Flow N/C 3.00 03/27/20 07:00 101 03/27/20 07:00 107 113/58 (76) 92 High Flow N/C 3.00 03/27/20 06:54 93 High Flow N/C 5.00 03/27/20 06:00 105 97/61 (73) 97 High Flow N/C 5.00 03/27/20 05:00 112 96/49 (65) 91 High Flow N/C 5.00 I & O 03/28/20 07:00 Intake Total 740 ml Output Total 1750 ml Balance -1010 ml Height & Weight Height: 5'5.50" Weight: 179lbs. 0.0oz. 81.234401ah; 28.83 BMI Method: General Appearance: No Apparent Distress, WD/WN, Chronically ill HEENT: PERRL/EOMI, Moist Mucous Membranes Neck: Normal Inspection, Supple Respiratory: Chest Non Tender, Lungs Clear, No Accessory Muscle Use, No Respiratory Distress, Decreased Breath Sounds Cardiovascular: Regular Rate, Rhythm, No Edema, No Gallop, No JVD, No Murmur, Normal Peripheral Pulses Capillary Refill: Less Than 3 Seconds Extremity: Normal Capillary Refill, No Calf Tenderness, No Pedal Edema Neurologic/Psychiatric: Alert, Oriented x3, No Motor/Sensory Deficits, Normal Mood/Affect Skin: Normal Color, Warm/Dry Results Lab Laboratory Tests 03/27/20 06:00 03/28/20 01:45 Assessment/Plan Assessment/Plan COVID 19 PNA -S/p Plasma and Remdesivir -Decadron -oxygen -Secondary to fever repeat molina cultures and PCT. -Repeat Ferritin and Ddimer Bladder cancer stage IV with mets Anemia LINETTE ERWIN DO Mar 28, 2020 04:57
[2020-03-28] MEDS ORDERED: FUROSEMIDE 40 MG/4 ML INJ (LASIX) IVP ONE (05:00)
[2020-03-28] MEDS: ONDANSETRON 4 MG/2 ML (SDV) Z0FRAN IVP PRN (05:01)
[2020-03-28] MEDS: dexAMETHasone 6 MG TAB (DECADRON) PO SCH (06:04)
[2020-03-28 06:20] LABS: BILIRUBIN,URINE NEGATIVE (NEGATIVE); CLARITY,URINE CLOUDY; COLOR,URINE YELLOW; GLUCOSE, URINE (UA) NEGATIVE (NEGATIVE); KETONES,URINE NEGATIVE (NEGATIVE); LEUKOCYTE ESTERASE ,URINE 2+ (NEGATIVE); NITRITE,URINE POSITIVE (NEGATIVE); PROTEIN,URINE 2+ (NEGATIVE)
[2020-03-28 06:25] LABS: PH,URINE >=9.0 (5-9)
[2020-03-28 06:33] LABS: AMORPHOUS SEDIMENT,UR FEW AMOR PHOSPHATE /LPF; BACTERIA,URINE LARGE /HPF; CALCIUM OXALATE CRYSTALS,UR FEW /LPF; RBC,URINE 0-2 /HPF; SQUAMOUS EPITHELIAL CELL,UR RARE /HPF
[2020-03-28 06:34] LABS: TRIPLE PHOSPHATE CRYSTAL,UR LARGE /LPF
[2020-03-28] MEDS: ENOXAPARIN 40 MG/0.4 ML (LOVENOX) SYR SC SCH ×2 (07:40→20:02)
[2020-03-28] MEDS ORDERED: KCL 20 MEQ TAB (K-DUR) PO ONE (09:00)
[2020-03-28] MEDS ORDERED: RT-ALBUTEROL INHALER HFA (VENTOLIN HFA) 18 GM IH PRN (12:00)
--- NOTE | 2020-03-28 14:28 | NUR ---
Pt is Buddhist. Test Driller spoke with her by phone and contacted the [facility] designated ultrasound tester for anointing.
[2020-03-28] MEDS: SIMETHICONE 80 MG (MYLICON) CHEW PO SCH (20:02)
[2020-03-28] MEDS: polyethylene glycoL POWDER 17 GM (MIRALAX) PACK PO SCH (20:03)
[2020-03-28] MEDS: MELATONIN 3 MG TABLET PO PRN (22:59)
[2020-03-29] VITALS (7 sets, daily range): BP systolic 104–144; BP diastolic 62–85
[2020-03-29] MEDS: RT-ALBUTEROL INHALER HFA (VENTOLIN HFA) 18 GM IH SCH ×6 (02:54→20:39)
[2020-03-29 03:53] LABS: BASOPHILS % (AUTO) 0 % (0-10); EOSINOPHILS % (AUTO) 0 % (0-10); HEMATOCRIT 24 % (35-52); HEMOGLOBIN 7.5 G/DL (11.5-16.0); LYMPHOCYTES # (AUTO) 0.4 X 10^3 (1.0-4.0); LYMPHOCYTES % (AUTO) 7 % (12-44); MEAN CORPUSCULAR HEMOGLOBIN 24 PG (25-34); MEAN CORPUSCULAR HGB CONC 31 G/DL (32-36); MEAN CORPUSCULAR VOLUME 77 FL (80-99); MEAN PLATELET VOLUME 9.7 FL (7.4-10.4); MONOCYTES # (AUTO) 0.3 X 10^3 (0.0-1.0); MONOCYTES % (AUTO) 5 % (0-12); NEUTROPHILS % (AUTO) 89 % (42-75); PLATELET COUNT 175 10^3/uL (130-400); WHITE BLOOD COUNT 5.6 10^3/uL (4.3-11.0)
[2020-03-29 04:15] LABS: CHLORIDE 100 MMOL/L (98-107); POTASSIUM 4.2 MMOL/L (3.6-5.0); SODIUM 134 MMOL/L (135-145)
[2020-03-29 04:16] LABS: CALCIUM 8.7 MG/DL (8.5-10.1)
[2020-03-29 04:17] LABS: GLUCOSE 110 MG/DL (70-105)
[2020-03-29 04:18] LABS: CARBON DIOXIDE 24 MMOL/L (21-32)
[2020-03-29 04:20] LABS: CREATININE SERUM 0.94 MG/DL (0.60-1.30); GFR ESTIMATED > 60; PHOSPHORUS 2.5 MG/DL (2.3-4.7)
[2020-03-29 04:21] LABS: BUN/CREATININE RATIO 33
[2020-03-29] MEDS ORDERED: AMOXICILLIN 500 MG (POLYMOX) CAP PO STA (04:50)
--- NOTE | 2020-03-29 04:53 | Pulmonary Progress Note ---
Subjective Time Seen by a Provider: 04:47 Sepsis Event Evaluation Height, Weight, BMI Height: 5'5.50" Weight: 179lbs. 0.0oz. 81.583403go; 28.83 BMI Method: Exam Exam Vital Signs Date Time Temp Pulse Resp B/P (MAP) Pulse Ox O2 Delivery O2 Flow Rate FiO2 03/29/20 04:00 68 119/66 (83) 94 High Flow N/C 2.00 03/29/20 03:38 36.6 03/29/20 02:55 96 High Flow N/C 3.00 03/29/20 01:00 63 03/29/20 00:00 66 104/62 (76) 95 High Flow N/C 2.00 03/28/20 23:12 High Flow N/C 2.00 03/28/20 23:01 35.6 2.00 03/28/20 22:50 96 High Flow N/C 3.00 03/28/20 20:30 High Flow N/C 3.00 03/28/20 20:05 36.1 73 16 109/75 (86) 100 High Flow N/C 3.00 03/28/20 19:00 72 03/28/20 18:40 95 High Flow N/C 3.50 03/28/20 16:00 75 103/70 (81) 93 High Flow N/C 3.50 03/28/20 15:50 36.1 03/28/20 13:59 95 High Flow N/C 4.00 03/28/20 12:42 76 03/28/20 12:00 79 107/60 (76) 98 High Flow N/C 3.50 03/28/20 11:51 35.4 03/28/20 11:12 High Flow N/C 3.50 03/28/20 10:52 36.8 74 95 36 03/28/20 10:12 94 High Flow N/C 4.00 03/28/20 08:08 High Flow N/C 3.50 03/28/20 08:00 85 117/109 (112) 96 High Flow N/C 3.50 03/28/20 07:36 36.8 03/28/20 07:00 94 108/55 (72) 96 High Flow N/C 6.00 03/28/20 07:00 94 03/28/20 06:11 36.9 03/28/20 06:00 98 111/65 (80) 95 High Flow N/C 6.00 03/28/20 05:59 95 High Flow N/C 4.00 03/28/20 05:00 114 94/73 (80) 94 High Flow N/C 6.00 03/28/20 05:00 38.9 I & O 03/29/20 07:00 Intake Total 890 ml Output Total 1700 ml Balance -810 ml Height & Weight Height: 5'5.50" Weight: 179lbs. 0.0oz. 81.426995nx; 28.83 BMI Method: General Appearance: No Apparent Distress, WD/WN, Chronically ill HEENT: PERRL/EOMI, Moist Mucous Membranes Neck: Normal Inspection, Supple Respiratory: Chest Non Tender, Lungs Clear, No Accessory Muscle Use, No Resp iratory Distress, Decreased Breath Sounds Cardiovascular: Regular Rate, Rhythm, No Edema, No Gallop, No JVD, No Murmur, Normal Peripheral Pulses Capillary Refill: Less Than 3 Seconds Extremity: Normal Capillary Refill, No Calf Tenderness, No Pedal Edema Neurologic/Psychiatric: Alert, Oriented x3, No Motor/Sensory Deficits, Normal Mood/Affect Skin: Normal Color, Warm/Dry Results Lab Laboratory Tests 03/27/20 06:00 03/28/20 01:45 03/29/20 03:26 Assessment/Plan Assessment/Plan COVID 19 PNA -S/p Plasma and Remdesivir -Decadron -oxygen -Secondary to fever repeat molina cultures and PCT. -Repeat Ferritin and Ddimer UTI with enterococcus -Will start Amoxicillin Bladder cancer stage IV with mets Anemia LINETTE ERWIN DO Mar 29, 2020 04:53
[2020-03-29] MEDS: dexAMETHasone 6 MG TAB (DECADRON) PO SCH (05:28)
[2020-03-29] MEDS: ENOXAPARIN 40 MG/0.4 ML (LOVENOX) SYR SC SCH ×2 (08:56→20:12)
--- NOTE | 2020-03-29 09:24 | NUR ---
DR SANTIAGO ON FLOOR NEW VERBAL ORDERS RECEIVED, SEE ORDER HX, PER DR SANTIAGO PT ABLE TO TRANSFER TO FLOOR. Addendum: 03/29/20 at 0926 by MIYA FRANCIS RN DR ERWIN NOTIFIED EARLIER IN SHIFT REGARDING PT'S DECREASED HGB NO NEW ORDERS RECEIVED. DR SANTIAGO NOTIFIED AND NO NEW ORDERS RECEIVED WILL CONTINUE TO MONITOR.
[2020-03-29] MEDS ORDERED: VANCOMYCIN INJECTION 0.1 MG in NS (IVPB) 250 ML IV SCH (09:30)
[2020-03-29] MEDS ORDERED: cefTRIAXone FOR IV USE 2,000 MG in WATER (STERILE) FOR INJECTION 20 ML IV NR (09:40)
[2020-03-29] MEDS: polyethylene glycoL POWDER 17 GM (MIRALAX) PACK PO SCH ×2 (10:25→20:05)
--- NOTE | 2020-03-29 10:44 | NUR ---
PT MOVED TO ROOM 509 VIA WC ALL PERSONAL ITEMS TRANSFERRED TO ROOM WITH PT. PT SITTING UP IN CHAIR WATCHING TELEVISION, 02 ON AT 2 LITERS PER NC, CALL LIGHT AND OTHER PERSONAL ITEMS WITHIN REACH WILL CONTINUE TO MONITOR.
[2020-03-29] MEDS ORDERED: AMOXICILLIN 500 MG (POLYMOX) CAP PO SCH (13:00)
--- NOTE | 2020-03-29 13:44 | NUR ---
"RD ASSESSMENT PMHx: CA(bladder); recent bladder removal surgery PT INTERACTION: Pt was awake and pleasant during nutrition follow-up. Note pt is COVID-19 positive and follow-up was conducted over the phone. Pt states she has been eating okay since last assessment. Note avg PO intake 58% x4d, per chart review. Pt states some issues with nausea, vomiting, and constipation since last assessment. Note last BM was 03/24, and pt currently on bowel regimen of miralax HS, per chart review. ABNORMAL NUTRITION-RELATED LAB VALUES LOW: Na 134; HIGH: BUN 24; glu 110 Est. kcal needs: 1575 kcal | 20 kcal/kg Est. Pro needs: 63 g Pro | 0.8 g Pro/kg PES STATEMENT: Inadequate oral intake (NI-2.1) related to loss of appetite | nausea | vomiting | constipation as evidenced by pt interview | avg PO intake 58% x4d INTERVENTION: Continue with current diet order of Regular diet. Pt may benefit from nutrition supplementation if PO intake declines. Will continue to follow and reassess as pt needs, intake, and status change. MONITOR/EVALUATE: PO Intake; Plan of Care; Hydration Status; Weight Status; Lab Values Shey Jara, MS, RD, LD"
--- NOTE | 2020-03-29 18:14 | NUR ---
Patient arrived to room at this time, report received from SELENE Shin. I agree with previous RN's assessment and will continue to monitor.
--- NOTE | 2020-03-29 18:16 | NUR ---
PT TRANSFERRED TO ROOM 432 VIA W/C REPORT GIVEN TO KAYLYN MORTON PRIOR TO TRANSFER, ALL PERSONAL ITEMS SENT DOWN WITH PT.
[2020-03-29] MEDS: SIMETHICONE 80 MG (MYLICON) CHEW PO SCH (20:15)
[2020-03-29] MEDS: MELATONIN 3 MG TABLET PO PRN (20:16)
[2020-03-30] MEDS: RT-ALBUTEROL INHALER HFA (VENTOLIN HFA) 18 GM IH SCH ×6 (04:13→21:44)
[2020-03-30 04:49] VITALS: BP 156/94
[2020-03-30] MEDS: dexAMETHasone 6 MG TAB (DECADRON) PO SCH (05:09)
[2020-03-30 05:34] LABS: BASOPHILS % (AUTO) 0 % (0-10); EOSINOPHILS % (AUTO) 0 % (0-10); HEMATOCRIT 25 % (35-52); HEMOGLOBIN 7.7 G/DL (11.5-16.0); LYMPHOCYTES # (AUTO) 0.5 X 10^3 (1.0-4.0); LYMPHOCYTES % (AUTO) 8 % (12-44); MEAN CORPUSCULAR HEMOGLOBIN 23 PG (25-34); MEAN CORPUSCULAR HGB CONC 30 G/DL (32-36); MEAN CORPUSCULAR VOLUME 77 FL (80-99); MEAN PLATELET VOLUME 10.1 FL (7.4-10.4); MONOCYTES # (AUTO) 0.3 X 10^3 (0.0-1.0); MONOCYTES % (AUTO) 6 % (0-12); NEUTROPHILS % (AUTO) 86 % (42-75); PLATELET COUNT 205 10^3/uL (130-400); WHITE BLOOD COUNT 5.8 10^3/uL (4.3-11.0)
[2020-03-30 05:42] LABS: CHLORIDE 103 MMOL/L (98-107); SODIUM 136 MMOL/L (135-145)
[2020-03-30 05:43] LABS: CALCIUM 8.7 MG/DL (8.5-10.1)
[2020-03-30 05:44] LABS: GLUCOSE 93 MG/DL (70-105)
[2020-03-30 05:45] LABS: CARBON DIOXIDE 23 MMOL/L (21-32)
[2020-03-30 05:47] LABS: PHOSPHORUS 2.8 MG/DL (2.3-4.7)
[2020-03-30 05:48] LABS: CREATININE SERUM 0.92 MG/DL (0.60-1.30); GFR ESTIMATED > 60
[2020-03-30 05:49] LABS: BUN/CREATININE RATIO 38
[2020-03-30] MEDS: ONDANSETRON 4 MG/2 ML (SDV) Z0FRAN IVP PRN (07:29)
[2020-03-30 08:00] VITALS: BP 124/62
[2020-03-30] MEDS ORDERED: cefTRIAXone 1,000 MG IV (ROCEPHIN) VIAL ONE (09:06)
[2020-03-30] MEDS ORDERED: WATER (STERILE) FOR INJECTION 10 ML ONE (09:06)
[2020-03-30] MEDS: ENOXAPARIN 40 MG/0.4 ML (LOVENOX) SYR SC SCH ×2 (09:47→20:31)
[2020-03-30] MEDS: cefTRIAXone FOR IV USE 1,000 MG in WATER (STERILE) FOR INJECTION 10 ML IV SCH (09:54)
[2020-03-30 12:00] VITALS: BP 121/78
--- NOTE | 2020-03-30 14:41 | Progress Note - Hospitalist ---
Subjective HPI/CC On Admission Date Seen by Provider: Mar 30, 2020 Time Seen by Provider: 10:35 patient is a 60-year-old female with past medical history of stage IV bladder cancer who presented to the ER due to nausea and vomiting. She recently had surgery for bladder removal on 02/17 at [facility]. She did well following that but contract COVID19 last week. She was seen in the ER of 03/18 and was able to DC home but has not improved. She has tried Zofran without improvement. She was admitted for intractable nausea and vomiting. This morning she states she is feeling better and was able to eat some breakfast and keep it down. Subjective/Events-last exam She is feeling better today. She denies fevers. Her shortness of breath is improving. Her cough is improving. She has no other complaints or concerns. Objective Exam Vital Signs Vital Signs Date Time Temp Pulse Resp B/P (MAP) Pulse Ox O2 Delivery O2 Flow Rate FiO2 03/30/20 12:00 36.7 65 20 121/78 (92) 95 Nasal Cannula 2.00 03/28/20 10:52 36 Capillary Refill : Less Than 3 Seconds General Appearance: No Apparent Distress, WD/WN Respiratory: Lungs Clear, Normal Breath Sounds, No Respiratory Distress Cardiovascular: Regular Rate, Rhythm, No Edema, No Murmur Gastrointestinal: Normal Bowel Sounds, Non Tender, Soft Extremity: Normal Inspection, Non Tender, No Pedal Edema Neurologic/Psychiatric: Alert, Oriented x3, No Motor/Sensory Deficits, Normal Mood/Affect Skin: Normal Color, Warm/Dry Results/Procedures Lab Laboratory Tests 03/30/20 05:00 Patient resulted labs reviewed. Imaging: Reviewed Imaging Report Assessment/Plan Assessment and Plan Assess & Plan/Chief Complaint Acute respiratory failure due to COVID-19 -S/p Plasma and Remdesivir -Decadron -Continue to wean oxygen as able Enterobacter aerogenes bacteremia and UTI -Continue Rocephin -Repeat blood cultures tomorrow morning Anemia -Hgb 7.7, stable, continue to monitor Bladder cancer stage IV with mets -Clinically significant, no acute management needs DVT Prophylaxis: Lovenox Diagnosis/Problems Diagnosis/Problems (1) Bacteremia due to Enterobacter species Status: Acute (2) Infection due to Enterobacter aerogenes Status: Acute (3) UTI (urinary tract infection) Status: Acute (4) Acute respiratory disease due to COVID-19 virus Status: Acute (5) Anemia Status: Acute (6) HTN (hypertension) Status: Chronic (7) Bladder cancer Status: Chronic Qualifiers: Bladder location: unspecified site Qualified Codes: C67.9 - Malignant sherri plasm of bladder, unspecified Clinical Quality Measures DVT/VTE Risk/Contraindication: Risk Factor Score Per Nursin RFS Level Per Nursing on Admit: 4+=Very High JUAN SANTIAGO MD Mar 30, 2020 14:41
[2020-03-30 16:08] VITALS: BP 132/71
[2020-03-30 19:17] VITALS: BP 126/70
[2020-03-30] MEDS: SIMETHICONE 80 MG (MYLICON) CHEW PO SCH (20:31)
[2020-03-30] MEDS: polyethylene glycoL POWDER 17 GM (MIRALAX) PACK PO SCH (20:32)
[2020-03-30] MEDS: MELATONIN 3 MG TABLET PO PRN (21:17)
[2020-03-31] VITALS (7 sets, daily range): BP systolic 111–137; BP diastolic 56–76
[2020-03-31] MEDS: RT-ALBUTEROL INHALER HFA (VENTOLIN HFA) 18 GM IH SCH ×6 (01:54→22:17)
[2020-03-31] MEDS: ACETAMINOPHEN 500 MG TAB (TYLENOL) PO PRN (05:25)
[2020-03-31 05:28] LABS: BASOPHILS % (AUTO) 0 % (0-10); EOSINOPHILS % (AUTO) 0 % (0-10); HEMATOCRIT 25 % (35-52); HEMOGLOBIN 7.7 G/DL (11.5-16.0); LYMPHOCYTES # (AUTO) 0.7 X 10^3 (1.0-4.0); LYMPHOCYTES % (AUTO) 15 % (12-44); MEAN CORPUSCULAR HEMOGLOBIN 24 PG (25-34); MEAN CORPUSCULAR HGB CONC 31 G/DL (32-36); MEAN CORPUSCULAR VOLUME 77 FL (80-99); MEAN PLATELET VOLUME 10.3 FL (7.4-10.4); MONOCYTES # (AUTO) 0.3 X 10^3 (0.0-1.0); MONOCYTES % (AUTO) 5 % (0-12); NEUTROPHILS # (AUTO) 3.9 X 10^3 (1.8-7.8); NEUTROPHILS % (AUTO) 80 % (42-75); PLATELET COUNT 189 10^3/uL (130-400)
[2020-03-31 05:58] LABS: BUN/CREATININE RATIO 33; CALCIUM 8.5 MG/DL (8.5-10.1); CARBON DIOXIDE 23 MMOL/L (21-32); CHLORIDE 102 MMOL/L (98-107); CREATININE SERUM 0.89 MG/DL (0.60-1.30); GFR ESTIMATED > 60; GLUCOSE 83 MG/DL (70-105); PHOSPHORUS 2.8 MG/DL (2.3-4.7); POTASSIUM 4.1 MMOL/L (3.6-5.0); SODIUM 135 MMOL/L (135-145)
[2020-03-31] MEDS: dexAMETHasone 6 MG TAB (DECADRON) PO SCH (06:36)
[2020-03-31] MEDS: ONDANSETRON 4 MG/2 ML (SDV) Z0FRAN IVP PRN (06:36)
[2020-03-31] MEDS ORDERED: cefTRIAXone 1,000 MG IV (ROCEPHIN) VIAL ONE (08:50)
[2020-03-31] MEDS ORDERED: WATER (STERILE) FOR INJECTION 10 ML ONE (08:50)
[2020-03-31] MEDS: cefTRIAXone FOR IV USE 1,000 MG in WATER (STERILE) FOR INJECTION 10 ML IV SCH (09:34)
[2020-03-31] MEDS: ENOXAPARIN 40 MG/0.4 ML (LOVENOX) SYR SC SCH ×2 (09:35→20:32)
[2020-03-31] MEDS ORDERED: IRON SUCROSE 200 MG/10 ML (VENOFER) VIAL IV NR (15:15)
--- NOTE | 2020-03-31 15:22 | Progress Note - Hospitalist ---
Subjective HPI/CC On Admission Date Seen by Provider: Mar 31, 2020 Time Seen by Provider: 11:30 patient is a 60-year-old female with past medical history of stage IV bladder cancer who presented to the ER due to nausea and vomiting. She recently had surgery for bladder removal on 02/17 at [facility]. She did well following that but contract COVID19 last week. She was seen in the ER of 03/18 and was able to DC home but has not improved. She has tried Zofran without improvement. She was admitted for intractable nausea and vomiting. This morning she states she is feeling better and was able to eat some breakfast and keep it down. Subjective/Events-last exam she reports feeling better today. She has some sores in her throat.she is not feeling short of breath. She is not having a cough. He is not having any fevers. She has not noticed any blood loss. She has no other complaints or concerns. Objective Exam Vital Signs Vital Signs Date Time Temp Pulse Resp B/P (MAP) Pulse Ox O2 Delivery O2 Flow Rate FiO2 03/31/20 14:59 91 Nasal Cannula 2.00 03/31/20 12:00 36.0 69 20 111/67 (82) 03/28/20 10:52 36 Capillary Refill : Less Than 3 Seconds General Appearance: No Apparent Distress Respiratory: Lungs Clear, Normal Breath Sounds, No Respiratory Distress Cardiovascular: Regular Rate, Rhythm, No Edema, No Murmur Gastrointestinal: Normal Bowel Sounds, Non Tender, Soft Extremity: Normal Inspection, Non Tender, No Pedal Edema Neurologic/Psychiatric: Alert, Oriented x3, No Motor/Sensory Deficits, Normal Mood/Affect Skin: Normal Color, Warm/Dry Results/Procedures Lab Laboratory Tests 03/31/20 05:05 Patient resulted labs reviewed. Imaging: Reviewed Imaging Report Assessment/Plan Assessment and Plan Assess & Plan/Chief Complaint Acute respiratory failure due to COVID-19 -S/p Plasma and Remdesivir -Decadron -Continue to wean oxygen as able -obtain home oxygen evaluation Enterobacter aerogenes bacteremia and UTI -Continue Rocephin -Repeat blood cultures pending Iron deficiency anemia -Hgb 7.7, stable, continue to monitor -iron infusion today Bladder cancer stage IV with mets -Clinically significant, no acute management needs DVT Prophylaxis: Lovenox Diagnosis/Problems Diagnosis/Problems (1) Bacteremia due to Enterobacter species Status: Acute (2) Infection due to Enterobacter aerogenes Status: Acute (3) UTI (urinary tract infection) Status: Acute (4) Acute respiratory disease due to COVID-19 virus Status: Acute (5) Anemia Status: Acute (6) HTN (hypertension) Status: Chronic (7) Bladder cancer Status: Chronic Qualifiers: Bladder location: unspecified site Qualified Codes: C67.9 - Malignant neoplasm of bladder, unspecified Clinical Quality Measures DVT/VTE Risk/Contraindication: Risk Factor Score Per Nursin RFS Level Per Nursing on Admit: 4+=Very High JUAN SANTIAGO MD Mar 31, 2020 15:22
[2020-03-31] MEDS: polyethylene glycoL POWDER 17 GM (MIRALAX) PACK PO SCH (20:31)
[2020-03-31] MEDS: MELATONIN 3 MG TABLET PO PRN (20:32)
[2020-03-31] MEDS: SIMETHICONE 80 MG (MYLICON) CHEW PO SCH (20:32)
[2020-04-01] VITALS: BP 120/67
[2020-04-01] MEDS: RT-ALBUTEROL INHALER HFA (VENTOLIN HFA) 18 GM IH SCH ×4 (02:51→12:57)
[2020-04-01 04:00] VITALS: BP 125/74
[2020-04-01 05:50] LABS: BASOPHILS % (AUTO) 0 % (0-10); EOSINOPHILS % (AUTO) 0 % (0-10); HEMATOCRIT 25 % (35-52); HEMOGLOBIN 7.6 G/DL (11.5-16.0); LYMPHOCYTES # (AUTO) 0.8 X 10^3 (1.0-4.0); LYMPHOCYTES % (AUTO) 16 % (12-44); MEAN CORPUSCULAR HEMOGLOBIN 24 PG (25-34); MEAN CORPUSCULAR HGB CONC 31 G/DL (32-36); MEAN CORPUSCULAR VOLUME 78 FL (80-99); MEAN PLATELET VOLUME 10.4 FL (7.4-10.4); MONOCYTES # (AUTO) 0.3 X 10^3 (0.0-1.0); MONOCYTES % (AUTO) 6 % (0-12); NEUTROPHILS # (AUTO) 3.9 X 10^3 (1.8-7.8); NEUTROPHILS % (AUTO) 78 % (42-75); PLATELET COUNT 191 10^3/uL (130-400); WHITE BLOOD COUNT 5.1 10^3/uL (4.3-11.0)
[2020-04-01 06:06] LABS: CHLORIDE 103 MMOL/L (98-107); POTASSIUM 4.4 MMOL/L (3.6-5.0); SODIUM 136 MMOL/L (135-145)
[2020-04-01 06:07] LABS: CALCIUM 8.6 MG/DL (8.5-10.1); GLUCOSE 82 MG/DL (70-105)
[2020-04-01 06:09] LABS: CARBON DIOXIDE 24 MMOL/L (21-32)
[2020-04-01 06:11] LABS: CREATININE SERUM 0.84 MG/DL (0.60-1.30); GFR ESTIMATED > 60; PHOSPHORUS 3.1 MG/DL (2.3-4.7)
[2020-04-01 06:12] LABS: BUN/CREATININE RATIO 30
[2020-04-01 06:13] LABS: MAGNESIUM 2.1 MG/DL (1.6-2.4)
[2020-04-01] MEDS: ONDANSETRON 4 MG/2 ML (SDV) Z0FRAN IVP PRN (06:38)
[2020-04-01] MEDS: dexAMETHasone 6 MG TAB (DECADRON) PO SCH (06:38)
[2020-04-01 08:00] VITALS: BP 145/67
[2020-04-01] MEDS ORDERED: cefTRIAXone FOR IV USE 1,000 MG in WATER (STERILE) FOR INJECTION 10 ML IV SCH (09:00)
[2020-04-01] MEDS: ENOXAPARIN 40 MG/0.4 ML (LOVENOX) SYR SC SCH (09:19)
[2020-04-01] MEDS ORDERED: polyethylene glycoL POWDER 17 GM (MIRALAX) PACK PO NR (10:45)
[2020-04-01] MEDS ORDERED: BISACODYL 10 MG SUPP (DULCOLAX) PR NR (10:45)
[2020-04-01] MEDS ORDERED: MAGNESIUM CITRATE 300 ML BTL PO NR (11:00)
[2020-04-01 12:00] VITALS: BP 115/71
--- NOTE | 2020-04-01 12:56 | NUR ---
Patient does not qualify at this time for O2. Patient's O2 saturation did not drop below 93%. Addendum: 04/01/20 at 1256 by BRUCE WASHINGTON RT Amended: Links added.
[2020-04-01] MEDS ORDERED: LEVO750T39 PO (14:41)
[2020-04-01] MEDS ORDERED: FERR325T5 PO (14:43)
[2020-04-01] MEDS ORDERED: FLEET ENEMA ADULT 1 EA BTL PR ONE (15:45)
[2020-04-01 17:30] VITALS: BP 115/71
--- NOTE | 2020-04-02 17:49 | Discharge Summary ---
Discharge Summary Hospital Course Was the Problem List Reviewed?: Yes Problems/Dx: (1) Acute respiratory disease due to COVID-19 virus Status: Acute (2) Bacteremia due to Enterobacter species Status: Acute (3) Infection due to Enterobacter aerogenes Status: Acute (4) UTI (urinary tract infection) Status: Acute (5) Anemia Status: Acute Qualifiers: Qualified Codes: D64.9 - Anemia, unspecified (6) HTN (hypertension) Status: Chronic (7) Bladder cancer Status: Chronic Qualifiers: Qualified Codes: C67.9 - Malignant neoplasm of bladder, unspecified Hospital Course Date of Admission: Mar 20, 2020 at 23:09 Admission Diagnosis: acute respiratory failure due to COVID-19 Family Physician/Provider: Ismael Easton MD Date of Discharge: 04/02/20 Discharge Diagnosis: acute respiratory failure due to COVID-19, Enterobacter UTI and bacteremia Hospital Course: Daly Braswell is a 60-year-old female with past medical history of metastatic bladder cancer who had a recent cystectomy who presented with acute respiratory failure due to COVID-19. She was treated with IV steroids, Remdesivir, and convalescent plasma. Her symptoms improved and she did not require supplemental oxygen at the time of discharge. Her course was complicated by a urinary tract infection and bacteremia due to Enterobacter aerogenes. She was treated with IV antibiotics and then transitioned to oral Levaquin at the time of discharge. She will complete a ten-day course of outpatient antibiotics. Her course was al so complicated by iron deficiency anemia which appears to be chronic. She was given a dose of IV benefit for and then started on oral iron supplementation. She should follow-up with her primary care physician in about a week. Labs and Pending Lab Test: Microbiology 03/31/20 Blood Culture - Preliminary, Resulted No growth 03/28/20 Urine Culture - Final, Complete Enterobacter aerogenes Enterococcus faecalis 03/25/20 MRSA Screen - Final, Complete MRSA not isolated Home Meds Active Ferrous Sulfate 325 Mg Tablet.dr 325 Mg PO DAILY 30 Days Levofloxacin 750 Mg Tablet 750 Mg PO DAILY 10 Days Reported Senokot (Sennosides) 8.6 Mg Tablet 8.6 Mg PO HS Melatonin 5 Mg Tablet 5 Mg PO HS Gas-X Ultra Strength (Simethicone) 180 Mg Capsule 180 Mg PO HS Neurontin (Gabapentin) 300 Mg Capsule 300 Mg PO TID PRN Assessment/Pt Instructions Take medications as prescribed. Complete her course of antibiotics even appear feeling better. You're being set up with home oxygen. Begin taking supplemental iron for iron deficiency anemia. Follow-up with your primary care physician in about a week. Discharge Planning: <30 minutes discharge planning Discharge Instructions Discharge Diet: No Restrictions Activity as Tolerated: Yes Discharge Physical Examination Vital Signs Vital Signs Date Time Temp Pulse Resp B/P (MAP) Pulse Ox O2 Delivery O2 Flow Rate FiO2 04/01/20 17:30 36.6 102 20 115/71 93 Room Air 0.00 03/31/20 15:10 28 General Appearance: No Apparent Distress, WD/WN Respiratory: Lungs Clear, Normal Breath Sounds, No Respiratory Distress Cardiovascular: Regular Rate, Rhythm, No Edema, No Murmur Gastrointestinal: Normal Bowel Sounds, Non Tender, Soft Extremity: Normal Inspection, Non Tender, No Pedal Edema Skin: Normal Color, Warm/Dry Neurologic/Psychiatric: Alert, Oriented x3, No Motor/Sensory Deficits, Normal Mood/Affect Allergies: Coded Allergies: No Known Drug Allergies (Unverified , 04/04/17) Copy Copies To 1: ISMAEL EASTON MD Discharge Summary Date of Admission Mar 20, 2020 at 23:09 Date of Discharge Apr 01, 2020 at 17:30 Discharge Date: Apr 01, 2020 Discharge Time: 17:30 Admission Diagnosis acute respiratory failure due to COVID-19 Discharge Diagnosis Acute respiratory failure due to COVID-19 Enterobacter aerogenes bacteremia and UTI (1) Bacteremia due to Enterobacter species Status: Acute (2) Infection due to Enterobacter aerogenes Status: Acute (3) UTI (urinary tract infection) Status: Acute (4) Acute respiratory disease due to COVID-19 virus Status: Acute (5) Anemia Status: Acute Qualifiers: Qualified Codes: D64.9 - Anemia, unspecified (6) HTN (hypertension) Status: Chronic (7) Bladder cancer Status: Chronic Qualifiers: Qualified Codes: C67.9 - Malignant neoplasm of bladder, unspecified Clinical Quality Measures DVT/VTE Risk/Contraindication: Risk Factor Score Per Nursin RFS Level Per Nursing on Admit: 4+=Very High JUAN SANTIAGO MD Apr 02, 2020 17:47
== END 2020-04-01 17:30 | disposition home or self-care (01) | DRG 177 ==
LOC: EDUNIT# 20:49 → ER 20:50 → 4TH 23:09 → ICU 03-25 08:29 → CSD 03-29 10:10 → 4TH 03-29 18:06
PROVIDERS: ADMIT Family Medicine; ATTEND Internal Medicine
PROC: XW033E5 Introduction of Remdesivir Anti-infective into Peripheral Vein, Percutaneous Approach, New Technology Group 5 (ICD-10-PCS; 2020-03-22)
PROC: XW13325 Transfusion of Convalescent Plasma (Nonautologous) into Peripheral Vein, Percutaneous Approach, New Technology Group 5 (ICD-10-PCS; principal; 2020-03-23)
DX: U07.1 COVID-19 (principal); J96.01 Acute respiratory failure with hypoxia; J18.9 Pneumonia, unspecified organism; N39.0 Urinary tract infection, site not specified; R78.81 Bacteremia; C79.9 Secondary malignant neoplasm of unspecified site; C67.9 Malignant neoplasm of bladder, unspecified; D63.0 Anemia in neoplastic disease; B95.2 Enterococcus as the cause of diseases classified elsewhere; B96.89 Other specified bacterial agents as the cause of diseases classified elsewhere; D50.9 Iron deficiency anemia, unspecified; R11.2 Nausea with vomiting, unspecified; I10 Essential (primary) hypertension; Z90.6 Acquired absence of other parts of urinary tract; Z92.21 Personal history of antineoplastic chemotherapy; Z87.442 Personal history of urinary calculi
CPT/HCPCS: 36415; 71045; 80048; 80053; 81000; 82728; 83735; 83880; 84100; 84145; 85007; 85025; 85027; 85379; 85384; 86141; 86850; 86900; 86901; 87040; 87077; 87081; 87088; 87186; 94640; 94664; 94760; 94761; 96361; 96374

== ENCOUNTER → 2020-04-22 | Outpatient (CLI) | payer BC ==
[~2020-04-22] MED LIST changes: +ACHD5005 PO; +BARIUM SUSPENSION 2.1% (VANILLA SILQ) 450 ML PO ONE; +CATHETER FLUSH 10 ML SYR IV PRN; +FERR325T5 PO; +GABA300C PO; +HOLD METFORMIN - RECEIVED CONTRAST 20 ML VIAL IV SCH; +IOHEXOL 350 MG/ML 100 ML (OMNIPAQUE 350) VIAL IV ONE; +LEVO750T39 PO; +MELA5TAB14 PO; +NS 100 ML (IVPB) BAG IV ONE; +SENN-36 PO; +SIME180C4 PO
--- NOTE | 2020-04-22 12:19 | Diagnostic Imaging Report ---
PROCEDURE: CT chest with contrast, CT abdomen and pelvis with and without contrast. TECHNIQUE: Pre and post intravenous contrast axial imaging of the abdomen and pelvis and post contrast axial imaging of the chest were performed. Auto Exposure Controls were utilized during the CT exam to meet ALARA standards for radiation dose reduction. INDICATION: Bladder carcinoma, follow-up. COMPARISON is made with prior CT from 01/01/2020. CT CHEST: A right chest wall port remains in place with its tip entering the right atrium. No axillary lymphadenopathy is detected. No mediastinal or hilar lymphadenopathy is detected. No pericardial or pleural fluid is detected. The lung bases demonstrate areas of subsegmental atelectasis or scarring. No parenchymal mass or nodule is identified. IMPRESSION: 1. No evidence of thoracic lymphadenopathy or pulmonary metastatic disease. CT ABDOMEN AND PELVIS: Previously noted right lobe liver mass remains stable at 2.4 cm. No new liver mass is identified. Gallbladder is unremarkable. There is no biliary ductal dilatation. Pancreas and spleen are unremarkable. No adrenal mass is detected. Right kidney is unremarkable. The left kidney again demonstrates hydronephrosis. The high density noted in the mid left ureter is similar to prior exam. The aorta is calcified but nonaneurysmal. No central retroperitoneal lymphadenopathy is seen. A cystic lesion has developed just to the right of the right common iliac artery measuring 3.2 cm transverse diameter. This has low-density measurements suggestive of a cyst. The enlarged right iliac lymph node seen on prior study has completely resolved. Patient now has an ostomy in the right lower quadrant. Bladder appears to be surgically absent. There is free fluid in the pelvis. No inguinal lymphadenopathy is seen. Bowel loops are normal caliber. IMPRESSION: 1. Stable right lobe liver mass. No new liver mass is detected. 2. Resolution of previously noted right iliac lymphadenopathy since prior CT. No new areas of abdominal or pelvic lymphadenopathy are detected. 3. Continued significant left-sided hydronephrosis. No excretion of contrast into the left renal collecting system is identified consistent with high-grade obstruction. The area of high density mid left ureter is similar to prior exam and a ureteral lesion cannot be entirely excluded. 4. Postop changes with right lower quadrant ostomy. There is some free fluid in the pelvis. A benign-appearing cyst has developed in the right pelvis and may represent a seroma. No other significant abnormality is detected. Dictated by: Dictated on workstation # [id number]
--- NOTE | 2020-04-22 15:16 | Diagnostic Imaging Report ---
INDICATION: Bladder cancer. TECHNIQUE: The patient was administered 25.4 mCi technetium 99m MDP intravenously and whole-body imaging was performed after a 3 hour delay. CORRELATION is made with bone scan from 01/01/2020. There is uptake of activity by the axial and appendicular skeleton. There is uptake by the right kidney with excretion of activity into the right renal collecting system. Large accumulation of activity is seen in the right lower quadrant from patient's ostomy bag. No significant excretion of activity into the left renal collecting system is seen consistent with high-grade obstruction. Bony structures are unremarkable. No findings to suggest osseous metastatic disease are identified. IMPRESSION: No scintigraphic evidence of osseous metastatic disease. Dictated by: Dictated on workstation # [id number]
== END ==
LOC: CARD 10:45
PROVIDERS: ATTEND Nurse Practitioner Adult Health
DX: C67.1 Malignant neoplasm of dome of bladder (principal); N28.89 Other specified disorders of kidney and ureter; N13.30 Unspecified hydronephrosis; N83.201 Unspecified ovarian cyst, right side; R16.0 Hepatomegaly, not elsewhere classified; R59.0 Localized enlarged lymph nodes; Z98.890 Other specified postprocedural states
CPT/HCPCS: 71260; 74178; 78306

== ENCOUNTER → 2020-06-14 | Outpatient (CLI) | payer BC ==
[~2020-06-14] MED LIST changes: -BARIUM SUSPENSION 2.1% (VANILLA SILQ) 450 ML PO ONE; -CATHETER FLUSH 10 ML SYR IV PRN; -HOLD METFORMIN - RECEIVED CONTRAST 20 ML VIAL IV SCH; -IOHEXOL 350 MG/ML 100 ML (OMNIPAQUE 350) VIAL IV ONE; -NS 100 ML (IVPB) BAG IV ONE
--- NOTE | 2020-06-14 12:58 | Diagnostic Imaging Report ---
INDICATION: Bladder cancer and abnormal CT scan. TECHNIQUE: Serum blood glucose level at the time of injection was 122 mg/dL. Patient was administered 14.4 mCi of F-18 FDG intravenously in the right forearm and PET imaging was performed from the top of skull to mid thighs. Noncontrast CT was also performed for attenuation correction and anatomic correlation. COMPARISON: Correlation is made with prior PET/CT study from 04/14/[address] chest, abdomen and pelvis study from 04/22/2020. FINDINGS: There is symmetric activity throughout the brain. Normal physiologic activity within the soft tissues of the neck is identified. No definite mediastinal or hilar hypermetabolism is identified. No pulmonary parenchymal hypermetabolism is identified. Abdomen and pelvis demonstrate physiologic activity throughout the gastrointestinal and genitourinary tracts. Postsurgical changes of cystectomy with right lower quadrant urostomy is again noted. Previously noted hypermetabolic lymph node in the right iliac region is no longer appreciated. There continues to be a lack of activity excreted into the left renal collecting system consistent with high-grade obstruction. No suspicious hypermetabolic activity is identified. IMPRESSION: Resolution of previously noted hypermetabolic right iliac lymph node when compared with prior PET/CT from 04/14/2019. No new hypermetabolic focus is identified. There continues to be high-grade obstruction of the left ureter, seen on prior CT studies. Dictated by: Dictated on workstation # [id number]
== END ==
LOC: RAD 08:15
PROVIDERS: ATTEND Internal Medicine Hematology & Oncology
DX: C67.9 Malignant neoplasm of bladder, unspecified (principal); C77.0 Secondary and unspecified malignant neoplasm of lymph nodes of head, face and neck; R93.89 Abnormal findings on diagnostic imaging of other specified body structures

== ENCOUNTER 2020-07-11 10:04 | Outpatient (RCR) | payer BC ==
[2020-04-18 09:37] LABS: BASOPHILS % (AUTO) 0 % (0-10); EOSINOPHILS # (AUTO) 0.1 10^3/uL (0.0-0.3); EOSINOPHILS % (AUTO) 2 % (0-10); HEMATOCRIT 25 % (35-52); HEMOGLOBIN 7.4 g/dL (11.5-16.0); LYMPHOCYTES # (AUTO) 1.1 10^3/uL (1.0-4.0); LYMPHOCYTES % (AUTO) 26 % (12-44); MEAN CORPUSCULAR HEMOGLOBIN 24 pg (25-34); MEAN CORPUSCULAR HGB CONC 29 g/dL (32-36); MEAN CORPUSCULAR VOLUME 81 fL (80-99); MEAN PLATELET VOLUME 9.3 fL (9.0-12.2); MONOCYTES # (AUTO) 0.5 10^3/uL (0.0-1.0); MONOCYTES % (AUTO) 13 % (0-12); NEUTROPHILS # (AUTO) 2.3 10^3/uL (1.8-7.8); NEUTROPHILS % (AUTO) 58 % (42-75); PLATELET COUNT 293 10^3/uL (130-400)
[2020-04-18 09:58] LABS: ALBUMIN 3.3 GM/DL (3.2-4.5); BILIRUBIN,TOTAL 0.2 MG/DL (0.1-1.0); CALCIUM 8.8 MG/DL (8.5-10.1); CREATININE SERUM 1.13 MG/DL (0.60-1.30); POTASSIUM 4.9 MMOL/L (3.6-5.0); TOTAL PROTEIN 6.9 GM/DL (6.4-8.2)
[2020-05-10 09:08] LABS: BASOPHILS % (AUTO) 0 % (0-10); HEMATOCRIT 28 % (35-52); HEMOGLOBIN 8.3 g/dL (11.5-16.0); MEAN CORPUSCULAR HGB CONC 30 g/dL (32-36); NEUTROPHILS # (AUTO) 2.5 10^3/uL (1.8-7.8); NEUTROPHILS % (AUTO) 60 % (42-75); WHITE BLOOD COUNT 4.1 10^3/uL (4.3-11.0)
[2020-05-10 09:11] LABS: ABSOLUTE RETIC # 83 10e9/uL (24-90); EOSINOPHILS # (AUTO) 0.1 10^3/uL (0.0-0.3); EOSINOPHILS % (AUTO) 2 % (0-10); LYMPHOCYTES # (AUTO) 1.1 10^3/uL (1.0-4.0); LYMPHOCYTES % (AUTO) 28 % (12-44); MEAN CORPUSCULAR HEMOGLOBIN 24 pg (25-34); MEAN CORPUSCULAR VOLUME 80 fL (80-99); MONOCYTES # (AUTO) 0.4 10^3/uL (0.0-1.0); MONOCYTES % (AUTO) 10 % (0-12); PLATELET COUNT 325 10^3/uL (130-400); RETICULOCYTE % 2.39 % (0.50-2.40)
[2020-05-10 09:29] LABS: ALBUMIN 3.7 GM/DL (3.2-4.5); BILIRUBIN,TOTAL 0.3 MG/DL (0.1-1.0); CALCIUM 9.1 MG/DL (8.5-10.1); CREATININE SERUM 1.19 MG/DL (0.60-1.30); POTASSIUM 4.6 MMOL/L (3.6-5.0); TOTAL PROTEIN 7.2 GM/DL (6.4-8.2)
[2020-05-30 11:06] LABS: BASOPHILS % (AUTO) 0 % (0-10); EOSINOPHILS # (AUTO) 0.2 10^3/uL (0.0-0.3); EOSINOPHILS % (AUTO) 4 % (0-10); HEMATOCRIT 30 % (35-52); HEMOGLOBIN 8.6 g/dL (11.5-16.0); LYMPHOCYTES # (AUTO) 1.5 10^3/uL (1.0-4.0); LYMPHOCYTES % (AUTO) 30 % (12-44); MEAN CORPUSCULAR HEMOGLOBIN 24 pg (25-34); MEAN CORPUSCULAR HGB CONC 29 g/dL (32-36); MEAN CORPUSCULAR VOLUME 82 fL (80-99); MEAN PLATELET VOLUME 9.3 fL (9.0-12.2); MONOCYTES # (AUTO) 0.4 10^3/uL (0.0-1.0); MONOCYTES % (AUTO) 8 % (0-12); NEUTROPHILS % (AUTO) 58 % (42-75); PLATELET COUNT 273 10^3/uL (130-400); WHITE BLOOD COUNT 5.2 10^3/uL (4.3-11.0)
[2020-05-30 11:42] LABS: ALBUMIN 3.9 GM/DL (3.2-4.5); BILIRUBIN,TOTAL 0.4 MG/DL (0.1-1.0); CALCIUM 9.1 MG/DL (8.5-10.1); CREATININE SERUM 1.27 MG/DL (0.60-1.30); POTASSIUM 4.4 MMOL/L (3.6-5.0); TOTAL PROTEIN 7.3 GM/DL (6.4-8.2)
[2020-06-20 09:35] LABS: BASOPHILS % (AUTO) 1 % (0-10); EOSINOPHILS # (AUTO) 0.2 10^3/uL (0.0-0.3); EOSINOPHILS % (AUTO) 5 % (0-10); HEMATOCRIT 32 % (35-52); HEMOGLOBIN 9.2 g/dL (11.5-16.0); LYMPHOCYTES # (AUTO) 1.3 10^3/uL (1.0-4.0); LYMPHOCYTES % (AUTO) 32 % (12-44); MEAN CORPUSCULAR HEMOGLOBIN 24 pg (25-34); MEAN CORPUSCULAR HGB CONC 28 g/dL (32-36); MEAN CORPUSCULAR VOLUME 83 fL (80-99); MEAN PLATELET VOLUME 9.1 fL (9.0-12.2); MONOCYTES # (AUTO) 0.4 10^3/uL (0.0-1.0); MONOCYTES % (AUTO) 10 % (0-12); NEUTROPHILS # (AUTO) 2.1 10^3/uL (1.8-7.8); NEUTROPHILS % (AUTO) 53 % (42-75); PLATELET COUNT 275 10^3/uL (130-400)
[2020-06-20 09:54] LABS: ALBUMIN 3.9 GM/DL (3.2-4.5); BILIRUBIN,TOTAL 0.2 MG/DL (0.1-1.0); CALCIUM 9.3 MG/DL (8.5-10.1); CREATININE SERUM 1.2 MG/DL (0.60-1.30); POTASSIUM 4.8 MMOL/L (3.6-5.0); TOTAL PROTEIN 7.6 GM/DL (6.4-8.2)
[~2020-07-11 10:04] MED LIST changes: +NS IV 500 ML (CANCER CENTER) 500 ML IV SCH; +PEMBROLIZUMAB 200 MG in NS (IVPB) CANCER CENTER 50 ML IV SCH
[2020-07-11 10:39] LABS: BASOPHILS % (AUTO) 0 % (0-10); EOSINOPHILS # (AUTO) 0.1 10^3/uL (0.0-0.3); EOSINOPHILS % (AUTO) 2 % (0-10); HEMATOCRIT 34 % (35-52); HEMOGLOBIN 9.5 g/dL (11.5-16.0); LYMPHOCYTES # (AUTO) 1.1 10^3/uL (1.0-4.0); LYMPHOCYTES % (AUTO) 23 % (12-44); MEAN CORPUSCULAR HEMOGLOBIN 23 pg (25-34); MEAN CORPUSCULAR HGB CONC 28 g/dL (32-36); MEAN CORPUSCULAR VOLUME 83 fL (80-99); MONOCYTES # (AUTO) 0.4 10^3/uL (0.0-1.0); MONOCYTES % (AUTO) 8 % (0-12); NEUTROPHILS # (AUTO) 3.1 10^3/uL (1.8-7.8); NEUTROPHILS % (AUTO) 66 % (42-75); PLATELET COUNT 267 10^3/uL (130-400); WHITE BLOOD COUNT 4.7 10^3/uL (4.3-11.0)
[2020-07-11 11:02] LABS: BILIRUBIN,TOTAL 0.2 MG/DL (0.1-1.0); CALCIUM 9.3 MG/DL (8.5-10.1); CREATININE SERUM 1.11 MG/DL (0.60-1.30); POTASSIUM 4.2 MMOL/L (3.6-5.0); TOTAL PROTEIN 7.7 GM/DL (6.4-8.2)
== END 2020-07-13 14:39 | disposition home or self-care (01) ==
LOC: ONC 10:04
PROVIDERS: ATTEND Internal Medicine Hematology & Oncology
DX: Z51.11 Encounter for antineoplastic chemotherapy (principal); C67.1 Malignant neoplasm of dome of bladder; C77.0 Secondary and unspecified malignant neoplasm of lymph nodes of head, face and neck; C78.1 Secondary malignant neoplasm of mediastinum; I10 Essential (primary) hypertension; G43.909 Migraine, unspecified, not intractable, without status migrainosus; D50.9 Iron deficiency anemia, unspecified; N13.5 Crossing vessel and stricture of ureter without hydronephrosis; M16.12 Unilateral primary osteoarthritis, left hip; D63.0 Anemia in neoplastic disease; G62.9 Polyneuropathy, unspecified; Z79.899 Other long term (current) drug therapy; Z92.21 Personal history of antineoplastic chemotherapy; Z96.642 Presence of left artificial hip joint; Z90.6 Acquired absence of other parts of urinary tract; Z98.890 Other specified postprocedural states; Z90.722 Acquired absence of ovaries, bilateral; Z90.710 Acquired absence of both cervix and uterus; Z90.89 Acquired absence of other organs
CPT/HCPCS: 36591; 80053; 82728; 83540; 83615; 84443; 85025; 85045; 96413

== ENCOUNTER 2020-08-01 08:47 | Outpatient (RCR) | payer BC ==
[2020-08-01 09:10] LABS: BASOPHILS % (AUTO) 0 % (0-10); EOSINOPHILS # (AUTO) 0.1 10^3/uL (0.0-0.3); EOSINOPHILS % (AUTO) 1 % (0-10); HEMATOCRIT 33 % (35-52); HEMOGLOBIN 9.8 g/dL (11.5-16.0); LYMPHOCYTES # (AUTO) 1.2 10^3/uL (1.0-4.0); LYMPHOCYTES % (AUTO) 22 % (12-44); MEAN CORPUSCULAR HEMOGLOBIN 23 pg (25-34); MEAN CORPUSCULAR HGB CONC 30 g/dL (32-36); MEAN CORPUSCULAR VOLUME 77 fL (80-99); MEAN PLATELET VOLUME 9.2 fL (9.0-12.2); MONOCYTES # (AUTO) 0.5 10^3/uL (0.0-1.0); MONOCYTES % (AUTO) 10 % (0-12); NEUTROPHILS # (AUTO) 3.7 10^3/uL (1.8-7.8); NEUTROPHILS % (AUTO) 67 % (42-75); PLATELET COUNT 269 10^3/uL (130-400); WHITE BLOOD COUNT 5.6 10^3/uL (4.3-11.0)
[2020-08-01 09:35] LABS: ALBUMIN 4.1 GM/DL (3.2-4.5); BILIRUBIN,TOTAL 0.4 MG/DL (0.1-1.0); CALCIUM 9.4 MG/DL (8.5-10.1); CREATININE SERUM 1.15 MG/DL (0.60-1.30); TOTAL PROTEIN 7.5 GM/DL (6.4-8.2)
[2020-08-15] MEDS ORDERED: ACET-2267 PO (10:42)
[2020-08-15] MEDS ORDERED: GABA300C PO (10:42)
[2020-08-15] MEDS ORDERED: LACT10SO64 PO (10:42)
[2020-08-15] MEDS ORDERED: SENN1TAB67 PO (10:42)
[2020-08-15] MEDS ORDERED: METO5TAB2 PO (10:42)
[2020-08-15] MEDS ORDERED: ASPI-1238 PO (10:42)
[2020-08-15] MEDS ORDERED: NITR100C10 PO (10:42)
== END 2020-08-26 15:44 | disposition home or self-care (01) ==
LOC: ONC 08:47
PROVIDERS: ATTEND Internal Medicine Hematology & Oncology
DX: Z51.11 Encounter for antineoplastic chemotherapy (principal); C67.1 Malignant neoplasm of dome of bladder; C77.0 Secondary and unspecified malignant neoplasm of lymph nodes of head, face and neck; C78.1 Secondary malignant neoplasm of mediastinum; I10 Essential (primary) hypertension; G43.909 Migraine, unspecified, not intractable, without status migrainosus; D50.9 Iron deficiency anemia, unspecified; N13.5 Crossing vessel and stricture of ureter without hydronephrosis; M16.12 Unilateral primary osteoarthritis, left hip; D63.0 Anemia in neoplastic disease; G62.9 Polyneuropathy, unspecified; Z79.899 Other long term (current) drug therapy; Z92.21 Personal history of antineoplastic chemotherapy; Z96.642 Presence of left artificial hip joint; Z90.6 Acquired absence of other parts of urinary tract; Z98.890 Other specified postprocedural states; Z90.722 Acquired absence of ovaries, bilateral; Z90.710 Acquired absence of both cervix and uterus; Z90.89 Acquired absence of other organs
CPT/HCPCS: 36591; 80053; 83615; 84443; 85025; 96413

== ENCOUNTER 2020-08-08 11:16 | Outpatient (CLI) | payer BC ==
[~2020-08-08] VITALS: Ht 165.1 cm; Wt 79.5 kg
[~2020-08-08 11:16] MED LIST changes: -NS IV 500 ML (CANCER CENTER) 500 ML IV SCH; -PEMBROLIZUMAB 200 MG in NS (IVPB) CANCER CENTER 50 ML IV SCH
[2020-08-08 11:20] VITALS: BP 128/72
[2020-08-08] MEDS ORDERED: LACTATED RINGERS 1,000 ML IV SCH (11:45)
== END 2020-08-08 12:38 | disposition home or self-care (01) ==
LOC: SDC 11:16
PROVIDERS: ATTEND Family Medicine
DX: E86.0 Dehydration (principal); R11.2 Nausea with vomiting, unspecified
CPT/HCPCS: 96360